=== PATIENT | female | born 1935 | race Caucasian/White ===

== ENCOUNTER 2018-02-03 18:15 | Emergency (ER) | payer MEDICARE, BC ==
[2018-02-03 18:23] VITALS: BP 154/57
--- NOTE | 2018-02-03 18:52 | EDM.PDOC ---
ED HPI GENERAL MEDICAL PROBLEM - General Chief Complaint: General Stated Complaint: BACK PAIN/constipation Time Seen by Provider: 02/03/18 18:30 Source of Information: Reports: Patient History Limitations: Reports: No Limitations - History of Present Illness INITIAL COMMENTS - FREE TEXT/NARRATIVE: patient is a 82-year-old who states that about a week ago she fell was seen by her private a practitioner x-rays obtainedno fractures was sent home on Ultram for pain control she now complains of 4 days of constipation and crampy lower abdominal pain Onset: Gradual Duration: Day(s):, Getting Worse Location: Reports: Abdomen Severity: Moderate Improves with: Reports: None Worsens with: Reports: Movement Context: Reports: Trauma (fall) Associated Symptoms: Reports: Nausea/Vomiting Bilateral Lower Back Pain Score (Numeric/FACES): 9 - Related Data Allergies Allergy/AdvReac Type Severity Reaction Status Date / Time atropine sulfate Allergy Cannot Verified 02/03/18 19:08 [From Lomotil] Remember diphenoxylate HCl Allergy Cannot Verified 02/03/18 19:08 [From Lomotil] Remember Sulfa (Sulfonamide Allergy Muscle Verified 02/03/18 19:08 Antibiotics) Aches, Muscle Stiffness Home Meds: Home Meds ALPRAZolam [Xanax] 1 mg PO TID 02/07/14 [History] DULoxetine [Cymbalta] 60 mg PO BEDTIME 02/07/14 [History] Levothyroxine 75 mcg PO QAM 02/07/14 [History] Lutein/Min/Vit C/Vit E Acetate [Ocuvite Lutein] 1 cap PO DAILY 02/07/14 [History ] Polyvinyl Alcohol/Povidone [Refresh] 1 drop EYEBOTH BID PRN 02/07/14 [History] Rosuvastatin [Crestor] 2.5 mg PO BEDTIME 02/07/14 [History] Sodium Chloride 1,000 mg PO QID 02/07/14 [History] Nitrofurantoin Monohyd/M-Cryst [Macrobid 100 mg Capsule] 100 mg PO BID #20 capsule 06/27/14 [Rx] Phenazopyridine [Pyridium] 200 mg PO TID #6 tab 06/27/14 [Rx] Social & Family History - Living Situation & Occupation Living situation: Reports: Occupation: Retired ED ROS GENERAL - Review of Systems Review Of Systems: See Below Constitutional: Reports: No Symptoms HEENT: Reports: No Symptoms Respiratory: Reports: No Symptoms Cardiovascular: Reports: No Symptoms Endocrine: Reports: No Symptoms GI/Abdominal: Reports: Abdominal Pain : Reports: No Symptoms Musculoskeletal: Reports: No Symptoms Skin: Reports: No Symptoms Neurological: Reports: No Symptoms Psychiatric: Reports: No Symptoms Hematologic/Lymphatic: Reports: No Symptoms ED EXAM, GENERAL - Physical Exam Exam: See Below Exam Limited By: No Limitations General Appearance: Alert, WD/WN, No Apparent Distress Ears: Normal External Exam, Normal Canal, Hearing Grossly Normal, Normal TMs Nose: Normal Inspection, Normal Mucosa, No Blood Throat/Mouth: Normal Inspection, Normal Lips, Normal Teeth, Normal Gums, Normal Oropharynx, Normal Voice, No Airway Compromise Head: Atraumatic, Normocephalic Neck: Normal Inspection, Supple, Non-Tender, Full Range of Motion Respiratory/Chest: No Respiratory Distress, Lungs Clear, Normal Breath Sounds, No Accessory Muscle Use, Chest Non-Tender Cardiovascular: Normal Peripheral Pulses, Regular Rate, Rhythm, No Edema, No Gallop, No JVD, No Murmur, No Rub GI/Abdominal: No Abnormal Bruit, No Mass, Pelvis Stable, Distended, Tender ( hypogastric area) (Female) Exam: Deferred Rectal (Female) Exam: Normal Rectal Tone, Other (no stool in vault) Back Exam: Normal Inspection, Full Range of Motion, NT Extremities: Normal Inspection, Normal Range of Motion, Non-Tender, Normal Capillary Refill, No Pedal Edema Neurological: Alert, Oriented, CN II-XII Intact, Normal Cognition, Normal Gait, Normal Reflexes, No Motor/Sensory Deficits Psychiatric: Normal Affect, Normal Mood Skin Exam: Warm, Dry, Intact, Normal Color, No Rash Lymphatic: No Adenopathy Course - Vital Signs Last Recorded V/S: Last Vital Signs Temp 98.7 F 02/03/18 18:16 Pulse 93 02/03/18 18:16 Resp 16 02/03/18 18:16 BP 154/57 H 02/03/18 18:16 Pulse Ox 93 L 02/03/18 18:16 - Orders/Labs/Meds Orders: Active Orders 24 hr Category Date Time Status Abdomen 1V Upright [CR] Stat Exams 02/03/18 18:28 Taken UA W/MICROSCOPIC [URIN] Stat Lab 02/03/18 18:39 Ordered Departure - Departure Time of Disposition: 20:18 Disposition: Home, Self-Care 01 Condition: Fair Clinical Impression: Ileus - Discharge Information Instructions: Ileus Referrals: Esther Urbano NP [Primary Care Provider] - Forms: ED Department Discharge Care Plan Goals: joshua has an ileus will send her home her constipation has improved she is to drink water or Gatorade stop the carbonated drinks and ambulateif things get worse patient is to become a return to the ER for evaluation treatment - My Orders Last 24 Hours: My Active Orders 02/03/18 18:28 Abdomen 1V Upright [CR] Stat 02/03/18 18:39 UA W/MICROSCOPIC [URIN] Stat - Assessment/Plan Last 24 Hours: My Active Orders 02/03/18 18:28 Abdomen 1V Upright [CR] Stat 02/03/18 18:39 UA W/MICROSCOPIC [URIN] Stat
== END 2018-02-03 20:43 | disposition home or self-care (01) ==
LOC: LL.ED 18:15
DX: K56.7 Ileus, unspecified (principal); Z88.8 Allergy status to other drugs, medicaments and biological substances; Z88.2 Allergy status to sulfonamides; Z79.899 Other long term (current) drug therapy
CPT/HCPCS: 74018; 81001; 99284

== ENCOUNTER 2018-02-08 10:59 | Inpatient (IN) | payer MEDICARE, BC ==
[2018-02-08] MEDS ORDERED: Lactated Ringers 1,000 ML IV SCH (11:30)
--- NOTE | 2018-02-08 13:33 | PCM.HP ---
H&P History of Present Illness - General Date of Service: 02/08/18 Admit Problem/Dx: Admission Diagnosis/Problem Admission Diagnosis/Problem Compression fracture Source of Information: Patient, EMS Notes Reviewed - History of Present Illness Initial Comments - Free Text/Narative: Patient presents to the clinic in distress due to pain, bent over complains of abd pain lower and low back pain. Patient complains of constipation. She fell recently in her bedroom landing on her buttock, had Xrays and MRI of L/S done which showed compression of L1. Patient has seen interventional radiology at [place] was told to call back on Sunday February 11, 2018 to see how her pain was doing. She was using tramadol at home but had stopped the medication due to constipation. She has received Toradol injections in the clinic with short term relief. last BM was this morning but loose. decreased appetite due to the pain. Patient rates pain 9/10 today. Onset of Symptoms: Reports: Sudden Duration of Symptoms: Reports: Constant Location: Reports: Abdomen, Back Quality: Reports: Sharp, Stabbing Improves with: Reports: Medication Worsens with: Reports: Cold Therapy Associated Symptoms: Reports: Weakness - Related Data Allergies/Adverse Reactions: Allergies Allergy/AdvReac Type Severity Reaction Status Date / Time atropine sulfate Allergy Cannot Verified 02/03/18 19:08 [From Lomotil] Remember diphenoxylate HCl Allergy Cannot Verified 02/03/18 19:08 [From Lomotil] Remember Sulfa (Sulfonamide Allergy Muscle Verified 02/03/18 19:08 Antibiotics) Aches, Muscle Stiffness Home Medications: Home Meds ALPRAZolam [Xanax] 1 mg PO TID@0800,1200,199902/07/14 [History] DULoxetine [Cymbalta] 60 mg PO BEDTIME 02/07/14 [History] Levothyroxine 75 mcg PO QAM 02/07/14 [History] Lutein/Min/Vit C/Vit E Acetate [Ocuvite Lutein] 1 cap PO Q12HR 02/07/14 [History ] Polyvinyl Alcohol/Povidone [Refresh] 1 drop EYEBOTH BID 02/07/14 [History] Rosuvastatin [Crestor] 2.5 mg PO BEDTIME 02/07/14 [History] Sodium Chloride 1,000 mg PO TID@0800,1200,199902/07/14 [History] Ascorbic Acid [Vitamin C] 250 mg PO MOWEFR@0800 02/03/18 [History] Cholecalciferol (Vitamin D3) [Vitamin D3] 1,000 units PO Q12HR 02/03/18 [History ] Metoprolol Tartrate 12.5 mg PO BID 02/03/18 [History] Multivitamin [Multivitamins] 1 each PO MOWETH@0800 02/03/18 [History] Pantoprazole Sodium [Protonix] 20 mg PO DAILY 02/03/18 [History] traMADol [Ultram] 50 mg PO Q4H PRN 02/04/18 [History] Acetaminophen [Tylenol Arthritis] 650 mg PO Q4H 02/08/18 [History] Calcium Carbonate/Vitamin D3 [Calcium 600 + Vit D Tablet] 1 tab PO MOWEFR@0800 02/08/18 [History] Docusate Sodium 200 mg PO DAILY 02/08/18 [History] Polyethylene Glycol 3350 [Miralax] 17 gm PO ASDIRECTED PRN 02/08/18 [History] Past Medical History Cardiovascular History: Reports: High Cholesterol, Hypertension Gastrointestinal History: Reports: GERD, Irritable Bowel Syndrome Musculoskeletal History: Reports: Osteoarthritis Neurological History: Reports: Headaches, Chronic, Migraines Endocrine/Metabolic History: Reports: Hypothyroidism (thyroid removed for cancer ) - Past Surgical History GI Surgical History: Reports: Cholecystectomy Endocrine Surgical History: Reports: Thyroidectomy Musculoskeletal Surgical History: Reports: Arthroscopic Knee Social & Family History - Tobacco Use Smoking Status *Q: Never Smoker - Caffeine Use Caffeine Use: Reports: None - Living Situation & Occupation Living situation: Reports: Occupation: Retired H&P Review of Systems - Review of Systems: Review Of Systems: See Below General: Reports: Weakness, Fatigue HEENT: Reports: No Symptoms Pulmonary: Reports: No Symptoms Cardiovascular: Reports: No Symptoms Gastrointestinal: Reports: Abdominal Pain, Constipation, Decreased Appetite Genitourinary: Reports: No Symptoms Musculoskeletal: Reports: Back Pain Skin: Reports: No Symptoms Psychiatric: Reports: Anxiety Neurological: Reports: No Symptoms Hematologic/Lymphatic: Reports: No Symptoms Immunologic: Reports: No Symptoms Exam - Exam Exam: See Below - Vital Signs Vital Signs: Last Vital Signs Temp 98.2 F 02/08/18 12:00 Pulse 90 02/08/18 12:00 Resp 16 02/08/18 12:00 BP 119/75 06/15/18 12:00 Pulse Ox 100 02/08/18 12:00 Weight: 139 lb 12.8 oz - Exam General: Alert, Oriented, Mild Distress HEENT: Conjunctiva Clear, EACs Clear, EOMI, Hearing Intact, Nares Patent, Normal Nasal Septum, Posterior Pharynx Clear, Pupils Equal, Pupils Reactive, TMs Clear (dry muscous membranes) Neck: Supple, Trachea Midline Lungs: Clear to Auscultation, Normal Respiratory Effort Cardiovascular: Regular Rate, Regular Rhythm, Normal S1, Normal S2 GI/Abdominal Exam: Normal Bowel Sounds, Soft, Non-Tender, No Organomegaly, No Distention, No Abnormal Bruit Back Exam: Normal Inspection, Full Range of Motion (tender over the upper lumbar spine) Extremities: Normal Inspection, Normal Range of Motion, Non-Tender, No Pedal Edema, Normal Capillary Refill Peripheral Pulses: 1+: Posterior Tibial (L), Posterior Tibial (R), Dorsalis Pedis (L), Dorsalis Pedis (R) Skin: Warm, Dry, Intact Neurological: Cranial Nerves Intact, Reflexes Equal Bilateral Neuro Extensive - Mental Status: Alert, Oriented x3, Normal Mood/Affect, Normal Cognition, Memory Intact Neuro Extensive - Motor, Sensory, Reflexes: CN II-XII Intact, Normal Gait, Normal Reflexes DTR: 1+: Patella (L), Patella (R), Achilles (L), Achilles (R) Psychiatric: Alert, Normal Affect, Normal Mood - Problem List (1) Compression fracture SNOMED Code(s): 675405319 ICD Code: [id number] - Status: Acute Current Visit: Yes (2) Dehydration SNOMED Code(s): 20486982 ICD Code: E86.0 - DEHYDRATION Status: Acute Current Visit: Yes (3) Constipation SNOMED Code(s): 79597821 ICD Code: K59.00 - CONSTIPATION, UNSPECIFIED Status: Acute Current Visit : Yes Qualifiers: Constipation type: unspecified constipation type Qualified Code(s): K59.00 - Constipation, unspecified (4) Anxiety SNOMED Code(s): 16394626 ICD Code: F41.9 - ANXIETY DISORDER, UNSPECIFIED Status: Acute Current Visit: Yes (5) Hypertension SNOMED Code(s): 63342437 ICD Code: I10 - ESSENTIAL (PRIMARY) HYPERTENSION Status: Acute Current Visit: Yes Qualifiers: Hypertension type: essential hypertension Qualified Code(s): I10 - Essential (primary) hypertension Problem List Initiated/Reviewed/Updated: Yes Orders Last 24hrs: Active Orders 24 hr Category Date Time Status Patient Status [ADT] Routine ADT 02/08/18 11:26 Active Intake and Output [RC] QSHIFT Care 02/08/18 11:28 Active May Shower [RC] ASDIRECTED Care 02/08/18 11:26 Active Oxygen Therapy [RC] PRN Care 02/08/18 11:26 Active Peripheral IV Care [RC] . DIRECTED Care 02/08/18 11:29 Active Up ad Eladia [RC] ASDIRECTED Care 02/08/18 11:26 Active VTE/DVT Education [RC] PER UNIT ROUTINE Care 02/08/18 11:26 Active Vital Signs [RC] Q4H Care 02/08/18 11:26 Active PT Evaluation and Treatment [CONS] Routine Cons 02/08/18 11:26 Active Regular Diet [DIET] Diet 02/08/18 Lunch Active Abdomen 2V AP Flat Upright [CR] Routine Exams 02/08/18 11:32 Taken CBC WITH AUTO DIFF [HEME] DAILY Lab 02/09/18 05:11 Ordered CBC WITH AUTO DIFF [HEME] DAILY Lab 02/10/18 05:11 Ordered CBC WITH AUTO DIFF [HEME] DAILY Lab 02/11/18 05:11 Ordered CBC WITH AUTO DIFF [HEME] DAILY Lab 02/12/18 05:11 Ordered COMPREHENSIVE METABOLIC PN,CMP [CHEM] DAILY Lab 02/09/18 05:11 Ordered COMPREHENSIVE METABOLIC PN,CMP [CHEM] DAILY Lab 02/10/18 05:11 Ordered COMPREHENSIVE METABOLIC PN,CMP [CHEM] DAILY Lab 02/11/18 05:11 Ordered COMPREHENSIVE METABOLIC PN,CMP [CHEM] DAILY Lab 02/12/18 05:11 Ordered CULTURE URINE [RM] Stat Lab 02/08/18 11:26 Ordered UA W/MICROSCOPIC [URIN] Routine Lab 02/08/18 11:26 Ordered Ketorolac [Toradol] Med 02/08/18 17:00 Active 30 mg IVPUSH Q6H Lactated Ringers [Ringers, Lactated] 1,000 ml Med 02/08/18 11:30 Active IV ASDIRECTED Sodium Chloride 0.9% [Saline Flush] Med 02/08/18 11:26 Active 10 ml FLUSH ASDIRECTED PRN Peripheral IV Insertion Adult [OM.PC] Routine Oth 02/08/18 11:26 Ordered Resuscitation Status Routine Resus Stat 02/08/18 11:26 Ordered Medication Orders Lactated Ringer's (Ringers, Lactated) 1,000 mls @ 50 mls/hr IV ASDIRECTED YAMILET Ketorolac Tromethamine (Toradol) 30 mg IVPUSH Q6H YAMILET Sodium Chloride (Saline Flush) 10 ml FLUSH ASDIRECTED PRN PRN Reason: Keep Vein Open Assessment/Plan Comment:: Patient admitted due to outpatient treatment of compression fracture. Discussed with Dr Garvin , will give scheduled IV toradol and break thru pain medication. Plan to continue with plan of care with Sree JONES on February 11, 2018. Give a dose of MOM for constipation as that has helped in the past. Patient wanting to be hospitalized in [place] for now. Recheck labs in the morning. Ordered PT for strengthening. patient and spouse verbalized understanding and agreed to plan of care. Esther Urbano,PATENT LITIGATION ASSOCIATE
[2018-02-08] MEDS ORDERED: Polyethylene Glycol 3350 Powder 17 GM Packet PO PRN (13:43)
[2018-02-08] MEDS ORDERED: Magnesium Hydroxide 400 MG/5 ML Susp 30 ML Cup PO ONE (13:44)
[2018-02-08] MEDS ORDERED: Acetaminophen 650 MG Tab.ER PO SCH (13:45)
[2018-02-08] MEDS: Ketorolac 30 MG/ML SDV IVPUSH SCH ×2 (16:23→23:18)
[2018-02-08] MEDS: Sodium Chloride 0.9% 10 ML Syringe FLUSH PRN (16:24)
[2018-02-08] MEDS: Acetaminophen 650 MG Tab.ER PO PRN (16:24)
[2018-02-08] MEDS ORDERED: ALPRAZolam 1 MG Tab ONE (17:25)
[2018-02-08] MEDS: Polyvinyl Alcohol 1.4% Ophth Soln 15 ML Bottle EYEBOTH SCH (17:27)
[2018-02-08] MEDS: Metoprolol Tartrate 25 MG Tab PO SCH (17:27)
[2018-02-08] MEDS: Lutein/Minerals/Vitamin C/Vitamin E Acetate Cap PO SCH (17:31)
[2018-02-08] MEDS: ALPRAZolam 1 MG Tab PO SCH ×2 (17:31→20:50)
[2018-02-08] MEDS: Famotidine 20 MG/2 ML SDV IVPUSH SCH (17:32)
[2018-02-08] MEDS ORDERED: Famotidine 20 MG/2 ML SDV IVPUSH SCH (18:00)
[2018-02-08] MEDS: DULoxetine 30 MG Cap PO SCH (20:49)
[2018-02-08] MEDS: Sodium Chloride 1 GM Tab PO SCH (20:50)
[2018-02-08] MEDS: Morphine 2 MG/ML Syringe IVPUSH PRN (20:50)
[2018-02-08] MEDS: Rosuvastatin 10 MG Tab PO SCH (20:50)
[2018-02-09] MEDS ORDERED: Temazepam 15 MG Cap PO PRN (00:56)
[2018-02-09] MEDS: Morphine 2 MG/ML Syringe IVPUSH PRN ×2 (01:21→07:52)
[2018-02-09] MEDS: Sodium Chloride 0.9% 10 ML Syringe FLUSH PRN ×5 (01:22→23:26)
[2018-02-09] MEDS: Ketorolac 30 MG/ML SDV IVPUSH SCH ×4 (05:52→23:25)
[2018-02-09 07:13] LABS: CHLORIDE,CL 96 mmol/L (98-107); SODIUM,NA 130 mmol/L (136-145)
[2018-02-09] MEDS: Lutein/Minerals/Vitamin C/Vitamin E Acetate Cap PO SCH ×2 (07:50→17:39)
[2018-02-09] MEDS: Metoprolol Tartrate 25 MG Tab PO SCH ×2 (07:50→17:39)
[2018-02-09] MEDS: ALPRAZolam 1 MG Tab PO SCH ×3 (07:50→20:48)
[2018-02-09] MEDS: Levothyroxine 75 MCG Tab PO SCH (07:52)
[2018-02-09] MEDS: Docusate Sodium 100 MG Cap PO SCH (07:52)
[2018-02-09] MEDS: Sodium Chloride 1 GM Tab PO SCH ×3 (07:52→20:48)
[2018-02-09] MEDS: Famotidine 20 MG/2 ML SDV IVPUSH SCH (07:54)
[2018-02-09] MEDS ORDERED: Non-Formulary Medication 1 Each (Pantoprazole Sodium [Protonix] 20 MG) PO SCH (08:00)
[2018-02-09] MEDS: Polyvinyl Alcohol 1.4% Ophth Soln 15 ML Bottle EYEBOTH SCH ×2 (08:01→17:39)
[2018-02-09] MEDS: Acetaminophen 650 MG Tab.ER PO PRN (11:44)
[2018-02-09] MEDS ORDERED: Magnesium Hydroxide 400 MG/5 ML Susp 30 ML Cup PO PRN (17:38)
[2018-02-09] MEDS: Rosuvastatin 10 MG Tab PO SCH (20:48)
[2018-02-09] MEDS: Polyethylene Glycol 3350 Powder 17 GM Packet PO SCH (20:48)
[2018-02-09] MEDS: DULoxetine 30 MG Cap PO SCH (20:48)
--- NOTE | 2018-02-09 20:55 | PCM.PN ---
- General Info Date of Service: 02/09/18 Admission Dx/Problem (Free Text): Admission Diagnosis/Problem Admission Diagnosis/Problem Compression fracture Functional Status: Reports: Pain Controlled, Ambulating - Review of Systems General: Reports: No Symptoms HEENT: Reports: No Symptoms Pulmonary: Reports: No Symptoms Cardiovascular: Reports: No Symptoms Gastrointestinal: Reports: Constipation Genitourinary: Reports: No Symptoms Musculoskeletal: Reports: Back Pain (markedly improved today) Skin: Reports: No Symptoms Neurological: Reports: No Symptoms Psychiatric: Reports: Anxiety - Patient Data Vitals - Most Recent: Last Vital Signs Temp 98.3 F 02/09/18 16:00 Pulse 60 02/09/18 17:39 Resp 16 02/09/18 16:00 BP 170/77 H 02/09/18 17:39 Pulse Ox 97 02/09/18 16:00 Weight - Most Recent: 139 lb 12.8 oz I&O - Last 24 Hours: Intake & Output 02/09/18 02/09/18 02/09/18 06:59 14:59 22:59 Intake Total 1540 1200 Balance 1540 1200 Lab Results Last 24 Hours: Laboratory Results - last 24 hr 02/09/18 02/09/18 Range/Units 06:43 06:43 WBC 6.3 (4.0-10.2) K/uL RBC 3.72 L (3.77-5.09) M/uL Hgb 11.3 L (11.7-15.5) g/dL Hct 32.3 L (34.0-46.0) % MCV 86.8 (84.0-98.0) fL MCH 30.4 (28.2-33.3) pg MCHC 35.0 (31.7-36.0) g/dL RDW 11.9 (11.2-14.1) % Plt Count 240 (150-350) K/uL Neut % (Auto) 54.8 (45.0-80.0) % Lymph % (Auto) 30.8 (10.0-50.0) % Parker % (Auto) 10.4 (2.0-14.0) % Eos % (Auto) 3.5 (0.0-5.0) % Baso % (Auto) 0.5 (0.0-2.0) % Neut # (Auto) 3.47 (1.40-7.00) K/uL Lymph # (Auto) 1.95 (0.50-3.50) K/uL Parker # (Auto) 0.66 (0.00-1.00) K/uL Eos # (Auto) 0.22 (0.00-0.50) K/uL Baso # (Auto) 0.03 (0.00-0.20) K/uL Sodium 130 L (136-145) mmol/L Potassium 3.5 (3.5-5.1) mmol/L Chloride 96 L (98-107) mmol/L Carbon Dioxide 26.0 (21.0-32.0) mmol/L BUN 10 (7-18) mg/dL Creatinine 0.68 (0.51-1.17) mg/dL Est Cr Clr Drug Dosing 58.38 mL/min Estimated GFR (MDRD) > 60 mL/min Glucose 94 (74-106) mg/dL Calcium 8.4 L (8.5-10.1) mg/dL Total Bilirubin 0.2 (0.2-1.0) mg/dL AST 23 (15-37) U/L ALT 20 (12-78) U/L Alkaline Phosphatase 83 (46-116) IU/L Total Protein 6.5 (6.4-8.2) g/dL Albumin 3.0 L (3.4-5.0) g/dL Med Orders - Current: Current Medications Acetaminophen (Tylenol Arthritis Pain) 650 mg PO Q4H PRN PRN Reason: Pain Last Admin: 02/09/18 11:44 Dose: 650 mg Alprazolam (Xanax) 1 mg PO TID@0800,1200,2000 [facility] Last Admin: 02/09/18 20:48 Dose: 1 mg Artificial Tears (Liquitears 1.4% Ophth Soln) 0 ml EYEBOTH BID [facility] Last Admin: 02/09/18 17:39 Dose: 1 drop Docusate Sodium (Colace) 200 mg PO DAILY [facility] Last Admin: 02/09/18 07:52 Dose: 200 mg Duloxetine HCl (Cymbalta) 60 mg PO BEDTIME [facility] Last Admin: 02/09/18 20:48 Dose: 60 mg Famotidine (Pepcid) 20 mg IVPUSH DAILY [facility] Last Admin: 02/09/18 07:54 Dose: 20 mg Ketorolac Tromethamine (Toradol) 15 mg IVPUSH Q6H [facility] Last Admin: 02/09/18 17:40 Dose: 15 mg Levothyroxine Sodium (Levothyroxine) 75 mcg PO ACBRK [facility] Last Admin: 02/09/18 07:52 Dose: 75 mcg Magnesium Hydroxide (Milk Of Magnesia) 30 ml PO DAILY PRN PRN Reason: Constipation Last Admin: 02/09/18 17:48 Dose: 30 ml Metoprolol Tartrate (Lopressor) 12.5 mg PO BID [facility] Last Admin: 02/09/18 17:39 Dose: 12.5 mg Morphine Sulfate (Morphine) 1 mg IVPUSH Q4H PRN PRN Reason: Breakthrough Pain Last Admin: 02/09/18 07:52 Dose: 1 mg Multivitamins/Minerals/Vitamin C (Tab-A-Lorena) 1 tab PO MoWeTh@0800 [facility] Polyethylene Glycol (Miralax) 17 gm PO BID [facility] Last Admin: 02/09/18 20:48 Dose: 17 gm Rosuvastatin Calcium (Crestor) 2.5 mg PO BEDTIME [facility] Last Admin: 02/09/18 20:48 Dose: 2.5 mg Sodium Chloride (Saline Flush) 10 ml FLUSH ASDIRECTED PRN PRN Reason: Keep Vein Open Last Admin: 02/09/18 17:42 Dose: 10 ml Sodium Chloride (Sodium Chloride) 1 gm PO TID@0800,1200,2000 [facility] Last Admin: 02/09/18 20:48 Dose: 1 gm Temazepam (Restoril) 15 mg PO BEDTIME PRN PRN Reason: Insomnia Last Admin: 02/09/18 01:17 Dose: 15 mg Tramadol HCl (Ultram) 50 mg PO Q4H PRN PRN Reason: Pain Vit C/Vit E/Zinc/Copper/Lutein (Ocuvite Lutein) 1 each PO BID [facility] Last Admin: 02/09/18 17:39 Dose: 1 each Discontinued Medications Acetaminophen (Tylenol Arthritis Pain) 650 mg PO Q4H [facility] Last Admin: 02/08/18 16:17 Dose: Not Given Alprazolam (Xanax) Confirm Administered Dose 1 mg .ROUTE .STK-MED ONE Stop: 02/08/18 17:26 Last Admin: 02/08/18 18:20 Dose: Not Given Famotidine (Pepcid) 20 mg IVPUSH BID [facility] Lactated Ringer's (Ringers, Lactated) 1,000 mls @ 50 mls/hr IV ASDIRECTED [facility] Ketorolac Tromethamine (Toradol) 30 mg IVPUSH Q6H [facility] Last Admin: 02/09/18 05:52 Dose: 30 mg Magnesium Hydroxide (Milk Of Magnesia) 30 ml PO ONETIME ONE Stop: 02/08/18 13:45 Last Admin: 02/08/18 14:14 Dose: Not Given Non-Formulary Medication (Pantoprazole Sodium [Protonix]) 20 mg PO DAILY [facility] Polyethylene Glycol (Miralax) 17 gm PO DAILY PRN PRN Reason: Constipation Last Admin: 02/09/18 07:53 Dose: 17 gm - Exam General: Alert, Cooperative, No Acute Distress HEENT: Mucous Membr. Moist/[place] Neck: Trachea Midline, No JVD Lungs: Clear to Auscultation, Normal Respiratory Effort Cardiovascular: Regular Rate, Regular Rhythm GI/Abdominal Exam: Soft, Non-Tender, No Distention (Female) Exam: Deferred Back Exam: Decreased Range of Motion, Vertebral Tenderness Extremities: Normal Inspection, Non-Tender, No Pedal Edema Skin: Warm, Dry, Intact Neurological: No New Focal Deficit Psy/Mental Status: Alert, Anxious - Problem List & Annotations (1) Anxiety SNOMED Code(s): 76635097 Code(s): F41.9 - ANXIETY DISORDER, UNSPECIFIED Status: Acute Current Visit: Yes (2) Compression fracture SNOMED Code(s): 025715783 Code(s): URC2577 - Status: Acute Current Visit: Yes (3) Constipation SNOMED Code(s): 46280262 Code(s): K59.00 - CONSTIPATION, UNSPECIFIED Status: Acute Current Visit: Yes Qualifiers: Constipation type: unspecified constipation type Qualified Code(s): K59.00 - Constipation, unspecified (4) Hypertension SNOMED Code(s): 43124058 Code(s): I10 - ESSENTIAL (PRIMARY) HYPERTENSION Status: Acute Current Visit: Yes Qualifiers: Hypertension type: essential hypertension Qualified Code(s): I10 - Essential (primary) hypertension (5) Ileus SNOMED Code(s): 011179702 Code(s): K56.7 - ILEUS, UNSPECIFIED Status: Acute Current Visit: No - Problem List Review Problem List Initiated/Reviewed/Updated: Yes - My Orders Last 24 Hours: My Active Orders 02/09/18 00:56 Temazepam [Restoril] 15 mg PO BEDTIME PRN 02/09/18 17:38 Magnesium Hydroxide [Milk of Magnesia] 30 ml PO DAILY PRN 02/09/18 20:00 Polyethylene Glycol 3350 [MiraLAX] 17 gm PO BID - Plan Plan:: Patient admitted due to outpatient treatment of compression fracture. Discussed with Dr Garvin , will give scheduled IV toradol and break thru pain medication. Plan to continue with plan of care with [facility] on February 11, 2018. Give a dose of MOM for constipation as that has helped in the past. Patient wanting to be hospitalized in [place] for now. Recheck labs in the morning. Ordered PT for strengthening. patient and spouse verbalized understanding and agreed to plan of care. Esther Urbano,[employer] REPAIRER 02/09/18 Virgie Sharp MD Pain is markedly improved today. Still with constipation. Anxious. Discussed plan of care with her.
[2018-02-10] MEDS: Ketorolac 30 MG/ML SDV IVPUSH SCH ×3 (06:09→17:07)
[2018-02-10] MEDS: Sodium Chloride 0.9% 10 ML Syringe FLUSH PRN ×3 (06:11→10:32)
[2018-02-10 07:19] LABS: CHLORIDE,CL 95 mmol/L (98-107); SODIUM,NA 129 mmol/L (136-145)
[2018-02-10] MEDS: Polyethylene Glycol 3350 Powder 17 GM Packet PO SCH ×2 (07:43→17:09)
[2018-02-10] MEDS: Levothyroxine 75 MCG Tab PO SCH (07:44)
[2018-02-10] MEDS: Polyvinyl Alcohol 1.4% Ophth Soln 15 ML Bottle EYEBOTH SCH ×2 (07:44→17:09)
[2018-02-10] MEDS: Lutein/Minerals/Vitamin C/Vitamin E Acetate Cap PO SCH ×2 (07:45→17:08)
[2018-02-10] MEDS: Docusate Sodium 100 MG Cap PO SCH (07:45)
[2018-02-10] MEDS: Metoprolol Tartrate 25 MG Tab PO SCH ×2 (07:45→17:08)
[2018-02-10] MEDS: Sodium Chloride 1 GM Tab PO SCH ×3 (07:45→20:34)
[2018-02-10] MEDS: Famotidine 20 MG/2 ML SDV IVPUSH SCH (07:46)
[2018-02-10] MEDS: ALPRAZolam 1 MG Tab PO SCH ×3 (07:46→20:34)
[2018-02-10] MEDS: traMADol 50 MG Tab PO PRN ×2 (10:31→14:51)
[2018-02-10] MEDS: ceFAZolin 1 GM Vial IVPUSH SCH ×2 (11:45→17:07)
[2018-02-10] MEDS: Acetaminophen 650 MG Tab.ER PO PRN (14:51)
--- NOTE | 2018-02-10 16:44 | PCM.PN ---
- General Info Date of Service: 02/10/18 Admission Dx/Problem (Free Text): Admission Diagnosis/Problem Admission Diagnosis/Problem Compression fracture Functional Status: Reports: Ambulating, Other (says pain is 10/10 but non- verbal scale she rates 6/10) - Review of Systems General: Reports: No Symptoms HEENT: Reports: No Symptoms Pulmonary: Reports: No Symptoms Cardiovascular: Reports: No Symptoms Gastrointestinal: Reports: Constipation (but had 3 bowel movements today) Genitourinary: Reports: No Symptoms Musculoskeletal: Reports: Back Pain Skin: Reports: No Symptoms Neurological: Reports: No Symptoms Psychiatric: Reports: Anxiety - Patient Data Vitals - Most Recent: Last Vital Signs Temp 96.5 F 02/10/18 16:00 Pulse 98 02/10/18 16:00 Resp 20 02/10/18 16:00 BP 170/74 H 02/10/18 16:00 Pulse Ox 98 02/10/18 16:00 Weight - Most Recent: 139 lb 12.8 oz I&O - Last 24 Hours: Intake & Output 02/10/18 02/10/18 02/10/18 06:59 14:59 22:59 Intake Total 240 2500 Balance 240 2500 Lab Results Last 24 Hours: Laboratory Results - last 24 hr 02/10/18 02/10/18 Range/Units 06:50 06:50 WBC 6.5 (4.0-10.2) K/uL RBC 3.94 (3.77-5.09) M/uL Hgb 12.1 (11.7-15.5) g/dL Hct 34.2 (34.0-46.0) % MCV 86.8 (84.0-98.0) fL MCH 30.7 (28.2-33.3) pg MCHC 35.4 (31.7-36.0) g/dL RDW 12.0 (11.2-14.1) % Plt Count 244 (150-350) K/uL Neut % (Auto) 54.1 (45.0-80.0) % Lymph % (Auto) 32.4 (10.0-50.0) % [place] % (Auto) 8.9 (2.0-14.0) % Eos % (Auto) 4.0 (0.0-5.0) % Baso % (Auto) 0.6 (0.0-2.0) % Neut # (Auto) 3.53 (1.40-7.00) K/uL Lymph # (Auto) 2.11 (0.50-3.50) K/uL [place] # (Auto) 0.58 (0.00-1.00) K/uL Eos # (Auto) 0.26 (0.00-0.50) K/uL Baso # (Auto) 0.04 (0.00-0.20) K/uL Sodium 129 L (136-145) mmol/L Potassium 4.0 (3.5-5.1) mmol/L Chloride 95 L (98-107) mmol/L Carbon Dioxide 25.6 (21.0-32.0) mmol/L BUN 12 (7-18) mg/dL Creatinine 0.66 (0.51-1.17) mg/dL Est Cr Clr Drug Dosing 60.15 mL/min Estimated GFR (MDRD) > 60 mL/min Glucose 101 (74-106) mg/dL Calcium 8.7 (8.5-10.1) mg/dL Total Bilirubin 0.4 (0.2-1.0) mg/dL AST 27 (15-37) U/L ALT 22 (12-78) U/L Alkaline Phosphatase 87 (46-116) IU/L Total Protein 7.0 (6.4-8.2) g/dL Albumin 3.3 L (3.4-5.0) g/dL Wilbert Results Last 24 Hours: Microbiology 02/08/18 11:26 Urine Culture - Final Urine, Bladder Escherichia Coli Med Orders - Current: Current Medications Acetaminophen (Tylenol Arthritis Pain) 650 mg PO Q4H PRN PRN Reason: Pain Last Admin: 02/10/18 14:51 Dose: 650 mg Alprazolam (Xanax) 1 mg PO TID@0800,1200,2000 [facility] Last Admin: 02/10/18 11:46 Dose: 1 mg Artificial Tears (Liquitears 1.4% Ophth Soln) 0 ml EYEBOTH BID [facility] Last Admin: 02/10/18 07:44 Dose: 1 drop Cefazolin Sodium (Ancef) 1 gm IVPUSH Q8HR [facility] Last Admin: 02/10/18 11:45 Dose: 1 gm Docusate Sodium (Colace) 200 mg PO DAILY [facility] Last Admin: 02/10/18 07:45 Dose: 200 mg Famotidine (Pepcid) 20 mg IVPUSH DAILY [facility] Last Admin: 02/10/18 07:46 Dose: 20 mg Ketorolac Tromethamine (Toradol) 15 mg IVPUSH Q6H [facility] Last Admin: 02/10/18 10:30 Dose: 15 mg Levothyroxine Sodium (Levothyroxine) 75 mcg PO ACBRK [facility] Last Admin: 02/10/18 07:44 Dose: 75 mcg Magnesium Hydroxide (Milk Of Magnesia) 30 ml PO DAILY PRN PRN Reason: Constipation Last Admin: 02/09/18 17:48 Dose: 30 ml Metoprolol Tartrate (Lopressor) 12.5 mg PO BID [facility] Last Admin: 02/10/18 07:45 Dose: 12.5 mg Mirtazapine (Remeron) 30 mg PO BEDTIME [facility] Morphine Sulfate (Morphine) 1 mg IVPUSH Q4H PRN PRN Reason: Breakthrough Pain Last Admin: 02/09/18 07:52 Dose: 1 mg Multivitamins/Minerals/Vitamin C (Tab-A-Lorena) 1 tab PO MoWeTh@0800 [facility] Polyethylene Glycol (Miralax) 17 gm PO BID [facility] Last Admin: 02/10/18 07:43 Dose: 17 gm Rosuvastatin Calcium (Crestor) 2.5 mg PO BEDTIME [facility] Last Admin: 02/09/18 20:48 Dose: 2.5 mg Sodium Chloride (Saline Flush) 10 ml FLUSH ASDIRECTED PRN PRN Reason: Keep Vein Open Last Admin: 02/10/18 10:32 Dose: 10 ml Sodium Chloride (Sodium Chloride) 1 gm PO TID@0800,1200,2000 [facility] Last Admin: 02/10/18 11:46 Dose: 1 gm Sodium Chloride (Saline Flush) 10 ml FLUSH Q12HR [facility] Temazepam (Restoril) 15 mg PO BEDTIME PRN PRN Reason: Insomnia Last Admin: 02/09/18 01:17 Dose: 15 mg Tramadol HCl (Ultram) 50 mg PO Q4H PRN PRN Reason: Pain Last Admin: 02/10/18 14:51 Dose: 50 mg Vit C/Vit E/Zinc/Copper/Lutein (Ocuvite Lutein) 1 each PO BID [facility] Last Admin: 02/10/18 07:45 Dose: 1 each Discontinued Medications Acetaminophen (Tylenol Arthritis Pain) 650 mg PO Q4H [facility] Last Admin: 02/08/18 16:17 Dose: Not Given Alprazolam (Xanax) Confirm Administered Dose 1 mg .ROUTE .STK-MED ONE Stop: 02/08/18 17:26 Last Admin: 02/08/18 18:20 Dose: Not Given Duloxetine HCl (Cymbalta) 60 mg PO BEDTIME [facility] Last Admin: 02/09/18 20:48 Dose: 60 mg Famotidine (Pepcid) 20 mg IVPUSH BID [facility] Lactated Ringer's (Ringers, Lactated) 1,000 mls @ 50 mls/hr IV ASDIRECTED [facility] Ketorolac Tromethamine (Toradol) 30 mg IVPUSH Q6H [facility] Last Admin: 02/09/18 05:52 Dose: 30 mg Magnesium Hydroxide (Milk Of Magnesia) 30 ml PO ONETIME ONE Stop: 02/08/18 13:45 Last Admin: 02/08/18 14:14 Dose: Not Given Non-Formulary Medication (Pantoprazole Sodium [Protonix]) 20 mg PO DAILY [facility] Polyethylene Glycol (Miralax) 17 gm PO DAILY PRN PRN Reason: Constipation Last Admin: 02/09/18 07:53 Dose: 17 gm - Exam General: Alert, Cooperative, No Acute Distress HEENT: Mucous Membr. Moist/[place] Neck: Trachea Midline, No JVD Lungs: Clear to Auscultation, Normal Respiratory Effort Cardiovascular: Regular Rate, Regular Rhythm GI/Abdominal Exam: Normal Bowel Sounds, Soft, Non-Tender, No Distention (Female) Exam: Deferred Back Exam: Paraspinal Tenderness, Other (tenderness is over left SI notch. No direct lumbar spine tenderness) Extremities: Normal Inspection, Non-Tender, No Pedal Edema Skin: Warm, Dry, Intact Neurological: No New Focal Deficit Psy/Mental Status: Alert, Anxious - Problem List & Annotations (1) Anxiety SNOMED Code(s): 75723407 Code(s): F41.9 - ANXIETY DISORDER, UNSPECIFIED Status: Acute Current Visit: Yes (2) Compression fracture SNOMED Code(s): 618982953 Code(s): XRN5676 - Status: Acute Current Visit: Yes (3) Constipation SNOMED Code(s): 38876215 Code(s): K59.00 - CONSTIPATION, UNSPECIFIED Status: Acute Current Visit: Yes Qualifiers: Constipation type: unspecified constipation type Qualified Code(s): K59.00 - Constipation, unspecified (4) Hypertension SNOMED Code(s): 54634060 Code(s): I10 - ESSENTIAL (PRIMARY) HYPERTENSION Status: Acute Current Visit: Yes Qualifiers: Hypertension type: essential hypertension Qualified Code(s): I10 - Essential (primary) hypertension (5) Ileus SNOMED Code(s): 522926540 Code(s): K56.7 - ILEUS, UNSPECIFIED Status: Acute Current Visit: No (6) Sacrocoxalgia of left side of sacrum SNOMED Code(s): 3175779 Code(s): M53.3 - SACROCOCCYGEAL DISORDERS, NOT ELSEWHERE CLASSIFIED Status : Acute Priority: High Current Visit: Yes - Problem List Review Problem List Initiated/Reviewed/Updated: Yes - My Orders Last 24 Hours: My Active Orders 02/09/18 17:38 Magnesium Hydroxide [Milk of Magnesia] 30 ml PO DAILY PRN 02/09/18 20:00 Polyethylene Glycol 3350 [MiraLAX] 17 gm PO BID 02/10/18 10:02 SODIUM, URINE RAND/24HR Routine 02/10/18 10:17 MISC TEST Routine 02/10/18 12:00 ceFAZolin [Ancef] 1 gm IVPUSH Q8HR 02/10/18 20:00 Mirtazapine [Remeron] 30 mg PO BEDTIME Sodium Chloride 0.9% [Saline Flush] 10 ml FLUSH Q12HR 02/11/18 05:11 LIPID PANEL [CHEM] Routine OSMOLALITY - SERUM [REF] Routine OSMOLALITY - URINE Routine - Plan Plan:: Patient admitted due to outpatient treatment of compression fracture. Discussed with Dr Garvin , will give scheduled IV toradol and break thru pain medication. Plan to continue with plan of care with Sree JONES on February 11, 2018. Give a dose of MOM for constipation as that has helped in the past. Patient wanting to be hospitalized in [place] for now. Recheck labs in the morning. Ordered PT for strengthening. patient and spouse verbalized understanding and agreed to plan of care. Esther Urbano,REHANA 02/09/18 Virgie Sharp MD Pain is markedly improved today. Still with constipation. Anxious. Discussed plan of care with her. 02/10/18 Virgie Sharp MD Now she rates pain 10/10 but non-verbal screen 6/10. With further discussion and exam the maximum pain is left SI notch. No direct L1 tenderness to palpation. Will continue IV toradol and PT.
[2018-02-10] MEDS: Rosuvastatin 10 MG Tab PO SCH (20:32)
[2018-02-10] MEDS: Mirtazapine 30 MG Tab PO SCH (20:34)
[2018-02-10] MEDS: Sodium Chloride 0.9% 10 ML Syringe FLUSH SCH (20:34)
[2018-02-11] MEDS: Sodium Chloride 0.9% 10 ML Syringe FLUSH PRN ×6 (00:24→23:43)
[2018-02-11] MEDS: Ketorolac 30 MG/ML SDV IVPUSH SCH ×5 (00:25→23:38)
[2018-02-11] MEDS: ceFAZolin 1 GM Vial IVPUSH SCH ×4 (00:25→23:38)
[2018-02-11] MEDS ORDERED: Multivitamin Tab PO SCH (08:00)
[2018-02-11 08:06] LABS: CHLORIDE,CL 99 mmol/L (98-107); SODIUM,NA 132 mmol/L (136-145)
[2018-02-11] MEDS: Polyethylene Glycol 3350 Powder 17 GM Packet PO SCH ×2 (08:23→18:18)
[2018-02-11] MEDS: Levothyroxine 75 MCG Tab PO SCH (08:30)
[2018-02-11] MEDS: Lutein/Minerals/Vitamin C/Vitamin E Acetate Cap PO SCH ×2 (08:30→18:17)
[2018-02-11] MEDS: Sodium Chloride 1 GM Tab PO SCH ×3 (08:31→19:43)
[2018-02-11] MEDS: Docusate Sodium 100 MG Cap PO SCH (08:31)
[2018-02-11] MEDS: ALPRAZolam 1 MG Tab PO SCH ×3 (08:32→19:46)
[2018-02-11] MEDS: Morphine 2 MG/ML Syringe IVPUSH PRN (08:32)
[2018-02-11] MEDS: Famotidine 20 MG/2 ML SDV IVPUSH SCH (08:32)
[2018-02-11] MEDS: Polyvinyl Alcohol 1.4% Ophth Soln 15 ML Bottle EYEBOTH SCH ×2 (08:33→18:31)
[2018-02-11] MEDS: Sodium Chloride 0.9% 10 ML Syringe FLUSH SCH ×2 (08:34→19:47)
[2018-02-11] MEDS: Metoprolol Tartrate 25 MG Tab PO SCH (08:35)
[2018-02-11] MEDS: Acetaminophen 650 MG Tab.ER PO PRN ×2 (10:31→16:01)
[2018-02-11] MEDS: traMADol 50 MG Tab PO PRN (10:33)
--- NOTE | 2018-02-11 14:48 | PCM.PN ---
- General Info Date of Service: 02/11/18 Admission Dx/Problem (Free Text): Admission Diagnosis/Problem Admission Diagnosis/Problem Compression fracture Functional Status: Reports: Pain Controlled (improving but still present) - Review of Systems General: Reports: No Symptoms HEENT: Reports: No Symptoms Pulmonary: Reports: No Symptoms Cardiovascular: Reports: No Symptoms Gastrointestinal: Reports: Constipation, Diarrhea Genitourinary: Reports: No Symptoms Musculoskeletal: Reports: Back Pain (moving around, not in same spot) Skin: Reports: No Symptoms Neurological: Reports: No Symptoms Psychiatric: Reports: Depression, Anxiety - Patient Data Vitals - Most Recent: Last Vital Signs Temp 98.1 F 02/11/18 08:00 Pulse 62 02/11/18 08:35 Resp 18 02/11/18 08:00 BP 192/64 H 02/11/18 08:35 Pulse Ox 96 02/11/18 08:00 Weight - Most Recent: 139 lb 12.792 oz I&O - Last 24 Hours: Intake & Output 02/10/18 02/11/18 02/11/18 22:59 06:59 14:59 Intake Total 300 250 Balance 300 250 Lab Results Last 24 Hours: Laboratory Results - last 24 hr 02/11/18 02/11/18 Range/Units 06:35 06:35 WBC 6.3 (4.0-10.2) K/uL RBC 3.57 L (3.77-5.09) M/uL Hgb 11.1 L (11.7-15.5) g/dL Hct 31.4 L (34.0-46.0) % MCV 88.0 (84.0-98.0) fL MCH 31.1 (28.2-33.3) pg MCHC 35.4 (31.7-36.0) g/dL RDW 12.1 (11.2-14.1) % Plt Count 234 (150-350) K/uL Neut % (Auto) 54.6 (45.0-80.0) % Lymph % (Auto) 29.9 (10.0-50.0) % [place] % (Auto) 10.4 (2.0-14.0) % Eos % (Auto) 4.6 (0.0-5.0) % Baso % (Auto) 0.5 (0.0-2.0) % Neut # (Auto) 3.43 (1.40-7.00) K/uL Lymph # (Auto) 1.88 (0.50-3.50) K/uL [place] # (Auto) 0.65 (0.00-1.00) K/uL Eos # (Auto) 0.29 (0.00-0.50) K/uL Baso # (Auto) 0.03 (0.00-0.20) K/uL Sodium 132 L (136-145) mmol/L Potassium 3.9 (3.5-5.1) mmol/L Chloride 99 (98-107) mmol/L Carbon Dioxide 25.3 (21.0-32.0) mmol/L BUN 11 (7-18) mg/dL Creatinine 0.61 (0.51-1.17) mg/dL Est Cr Clr Drug Dosing 64.98 mL/min Estimated GFR (MDRD) > 60 mL/min Glucose 96 (74-106) mg/dL Calcium 8.4 L (8.5-10.1) mg/dL Total Bilirubin 0.2 (0.2-1.0) mg/dL AST 23 (15-37) U/L ALT 21 (12-78) U/L Alkaline Phosphatase 80 (46-116) IU/L Total Protein 6.3 L (6.4-8.2) g/dL Albumin 2.9 L (3.4-5.0) g/dL Triglycerides 105 (30-150) mg/dL Cholesterol 114 (100-200) mg/dL LDL Cholesterol, Calc 46 (0-100) mg/dL HDL Cholesterol 47 (40-60) mg/dL Med Orders - Current: Current Medications Acetaminophen (Tylenol Arthritis Pain) 650 mg PO Q4H PRN PRN Reason: Pain Last Admin: 02/11/18 10:31 Dose: 650 mg Alprazolam (Xanax) 1 mg PO TID@0800,1200,2000 [facility] Last Admin: 02/11/18 11:27 Dose: 1 mg Amlodipine Besylate (Norvasc) 5 mg PO DAILY@1800 [facility] Artificial Tears (Liquitears 1.4% Ophth Soln) 0 ml EYEBOTH BID [facility] Last Admin: 02/11/18 08:33 Dose: 1 drop Cefazolin Sodium (Ancef) 1 gm IVPUSH Q8HR [facility] Last Admin: 02/11/18 08:32 Dose: 1 gm Docusate Sodium (Colace) 200 mg PO DAILY [facility] Last Admin: 02/11/18 08:31 Dose: 200 mg Famotidine (Pepcid) 20 mg IVPUSH DAILY [facility] Last Admin: 02/11/18 08:32 Dose: 20 mg Ketorolac Tromethamine (Toradol) 15 mg IVPUSH Q6H [facility] Last Admin: 02/11/18 11:27 Dose: 15 mg Labetalol HCl (Normodyne) 100 mg PO Q12HR [facility] Levothyroxine Sodium (Levothyroxine) 75 mcg PO ACBRK [facility] Last Admin: 02/11/18 08:30 Dose: 75 mcg Magnesium Hydroxide (Milk Of Magnesia) 30 ml PO DAILY PRN PRN Reason: Constipation Last Admin: 02/09/18 17:48 Dose: 30 ml Mirtazapine (Remeron) 30 mg PO BEDTIME [facility] Last Admin: 02/10/18 20:34 Dose: 30 mg Morphine Sulfate (Morphine) 1 mg IVPUSH Q4H PRN PRN Reason: Breakthrough Pain Last Admin: 02/11/18 08:32 Dose: 1 mg Multivitamins/Minerals/Vitamin C (Tab-A-Lorena) 1 tab PO MoWeTh@0800 [facility] Last Admin: 02/11/18 08:30 Dose: 1 tab Polyethylene Glycol (Miralax) 17 gm PO BID [facility] Last Admin: 02/11/18 08:23 Dose: 17 gm Rosuvastatin Calcium (Crestor) 2.5 mg PO BEDTIME [facility] Last Admin: 02/10/18 20:32 Dose: 2.5 mg Sodium Chloride (Saline Flush) 10 ml FLUSH ASDIRECTED PRN PRN Reason: Keep Vein Open Last Admin: 02/11/18 06:00 Dose: 10 ml Sodium Chloride (Sodium Chloride) 1 gm PO TID@0800,1200,2000 [facility] Last Admin: 02/11/18 11:27 Dose: 1 gm Sodium Chloride (Saline Flush) 10 ml FLUSH Q12HR [facility] Last Admin: 02/11/18 08:34 Dose: 10 ml Temazepam (Restoril) 15 mg PO BEDTIME PRN PRN Reason: Insomnia Last Admin: 02/09/18 01:17 Dose: 15 mg Tramadol HCl (Ultram) 50 mg PO Q4H PRN PRN Reason: Pain Last Admin: 02/11/18 10:33 Dose: 50 mg Vit C/Vit E/Zinc/Copper/Lutein (Ocuvite Lutein) 1 each PO BID [facility] Last Admin: 02/11/18 08:30 Dose: 1 each Discontinued Medications Acetaminophen (Tylenol Arthritis Pain) 650 mg PO Q4H [facility] Last Admin: 02/08/18 16:17 Dose: Not Given Alprazolam (Xanax) Confirm Administered Dose 1 mg .ROUTE .STK-MED ONE Stop: 02/08/18 17:26 Last Admin: 02/08/18 18:20 Dose: Not Given Duloxetine HCl (Cymbalta) 60 mg PO BEDTIME [facility] Last Admin: 02/09/18 20:48 Dose: 60 mg Famotidine (Pepcid) 20 mg IVPUSH BID [facility] Lactated Ringer's (Ringers, Lactated) 1,000 mls @ 50 mls/hr IV ASDIRECTED [facility] Ketorolac Tromethamine (Toradol) 30 mg IVPUSH Q6H [facility] Last Admin: 02/09/18 05:52 Dose: 30 mg Magnesium Hydroxide (Milk Of Magnesia) 30 ml PO ONETIME ONE Stop: 02/08/18 13:45 Last Admin: 02/08/18 14:14 Dose: Not Given Metoprolol Tartrate (Lopressor) 12.5 mg PO BID [facility] Last Admin: 02/11/18 08:35 Dose: 12.5 mg Non-Formulary Medication (Pantoprazole Sodium [Protonix]) 20 mg PO DAILY [facility] Polyethylene Glycol (Miralax) 17 gm PO DAILY PRN PRN Reason: Constipation Last Admin: 02/09/18 07:53 Dose: 17 gm - Exam General: Alert, Cooperative, No Acute Distress HEENT: Mucous Membr. Moist/[place] Neck: Trachea Midline, No JVD Lungs: Clear to Auscultation, Normal Respiratory Effort Cardiovascular: Regular Rate, Regular Rhythm GI/Abdominal Exam: Soft, Non-Tender, No Distention (Female) Exam: Deferred Back Exam: Paraspinal Tenderness ([place]), Vertebral Tenderness (mild over L1, and L5. tender over left SI notch), Other (kyphosis) Extremities: Normal Inspection, Non-Tender, No Pedal Edema Skin: Warm, Dry, Intact Neurological: No New Focal Deficit Psy/Mental Status: Alert, Anxious, Depressed - Problem List & Annotations (1) Anxiety SNOMED Code(s): 77960034 Code(s): F41.9 - ANXIETY DISORDER, UNSPECIFIED Status: Acute Current Visit: Yes (2) Compression fracture SNOMED Code(s): 943566834 Code(s): NIO4054 - Status: Acute Current Visit: Yes (3) Constipation SNOMED Code(s): 66857294 Code(s): K59.00 - CONSTIPATION, UNSPECIFIED Status: Acute Current Visit: Yes Qualifiers: Constipation type: unspecified constipation type Qualified Code(s): K59.00 - Constipation, unspecified (4) Hypertension SNOMED Code(s): 19390893 Code(s): I10 - ESSENTIAL (PRIMARY) HYPERTENSION Status: Acute Current Visit: Yes Qualifiers: Hypertension type: essential hypertension Qualified Code(s): I10 - Essential (primary) hypertension (5) Ileus SNOMED Code(s): 522248638 Code(s): K56.7 - ILEUS, UNSPECIFIED Status: Acute Current Visit: No (6) Sacrocoxalgia of left side of sacrum SNOMED Code(s): 2305206 Code(s): M53.3 - SACROCOCCYGEAL DISORDERS, NOT ELSEWHERE CLASSIFIED Status : Acute Priority: High Current Visit: Yes - Problem List Review Problem List Initiated/Reviewed/Updated: Yes - My Orders Last 24 Hours: My Active Orders 02/10/18 20:00 Mirtazapine [Remeron] 30 mg PO BEDTIME Sodium Chloride 0.9% [Saline Flush] 10 ml FLUSH Q12HR 02/11/18 05:11 OSMOLALITY - URINE Routine 02/11/18 06:35 ACTH, PLASMA [REF] Routine OSMOLALITY - SERUM [REF] Routine 02/11/18 18:00 amLODIPine [Norvasc] 5 mg PO DAILY@1800 02/11/18 20:00 Labetalol [Normodyne] 100 mg PO Q12HR - Plan Plan:: Patient admitted due to outpatient treatment of compression fracture. Discussed with Dr Garvin , will give scheduled IV toradol and break thru pain medication. Plan to continue with plan of care with Sree JONES on February 11, 2018. Give a dose of MOM for constipation as that has helped in the past. Patient wanting to be hospitalized in [place] for now. Recheck labs in the morning. Ordered PT for strengthening. patient and spouse verbalized understanding and agreed to plan of care. Esther Urbano,PROGRAM FACILITATOR 02/09/18 Virgie Sharp MD Pain is markedly improved today. Still with constipation. Anxious. Discussed plan of care with her. 02/10/18 Virgie Sharp MD Now she rates pain 10/10 but non-verbal screen 6/10. With further discussion and exam the maximum pain is left SI notch. No direct L1 tenderness to palpation. Will continue IV toradol and PT. 02/11/18 Virgie Sharp MD Pain in lower back decreases and then increases. Pain is moving around. Pain mild over L1 and over L5 and left SI notch and paralumber muscles. Blood pressure elevated. Adjust medication. Continue IV toradol and PT.
[2018-02-11] MEDS ORDERED: amLODIPine 5 MG Tab PO SCH (18:00)
[2018-02-11] MEDS: Rosuvastatin 10 MG Tab PO SCH (19:44)
[2018-02-11] MEDS: Mirtazapine 30 MG Tab PO SCH (19:46)
[2018-02-11] MEDS: Labetalol 100 MG Tab PO SCH (20:09)
[2018-02-12] MEDS: Ketorolac 30 MG/ML SDV IVPUSH SCH ×3 (05:55→16:33)
[2018-02-12] MEDS: Sodium Chloride 0.9% 10 ML Syringe FLUSH PRN ×3 (05:56→10:09)
[2018-02-12 07:48] LABS: CHLORIDE,CL 100 mmol/L (98-107); SODIUM,NA 135 mmol/L (136-145)
[2018-02-12] MEDS: Sodium Chloride 0.9% 10 ML Syringe FLUSH SCH (08:47)
[2018-02-12] MEDS: Sodium Chloride 1 GM Tab PO SCH ×2 (08:48→12:23)
[2018-02-12] MEDS: Docusate Sodium 100 MG Cap PO SCH (08:48)
[2018-02-12] MEDS: ALPRAZolam 1 MG Tab PO SCH ×2 (08:48→12:23)
[2018-02-12] MEDS: Polyethylene Glycol 3350 Powder 17 GM Packet PO SCH (08:48)
[2018-02-12] MEDS: Levothyroxine 75 MCG Tab PO SCH (08:48)
[2018-02-12] MEDS: Lutein/Minerals/Vitamin C/Vitamin E Acetate Cap PO SCH (08:48)
[2018-02-12] MEDS: ceFAZolin 1 GM Vial IVPUSH SCH ×2 (08:48→16:27)
[2018-02-12] MEDS: Labetalol 100 MG Tab PO SCH (08:48)
[2018-02-12] MEDS: Famotidine 20 MG/2 ML SDV IVPUSH SCH (08:49)
[2018-02-12] MEDS: Acetaminophen 650 MG Tab.ER PO PRN (08:55)
[2018-02-12] MEDS: Polyvinyl Alcohol 1.4% Ophth Soln 15 ML Bottle EYEBOTH SCH (08:56)
[2018-02-12] MEDS: traMADol 50 MG Tab PO PRN (10:08)
--- NOTE | 2018-02-12 16:39 | PCM.PN ---
- General Info Date of Service: 02/12/18 Admission Dx/Problem (Free Text): Admission Diagnosis/Problem Admission Diagnosis/Problem Compression fracture Functional Status: Reports: Pain Controlled - Review of Systems General: Reports: No Symptoms HEENT: Reports: No Symptoms Pulmonary: Reports: No Symptoms Cardiovascular: Reports: No Symptoms Gastrointestinal: Reports: No Symptoms Genitourinary: Reports: No Symptoms Musculoskeletal: Reports: No Symptoms Skin: Reports: No Symptoms Neurological: Reports: No Symptoms Psychiatric: Reports: Anxiety - Patient Data Vitals - Most Recent: Last Vital Signs Temp 98.2 F 02/11/18 20:00 Pulse 65 02/12/18 08:48 Resp 18 02/11/18 20:00 BP 168/76 H 02/12/18 08:48 Pulse Ox 97 02/11/18 20:00 Weight - Most Recent: 139 lb 12.792 oz I&O - Last 24 Hours: Intake & Output 02/12/18 02/12/18 02/12/18 06:59 14:59 22:59 Intake Total 150 390 Balance 150 390 Lab Results Last 24 Hours: Laboratory Results - last 24 hr 02/10/18 02/10/18 02/11/18 Range/Units 11:34 11:34 06:35 WBC (4.0-10.2) K/uL RBC (3.77-5.09) M/uL Hgb (11.7-15.5) g/dL Hct (34.0-46.0) % MCV (84.0-98.0) fL MCH (28.2-33.3) pg MCHC (31.7-36.0) g/dL RDW (11.2-14.1) % Plt Count (150-350) K/uL Neut % (Auto) (45.0-80.0) % Lymph % (Auto) (10.0-50.0) % [place] % (Auto) (2.0-14.0) % Eos % (Auto) (0.0-5.0) % Baso % (Auto) (0.0-2.0) % Neut # (Auto) (1.40-7.00) K/uL Lymph # (Auto) (0.50-3.50) K/uL [place] # (Auto) (0.00-1.00) K/uL Eos # (Auto) (0.00-0.50) K/uL Baso # (Auto) (0.00-0.20) K/uL Sodium (136-145) mmol/L Potassium (3.5-5.1) mmol/L Chloride (98-107) mmol/L Carbon Dioxide (21.0-32.0) mmol/L BUN (7-18) mg/dL Creatinine (0.51-1.17) mg/dL Est Cr Clr Drug Dosing mL/min Estimated GFR (MDRD) mL/min Glucose (74-106) mg/dL Serum Osmolality 274 L (275-295) mosm/kg Calcium (8.5-10.1) mg/dL Total Bilirubin (0.2-1.0) mg/dL AST (15-37) U/L ALT (12-78) U/L Alkaline Phosphatase (46-116) IU/L Total Protein (6.4-8.2) g/dL Albumin (3.4-5.0) g/dL Urine Osmolality 291 L (300-900) mosm/kg U Sodium Concentration 79 mEq/L 02/12/18 02/12/18 Range/Units 07:20 07:20 WBC 8.5 (4.0-10.2) K/uL RBC 4.10 (3.77-5.09) M/uL Hgb 12.5 (11.7-15.5) g/dL Hct 36.1 (34.0-46.0) % MCV 88.0 (84.0-98.0) fL MCH 30.5 (28.2-33.3) pg MCHC 34.6 (31.7-36.0) g/dL RDW 12.4 (11.2-14.1) % Plt Count 295 (150-350) K/uL Neut % (Auto) 58.7 (45.0-80.0) % Lymph % (Auto) 28.2 (10.0-50.0) % [place] % (Auto) 8.5 (2.0-14.0) % Eos % (Auto) 4.1 (0.0-5.0) % Baso % (Auto) 0.5 (0.0-2.0) % Neut # (Auto) 4.97 (1.40-7.00) K/uL Lymph # (Auto) 2.39 (0.50-3.50) K/uL [place] # (Auto) 0.72 (0.00-1.00) K/uL Eos # (Auto) 0.35 (0.00-0.50) K/uL Baso # (Auto) 0.04 (0.00-0.20) K/uL Sodium 135 L (136-145) mmol/L Potassium 4.2 (3.5-5.1) mmol/L Chloride 100 (98-107) mmol/L Carbon Dioxide 27.7 (21.0-32.0) mmol/L BUN 7 (7-18) mg/dL Creatinine 0.64 (0.51-1.17) mg/dL Est Cr Clr Drug Dosing 61.93 mL/min Estimated GFR (MDRD) > 60 mL/min Glucose 112 H (74-106) mg/dL Serum Osmolality (275-295) mosm/kg Calcium 8.9 (8.5-10.1) mg/dL Total Bilirubin 0.2 (0.2-1.0) mg/dL AST 26 (15-37) U/L ALT 19 (12-78) U/L Alkaline Phosphatase 98 (46-116) IU/L Total Protein 7.4 (6.4-8.2) g/dL Albumin 3.5 (3.4-5.0) g/dL Urine Osmolality (300-900) mosm/kg U Sodium Concentration mEq/L Med Orders - Current: Current Medications Acetaminophen (Tylenol Arthritis Pain) 650 mg PO Q4H PRN PRN Reason: Pain Last Admin: 02/12/18 08:55 Dose: 650 mg Alprazolam (Xanax) 1 mg PO TID@0800,1200,2000 [facility] Last Admin: 02/12/18 12:23 Dose: 1 mg Amlodipine Besylate (Norvasc) 5 mg PO DAILY@1800 [facility] Last Admin: 02/11/18 18:18 Dose: 5 mg Artificial Tears (Liquitears 1.4% Ophth Soln) 0 ml EYEBOTH BID [facility] Last Admin: 02/12/18 08:56 Dose: 1 drop Cefazolin Sodium (Ancef) 1 gm IVPUSH Q8HR [facility] Last Admin: 02/12/18 16:27 Dose: 1 gm Docusate Sodium (Colace) 200 mg PO DAILY [facility] Last Admin: 02/12/18 08:48 Dose: 200 mg Famotidine (Pepcid) 20 mg IVPUSH DAILY [facility] Last Admin: 02/12/18 08:49 Dose: 20 mg Ketorolac Tromethamine (Toradol) 15 mg IVPUSH Q6H [facility] Last Admin: 02/12/18 10:09 Dose: 15 mg Labetalol HCl (Normodyne) 100 mg PO Q12HR [facility] Last Admin: 02/12/18 08:48 Dose: 100 mg Levothyroxine Sodium (Levothyroxine) 75 mcg PO ACBRK [facility] Last Admin: 02/12/18 08:48 Dose: 75 mcg Magnesium Hydroxide (Milk Of Magnesia) 30 ml PO DAILY PRN PRN Reason: Constipation Last Admin: 02/09/18 17:48 Dose: 30 ml Mirtazapine (Remeron) 30 mg PO BEDTIME [facility] Last Admin: 02/11/18 19:46 Dose: 30 mg Morphine Sulfate (Morphine) 1 mg IVPUSH Q4H PRN PRN Reason: Breakthrough Pain Last Admin: 02/11/18 08:32 Dose: 1 mg Multivitamins/Minerals/Vitamin C (Tab-A-Lorena) 1 tab PO MoWeTh@0800 [facility] Last Admin: 02/11/18 08:30 Dose: 1 tab Polyethylene Glycol (Miralax) 17 gm PO BID [facility] Last Admin: 02/12/18 08:48 Dose: 17 gm Rosuvastatin Calcium (Crestor) 2.5 mg PO BEDTIME [facility] Last Admin: 02/11/18 19:44 Dose: 2.5 mg Sodium Chloride (Saline Flush) 10 ml FLUSH ASDIRECTED PRN PRN Reason: Keep Vein Open Last Admin: 02/12/18 10:09 Dose: 10 ml Sodium Chloride (Sodium Chloride) 1 gm PO TID@0800,1200,2000 [facility] Last Admin: 02/12/18 12:23 Dose: 1 gm Sodium Chloride (Saline Flush) 10 ml FLUSH Q12HR [facility] Last Admin: 02/12/18 08:47 Dose: 10 ml Temazepam (Restoril) 15 mg PO BEDTIME PRN PRN Reason: Insomnia Last Admin: 02/09/18 01:17 Dose: 15 mg Tramadol HCl (Ultram) 50 mg PO Q4H PRN PRN Reason: Pain Last Admin: 02/12/18 10:08 Dose: 50 mg Vit C/Vit E/Zinc/Copper/Lutein (Ocuvite Lutein) 1 each PO BID [facility] Last Admin: 02/12/18 08:48 Dose: 1 each Discontinued Medications Acetaminophen (Tylenol Arthritis Pain) 650 mg PO Q4H [facility] Last Admin: 02/08/18 16:17 Dose: Not Given Alprazolam (Xanax) Confirm Administered Dose 1 mg .ROUTE .STK-MED ONE Stop: 02/08/18 17:26 Last Admin: 02/08/18 18:20 Dose: Not Given Duloxetine HCl (Cymbalta) 60 mg PO BEDTIME [facility] Last Admin: 02/09/18 20:48 Dose: 60 mg Famotidine (Pepcid) 20 mg IVPUSH BID [facility] Lactated Ringer's (Ringers, Lactated) 1,000 mls @ 50 mls/hr IV ASDIRECTED [facility] Ketorolac Tromethamine (Toradol) 30 mg IVPUSH Q6H [facility] Last Admin: 02/09/18 05:52 Dose: 30 mg Magnesium Hydroxide (Milk Of Magnesia) 30 ml PO ONETIME ONE Stop: 02/08/18 13:45 Last Admin: 02/08/18 14:14 Dose: Not Given Metoprolol Tartrate (Lopressor) 12.5 mg PO BID [facility] Last Admin: 02/11/18 08:35 Dose: 12.5 mg Non-Formulary Medication (Pantoprazole Sodium [Protonix]) 20 mg PO DAILY [facility] Polyethylene Glycol (Miralax) 17 gm PO DAILY PRN PRN Reason: Constipation Last Admin: 02/09/18 07:53 Dose: 17 gm - Exam General: Alert, Cooperative, No Acute Distress HEENT: Pupils Equal, Mucous Membr. Moist/[place] Neck: Trachea Midline, No JVD Lungs: Clear to Auscultation, Normal Respiratory Effort Cardiovascular: Regular Rate, Regular Rhythm GI/Abdominal Exam: Soft, Non-Tender, No Distention (Female) Exam: Deferred Back Exam: Normal Inspection, Paraspinal Tenderness (lumber), Vertebral Tenderness (mild over L1 and L5) Extremities: Normal Inspection, Non-Tender, No Pedal Edema Skin: Warm, Dry, Intact Neurological: No New Focal Deficit Psy/Mental Status: Alert, Anxious - Problem List & Annotations (1) Anxiety SNOMED Code(s): 62406541 Code(s): F41.9 - ANXIETY DISORDER, UNSPECIFIED Status: Acute Current Visit: Yes (2) Compression fracture SNOMED Code(s): 508493910 Code(s): ZLS0833 - Status: Acute Current Visit: Yes (3) Constipation SNOMED Code(s): 84312425 Code(s): K59.00 - CONSTIPATION, UNSPECIFIED Status: Acute Current Visit: Yes Qualifiers: Constipation type: unspecified constipation type Qualified Code(s): K59.00 - Constipation, unspecified (4) Hypertension SNOMED Code(s): 75377469 Code(s): I10 - ESSENTIAL (PRIMARY) HYPERTENSION Status: Acute Current Visit: Yes Qualifiers: Hypertension type: essential hypertension Qualified Code(s): I10 - Essential (primary) hypertension (5) Ileus SNOMED Code(s): 519719136 Code(s): K56.7 - ILEUS, UNSPECIFIED Status: Acute Current Visit: No (6) Sacrocoxalgia of left side of sacrum SNOMED Code(s): 2363238 Code(s): M53.3 - SACROCOCCYGEAL DISORDERS, NOT ELSEWHERE CLASSIFIED Status : Acute Priority: High Current Visit: Yes (7) E. coli UTI (urinary tract infection) SNOMED Code(s): 679906290 Code(s): N39.0 - URINARY TRACT INFECTION, SITE NOT SPECIFIED; B96.20 - UNSP ESCHERICHIA COLI THE CAUSE OF DISEASES CLASSD [facility] Status: Acute Priority: Medium Current Visit: Yes (8) Spondylosis of lumbar spine SNOMED Code(s): 370447843 Code(s): M47.816 - SPONDYLOSIS W/O MYELOPATHY OR RADICULOPATHY, LUMBAR REGION Status: Acute Priority: High Current Visit: Yes (9) Left-sided low back pain with sciatica SNOMED Code(s): 712663860 Code(s): M54.42 - LUMBAGO WITH SCIATICA, LEFT SIDE Status: Acute Priority : High Current Visit: Yes Qualifiers: Chronicity: acute Sciatica laterality: sciatica of left side Qualified Code(s): M54.42 - Lumbago with sciatica, left side - Problem List Review Problem List Initiated/Reviewed/Updated: Yes - My Orders Last 24 Hours: My Active Orders 02/11/18 18:00 amLODIPine [Norvasc] 5 mg PO DAILY@1800 02/11/18 20:00 Labetalol [Normodyne] 100 mg PO Q12HR 02/12/18 16:34 Ready for Discharge [RC] PER UNIT ROUTINE - Plan Plan:: Patient admitted due to outpatient treatment of compression fracture. Discussed with Dr Garvin , will give scheduled IV toradol and break thru pain medication. Plan to continue with plan of care with [facility] on February 11, 2018. Give a dose of MOM for constipation as that has helped in the past. Patient wanting to be hospitalized in [place] for now. Recheck labs in the morning. Ordered PT for strengthening. patient and spouse verbalized understanding and agreed to plan of care. Esther Urbano,RENT AND MISCELLANEOUS REMITTANCE CLERK 02/09/18 Virgie Sharp MD Pain is markedly improved today. Still with constipation. Anxious. Discussed plan of care with her. 02/10/18 Virgie Sharp MD Now she rates pain 10/10 but non-verbal screen 6/10. With further discussion and exam the maximum pain is left SI notch. No direct L1 tenderness to palpation. Will continue IV toradol and PT. 02/11/18 Virgie Sharp MD Pain in lower back decreases and then increases. Pain is moving around. Pain mild over L1 and over L5 and left SI notch and paralumber muscles. Blood pressure elevated. Adjust medication. Continue IV toradol and PT. 02/12/18 Virgie Sharp MD Feeling better. Tramadol tylenol and toradol helping pain. PT helping pain. Ready for discharge and continue out-patient PT. Esther has talked to and updated IR department in [place].
[2018-02-12 16:40] VITALS: BP 177/83
--- NOTE | 2018-02-12 16:51 | PCM.DCSUM1 ---
Discharge Summary - Hospital Course Diagnosis: Stroke: No - Discharge Data Discharge Date: 02/12/18 Discharge Disposition: Home, Self-Care 01 Condition: Good - Discharge Diagnosis/Problem(s) (1) Anxiety SNOMED Code(s): 38837734 ICD Code: F41.9 - ANXIETY DISORDER, UNSPECIFIED Status: Acute Current Visit: Yes (2) Compression fracture SNOMED Code(s): 589781776 ICD Code: [id number] - Status: Acute Current Visit: Yes (3) Constipation SNOMED Code(s): 57772209 ICD Code: K59.00 - CONSTIPATION, UNSPECIFIED Status: Acute Current Visit : Yes Qualifiers: Constipation type: unspecified constipation type Qualified Code(s): K59.00 - Constipation, unspecified (4) Hypertension SNOMED Code(s): 82081740 ICD Code: I10 - ESSENTIAL (PRIMARY) HYPERTENSION Status: Acute Current Visit: Yes Qualifiers: Hypertension type: essential hypertension Qualified Code(s): I10 - Essential (primary) hypertension (5) Ileus SNOMED Code(s): 507287149 ICD Code: K56.7 - ILEUS, UNSPECIFIED Status: Acute Current Visit: No (6) Sacrocoxalgia of left side of sacrum SNOMED Code(s): 3442191 ICD Code: M53.3 - SACROCOCCYGEAL DISORDERS, NOT ELSEWHERE CLASSIFIED Status : Acute Priority: High Current Visit: Yes (7) E. coli UTI (urinary tract infection) SNOMED Code(s): 616806129 ICD Code: N39.0 - URINARY TRACT INFECTION, SITE NOT SPECIFIED; B96.20 - UNSP ESCHERICHIA COLI THE CAUSE OF DISEASES CLASSD [facility] Status: Acute Priority: Medium Current Visit: Yes (8) Spondylosis of lumbar spine SNOMED Code(s): 790150702 ICD Code: M47.816 - SPONDYLOSIS W/O MYELOPATHY OR RADICULOPATHY, LUMBAR REGION Status: Acute Priority: High Current Visit: Yes (9) Left-sided low back pain with sciatica SNOMED Code(s): 683690537 ICD Code: M54.42 - LUMBAGO WITH SCIATICA, LEFT SIDE Status: Acute Priority: High Current Visit: Yes Qualifiers: Chronicity: acute Sciatica laterality: sciatica of left side Qualified Code(s): M54.42 - Lumbago with sciatica, left side - Patient Summary/Data Consults: Consultations 02/08/18 11:26 PT Evaluation and Treatment [CONS] Routine - Patient Instructions Diet: Regular Diet as Tolerated Activity: As Tolerated, Rest and Relax Today Driving: Do Not Drive (today) Showering/Bathing: May Shower Other/Special Instructions: [facility] will call you to set up out-patient physical therapy. Call [facility] to schedule appointment for next week. Call sooner if you are not doing okay. - Discharge Plan Prescriptions/Med Rec: Mirtazapine [Remeron] 30 mg PO BEDTIME #90 tablet Naproxen 500 mg PO BID #30 tablet Sodium Chloride 1,000 mg MC BID #100 tablet.jolie traMADol [Ultram] 50 mg PO Q4H PRN #60 tablet PRN Reason: Pain Home Medications: Home Meds ALPRAZolam [Xanax] 1 mg PO TID@0800,1200,2000 02/07/14 [History] Levothyroxine 75 mcg PO QAM 02/07/14 [History] Lutein/Min/Vit C/Vit E Acetate [Ocuvite Lutein] 1 cap PO Q12HR 02/07/14 [History ] Polyvinyl Alcohol/Povidone [Refresh] 1 drop EYEBOTH BID 02/07/14 [History] Rosuvastatin [Crestor] 2.5 mg PO BEDTIME 02/07/14 [History] Ascorbic Acid [Vitamin C] 250 mg PO MOWEFR@0800 02/03/18 [History] Cholecalciferol (Vitamin D3) [Vitamin D3] 1,000 units PO Q12HR 02/03/18 [History ] Metoprolol Tartrate 12.5 mg PO BID 02/03/18 [History] Multivitamin [Multivitamins] 1 each PO MOWETH@0800 02/03/18 [History] Pantoprazole Sodium [Protonix] 20 mg PO DAILY 02/03/18 [History] Calcium Carbonate/Vitamin D3 [Calcium 600 + Vit D Tablet] 1 tab PO MOWEFR@0800 02/08/18 [History] Docusate Sodium 200 mg PO DAILY 02/08/18 [History] Polyethylene Glycol 3350 [Miralax] 17 gm PO ASDIRECTED PRN 02/08/18 [History] Acetaminophen [Tylenol Arthritis] 650 mg PO Q8H PRN #100 02/12/18 [Rx] Magnesium Hydroxide [Milk of Magnesia] 30 ml PO DAILY PRN cup 02/12/18 [Rx] Mirtazapine [Remeron] 30 mg PO BEDTIME #90 tablet 02/12/18 [Rx] Naproxen 500 mg PO BID #30 tablet 02/12/18 [Rx] Polyethylene Glycol 3350 [MiraLAX] 17 gm PO BID packet 02/12/18 [Rx] Sodium Chloride 1,000 mg MC BID #100 tablet.jolie 02/12/18 [Rx] traMADol [Ultram] 50 mg PO Q4H PRN #60 tablet 02/12/18 [Rx] Patient Handouts: Cefazolin injection, Vertebral Fracture, [id number], E. Coli Infection - Discharge Summary/Plan Comment DC Time >30 min.: No - Patient Data Vitals - Most Recent: Last Vital Signs Temp 98.2 F 02/12/18 16:00 Pulse 66 02/12/18 16:00 Resp 18 02/12/18 16:00 BP 177/83 H 02/12/18 16:00 Pulse Ox 97 02/12/18 16:00 Weight - Most Recent: 139 lb 12.792 oz I&O - Last 24 hours: Intake & Output 02/12/18 02/12/18 02/12/18 06:59 14:59 22:59 Intake Total 150 390 Balance 150 390 Lab Results - Last 24 hrs: Laboratory Results - last 24 hr 02/10/18 02/10/18 02/11/18 Range/Units 11:34 11:34 06:35 WBC (4.0-10.2) K/uL RBC (3.77-5.09) M/uL Hgb (11.7-15.5) g/dL Hct (34.0-46.0) % MCV (84.0-98.0) fL MCH (28.2-33.3) pg MCHC (31.7-36.0) g/dL RDW (11.2-14.1) % Plt Count (150-350) K/uL Neut % (Auto) (45.0-80.0) % Lymph % (Auto) (10.0-50.0) % [place] % (Auto) (2.0-14.0) % Eos % (Auto) (0.0-5.0) % Baso % (Auto) (0.0-2.0) % Neut # (Auto) (1.40-7.00) K/uL Lymph # (Auto) (0.50-3.50) K/uL [place] # (Auto) (0.00-1.00) K/uL Eos # (Auto) (0.00-0.50) K/uL Baso # (Auto) (0.00-0.20) K/uL Sodium (136-145) mmol/L Potassium (3.5-5.1) mmol/L Chloride (98-107) mmol/L Carbon Dioxide (21.0-32.0) mmol/L BUN (7-18) mg/dL Creatinine (0.51-1.17) mg/dL Est Cr Clr Drug Dosing mL/min Estimated GFR (MDRD) mL/min Glucose (74-106) mg/dL Serum Osmolality 274 L (275-295) mosm/kg Calcium (8.5-10.1) mg/dL Total Bilirubin (0.2-1.0) mg/dL AST (15-37) U/L ALT (12-78) U/L Alkaline Phosphatase (46-116) IU/L Total Protein (6.4-8.2) g/dL Albumin (3.4-5.0) g/dL Urine Osmolality 291 L (300-900) mosm/kg U Sodium Concentration 79 mEq/L 02/12/18 02/12/18 Range/Units 07:20 07:20 WBC 8.5 (4.0-10.2) K/uL RBC 4.10 (3.77-5.09) M/uL Hgb 12.5 (11.7-15.5) g/dL Hct 36.1 (34.0-46.0) % MCV 88.0 (84.0-98.0) fL MCH 30.5 (28.2-33.3) pg MCHC 34.6 (31.7-36.0) g/dL RDW 12.4 (11.2-14.1) % Plt Count 295 (150-350) K/uL Neut % (Auto) 58.7 (45.0-80.0) % Lymph % (Auto) 28.2 (10.0-50.0) % [place] % (Auto) 8.5 (2.0-14.0) % Eos % (Auto) 4.1 (0.0-5.0) % Baso % (Auto) 0.5 (0.0-2.0) % Neut # (Auto) 4.97 (1.40-7.00) K/uL Lymph # (Auto) 2.39 (0.50-3.50) K/uL [place] # (Auto) 0.72 (0.00-1.00) K/uL Eos # (Auto) 0.35 (0.00-0.50) K/uL Baso # (Auto) 0.04 (0.00-0.20) K/uL Sodium 135 L (136-145) mmol/L Potassium 4.2 (3.5-5.1) mmol/L Chloride 100 (98-107) mmol/L Carbon Dioxide 27.7 (21.0-32.0) mmol/L BUN 7 (7-18) mg/dL Creatinine 0.64 (0.51-1.17) mg/dL Est Cr Clr Drug Dosing 61.93 mL/min Estimated GFR (MDRD) > 60 mL/min Glucose 112 H (74-106) mg/dL Serum Osmolality (275-295) mosm/kg Calcium 8.9 (8.5-10.1) mg/dL Total Bilirubin 0.2 (0.2-1.0) mg/dL AST 26 (15-37) U/L ALT 19 (12-78) U/L Alkaline Phosphatase 98 (46-116) IU/L Total Protein 7.4 (6.4-8.2) g/dL Albumin 3.5 (3.4-5.0) g/dL Urine Osmolality (300-900) mosm/kg U Sodium Concentration mEq/L Med Orders - Current: Current Medications Acetaminophen (Tylenol Arthritis Pain) 650 mg PO Q4H PRN PRN Reason: Pain Last Admin: 02/12/18 08:55 Dose: 650 mg Alprazolam (Xanax) 1 mg PO TID@0800,1200,2000 [facility] Last Admin: 02/12/18 12:23 Dose: 1 mg Amlodipine Besylate (Norvasc) 5 mg PO DAILY@1800 [facility] Last Admin: 02/11/18 18:18 Dose: 5 mg Artificial Tears (Liquitears 1.4% Ophth Soln) 0 ml EYEBOTH BID [facility] Last Admin: 02/12/18 08:56 Dose: 1 drop Cefazolin Sodium (Ancef) 1 gm IVPUSH Q8HR [facility] Last Admin: 02/12/18 16:27 Dose: 1 gm Docusate Sodium (Colace) 200 mg PO DAILY [facility] Last Admin: 02/12/18 08:48 Dose: 200 mg Famotidine (Pepcid) 20 mg IVPUSH DAILY [facility] Last Admin: 02/12/18 08:49 Dose: 20 mg Ketorolac Tromethamine (Toradol) 15 mg IVPUSH Q6H [facility] Last Admin: 02/12/18 16:33 Dose: 15 mg Labetalol HCl (Normodyne) 100 mg PO Q12HR [facility] Last Admin: 02/12/18 08:48 Dose: 100 mg Levothyroxine Sodium (Levothyroxine) 75 mcg PO ACBRK [facility] Last Admin: 02/12/18 08:48 Dose: 75 mcg Magnesium Hydroxide (Milk Of Magnesia) 30 ml PO DAILY PRN PRN Reason: Constipation Last Admin: 02/09/18 17:48 Dose: 30 ml Mirtazapine (Remeron) 30 mg PO BEDTIME [facility] Last Admin: 02/11/18 19:46 Dose: 30 mg Morphine Sulfate (Morphine) 1 mg IVPUSH Q4H PRN PRN Reason: Breakthrough Pain Last Admin: 02/11/18 08:32 Dose: 1 mg Multivitamins/Minerals/Vitamin C (Tab-A-Lorena) 1 tab PO MoWeTh@0800 [facility] Last Admin: 02/11/18 08:30 Dose: 1 tab Polyethylene Glycol (Miralax) 17 gm PO BID [facility] Last Admin: 02/12/18 08:48 Dose: 17 gm Rosuvastatin Calcium (Crestor) 2.5 mg PO BEDTIME [facility] Last Admin: 02/11/18 19:44 Dose: 2.5 mg Sodium Chloride (Saline Flush) 10 ml FLUSH ASDIRECTED PRN PRN Reason: Keep Vein Open Last Admin: 02/12/18 10:09 Dose: 10 ml Sodium Chloride (Sodium Chloride) 1 gm PO TID@0800,1200,2000 [facility] Last Admin: 02/12/18 12:23 Dose: 1 gm Sodium Chloride (Saline Flush) 10 ml FLUSH Q12HR [facility] Last Admin: 02/12/18 08:47 Dose: 10 ml Temazepam (Restoril) 15 mg PO BEDTIME PRN PRN Reason: Insomnia Last Admin: 02/09/18 01:17 Dose: 15 mg Tramadol HCl (Ultram) 50 mg PO Q4H PRN PRN Reason: Pain Last Admin: 02/12/18 10:08 Dose: 50 mg Vit C/Vit E/Zinc/Copper/Lutein (Ocuvite Lutein) 1 each PO BID [facility] Last Admin: 02/12/18 08:48 Dose: 1 each Discontinued Medications Acetaminophen (Tylenol Arthritis Pain) 650 mg PO Q4H [facility] Last Admin: 02/08/18 16:17 Dose: Not Given Alprazolam (Xanax) Confirm Administered Dose 1 mg .ROUTE .STK-MED ONE Stop: 02/08/18 17:26 Last Admin: 02/08/18 18:20 Dose: Not Given Duloxetine HCl (Cymbalta) 60 mg PO BEDTIME [facility] Last Admin: 02/09/18 20:48 Dose: 60 mg Famotidine (Pepcid) 20 mg IVPUSH BID [facility] Lactated Ringer's (Ringers, Lactated) 1,000 mls @ 50 mls/hr IV ASDIRECTED [facility] Ketorolac Tromethamine (Toradol) 30 mg IVPUSH Q6H [facility] Last Admin: 02/09/18 05:52 Dose: 30 mg Magnesium Hydroxide (Milk Of Magnesia) 30 ml PO ONETIME ONE Stop: 02/08/18 13:45 Last Admin: 02/08/18 14:14 Dose: Not Given Metoprolol Tartrate (Lopressor) 12.5 mg PO BID [facility] Last Admin: 02/11/18 08:35 Dose: 12.5 mg Non-Formulary Medication (Pantoprazole Sodium [Protonix]) 20 mg PO DAILY [facility] Polyethylene Glycol (Miralax) 17 gm PO DAILY PRN PRN Reason: Constipation Last Admin: 02/09/18 07:53 Dose: 17 gm
== END 2018-02-12 18:45 | disposition home or self-care (01) | DRG 543 ==
LOC: LL.MS 10:59
PROVIDERS: ADMIT Family Medicine; ATTEND Family Medicine
DX: M48.56XA Collapsed vertebra, not elsewhere classified, lumbar region, initial encounter for fracture (principal); K56.7 Ileus, unspecified; N39.0 Urinary tract infection, site not specified; K59.00 Constipation, unspecified; E86.0 Dehydration; B96.20 Unspecified Escherichia coli [E. coli] as the cause of diseases classified elsewhere; F41.9 Anxiety disorder, unspecified; I10 Essential (primary) hypertension; E78.00 Pure hypercholesterolemia, unspecified; K21.9 Gastro-esophageal reflux disease without esophagitis; Z88.2 Allergy status to sulfonamides; M53.3 Sacrococcygeal disorders, not elsewhere classified; M47.816 Spondylosis without myelopathy or radiculopathy, lumbar region; M19.90 Unspecified osteoarthritis, unspecified site; M54.42 Lumbago with sciatica, left side; G43.909 Migraine, unspecified, not intractable, without status migrainosus; E89.0 Postprocedural hypothyroidism; K58.9 Irritable bowel syndrome, unspecified; Z88.8 Allergy status to other drugs, medicaments and biological substances; Z79.899 Other long term (current) drug therapy; Z85.850 Personal history of malignant neoplasm of thyroid; Z91.81 History of falling
CPT/HCPCS: 36415; 74019; 80053; 80061; 81001; 82024; 83930; 83935; 84300; 85025; 87086; 87088; 87186; 97110-GP; 97161-GP; 97530-GP; A9270-GY; J0690; J1885; J2270; J7050; S0028

== ENCOUNTER 2018-03-09 21:29 | Emergency (ER) | payer MEDICARE, BC ==
--- NOTE | 2018-03-09 21:35 | EDM.PDOC ---
ED HPI GENERAL MEDICAL PROBLEM - General Chief Complaint: General Stated Complaint: back pain Time Seen by Provider: 03/09/18 21:30 Source of Information: Reports: Patient History Limitations: Reports: No Limitations - History of Present Illness INITIAL COMMENTS - FREE TEXT/NARRATIVE: Patient is a 82-year-old who fell back in January 3 had a MRI which revealed a fracture in her lumbar spine Onset: Gradual Duration: Week(s):, Getting Worse (Patient ran out of pain medicines 2 days ago) Location: Reports: Back Severity: Moderate Improves with: Reports: Medication (Patient took Tylenol M naproxen with little relief) Worsens with: Reports: Rest Context: Reports: Trauma Associated Symptoms: Reports: No Other Symptoms 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, NSAIDS - Related Data Allergies Allergy/AdvReac Type Severity Reaction Status Date / Time atropine sulfate Allergy Cannot Verified 03/09/18 21:30 [From Lomotil] Remember diphenoxylate HCl Allergy Cannot Verified 03/09/18 21:30 [From Lomotil] Remember Sulfa (Sulfonamide Allergy Muscle Verified 03/09/18 21:30 Antibiotics) Aches, Muscle Stiffness Home Meds: Home Meds ALPRAZolam [Xanax] 1 mg PO TID@0800,1200,2000 02/07/14 [History] Levothyroxine 75 mcg PO QAM 02/07/14 [History] Lutein/Min/Vit C/Vit E Acetate [Ocuvite Lutein] 1 cap PO Q12HR 02/07/14 [History ] Polyvinyl Alcohol/Povidone [Refresh] 1 drop EYEBOTH BID 02/07/14 [History] Rosuvastatin [Crestor] 2.5 mg PO BEDTIME 02/07/14 [History] Ascorbic Acid [Vitamin C] 250 mg PO MOWEFR@0800 02/03/18 [History] Cholecalciferol (Vitamin D3) [Vitamin D3] 1,000 units PO Q12HR 02/03/18 [History ] Metoprolol Tartrate 12.5 mg PO BID 02/03/18 [History] Multivitamin [Multivitamins] 1 each PO MOWETH@0800 02/03/18 [History] Pantoprazole Sodium [Protonix] 20 mg PO DAILY 02/03/18 [History] Calcium Carbonate/Vitamin D3 [Calcium 600 + Vit D Tablet] 1 tab PO MOWEFR@0800 06/15/18 [History] Docusate Sodium 200 mg PO DAILY 02/08/18 [History] Polyethylene Glycol 3350 [Miralax] 17 gm PO ASDIRECTED PRN 02/08/18 [History] Acetaminophen [Tylenol Arthritis] 650 mg PO Q8H PRN #100 02/12/18 [Rx] Magnesium Hydroxide [Milk of Magnesia] 30 ml PO DAILY PRN cup 02/12/18 [Rx] Mirtazapine [Remeron] 30 mg PO BEDTIME #90 tablet 02/12/18 [Rx] Naproxen 500 mg PO BID #30 tablet 02/12/18 [Rx] Polyethylene Glycol 3350 [MiraLAX] 17 gm PO BID packet 02/12/18 [Rx] Sodium Chloride 1,000 mg MC BID #100 tablet.jolie 02/12/18 [Rx] traMADol [Ultram] 50 mg PO Q4H PRN #60 tablet 02/12/18 [Rx] Social & Family History - Caffeine Use Caffeine Use: Reports: None - Living Situation & Occupation Living situation: Reports: Occupation: Retired ED ROS GENERAL - Review of Systems Review Of Systems: See Below Constitutional: Reports: Chills, Weakness HEENT: Reports: No Symptoms Respiratory: Reports: No Symptoms Cardiovascular: Reports: No Symptoms Endocrine: Reports: No Symptoms GI/Abdominal: Reports: No Symptoms : Reports: No Symptoms Musculoskeletal: Reports: Back Pain Skin: Reports: No Symptoms Neurological: Reports: No Symptoms Psychiatric: Reports: No Symptoms ED EXAM, GENERAL - Physical Exam Exam: See Below Exam Limited By: No Limitations General Appearance: Alert, WD/WN, No Apparent Distress Ears: Normal External Exam, Normal Canal, Hearing Grossly Normal, Normal TMs Ear Exam: Bilateral Ear: Auricle Normal, Canal Normal, TM normal Nose: Normal Inspection, Normal Mucosa, No Blood Throat/Mouth: Normal Inspection, Normal Lips, Normal Teeth, Normal Gums, Normal Oropharynx, Normal Voice, No Airway Compromise Head: Atraumatic, Normocephalic Neck: Normal Inspection, Supple, Non-Tender, Full Range of Motion Respiratory/Chest: No Respiratory Distress, Lungs Clear, Normal Breath Sounds, No Accessory Muscle Use, Chest Non-Tender Cardiovascular: Normal Peripheral Pulses, Regular Rate, Rhythm, No Edema, No Gallop, No JVD, No Murmur, No Rub GI/Abdominal: Normal Bowel Sounds, Soft, No Organomegaly, No Distention, Tender (Female) Exam: Deferred Rectal (Female) Exam: Deferred Back Exam: Vertebral Tenderness Extremities: Limited Range of Motion Neurological: Alert, Oriented, CN II-XII Intact, Normal Cognition, Normal Gait, Normal Reflexes, No Motor/Sensory Deficits Course - Orders/Labs/Meds Meds: Medications Discontinued Medications Generic Name Dose Route Start Last Admin Trade Name Freq PRN Reason Stop Dose Admin Hydromorphone HCl 1 mg 03/09/18 21:55 Dilaudid IM 03/09/18 21:56 ONETIME ONE Departure - Departure Time of Disposition: 21:54 Disposition: Home, Self-Care 01 Condition: Fair Clinical Impression: Compression fracture of L1 lumbar vertebra Low back pain Qualifiers: Chronicity: acute Back pain laterality: midline Sciatica presence: without sciatica Qualified Code(s): M54.5 - Low back pain - Discharge Information Referrals: Esther Urbano NP [Primary Care Provider] - Forms: ED Department Discharge Care Plan Goals: Patient will be given Dilaudid 1 mg IM plus Ultram 50 mg by mouth every 6 hours for pain she is to follow with primary to be referred to interventional radiology for kyphoplasty
[2018-03-09] MEDS ORDERED: HYDROmorphone 1 MG/ML Syringe IM ONE (21:55)
[2018-03-10 00:11] VITALS: BP 140/114
== END 2018-03-09 22:50 | disposition home or self-care (01) ==
LOC: LL.ED 21:29
DX: S32.019D Unspecified fracture of first lumbar vertebra, subsequent encounter for fracture with routine healing (principal); Z88.8 Allergy status to other drugs, medicaments and biological substances; Z88.2 Allergy status to sulfonamides; Z79.899 Other long term (current) drug therapy; W19.XXXD Unspecified fall, subsequent encounter
CPT/HCPCS: 96372; 99283; J1170

== ENCOUNTER 2018-10-20 19:11 | Emergency (ER) | payer MEDICARE, BC ==
[2018-10-20 19:20] VITALS: BP 186/64
[2018-10-20] MEDS ORDERED: Sodium Chloride 0.9% 10 ML Syringe FLUSH PRN (19:25)
[2018-10-20] MEDS ORDERED: Ondansetron 4 MG/2 ML SDV IVPUSH ONE (19:30)
[2018-10-20] MEDS: Sodium Chloride 0.9% 1,000 ML IV SCH (19:52)
[2018-10-20] MEDS: Prochlorperazine 10 MG/2 ML SDV IVPUSH ONE (19:57)
[2018-10-20 20:03] LABS: CHLORIDE,CL 95 mmol/L (98-107); SODIUM,NA 129 mmol/L (136-145)
--- NOTE | 2018-10-20 20:12 | EDM.PDOC ---
ED HPI GENERAL MEDICAL PROBLEM - General Chief Complaint: Abdominal Pain Stated Complaint: Abdominal Pain, Diarrhea Time Seen by Provider: 10/20/18 19:15 Source of Information: Reports: Patient History Limitations: Reports: No Limitations - History of Present Illness INITIAL COMMENTS - FREE TEXT/NARRATIVE: Patient is a 83-year-old female well known to myself seen today with recurring nausea this has been ongoing since the fall of 2017 but today this was associated with increased nausea with diarrhea and abdominal pain patient was scheduled for a colonoscopy on as part of her workup. Onset: Today Duration: Hour(s):, Getting Worse Location: Reports: Abdomen Quality: Reports: Ache Severity: Moderate Improves with: Reports: Other Worsens with: Reports: Medication (MiraLAX) Associated Symptoms: Reports: Nausea/Vomiting - Related Data Allergies Allergy/AdvReac Type Severity Reaction Status Date / Time atropine sulfate Allergy Cannot Verified 10/20/18 19:51 [From Lomotil] Remember diphenoxylate HCl Allergy Cannot Verified 10/20/18 19:51 [From Lomotil] Remember nitrofurantoin Allergy Stomach Verified 10/20/18 19:51 [From Macrobid] Upset ondansetron [From Zofran] Allergy Stomach Verified 10/20/18 19:51 Upset/Headache Sulfa (Sulfonamide Allergy Muscle Verified 10/20/18 19:51 Antibiotics) Aches, Muscle Stiffness Home Meds: Home Meds ALPRAZolam [Xanax] 1 mg PO TID@0800,1200,2000 02/07/14 [History] Lutein/Min/Vit C/Vit E Acetate [Ocuvite Lutein] 1 cap PO Q12HR 02/07/14 [History ] Polyvinyl Alcohol/Povidone [Refresh] 1 drop EYEBOTH BID 02/07/14 [History] Rosuvastatin [Crestor] 2.5 mg PO BEDTIME 02/07/14 [History] Cholecalciferol (Vitamin D3) [Vitamin D3] 1,000 units PO Q12HR 02/03/18 [History ] Metoprolol Tartrate 12.5 mg PO BID 02/03/18 [History] Multivitamin [Multivitamins] 1 each PO DAILY 02/03/18 [History] Pantoprazole Sodium [Protonix] 20 mg PO DAILY 02/03/18 [History] Calcium Carbonate/Vitamin D3 [Calcium 600 + Vit D Tablet] 1 tab PO MOWEFR@0800 02/08/18 [History] Polyethylene Glycol 3350 [Miralax] 17 gm PO ASDIRECTED PRN 02/08/18 [History] Mirtazapine [Remeron] 30 mg PO BEDTIME #90 tablet 02/12/18 [Rx] Sodium Chloride 1,000 mg MC BID #100 tablet.jolie 02/12/18 [Rx] traMADol [Ultram] 50 mg PO Q4H PRN #60 tablet 02/12/18 [Rx] Acetaminophen [Tylenol Extra Strength] 1,000 mg PO Q8H PRN 06/25/18 [History] Levothyroxine 75 mcg PO DAILY 10/20/18 [History] Past Medical History HEENT History: Reports: Impaired Vision Cardiovascular History: Reports: Hypertension 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: Musculoskeletal History: Reports: Back Pain, Chronic, Other (See Below) Other Musculoskeletal History: lumbar fracture from a fall in january 27 Psychiatric History: Reports: Anxiety, Depression - Past Surgical History Musculoskeletal Surgical History: Reports: Other (See Below) Other Musculoskeletal Surgeries/Procedures:: vetebroplast February 2018 Social & Family History - Tobacco Use Smoking Status *Q: Never Smoker Second Hand Smoke Exposure: No - Caffeine Use Caffeine Use: Reports: None - Living Situation & Occupation Living situation: Reports: Occupation: Retired ED ROS GENERAL - Review of Systems Review Of Systems: See Below Constitutional: Reports: Weakness HEENT: Reports: No Symptoms Respiratory: Reports: No Symptoms Cardiovascular: Reports: No Symptoms Endocrine: Reports: No Symptoms GI/Abdominal: Reports: Abdominal Pain, Diarrhea, Nausea. Denies: Vomiting : Reports: No Symptoms Musculoskeletal: Reports: No Symptoms Skin: Reports: No Symptoms Neurological: Reports: No Symptoms Psychiatric: Reports: No Symptoms ED EXAM, GI/ABD - Physical Exam Exam: See Below Exam Limited By: No Limitations General Appearance: Alert, WD/WN, Moderate Distress Eyes: Bilateral: Normal Appearance, EOMI Ears: Normal External Exam, Normal Canal, Hearing Grossly Normal, Normal TMs Nose: Normal Inspection, Normal Mucosa, No Blood Throat/Mouth: Normal Inspection, Normal Lips, Normal Teeth, Normal Gums, Normal Oropharynx, Normal Voice, No Airway Compromise Head: Atraumatic, Normocephalic Neck: Normal Inspection, Supple, Non-Tender, Full Range of Motion Respiratory/Chest: No Respiratory Distress, Lungs Clear, Normal Breath Sounds, No Accessory Muscle Use, Chest Non-Tender Cardiovascular: Normal Peripheral Pulses, Regular Rate, Rhythm, No Edema, No Gallop, No JVD, No Murmur, No Rub GI/Abdominal Exam: Distended, Tender, Abnormal Bowel Sounds (Female) Exam: Deferred Rectal (Female) Exam: Deferred Back Exam: Decreased Range of Motion Extremities: Normal Inspection, Normal Range of Motion, Non-Tender, Normal Capillary Refill, No Pedal Edema Neurological: Alert, Oriented, CN II-XII Intact, Normal Cognition, Normal Gait, Normal Reflexes, No Motor/Sensory Deficits Psychiatric: Normal Affect, Normal Mood Skin Exam: Warm, Dry, Intact, Normal Color, No Rash Course - Vital Signs Last Recorded V/S: Last Vital Signs Temp 97.6 F 10/20/18 19:15 Pulse 59 L 10/20/18 19:15 Resp 16 10/20/18 19:15 BP 186/64 H 10/20/18 19:15 Pulse Ox 100 10/20/18 19:15 - Orders/Labs/Meds Orders: Active Orders 24 hr Category Date Time Status Flat/upright [Abdomen 3V Comp Upright Decub] [CR] Stat Exams 10/20/18 19:27 Ordered Sodium Chloride 0.9% @ 150 MLS/HR (1000ml) Med 10/20/18 19:30 Ordered Sodium Chloride 0.9% [Normal Saline] 1,000 ml IV ASDIRECTED Sodium Chloride 0.9% [Saline Flush] Med 10/20/18 19:25 Ordered 10 ml FLUSH ASDIRECTED PRN Saline Lock Insert [OM.PC] Stat Oth 10/20/18 19:26 Ordered Medication Orders Sodium Chloride (Normal Saline) 1,000 mls @ 150 mls/hr IV ASDIRECTED YAMILET Last Admin: 10/20/18 19:52 Dose: 150 mls/hr Sodium Chloride (Saline Flush) 10 ml FLUSH ASDIRECTED PRN PRN Reason: Keep Vein Open Labs: Laboratory Tests 10/20/18 10/20/18 Range/Units 19:40 19:40 WBC 5.3 (4.0-10.2) K/uL RBC 3.82 (3.77-5.09) M/uL Hgb 11.7 (11.7-15.5) g/dL Hct 32.3 L (34.0-46.0) % MCV 84.6 (84.0-98.0) fL MCH 30.6 (28.2-33.3) pg MCHC 36.2 H (31.7-36.0) g/dL RDW 11.9 (11.2-14.1) % Plt Count 244 (150-350) K/uL Neut % (Auto) 46.7 (45.0-80.0) % Lymph % (Auto) 41.0 (10.0-50.0) % [place] % (Auto) 11.0 (2.0-14.0) % Eos % (Auto) 0.9 (0.0-5.0) % Baso % (Auto) 0.4 (0.0-2.0) % Neut # (Auto) 2.46 (1.40-7.00) K/uL Lymph # (Auto) 2.16 (0.50-3.50) K/uL [place] # (Auto) 0.58 (0.00-1.00) K/uL Eos # (Auto) 0.05 (0.00-0.50) K/uL Baso # (Auto) 0.02 (0.00-0.20) K/uL Sodium 129 L (136-145) mmol/L Potassium 3.4 L (3.5-5.1) mmol/L Chloride 95 L (98-107) mmol/L Carbon Dioxide 25.9 (21.0-32.0) mmol/L BUN 4 L (7-18) mg/dL Creatinine 0.59 (0.51-1.17) mg/dL Est Cr Clr Drug Dosing 66.15 mL/min Estimated GFR (MDRD) > 60 mL/min Glucose 91 (74-106) mg/dL Calcium 8.8 (8.5-10.1) mg/dL Total Bilirubin 0.3 (0.2-1.0) mg/dL AST 18 (15-37) U/L ALT 22 (12-78) U/L Alkaline Phosphatase 74 (46-116) IU/L Total Protein 6.7 (6.4-8.2) g/dL Albumin 3.6 (3.4-5.0) g/dL Meds: Medications Generic Name Dose Route Start Last Admin Trade Name Freq PRN Reason Stop Dose Admin Sodium Chloride 1,000 mls @ 150 mls/hr 10/20/18 19:30 10/20/18 19:52 Normal Saline IV 150 mls/hr ASDIRECTED YAMILET Administration Sodium Chloride 10 ml 10/20/18 19:25 Saline Flush FLUSH ASDIRECTED PRN Keep Vein Open Discontinued Medications Generic Name Dose Route Start Last Admin Trade Name Freq PRN Reason Stop Dose Admin Ondansetron HCl 4 mg 10/20/18 19:30 Zofran IVPUSH 10/20/18 19:31 ONETIME ONE Prochlorperazine Edisylate 10 mg 10/20/18 19:53 10/20/18 19:57 Compazine IVPUSH 10/20/18 19:54 10 mg ONETIME ONE Administration Departure - Departure Time of Disposition: 21:01 Disposition: Home, Self-Care 01 Condition: Fair Clinical Impression: Gastroenteritis - Discharge Information *PRESCRIPTION DRUG MONITORING PROGRAM REVIEWED*: No *COPY OF PRESCRIPTION DRUG MONITORING REPORT IN PATIENT KWAN: No Instructions: Diarrhea, Adult, Hyponatremia, Prochlorperazine injection, Abdominal Pain, Adult, [id number] Referrals: Esther Urbano NP [Primary Care Provider] - Forms: ED Department Discharge Care Plan Goals: Patient will be sent home she should proceed with colonoscopy on as ordered - My Orders Last 24 Hours: My Active Orders 10/20/18 19:25 Sodium Chloride 0.9% [Saline Flush] 10 ml FLUSH ASDIRECTED PRN 10/20/18 19:26 Saline Lock Insert [OM.PC] Stat 10/20/18 19:27 Flat/upright [Abdomen 3V Comp Upright Decub] [CR] Stat 10/20/18 19:30 Sodium Chloride 0.9% @ 150 MLS/HR (1000ml) Sodium Chloride 0.9% [Normal Saline] 1,000 ml IV ASDIRECTED - Assessment/Plan Last 24 Hours: My Active Orders 10/20/18 19:25 Sodium Chloride 0.9% [Saline Flush] 10 ml FLUSH ASDIRECTED PRN 10/20/18 19:26 Saline Lock Insert [OM.PC] Stat 10/20/18 19:27 Flat/upright [Abdomen 3V Comp Upright Decub] [CR] Stat 10/20/18 19:30 Sodium Chloride 0.9% @ 150 MLS/HR (1000ml) Sodium Chloride 0.9% [Normal Saline] 1,000 ml IV ASDIRECTED
== END 2018-10-20 21:20 | disposition home or self-care (01) ==
LOC: LL.ED 19:11
DX: K52.9 Noninfective gastroenteritis and colitis, unspecified (principal); I10 Essential (primary) hypertension; Z88.8 Allergy status to other drugs, medicaments and biological substances; Z79.899 Other long term (current) drug therapy
CPT/HCPCS: 36415; 74021; 80053; 85025; 96360; 99283; 99284; J0780; J7030

== ENCOUNTER 2018-12-25 10:01 | Observation (INO) | payer MEDICARE, BC ==
[2018-12-25] MEDS ORDERED: Promethazine 25 MG/ML SDV IM PRN (10:30)
[2018-12-25] MEDS ORDERED: traMADol 50 MG Tab PO PRN (11:11)
[2018-12-25] MEDS: Pantoprazole 40 MG Vial IV SCH (11:15)
[2018-12-25] MEDS: Sodium Chloride 0.9% 1,000 ML IV SCH ×2 (11:17→19:27)
--- NOTE | 2018-12-25 12:13 | PCM.HP ---
H&P History of Present Illness - General Date of Service: 12/25/18 Admit Problem/Dx: Admission Diagnosis/Problem Admission Diagnosis/Problem Hyponatremia Source of Information: Patient, EMS, EMS Notes Reviewed History Limitations: Reports: No Limitations - History of Present Illness Initial Comments - Free Text/Narative: Patient presented to the clinic for a recheck on her nausea and weakness. Patient has chronic hyponatremia but recently had labs done at [facility] which revealed a sodium of 136, sodium from December 23 was 124. Patient received IV fluids and phenergan with improvement of symptoms. However yesterday and today, patient has been nauseated, weak, and mentions about worrying about grandson who is currently doctoring. Patient has a history of hyponatremia for years, and appears to have symptoms of nausea when her levels drop below 125 with review of her chart. Complains of dull headaches and some lower pelvic pain. Onset of Symptoms: Reports: Gradual Duration of Symptoms: Reports: Getting Worse Location: Reports: Abdomen Quality: Reports: Ache Improves with: Reports: Medication, Rest Worsens with: Reports: Movement Associated Symptoms: Reports: Headaches, Loss of Appetite, Nausea/Vomiting, Weakness - Related Data Allergies/Adverse Reactions: Allergies Allergy/AdvReac Type Severity Reaction Status Date / Time atropine sulfate Allergy Cannot Verified 12/25/18 10:39 [From Lomotil] Remember diphenoxylate HCl Allergy Cannot Verified 12/25/18 10:39 [From Lomotil] Remember nitrofurantoin Allergy Stomach Verified 12/25/18 10:39 [From Macrobid] Upset ondansetron [From Zofran] Allergy Stomach Verified 12/25/18 10:39 Upset/Headache Sulfa (Sulfonamide Allergy Muscle Verified 12/25/18 10:39 Antibiotics) Aches, Muscle Stiffness Home Medications: Home Meds RX: ALPRAZolam [Xanax] 1 mg PO TID@0800,1200,2000 02/07/14 [History] RX: Lutein/Min/Vit C/Vit E Acetate [Ocuvite Lutein] 1 cap PO Q12HR 02/07/14 [ History] RX: Polyvinyl Alcohol/Povidone [Refresh] 1 drop EYEBOTH BEDTIME 02/07/14 [ History] RX: Rosuvastatin [Crestor] 2.5 mg PO BEDTIME 02/07/14 [History] RX: Cholecalciferol (Vitamin D3) [Vitamin D3] 1,000 units PO Q2D 02/03/18 [ History] RX: Metoprolol Tartrate 12.5 mg PO BID 02/03/18 [History] RX: Multivitamin [Multivitamins] 1 each PO DAILY 02/03/18 [History] RX: Pantoprazole Sodium [Protonix] 20 mg PO DAILY 02/03/18 [History] RX: Calcium Carbonate/Vitamin D3 [Calcium 600 + Vit D Tablet] 1 tab PO MOWEFR@ 0800 02/08/18 [History] RX: Polyethylene Glycol 3350 [Miralax] 17 gm PO ASDIRECTED PRN 02/08/18 [History ] RX: Acetaminophen [Tylenol Extra Strength] 1,000 mg PO Q6HR PRN 06/25/18 [ History] RX: Levothyroxine 75 mcg PO DAILY 10/20/18 [History] Cranberry Fruit Concentrate [Cranberry] 450 mg PO DAILY 12/25/18 [History] L.acidoph,Paracasei, B.lactis [Probiotic] 1 each PO DAILY 12/25/18 [History] Mirtazapine [Remeron] 7.5 mg PO BEDTIME 12/25/18 [History] RX: Fish Oil/Flushing-3 Fatty Acids [Fish Oil 1,000 MG] 1 cap PO DAILY 12/25/18 [ History] RX: Sodium Chloride 1,000 mg PO TID 12/25/18 [History] RX: traMADol [Ultram] 50 mg PO DAILY PRN 12/25/18 [History] Past Medical History HEENT History: Reports: Impaired Vision Cardiovascular History: Reports: Hypertension Gastrointestinal History: Reports: None Other Gastrointestinal History: 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: Musculoskeletal History: Reports: Back Pain, Chronic, Other (See Below) Other Musculoskeletal History: lumbar fracture from a fall in january 28 Psychiatric History: Reports: Anxiety, Depression Other Oncologic History: history of thyroid cancer - Past Surgical History Musculoskeletal Surgical History: Reports: Other (See Below) Other Musculoskeletal Surgeries/Procedures:: vetebroplast February 2018 Social & Family History - Tobacco Use Smoking Status *Q: Never Smoker Second Hand Smoke Exposure: No - Caffeine Use Caffeine Use: Reports: Coffee, Soda, Tea - Recreational Drug Use Recreational Drug Use: No - Living Situation & Occupation Living situation: Reports: Occupation: Retired H&P Review of Systems - Review of Systems: Review Of Systems: See Below General: Reports: Weakness, Decreased Appetite HEENT: Reports: Headaches Pulmonary: Reports: No Symptoms Cardiovascular: Reports: No Symptoms Gastrointestinal: Reports: Abdominal Pain, Decreased Appetite, Nausea Genitourinary: Reports: No Symptoms Musculoskeletal: Reports: Back Pain Skin: Reports: No Symptoms Psychiatric: Reports: Anxiety Neurological: Reports: No Symptoms Hematologic/Lymphatic: Reports: No Symptoms Immunologic: Reports: No Symptoms Exam - Exam Exam: See Below - Vital Signs Weight: 136 lb - Exam Quality Assessment: DVT Prophylaxis General: Alert, Oriented, Cooperative HEENT: Conjunctiva Clear, EACs Clear, EOMI, Hearing Intact, Nares Patent, Normal Nasal Septum, Pupils Equal, Pupils Reactive (dry mucous membranes) Neck: Supple, Trachea Midline Lungs: Clear to Auscultation, Normal Respiratory Effort Cardiovascular: Regular Rate, Regular Rhythm, Normal S1, Normal S2 GI/Abdominal Exam: Normal Bowel Sounds, Soft, No Abnormal Bruit, Tender (tender to lower abdominal pain) Extremities: Normal Inspection, Normal Range of Motion, Non-Tender, No Pedal Edema, Normal Capillary Refill Peripheral Pulses: 1+: Dorsalis Pedis (L), Dorsalis Pedis (R) Skin: Warm, Dry, Intact Neurological: Cranial Nerves Intact, Reflexes Equal Bilateral, Strength Equal Bilateral Neuro Extensive - Mental Status: Alert, Oriented x3, Normal Mood/Affect, Normal Cognition, Memory Intact Neuro Extensive - Motor, Sensory, Reflexes: CN II-XII Intact, Normal Gait, Normal Reflexes DTR: 1+: Achilles (L), Achilles (R) Psychiatric: Alert, Normal Affect, Normal Mood - Patient Data Lab Results Last 24 hrs: Laboratory Results - last 24 hr 12/25/18 12/25/18 Range/Units 10:00 11:15 Magnesium 1.8 (1.8-2.4) mg/dL Specimen Type Urinblad Urine Color Yellow Urine Appearance Clear Urine pH 6.0 (5.0-9.0) Ur Specific [place] <= 1.005 (1.005-1.030) Urine Protein Negative (NEGATIVE) mg/dL Urine Glucose (UA) Negative (NEGATIVE) mg/dL Urine Ketones Negative (NEGATIVE) mg/dL Urine Occult Blood Negative (NEGATIVE) Urine Nitrite Negative (NEGATIVE) Urine Bilirubin Negative (NEGATIVE) Urine Urobilinogen 0.2 (0.2-1.0) E.U./dL Ur Leukocyte Esterase Negative (NEGATIVE) Urine RBC Not seen /HPF Urine WBC 0-5 /HPF Ur Epithelial Cells Few /LPF Urine Bacteria Rare (NONE TO FEW) /HPF - Problem List (1) Hyponatremia SNOMED Code(s): 47562998 ICD Code: E87.1 - HYPO-OSMOLALITY AND HYPONATREMIA Status: Acute Current Visit: Yes Problem Details: patient's symptoms start when the patient's sodium levels drop below 125. patient failed outpatient treatment and symptoms getting worse (2) Nausea SNOMED Code(s): 538763243 ICD Code: R11.0 - NAUSEA Status: Acute Current Visit: Yes Problem Details: will start phenergan IM as needed (3) Anxiety SNOMED Code(s): 69110017 ICD Code: F41.9 - ANXIETY DISORDER, UNSPECIFIED Status: Acute Current Visit: No Problem Details: continue on remeron, patient was previously on SSRI however due to hyponatremia the medication was stoppped (4) Dehydration SNOMED Code(s): 06627775 ICD Code: E86.0 - DEHYDRATION Status: Acute Current Visit: No Problem Details: started on IV fluids Problem List Initiated/Reviewed/Updated: Yes Orders Last 24hrs: Active Orders 24 hr Category Date Time Status Patient Status [ADT] Routine ADT 12/25/18 10:18 Active Antiembolic Devices [RC] , Care 12/25/18 10:22 Active Intake and Output [RC] QSHIFT Care 12/25/18 10:20 Active Oxygen Therapy [RC] PRN Care 12/25/18 10:18 Active Peripheral IV Care [RC] ,20 Care 12/25/18 10:22 Active Up ad Eladia [RC] ASDIRECTED Care 12/25/18 10:18 Active VTE/DVT Education [RC] PER UNIT ROUTINE Care 12/25/18 10:18 Active Vital Signs [RC] Q4HR Care 12/25/18 10:18 Active Full Liquid Diet [DIET] Diet 12/25/18 Lunch Active Head wo Cont [CT] Routine Exams 12/25/18 10:36 Ordered CBC WITH AUTO DIFF [HEME] DAILY Lab 12/26/18 05:11 Ordered CBC WITH AUTO DIFF [HEME] DAILY Lab 12/27/18 05:11 Ordered COMPREHENSIVE METABOLIC PN,CMP [CHEM] DAILY Lab 12/26/18 05:11 Ordered COMPREHENSIVE METABOLIC PN,CMP [CHEM] DAILY Lab 12/27/18 05:11 Ordered OSMOLALITY - SERUM [REF] Routine Lab 12/25/18 10:55 Received OSMOLALITY - URINE Routine Lab 12/25/18 10:36 Ordered ALPRAZolam [Xanax] Med 12/25/18 12:00 Ordered 1 mg PO TID@0800,1200,2000 Enoxaparin [Lovenox] Med 12/26/18 08:00 Active 30 mg SUBCUT DAILY Levothyroxine Med 12/26/18 08:00 Ordered 75 mcg PO DAILY Metoprolol Tartrate [Lopressor] Med 12/25/18 18:00 Ordered 12.5 mg PO BID Mirtazapine [Remeron] Med 12/25/18 20:00 Ordered 15 mg PO BEDTIME Pantoprazole [ProTONIX IV] Med 12/25/18 12:00 Active 40 mg IV DAILY Promethazine [Phenergan] Med 12/25/18 10:30 Active 12.5 mg IM Q6H PRN Sodium Chloride 0.9% [Normal Saline] 1,000 ml Med 12/25/18 10:30 Active IV ASDIRECTED Sodium Chloride 0.9% [Saline Flush] Med 12/25/18 10:18 Active 10 ml FLUSH ASDIRECTED PRN Sodium Chloride [Sodium Chloride] Med 12/25/18 12:00 Ordered 1,000 mg MC TID traMADol [Ultram] Med 12/25/18 11:11 Ordered 50 mg PO DAILY PRN Antiembolic Hose [OM.PC] Per Unit Routine Oth 12/25/18 10:20 Ordered Peripheral IV Insertion Adult [OM.PC] Routine Oth 12/25/18 10:18 Ordered Saline Lock Insert [OM.PC] Routine Oth 12/25/18 10:18 Ordered Resuscitation Status Routine Resus Stat 12/25/18 10:18 Ordered Medication Orders Alprazolam (Xanax) 1 mg PO TID@0800,1200,2000 [facility] Enoxaparin Sodium (Lovenox) 30 mg SUBCUT DAILY [facility] Sodium Chloride (Normal Saline) 1,000 mls @ 125 mls/hr IV ASDIRECTED [facility] Last Admin: 12/25/18 11:17 Dose: 125 mls/hr Levothyroxine Sodium (Levothyroxine) 75 mcg PO DAILY [facility] Metoprolol Tartrate (Lopressor) 12.5 mg PO BID [facility] Mirtazapine (Remeron) 15 mg PO BEDTIME [facility] Non-Formulary Medication (Sodium Chloride [Sodium Chloride]) 1,000 mg MC TID [facility] Pantoprazole Sodium (Protonix Iv) 40 mg IV DAILY [facility] Last Admin: 12/25/18 11:15 Dose: 40 mg Promethazine HCl (Phenergan) 12.5 mg IM Q6H PRN PRN Reason: Nausea/Vomiting Last Admin: 12/25/18 11:15 Dose: 12.5 mg Sodium Chloride (Saline Flush) 10 ml FLUSH ASDIRECTED PRN PRN Reason: Keep Vein Open Tramadol HCl (Ultram) 50 mg PO DAILY PRN PRN Reason: Pain Assessment/Plan Comment:: Patient requires observation for failed outpatient treatment. Will continue to work up hyponatremia, patient may need referral to endocrinology for further work-up with a cortisol challenge test. Discussed with Dr Garvin. Ordered follow up labs for the morning. Patient is full code status and agreed to the plan of care. Esther Urbano, [employer]ER
[2018-12-25] MEDS: ALPRAZolam 1 MG Tab PO SCH ×2 (12:51→20:20)
[2018-12-25] MEDS: Sodium Chloride 1 GM Tab PO SCH ×2 (12:51→17:42)
[2018-12-25] MEDS: Metoprolol Tartrate 25 MG Tab PO SCH (17:42)
[2018-12-25] MEDS: Mirtazapine 15 MG Tab PO SCH (20:21)
[2018-12-26] MEDS: Sodium Chloride 0.9% 1,000 ML IV SCH ×2 (03:32→11:57)
[2018-12-26 07:31] LABS: CHLORIDE,CL 103 mmol/L (98-107); SODIUM,NA 136 mmol/L (136-145)
[2018-12-26] MEDS: Enoxaparin 30 MG/0.3 ML Syringe SUBCUT SCH (08:55)
[2018-12-26] MEDS: Metoprolol Tartrate 25 MG Tab PO SCH ×2 (09:00→17:07)
[2018-12-26] MEDS: Sodium Chloride 1 GM Tab PO SCH ×3 (09:01→17:08)
[2018-12-26] MEDS: ALPRAZolam 1 MG Tab PO SCH ×3 (09:01→22:48)
[2018-12-26] MEDS: Levothyroxine 75 MCG Tab PO SCH (09:02)
[2018-12-26] MEDS: Pantoprazole 40 MG Vial IV SCH (09:03)
--- NOTE | 2018-12-26 17:30 | PCM.PN ---
- General Info Date of Service: 12/26/18 Admission Dx/Problem (Free Text): Admission Diagnosis/Problem Admission Diagnosis/Problem Hyponatremia Functional Status: Reports: Pain Controlled, Tolerating Diet, Ambulating - Review of Systems General: Reports: No Symptoms HEENT: Reports: No Symptoms Pulmonary: Reports: No Symptoms Cardiovascular: Reports: No Symptoms Gastrointestinal: Reports: No Symptoms Genitourinary: Reports: No Symptoms Musculoskeletal: Reports: No Symptoms Skin: Reports: No Symptoms Neurological: Reports: No Symptoms Psychiatric: Reports: No Symptoms - Patient Data Vitals - Most Recent: Last Vital Signs Temp 98.5 F 12/26/18 16:00 Pulse 59 L 12/26/18 17:07 Resp 16 12/26/18 16:00 BP 155/59 H 12/26/18 17:07 Pulse Ox 99 12/26/18 16:00 Weight - Most Recent: 136 lb 0.015 oz I&O - Last 24 Hours: Intake & Output 12/26/18 12/26/18 12/26/18 06:59 14:59 22:59 Intake Total 2390 Balance 2390 Lab Results Last 24 Hours: Laboratory Results - last 24 hr 12/25/18 12/25/18 12/26/18 Range/Units 10:55 11:15 06:50 WBC 3.7 L (4.0-10.2) K/uL RBC 3.59 L (3.77-5.09) M/uL Hgb 11.0 L (11.7-15.5) g/dL Hct 30.6 L (34.0-46.0) % MCV 85.2 (84.0-98.0) fL MCH 30.6 (28.2-33.3) pg MCHC 35.9 (31.7-36.0) g/dL RDW 11.9 (11.2-14.1) % Plt Count 210 (150-350) K/uL Neut % (Auto) 55.1 (45.0-80.0) % Lymph % (Auto) 31.1 (10.0-50.0) % [place] % (Auto) 11.6 (2.0-14.0) % Eos % (Auto) 1.9 (0.0-5.0) % Baso % (Auto) 0.3 (0.0-2.0) % Neut # (Auto) 2.04 (1.40-7.00) K/uL Lymph # (Auto) 1.15 (0.50-3.50) K/uL [place] # (Auto) 0.43 (0.00-1.00) K/uL Eos # (Auto) 0.07 (0.00-0.50) K/uL Baso # (Auto) 0.01 (0.00-0.20) K/uL Sodium (136-145) mmol/L Potassium (3.5-5.1) mmol/L Chloride (98-107) mmol/L Carbon Dioxide (21.0-32.0) mmol/L BUN (7-18) mg/dL Creatinine (0.51-1.17) mg/dL Est Cr Clr Drug Dosing mL/min Estimated GFR (MDRD) mL/min Glucose (74-106) mg/dL Serum Osmolality 251 L (275-295) mosm/kg Calcium (8.5-10.1) mg/dL Total Bilirubin (0.2-1.0) mg/dL AST (15-37) U/L ALT (12-78) U/L Alkaline Phosphatase (46-116) IU/L Total Protein (6.4-8.2) g/dL Albumin (3.4-5.0) g/dL TSH, Ultra Sensitive (0.358-3.740) mIU/mL Urine Osmolality 147 L (300-900) mosm/kg 12/26/18 Range/Units 06:50 WBC (4.0-10.2) K/uL RBC (3.77-5.09) M/uL Hgb (11.7-15.5) g/dL Hct (34.0-46.0) % MCV (84.0-98.0) fL MCH (28.2-33.3) pg MCHC (31.7-36.0) g/dL RDW (11.2-14.1) % Plt Count (150-350) K/uL Neut % (Auto) (45.0-80.0) % Lymph % (Auto) (10.0-50.0) % [place] % (Auto) (2.0-14.0) % Eos % (Auto) (0.0-5.0) % Baso % (Auto) (0.0-2.0) % Neut # (Auto) (1.40-7.00) K/uL Lymph # (Auto) (0.50-3.50) K/uL [place] # (Auto) (0.00-1.00) K/uL Eos # (Auto) (0.00-0.50) K/uL Baso # (Auto) (0.00-0.20) K/uL Sodium 136 D (136-145) mmol/L Potassium 3.5 (3.5-5.1) mmol/L Chloride 103 D (98-107) mmol/L Carbon Dioxide 21.8 (21.0-32.0) mmol/L BUN 3 L (7-18) mg/dL Creatinine 0.57 (0.51-1.17) mg/dL Est Cr Clr Drug Dosing 68.36 mL/min Estimated GFR (MDRD) > 60 mL/min Glucose 85 (74-106) mg/dL Serum Osmolality (275-295) mosm/kg Calcium 8.1 L (8.5-10.1) mg/dL Total Bilirubin 0.3 (0.2-1.0) mg/dL AST 27 (15-37) U/L ALT 23 (12-78) U/L Alkaline Phosphatase 69 (46-116) IU/L Total Protein 5.9 L (6.4-8.2) g/dL Albumin 3.2 L (3.4-5.0) g/dL TSH, Ultra Sensitive 4.541 H (0.358-3.740) mIU/mL Urine Osmolality (300-900) mosm/kg Med Orders - Current: Current Medications Alprazolam (Xanax) 1 mg PO TID@0800,1200,2000 ON LICENSE OF [facility] Last Admin: 12/26/18 11:58 Dose: 1 mg Enoxaparin Sodium (Lovenox) 30 mg SUBCUT DAILY ON LICENSE OF [facility] Last Admin: 12/26/18 08:55 Dose: 30 mg Levothyroxine Sodium (Levothyroxine) 75 mcg PO DAILY ON LICENSE OF [facility] Last Admin: 12/26/18 09:02 Dose: 75 mcg Metoprolol Tartrate (Lopressor) 12.5 mg PO BID ON LICENSE OF [facility] Last Admin: 12/26/18 17:07 Dose: 12.5 mg Mirtazapine (Remeron) 7.5 mg PO BEDTIME ON LICENSE OF [facility] Last Admin: 12/25/18 20:21 Dose: 7.5 mg Pantoprazole Sodium (Protonix Iv) 40 mg IV DAILY ON LICENSE OF [facility] Last Admin: 12/26/18 09:03 Dose: 40 mg Promethazine HCl (Phenergan) 12.5 mg IM Q6H PRN PRN Reason: Nausea/Vomiting Last Admin: 12/25/18 11:15 Dose: 12.5 mg Sodium Chloride (Saline Flush) 10 ml FLUSH ASDIRECTED PRN PRN Reason: Keep Vein Open Sodium Chloride (Sodium Chloride) 1 gm PO TID ON LICENSE OF [facility] Last Admin: 12/26/18 17:08 Dose: 1 gm Tramadol HCl (Ultram) 50 mg PO DAILY PRN PRN Reason: Pain Discontinued Medications Sodium Chloride (Normal Saline) 1,000 mls @ 125 mls/hr IV ASDIRECTED ON LICENSE OF [facility] Last Admin: 12/26/18 11:57 Dose: 125 mls/hr - Exam Quality Assessment: DVT Prophylaxis General: Alert, Oriented, Cooperative, No Acute Distress HEENT: Pupils Equal, Pupils Reactive Neck: Supple, Trachea Midline, No JVD Lungs: Clear to Auscultation, Normal Respiratory Effort Cardiovascular: Regular Rate, Regular Rhythm GI/Abdominal Exam: Normal Bowel Sounds, Soft, Non-Tender, No Organomegaly, No Distention Extremities: Normal Inspection, Normal Range of Motion, Normal Capillary Refill Peripheral Pulses: 1+: Dorsalis Pedis (L), Dorsalis Pedis (R) Skin: Warm, Dry, Intact Neurological: No New Focal Deficit Psy/Mental Status: Alert, Normal Affect, Normal Mood - Problem List & Annotations (1) Hyponatremia SNOMED Code(s): 36356492 Code(s): E87.1 - HYPO-OSMOLALITY AND HYPONATREMIA Status: Acute Current Visit: Yes Annotation/Comment:: patient's symptoms start when the patient's sodium levels drop below 125. patient failed outpatient treatment and symptoms getting worse (2) Nausea SNOMED Code(s): 245395471 Code(s): R11.0 - NAUSEA Status: Acute Current Visit: Yes Annotation/ Comment:: will start phenergan IM as needed (3) Anxiety SNOMED Code(s): 99986075 Code(s): F41.9 - ANXIETY DISORDER, UNSPECIFIED Status: Acute Current Visit: No Annotation/Comment:: continue on remeron, patient was previously on SSRI however due to hyponatremia the medication was stoppped (4) Dehydration SNOMED Code(s): 68436844 Code(s): E86.0 - DEHYDRATION Status: Acute Current Visit: No Annotation /Comment:: IV fluids stopped, Na 136 - Problem List Review Problem List Initiated/Reviewed/Updated: Yes - My Orders Last 24 Hours: My Active Orders 12/25/18 18:00 Metoprolol Tartrate [Lopressor] 12.5 mg PO BID 12/25/18 20:00 Mirtazapine [Remeron] 7.5 mg PO BEDTIME 12/26/18 06:50 CORTISOL [REF] Routine 12/26/18 08:00 Enoxaparin [Lovenox] 30 mg SUBCUT DAILY Levothyroxine 75 mcg PO DAILY 12/26/18 Dinner Regular Diet [DIET] 12/27/18 05:11 CBC WITH AUTO DIFF [HEME] DAILY COMPREHENSIVE METABOLIC PN,CMP [CHEM] DAILY - Plan Plan:: Patient requires observation for failed outpatient treatment. Will continue to work up hyponatremia, patient may need referral to endocrinology for further work-up with a cortisol challenge test. Discussed with Dr Garvin. Ordered follow up labs for the morning. Patient is full code status and agreed to the plan of care. Esther Urbano CNP 12/26/2018 Patient feeling much better, denies nausea, appetite some better but not good, and denies abdominal pain. Will discontinue IV fluids and see how sodium ranges in the morning. patient continues to need work-up for hyponatremia. May need referral to imaging clerk for cortisol challenge test. Reviewed tests and labs with the patient. Plan for discharge in the am if sodium remains within normal limits. Esther Urbano CNP
[2018-12-26] MEDS: Sodium Chloride 0.9% 10 ML Syringe FLUSH PRN (17:42)
[2018-12-26] MEDS ORDERED: NIFEdipine 10 MG Cap PO ONE (21:00)
[2018-12-26] MEDS: Mirtazapine 15 MG Tab PO SCH (22:48)
[2018-12-27] MEDS ORDERED: Acetaminophen 325 MG Tab PO PRN (06:11)
[2018-12-27 07:39] LABS: CHLORIDE,CL 102 mmol/L (98-107); SODIUM,NA 137 mmol/L (136-145)
[2018-12-27] MEDS: Pantoprazole 40 MG Vial IV SCH (08:19)
[2018-12-27] MEDS: ALPRAZolam 1 MG Tab PO SCH ×2 (08:19→11:15)
[2018-12-27] MEDS: Enoxaparin 30 MG/0.3 ML Syringe SUBCUT SCH (08:19)
[2018-12-27] MEDS: Sodium Chloride 1 GM Tab PO SCH ×2 (08:19→11:15)
[2018-12-27] MEDS: Levothyroxine 75 MCG Tab PO SCH (08:19)
[2018-12-27] MEDS: Metoprolol Tartrate 25 MG Tab PO SCH (08:20)
[2018-12-27] MEDS: Sodium Chloride 0.9% 10 ML Syringe FLUSH PRN (08:20)
[2018-12-27 11:12] VITALS: BP 137/70
--- NOTE | 2018-12-27 15:18 | PCM.PN ---
- General Info Date of Service: 12/27/18 Admission Dx/Problem (Free Text): Admission Diagnosis/Problem Admission Diagnosis/Problem Hyponatremia Functional Status: Reports: Pain Controlled - Review of Systems General: Reports: No Symptoms HEENT: Reports: No Symptoms Pulmonary: Reports: No Symptoms Cardiovascular: Reports: No Symptoms Gastrointestinal: Reports: No Symptoms Genitourinary: Reports: No Symptoms Musculoskeletal: Reports: No Symptoms Skin: Reports: No Symptoms Neurological: Reports: No Symptoms Psychiatric: Reports: Depression (cries easily), Anxiety - Patient Data Vitals - Most Recent: Last Vital Signs Temp 98.1 F 12/27/18 11:11 Pulse 53 L 12/27/18 11:11 Resp 16 12/27/18 11:11 BP 137/70 12/27/18 11:11 Pulse Ox 97 12/27/18 11:11 Weight - Most Recent: 136 lb 0.015 oz I&O - Last 24 Hours: Intake & Output 12/27/18 12/27/18 12/27/18 06:59 14:59 22:59 Intake Total 720 Output Total 1000 Balance -1000 720 Lab Results Last 24 Hours: Laboratory Results - last 24 hr 12/27/18 12/27/18 Range/Units 06:58 06:58 WBC 5.0 (4.0-10.2) K/uL RBC 3.85 (3.77-5.09) M/uL Hgb 11.7 (11.7-15.5) g/dL Hct 32.9 L (34.0-46.0) % MCV 85.5 (84.0-98.0) fL MCH 30.4 (28.2-33.3) pg MCHC 35.6 (31.7-36.0) g/dL RDW 12.3 (11.2-14.1) % Plt Count 239 (150-350) K/uL Neut % (Auto) 44.6 L (45.0-80.0) % Lymph % (Auto) 42.0 (10.0-50.0) % [place] % (Auto) 11.0 (2.0-14.0) % Eos % (Auto) 2.0 (0.0-5.0) % Baso % (Auto) 0.4 (0.0-2.0) % Neut # (Auto) 2.24 (1.40-7.00) K/uL Lymph # (Auto) 2.11 (0.50-3.50) K/uL [place] # (Auto) 0.55 (0.00-1.00) K/uL Eos # (Auto) 0.10 (0.00-0.50) K/uL Baso # (Auto) 0.02 (0.00-0.20) K/uL Sodium 137 (136-145) mmol/L Potassium 3.2 L (3.5-5.1) mmol/L Chloride 102 (98-107) mmol/L Carbon Dioxide 23.3 (21.0-32.0) mmol/L BUN 2 L (7-18) mg/dL Creatinine 0.59 (0.51-1.17) mg/dL Est Cr Clr Drug Dosing 66.04 mL/min Estimated GFR (MDRD) > 60 mL/min Glucose 134 H (74-106) mg/dL Calcium 8.6 (8.5-10.1) mg/dL Total Bilirubin 0.3 (0.2-1.0) mg/dL AST 30 (15-37) U/L ALT 26 (12-78) U/L Alkaline Phosphatase 76 (46-116) IU/L Total Protein 6.5 (6.4-8.2) g/dL Albumin 3.5 (3.4-5.0) g/dL Med Orders - Current: Current Medications Discontinued Medications Acetaminophen (Tylenol) 650 mg PO Q4H PRN PRN Reason: pain, temp Last Admin: 12/27/18 06:16 Dose: 650 mg Alprazolam (Xanax) 1 mg PO TID@0800,1200,2000 [facility] Last Admin: 12/27/18 11:15 Dose: 1 mg Enoxaparin Sodium (Lovenox) 30 mg SUBCUT DAILY [facility] Last Admin: 12/27/18 08:19 Dose: 30 mg Sodium Chloride (Normal Saline) 1,000 mls @ 125 mls/hr IV ASDIRECTED [facility] Last Admin: 12/26/18 11:57 Dose: 125 mls/hr Levothyroxine Sodium (Levothyroxine) 75 mcg PO DAILY [facility] Last Admin: 12/27/18 08:19 Dose: 75 mcg Metoprolol Tartrate (Lopressor) 12.5 mg PO BID [facility] Last Admin: 12/27/18 08:20 Dose: 12.5 mg Mirtazapine (Remeron) 7.5 mg PO BEDTIME [facility] Last Admin: 12/26/18 22:48 Dose: Not Given Mirtazapine (Remeron) 7.5 mg PO BEDTIME [facility] Nifedipine (Procardia) 10 mg PO ONETIME ONE Stop: 12/26/18 21:01 Last Admin: 12/27/18 00:11 Dose: Not Given Pantoprazole Sodium (Protonix Iv) 40 mg IV DAILY [facility] Last Admin: 12/27/18 08:19 Dose: 40 mg Promethazine HCl (Phenergan) 12.5 mg IM Q6H PRN PRN Reason: Nausea/Vomiting Last Admin: 12/25/18 11:15 Dose: 12.5 mg Sodium Chloride (Saline Flush) 10 ml FLUSH ASDIRECTED PRN PRN Reason: Keep Vein Open Last Admin: 12/27/18 08:20 Dose: 10 ml Sodium Chloride (Sodium Chloride) 1 gm PO TID [facility] Last Admin: 12/27/18 11:15 Dose: 1 gm Tramadol HCl (Ultram) 50 mg PO DAILY PRN PRN Reason: Pain - Exam Quality Assessment: DVT Prophylaxis General: Alert, Cooperative, No Acute Distress HEENT: Mucous Membr. Moist/[place] Neck: Trachea Midline, No JVD Lungs: Clear to Auscultation, Normal Respiratory Effort Cardiovascular: Regular Rate, Regular Rhythm GI/Abdominal Exam: Normal Bowel Sounds, Soft, No Distention (Female) Exam: Deferred Back Exam: Normal Inspection Extremities: Normal Inspection, Non-Tender, No Pedal Edema Skin: Warm, Dry, Intact Neurological: No New Focal Deficit Psy/Mental Status: Alert, Anxious, Depressed - Problem List & Annotations (1) Vomiting SNOMED Code(s): 195756145 Code(s): R11.10 - VOMITING, UNSPECIFIED Status: Acute Qualifiers: Vomiting type: psychogenic vomiting Nausea presence: with nausea Qualified Code(s): F50.89 - Other specified eating disorder (2) Abdominal pain SNOMED Code(s): 46990261 Code(s): R10.9 - UNSPECIFIED ABDOMINAL PAIN Status: Acute Qualifiers: Abdominal location: lower abdomen, unspecified Qualified Code(s): R10.30 - Lower abdominal pain, unspecified (3) Anxiety SNOMED Code(s): 30060566 Code(s): F41.9 - ANXIETY DISORDER, UNSPECIFIED Status: Acute Annotation/ Comment:: continue on remeron, patient was previously on SSRI however due to hyponatremia the medication was stoppped (4) Compression fracture of L1 lumbar vertebra SNOMED Code(s): 939657582 Code(s): S32.010A - WEDGE COMPRESSION FRACTURE OF FIRST LUMBAR VERTEBRA, INIT Status: Acute (5) Dehydration SNOMED Code(s): 75503287 Code(s): E86.0 - DEHYDRATION Status: Acute Annotation/Comment:: IV fluids stopped, Na 136 (6) Hypertension SNOMED Code(s): 95612891 Code(s): I10 - ESSENTIAL (PRIMARY) HYPERTENSION Status: Acute Qualifiers: Hypertension type: essential hypertension Qualified Code(s): I10 - Essential (primary) hypertension (7) Hyponatremia SNOMED Code(s): 22788489 Code(s): E87.1 - HYPO-OSMOLALITY AND HYPONATREMIA Status: Acute Annotation/Comment:: patient's symptoms start when the patient's sodium levels drop below 125. patient failed outpatient treatment and symptoms getting worse (8) Nausea SNOMED Code(s): 910835836 Code(s): R11.0 - NAUSEA Status: Acute Annotation/Comment:: will start phenergan IM as needed (9) Obstipation SNOMED Code(s): 496441754 Code(s): K59.00 - CONSTIPATION, UNSPECIFIED Status: Acute - Problem List Review Problem List Initiated/Reviewed/Updated: Yes - My Orders Last 24 Hours: My Active Orders 12/27/18 13:56 Ready for Discharge [RC] PER UNIT ROUTINE Discontinue Saline Lock [Peripheral IV Discontinue] [OM.PC] Routine - Plan Plan:: Patient requires observation for failed outpatient treatment. Will continue to work up hyponatremia, patient may need referral to endocrinology for further work-up with a cortisol challenge test. Discussed with Dr Garvin. Ordered follow up labs for the morning. Patient is full code status and agreed to the plan of care. Esther Urbano CNP 12/26/2018 Patient feeling much better, denies nausea, appetite some better but not good, and denies abdominal pain. Will discontinue IV fluids and see how sodium ranges in the morning. patient continues to need work-up for hyponatremia. May need referral to digital asset specialist for cortisol challenge test. Reviewed tests and labs with the patient. Plan for discharge in the am if sodium remains within normal limits. Esther Urbano,REHANA 12/27/18 Virgie Sharp MD feels better. Sodium stable. Stable for discharge.
--- NOTE | 2018-12-27 15:19 | PCM.DCSUM1 ---
Discharge Summary - Hospital Course Diagnosis: Stroke: No - Discharge Data Discharge Date: 12/27/18 Discharge Disposition: Home, Self-Care 01 Condition: Good - Discharge Diagnosis/Problem(s) (1) Vomiting SNOMED Code(s): 465272399 ICD Code: R11.10 - VOMITING, UNSPECIFIED Status: Acute Qualifiers: Vomiting type: psychogenic vomiting Nausea presence: with nausea Qualified Code(s): F50.89 - Other specified eating disorder (2) Abdominal pain SNOMED Code(s): 08257537 ICD Code: R10.9 - UNSPECIFIED ABDOMINAL PAIN Status: Acute Qualifiers: Abdominal location: lower abdomen, unspecified Qualified Code(s): R10.30 - Lower abdominal pain, unspecified (3) Anxiety SNOMED Code(s): 20721717 ICD Code: F41.9 - ANXIETY DISORDER, UNSPECIFIED Status: Acute Problem Details: continue on remeron, patient was previously on SSRI however due to hyponatremia the medication was stoppped (4) Compression fracture of L1 lumbar vertebra SNOMED Code(s): 595369936 ICD Code: S32.010A - WEDGE COMPRESSION FRACTURE OF FIRST LUMBAR VERTEBRA, INIT Status: Acute (5) Dehydration SNOMED Code(s): 19439435 ICD Code: E86.0 - DEHYDRATION Status: Acute Problem Details: IV fluids stopped, Na 136 (6) Hypertension SNOMED Code(s): 43137400 ICD Code: I10 - ESSENTIAL (PRIMARY) HYPERTENSION Status: Acute Qualifiers: Hypertension type: essential hypertension Qualified Code(s): I10 - Essential (primary) hypertension (7) Hyponatremia SNOMED Code(s): 89596326 ICD Code: E87.1 - HYPO-OSMOLALITY AND HYPONATREMIA Status: Acute Problem Details: patient's symptoms start when the patient's sodium levels drop below 125. patient failed outpatient treatment and symptoms getting worse (8) Nausea SNOMED Code(s): 688374480 ICD Code: R11.0 - NAUSEA Status: Acute Problem Details: will start phenergan IM as needed (9) Obstipation SNOMED Code(s): 559508371 ICD Code: K59.00 - CONSTIPATION, UNSPECIFIED Status: Acute - Patient Instructions Diet: Regular Diet as Tolerated Activity: As Tolerated Driving: May Drive Today Showering/Bathing: May Shower Other/Special Instructions: [facility] at 2:00PM. - Discharge Plan *PRESCRIPTION DRUG MONITORING PROGRAM REVIEWED*: Not Applicable *COPY OF PRESCRIPTION DRUG MONITORING REPORT IN PATIENT KWAN: Not Applicable Prescriptions/Med Rec: Promethazine [Phenergan] 12.5 mg PO Q4H PRN #30 tab PRN Reason: Nausea/Vomiting Home Medications: Home Meds ALPRAZolam [Xanax] 1 mg PO TID@0800,1200,2000 02/07/14 [History] Lutein/Min/Vit C/Vit E Acetate [Ocuvite Lutein] 1 cap PO Q12HR 02/07/14 [History ] Polyvinyl Alcohol/Povidone [Refresh] 1 drop EYEBOTH BEDTIME 02/07/14 [History] Rosuvastatin [Crestor] 2.5 mg PO BEDTIME 02/07/14 [History] Cholecalciferol (Vitamin D3) [Vitamin D3] 1,000 units PO Q2D 02/03/18 [History] Metoprolol Tartrate 12.5 mg PO BID 02/03/18 [History] Multivitamin [Multivitamins] 1 each PO DAILY 02/03/18 [History] Pantoprazole Sodium [Protonix] 20 mg PO DAILY 02/03/18 [History] Calcium Carbonate/Vitamin D3 [Calcium 600 + Vit D Tablet] 1 tab PO MOWEFR@0800 02/08/18 [History] Polyethylene Glycol 3350 [Miralax] 17 gm PO ASDIRECTED PRN 02/08/18 [History] Acetaminophen [Tylenol Extra Strength] 1,000 mg PO Q6HR PRN 06/25/18 [History] Levothyroxine 75 mcg PO DAILY 10/20/18 [History] Cranberry Fruit Concentrate [Cranberry] 450 mg PO DAILY 12/25/18 [History] Fish Oil/[place]-3 Fatty Acids [Fish Oil 1,000 MG] 1 cap PO DAILY 12/25/18 [ History] L.acidoph,Paracasei, B.lactis [Probiotic] 1 each PO DAILY 12/25/18 [History] Mirtazapine [Remeron] 7.5 mg PO BEDTIME 12/25/18 [History] Sodium Chloride 1,000 mg PO TID 12/25/18 [History] traMADol [Ultram] 50 mg PO DAILY PRN 12/25/18 [History] Promethazine [Phenergan] 12.5 mg PO Q4H PRN #30 tab 12/27/18 [Rx] Oxygen Therapy Mode: Room Air Patient Handouts: Promethazine injection, Hyponatremia - Discharge Summary/Plan Comment DC Time >30 min.: No - Patient Data Vitals - Most Recent: Last Vital Signs Temp 98.1 F 12/27/18 11:11 Pulse 53 L 12/27/18 11:11 Resp 16 12/27/18 11:11 BP 137/70 12/27/18 11:11 Pulse Ox 97 12/27/18 11:11 Weight - Most Recent: 136 lb 0.015 oz I&O - Last 24 hours: Intake & Output 12/27/18 12/27/18 12/27/18 06:59 14:59 22:59 Intake Total 720 Output Total 1000 Balance -1000 720 Lab Results - Last 24 hrs: Laboratory Results - last 24 hr 12/27/18 12/27/18 Range/Units 06:58 06:58 WBC 5.0 (4.0-10.2) K/uL RBC 3.85 (3.77-5.09) M/uL Hgb 11.7 (11.7-15.5) g/dL Hct 32.9 L (34.0-46.0) % MCV 85.5 (84.0-98.0) fL MCH 30.4 (28.2-33.3) pg MCHC 35.6 (31.7-36.0) g/dL RDW 12.3 (11.2-14.1) % Plt Count 239 (150-350) K/uL Neut % (Auto) 44.6 L (45.0-80.0) % Lymph % (Auto) 42.0 (10.0-50.0) % [place] % (Auto) 11.0 (2.0-14.0) % Eos % (Auto) 2.0 (0.0-5.0) % Baso % (Auto) 0.4 (0.0-2.0) % Neut # (Auto) 2.24 (1.40-7.00) K/uL Lymph # (Auto) 2.11 (0.50-3.50) K/uL [place] # (Auto) 0.55 (0.00-1.00) K/uL Eos # (Auto) 0.10 (0.00-0.50) K/uL Baso # (Auto) 0.02 (0.00-0.20) K/uL Sodium 137 (136-145) mmol/L Potassium 3.2 L (3.5-5.1) mmol/L Chloride 102 (98-107) mmol/L Carbon Dioxide 23.3 (21.0-32.0) mmol/L BUN 2 L (7-18) mg/dL Creatinine 0.59 (0.51-1.17) mg/dL Est Cr Clr Drug Dosing 66.04 mL/min Estimated GFR (MDRD) > 60 mL/min Glucose 134 H (74-106) mg/dL Calcium 8.6 (8.5-10.1) mg/dL Total Bilirubin 0.3 (0.2-1.0) mg/dL AST 30 (15-37) U/L ALT 26 (12-78) U/L Alkaline Phosphatase 76 (46-116) IU/L Total Protein 6.5 (6.4-8.2) g/dL Albumin 3.5 (3.4-5.0) g/dL Med Orders - Current: Current Medications Discontinued Medications Acetaminophen (Tylenol) 650 mg PO Q4H PRN PRN Reason: pain, temp Last Admin: 12/27/18 06:16 Dose: 650 mg Alprazolam (Xanax) 1 mg PO TID@0800,1200,2000 [facility] Last Admin: 12/27/18 11:15 Dose: 1 mg Enoxaparin Sodium (Lovenox) 30 mg SUBCUT DAILY [facility] Last Admin: 12/27/18 08:19 Dose: 30 mg Sodium Chloride (Normal Saline) 1,000 mls @ 125 mls/hr IV ASDIRECTED [facility] Last Admin: 12/26/18 11:57 Dose: 125 mls/hr Levothyroxine Sodium (Levothyroxine) 75 mcg PO DAILY [facility] Last Admin: 12/27/18 08:19 Dose: 75 mcg Metoprolol Tartrate (Lopressor) 12.5 mg PO BID [facility] Last Admin: 12/27/18 08:20 Dose: 12.5 mg Mirtazapine (Remeron) 7.5 mg PO BEDTIME [facility] Last Admin: 12/26/18 22:48 Dose: Not Given Mirtazapine (Remeron) 7.5 mg PO BEDTIME [facility] Nifedipine (Procardia) 10 mg PO ONETIME ONE Stop: 12/26/18 21:01 Last Admin: 12/27/18 00:11 Dose: Not Given Pantoprazole Sodium (Protonix Iv) 40 mg IV DAILY [facility] Last Admin: 12/27/18 08:19 Dose: 40 mg Promethazine HCl (Phenergan) 12.5 mg IM Q6H PRN PRN Reason: Nausea/Vomiting Last Admin: 12/25/18 11:15 Dose: 12.5 mg Sodium Chloride (Saline Flush) 10 ml FLUSH ASDIRECTED PRN PRN Reason: Keep Vein Open Last Admin: 12/27/18 08:20 Dose: 10 ml Sodium Chloride (Sodium Chloride) 1 gm PO TID [facility] Last Admin: 12/27/18 11:15 Dose: 1 gm Tramadol HCl (Ultram) 50 mg PO DAILY PRN PRN Reason: Pain
[2018-12-27] MEDS ORDERED: Mirtazapine 15 MG Tab PO SCH (20:00)
== END 2018-12-27 14:30 | disposition home or self-care (01) ==
LOC: LL.MS 10:01
PROVIDERS: ADMIT Nurse Practitioner Family; ATTEND Family Medicine
DX: E87.1 Hypo-osmolality and hyponatremia (principal); E86.0 Dehydration; F41.9 Anxiety disorder, unspecified; I10 Essential (primary) hypertension; S32.010A Wedge compression fracture of first lumbar vertebra, initial encounter for closed fracture; Z79.891 Long term (current) use of opiate analgesic; Z79.899 Other long term (current) drug therapy; Z77.090 Contact with and (suspected) exposure to asbestos; Z88.1 Allergy status to other antibiotic agents; Z88.2 Allergy status to sulfonamides; Z91.09 Other allergy status, other than to drugs and biological substances
CPT/HCPCS: 36415; 70450; 74019; 80053; 81001; 82533; 83735; 83930; 83935; 84300; 84443; 85025; 96361; 96372; 96374; 96376; A9270-GY; C9113; G0378; G0379; J1650; J2550; J7030

== ENCOUNTER 2019-01-22 03:25 | Emergency (ER) | payer MEDICARE, BC ==
--- NOTE | 2019-01-22 12:33 | ER ---
HISTORY OF PRESENT ILLNESS: The patient was brought to the emergency room via private automobile by her for evaluation of 9/10 urinary burning and frequency with no gross hematuria, colic, etc. Note the patient does have a history of recurrent UTI's with breakthrough infections despite daily cranberry pill use. She has not taken any medications for her symptoms to this point. The patient does state that her chronic nausea is stable with current infection with no other abdominal pain, emesis, diarrhea, melanonic stools, gross hematochezia, etc. She denies any chest pain, or other anginal-type symptoms. No recent history of fever, cough, wheezing, etc. PREVIOUS MEDICAL HISTORY: CURRENT MEDICATIONS: Patient is uncertain about her current medical therapy; however, medications as follows: Lopressor 1/2 pill b.i.d., alprazolam 1 tablet t.i.d., Crestor 1/2 tablet at bedtime, sodium chloride one tab t.i.d. unknown dose antacid pill, antinausea pill, antidepressant, levothyroxine, and Remeron all doses unknown. Tramadol 50 mg one tab daily with cranberry one tab daily. ALLERGIES: Sulfa-stiff legs. Lomotil unknown reaction. Macrobid unknown reaction. CHRONIC ILLNESSES: The patient does have a known history of chronic nausea of unknown etiology as above. Chronic hyponatremia, hypertension, hyperlipidemia, GERD, anxiety depression disorder, osteoarthritis, history of colonic polyps, chronic constipation. She does wear glasses. Also history of migraine headaches. Osteoarthritis. Diverticulosis. Esophagitis by distant EGD as below. Chronic Ultram/narcotic use. Note lumbar fracture in January 2018 with distant left wrist fracture. Additional history of hypothyroidism secondary to thyroid cancer and thyroidectomy as below. No apparent radiation or chemotherapy thereafter. SURGERIES: EGD and colonoscopy on 07/17/2013. Bilateral hemiarthroplasties of the knees, thyroidectomy secondary to thyroid cancer in 1979. FAMILY HISTORY: Mother with hypertension, maternal aunt with coronary artery disease. SOCIAL HISTORY: Patient is . No apparent previous tobacco use. REVIEW OF SYSTEMS: As per history of present illness as above otherwise noncontributory. LABORATORIES: UA shows a large amounts of wbc's with negative nitrites, however, greater than 300 protein, and large amounts of blood. Greater than 100 rbc's per high-power field with also greater than 100 wbc's per high power field. Many bacteria were present. Culture and sensitivity set up with this specimen. PHYSICAL EXAMINATION: VITAL SINGS: Blood pressure 152/72, pulse 66, respiratory rate 18, temperature 97.8 degrees, O2 sat 100% on room air at rest. HEENT: Normal with exception of patient wearing glasses. No nystagmus or vertigo NECK: No jugular distention, hepatojugular reflux, thyromegaly, or lymphadenopathy. LUNGS: Clear to auscultation all lobes. HEART: Regular rate and rhythm without rubs, murmurs or S3. ABDOMEN: Soft, normal bowel sounds. No palpation pain, rebound, masses, bruits or HSM. No CVA tenderness EXTREMITIES: Moderate osteoarthritic changes including left wrist deformity secondary to previous fracture. No pedal edema. Negative Homans sign. NEUROLOGIC: No gross deficits including no clinical orthostasis, etc. , BREAST AND RECTAL EXAMS: Not performed. PSYCHIATRIC: Adequate eye contact with no significant anxiety or depression. ASSESSMENT: 1. UTI with history of recurrent UTIs. 2. Hypertension. 3. Osteoarthritis. 4. GERD. 5. Anxiety depression disorder. 6. Hyperlipidemia. 7. Chronic hyponatremia. PLAN: 1. The patient will be discharged to home with her . 500 mg of Cipro and 200 mg Pyridium were given in the emergency room. 2. Cipro 500 mg po b.i.d. x10 with no refills. Pyridium 200 mg p.o. t.i.d. p.r.n. #6 with no refills. Patient already has a followup appointment scheduled with her regular provider, SABA Ryan at [facility] [place], later today. She should also follow up with her regular provider in 10 to 14 days for re-evaluation and recommended repeat UA with culture and sensitivity. Urine specimen was set up for culture and sensitivity as above with changes in antibiotic therapy depending on these results. Otherwise, patient should encourage oral fluids, including cranberry juice, etc., as before. Extensive precautions given to the patient and her prior to discharge with both parties being in agreement with treatment plan. NOTE: [employer] WAS DOWN KARI Beck MD /[id number] MTDCecilia
== END 2019-01-22 04:15 | disposition home or self-care (01) ==
LOC: LL.ED 03:25
DX: N39.0 Urinary tract infection, site not specified (principal); I10 Essential (primary) hypertension; M19.90 Unspecified osteoarthritis, unspecified site; K21.9 Gastro-esophageal reflux disease without esophagitis; F41.8 Other specified anxiety disorders; E78.5 Hyperlipidemia, unspecified; E87.1 Hypo-osmolality and hyponatremia; Z88.2 Allergy status to sulfonamides; Z88.1 Allergy status to other antibiotic agents
CPT/HCPCS: 81001; 87086; 87088; 87186; 99283

== ENCOUNTER 2019-02-20 06:38 | Emergency (ER) | payer MEDICARE, BC ==
[2019-02-20 06:47] VITALS: BP 135/54
--- NOTE | 2019-02-20 07:46 | EDM.PDOC ---
ED HPI GENERAL MEDICAL PROBLEM - General Chief Complaint: Gastrointestinal Problem Stated Complaint: Nausea Time Seen by Provider: 02/20/19 07:20 Source of Information: Reports: Patient, Significant Other History Limitations: Reports: No Limitations - History of Present Illness INITIAL COMMENTS - FREE TEXT/NARRATIVE: Patient comes to ER complaining of nausea/lower abdominal discomfort that has been long standing. State it started last year after she injured a vertebra around T12/L1. She has had numerous workups/scans for this, and had been seen by gastroenterology. Nothing has been found to be the cause specifically, and nothing really helps the nausea. She has tried several nausea medications. Has been a bit worse the past three weeks. Seen at clinic for it. Presents to ER this morning wondering if there is anything else that can be done, or to be referred to [facility]. Pain is in lower abdomen, is always present. Waxes and wanes, burning at times. No fevers. No weight changes recently. Was on antibiotics for UTI three weeks ago. No vomiting. Patient describes sensation as nausea, and not so much as pain. - Related Data Allergies Allergy/AdvReac Type Severity Reaction Status Date / Time atropine sulfate Allergy Cannot Verified 02/20/19 06:39 [From Lomotil] Remember diphenoxylate HCl Allergy Cannot Verified 02/20/19 06:39 [From Lomotil] Remember lactose Allergy Other Verified 02/20/19 06:39 nitrofurantoin Allergy Stomach Verified 02/20/19 06:39 [From Macrobid] Upset ondansetron [From Zofran] Allergy Stomach Verified 02/20/19 06:39 Upset/Headache Sulfa (Sulfonamide Allergy Muscle Verified 02/20/19 06:39 Antibiotics) Aches, Muscle Stiffness Home Meds: Home Meds ALPRAZolam [Xanax] 1 mg PO TID@0800,1200,2000 02/07/14 [History] Lutein/Min/Vit C/Vit E Acetate [Ocuvite Lutein] 1 cap PO Q12HR 02/07/14 [History ] Polyvinyl Alcohol/Povidone [Refresh] 1 drop EYEBOTH BEDTIME 02/07/14 [History] Rosuvastatin [Crestor] 2.5 mg PO BEDTIME 02/07/14 [History] Cholecalciferol (Vitamin D3) [Vitamin D3] 1,000 units PO Q2D 02/03/18 [History] Metoprolol Tartrate 12.5 mg PO BID 02/03/18 [History] Multivitamin [Multivitamins] 1 each PO DAILY 02/03/18 [History] Pantoprazole Sodium [Protonix] 20 mg PO DAILY 02/03/18 [History] Calcium Carbonate/Vitamin D3 [Calcium 600 + Vit D Tablet] 1 tab PO MOWEFR@0800 02/08/18 [History] Polyethylene Glycol 3350 [Miralax] 17 gm PO ASDIRECTED PRN 02/08/18 [History] Acetaminophen [Tylenol Extra Strength] 1,000 mg PO Q6HR PRN 06/25/18 [History] Levothyroxine 75 mcg PO DAILY 10/20/18 [History] Cranberry Fruit Concentrate [Cranberry] 450 mg PO DAILY 12/25/18 [History] Fish Oil/[place]-3 Fatty Acids [Fish Oil 1,000 MG] 1 cap PO DAILY 12/25/18 [ History] L.acidoph,Paracasei, B.lactis [Probiotic] 1 each PO DAILY 12/25/18 [History] Mirtazapine [Remeron] 7.5 mg PO BEDTIME 12/25/18 [History] Sodium Chloride 1,000 mg PO TID 12/25/18 [History] traMADol [Ultram] 50 mg PO DAILY PRN 12/25/18 [History] hydrOXYzine HCl [hydrOXYzine] 25 mg PO TID 02/20/19 [History] Past Medical History HEENT History: Reports: Cataract, Impaired Vision Cardiovascular History: Reports: High Cholesterol, Hypertension Gastrointestinal History: Reports: Other (See Below) Other Gastrointestinal History: Chronic nausea Genitourinary History: Reports: UTI, Recurrent 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: Musculoskeletal History: Reports: Back Pain, Chronic, Other (See Below) Other Musculoskeletal History: lumbar fracture from a fall in january 28 Psychiatric History: Reports: Anxiety, Depression Endocrine/Metabolic History: Reports: Other (See Below) - Past Surgical History HEENT Surgical History: Reports: Cataract Surgery GI Surgical History: Reports: Cholecystectomy Endocrine Surgical History: Reports: Thyroidectomy Musculoskeletal Surgical History: Reports: Other (See Below) Other Musculoskeletal Surgeries/Procedures:: vetebroplast February 2018 Social & Family History - Tobacco Use Smoking Status *Q: Never Smoker - Caffeine Use Caffeine Use: Reports: None - Recreational Drug Use Recreational Drug Use: No - Living Situation & Occupation Living situation: Reports: Occupation: Retired ED ROS GENERAL - Review of Systems Review Of Systems: See Below Constitutional: Reports: Decreased Appetite. Denies: Fever, Chills, Weakness, Night Sweats, Diaphoresis, Weight Gain HEENT: Reports: No Symptoms (no acute changes), Glasses Respiratory: Reports: No Symptoms Cardiovascular: Reports: No Symptoms GI/Abdominal: Reports: Abdominal Pain, Constipation (t), Diarrhea, Nausea. Denies: Black Stool, Bloody Stool, Difficulty Swallowing, Hematemesis, Hematochezia, Melena, Mucous in Stool, Stool Incontinence, Vomiting : Reports: No Symptoms Musculoskeletal: Reports: No Symptoms (no acute changes from baseline) Skin: Reports: No Symptoms Neurological: Reports: No Symptoms Psychiatric: Reports: No Symptoms Hematologic/Lymphatic: Reports: No Symptoms ED EXAM, GI/ABD - Physical Exam Exam: See Below Exam Limited By: No Limitations General Appearance: Alert, WD/WN, No Apparent Distress Eyes: Bilateral: EOMI Nose: No: Nasal Deformity, Nasal Swelling, Nasal Drainage Throat/Mouth: Normal Lips, Normal Voice, No Airway Compromise Course - Vital Signs Last Recorded V/S: Last Vital Signs Temp 36.9 C 02/20/19 06:46 Pulse 66 02/20/19 06:46 Resp 17 02/20/19 06:46 BP 135/54 L 02/20/19 06:46 Pulse Ox 97 02/20/19 06:46 - Orders/Labs/Meds Orders: Active Orders 24 hr Category Date Time Status Abdomen Pelvis w Cont [CT] Stat Exams 02/20/19 08:01 Ordered UA W/MICROSCOPIC [URIN] Stat Lab 02/20/19 06:58 Ordered Labs: Laboratory Tests 02/20/19 02/20/19 Range/Units 07:08 07:08 WBC 5.8 (4.0-10.2) K/uL RBC 3.81 (3.77-5.09) M/uL Hgb 11.9 (11.7-15.5) g/dL Hct 33.7 L (34.0-46.0) % MCV 88.5 D (84.0-98.0) fL MCH 31.2 (28.2-33.3) pg MCHC 35.3 (31.7-36.0) g/dL RDW 12.4 (11.2-14.1) % Plt Count 192 (150-350) K/uL Neut % (Auto) 71.3 (45.0-80.0) % Lymph % (Auto) 17.8 (10.0-50.0) % [place] % (Auto) 8.8 (2.0-14.0) % Eos % (Auto) 1.6 (0.0-5.0) % Baso % (Auto) 0.5 (0.0-2.0) % Neut # (Auto) 4.14 (1.40-7.00) K/uL Lymph # (Auto) 1.03 (0.50-3.50) K/uL [place] # (Auto) 0.51 (0.00-1.00) K/uL Eos # (Auto) 0.09 (0.00-0.50) K/uL Baso # (Auto) 0.03 (0.00-0.20) K/uL Sodium 138 (136-145) mmol/L Potassium 3.9 (3.5-5.1) mmol/L Chloride 103 (98-107) mmol/L Carbon Dioxide 22.2 (21.0-32.0) mmol/L BUN 8 (7-18) mg/dL Creatinine 0.69 (0.51-1.17) mg/dL Est Cr Clr Drug Dosing 56.56 mL/min Estimated GFR (MDRD) > 60 mL/min Glucose 100 (74-106) mg/dL Calcium 8.7 (8.5-10.1) mg/dL Total Bilirubin 0.3 (0.2-1.0) mg/dL AST 22 (15-37) U/L ALT 22 (12-78) U/L Alkaline Phosphatase 65 (46-116) IU/L Total Protein 6.9 (6.4-8.2) g/dL Albumin 3.7 (3.4-5.0) g/dL - Re-Assessments/Exams Free Text/Narrative Re-Assessment/Exam: 02/20/19 07:53 Baseline CBC/Chem/UA ordered. Review of chart shows that patient had recent abdominal film last month. Some mild air/fluid levels noted. Had CT of abdomen last June. Presenting complaint has been a chronic issue since last fall and she has had a rather extensive workup already performed. We discussed having an updated abdominal CT today to make certain that nothing has changed in the interim and patient agreeable. If this is negative, it was suggested to her to try an elimination diet to see if she could find and identify foods that might be aggravating her pain complaint and she was agreeable with trying this approach. will be taking over patient's care at [address] results. Departure - Departure Time of Disposition: 08:03 Disposition: Still A Patient 30 Condition: Good Clinical Impression: Chronic nausea - Discharge Information Referrals: Esther Urbano NP [Primary Care Provider] - Forms: ED Department Discharge - My Orders Last 24 Hours: My Active Orders 02/20/19 06:58 UA W/MICROSCOPIC [URIN] Stat 02/20/19 08:01 Abdomen Pelvis w Cont [CT] Stat - Assessment/Plan Last 24 Hours: My Active Orders 02/20/19 06:58 UA W/MICROSCOPIC [URIN] Stat 02/20/19 08:01 Abdomen Pelvis w Cont [CT] Stat
[2019-02-20 07:49] LABS: CHLORIDE,CL 103 mmol/L (98-107); SODIUM,NA 138 mmol/L (136-145)
[2019-02-20] MEDS ORDERED: Sodium Chloride 0.9% 10 ML Syringe FLUSH PRN (08:06)
[2019-02-20] MEDS ORDERED: Sodium Chloride 0.9% 250 ML IV ONE (08:07)
[2019-02-20] MEDS ORDERED: Iopamidol 612 MG/ML 100 ML Bottle IVPUSH ONE (09:30)
[2019-02-20] MEDS ORDERED: traMADol 50 MG Tab PO ONE (10:14)
--- NOTE | 2019-02-20 11:37 | EDM.PDOC ---
ED HPI GENERAL MEDICAL PROBLEM - General Chief Complaint: Gastrointestinal Problem Stated Complaint: Nausea Time Seen by Provider: 02/20/19 07:20 Source of Information: Reports: Patient, Family (), Old Records ([facility] chart/EMR with only limited review of these records secondary to patient takeover. EMR from [facility] in [place] also reviewed, however she is not present in these medical records.), Other (Verbal consultation at time of takeover with Dr. Marinelli) History Limitations: Reports: No Limitations - History of Present Illness INITIAL COMMENTS - FREE TEXT/NARRATIVE: Patient comes to ER complaining of nausea/lower abdominal discomfort that has been long standing. State it started last year after she injured a vertebra around T12/L1. She has had numerous workups/scans for this, and had been seen by gastroenterology. Nothing has been found to be the cause specifically, and nothing really helps the nausea. She has tried several nausea medications. Has been a bit worse the past three weeks. Seen at clinic for it. Presents to ER this morning wondering if there is anything else that can be done, or to be referred to [facility]. Pain is in lower abdomen, is always present. Waxes and wanes, burning at times. No fevers. No weight changes recently. Was on antibiotics for UTI three weeks ago. No vomiting. Patient describes sensation as nausea, and not so much as pain. ER note from Dr. Marinelli reviewed with no change of history of this time. - Related Data Allergies Allergy/AdvReac Type Severity Reaction Status Date / Time atropine sulfate Allergy Cannot Verified 02/20/19 06:39 [From Lomotil] Remember diphenoxylate HCl Allergy Cannot Verified 02/20/19 06:39 [From Lomotil] Remember lactose Allergy Other Verified 02/20/19 06:39 nitrofurantoin Allergy Stomach Verified 02/20/19 06:39 [From Macrobid] Upset ondansetron [From Zofran] Allergy Stomach Verified 02/20/19 06:39 Upset/Headache Sulfa (Sulfonamide Allergy Muscle Verified 02/20/19 06:39 Antibiotics) Aches, Muscle Stiffness Home Meds: Home Meds ALPRAZolam [Xanax] 1 mg PO TID@0800,1200,2000 02/07/14 [History] Lutein/Min/Vit C/Vit E Acetate [Ocuvite Lutein] 1 cap PO Q12HR 02/07/14 [History ] Polyvinyl Alcohol/Povidone [Refresh] 1 drop EYEBOTH BEDTIME 02/07/14 [History] Rosuvastatin [Crestor] 2.5 mg PO BEDTIME 02/07/14 [History] Cholecalciferol (Vitamin D3) [Vitamin D3] 1,000 units PO Q2D 02/03/18 [History] Metoprolol Tartrate 12.5 mg PO BID 02/03/18 [History] Multivitamin [Multivitamins] 1 each PO DAILY 02/03/18 [History] Pantoprazole Sodium [Protonix] 20 mg PO DAILY 02/03/18 [History] Calcium Carbonate/Vitamin D3 [Calcium 600 + Vit D Tablet] 1 tab PO MOWEFR@0800 02/08/18 [History] Polyethylene Glycol 3350 [Miralax] 17 gm PO ASDIRECTED PRN 02/08/18 [History] Acetaminophen [Tylenol Extra Strength] 1,000 mg PO Q6HR PRN 06/25/18 [History] Levothyroxine 75 mcg PO DAILY 10/20/18 [History] Cranberry Fruit Concentrate [Cranberry] 450 mg PO DAILY 12/25/18 [History] Fish Oil/Langley-3 Fatty Acids [Fish Oil 1,000 MG] 1 cap PO DAILY 12/25/18 [ History] L.acidoph,Paracasei, B.lactis [Probiotic] 1 each PO DAILY 12/25/18 [History] Mirtazapine [Remeron] 7.5 mg PO BEDTIME 12/25/18 [History] Sodium Chloride 1,000 mg PO TID 12/25/18 [History] traMADol [Ultram] 50 mg PO DAILY PRN 12/25/18 [History] hydrOXYzine HCl [hydrOXYzine] 25 mg PO TID 02/20/19 [History] Past Medical History HEENT History: Reports: Cataract, Hard of Hearing, Impaired Vision, Other (See Below) Other HEENT History: Mild bilateral presbycusis. Patient does wear glasses. Cardiovascular History: Reports: Heart Murmur, High Cholesterol, Hypertension, Other (See Below) Other Cardiovascular History: Pericardial effusion. 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 Endocrine/Metabolic History: Reports: Hypothyroidism, Other (See Below) Other Endocrine/Metabolic History: Hyponatremia. - Past Surgical History HEENT Surgical History: Reports: Cataract Surgery GI Surgical History: Reports: Cholecystectomy Endocrine Surgical History: Reports: Thyroidectomy Musculoskeletal Surgical History: Reports: Other (See Below) Other Musculoskeletal Surgeries/Procedures:: vetebroplast February 2018 Social & Family History - Tobacco Use Smoking Status *Q: Never Smoker - Caffeine Use Caffeine Use: Reports: None - Recreational Drug Use Recreational Drug Use: No - Living Situation & Occupation Living situation: Reports: Occupation: Retired ED ROS GENERAL - Review of Systems Review Of Systems: ROS reveals no pertinent complaints other than HPI. ED EXAM, GI/ABD - Physical Exam Exam: See Below General Appearance: Alert, WD/WN, No Apparent Distress, Anxious (Mild) Ears: Hearing Loss, Other (Mild bilateral presbycusis) Throat/Mouth: No: Other Head: Atraumatic, Normocephalic. No: Facial Tenderness Neck: Normal Inspection, Supple, Non-Tender, Full Range of Motion, Carotid Bruit (Mild bilateral carotid bruits). No: Lymphadenopathy (L), Lymphadenopathy (R), Thyromegaly Respiratory/Chest: No Respiratory Distress, Lungs Clear, Normal Breath Sounds, No Accessory Muscle Use, Chest Non-Tender. No: Retractions Cardiovascular: Normal Peripheral Pulses, Regular Rate, Rhythm, No Edema, No Gallop, No JVD, No Murmur, No Rub. No: Gallop/S3, Gallop/S4, Friction Rub GI/Abdominal Exam: Normal Bowel Sounds, No Organomegaly, No Distention, No Abnormal Bruit, No Mass, Pelvis Stable, Tender (Mild right upper quadrant palpation pain). No: Guarding, Rigid, Rebound (Female) Exam: Deferred Rectal (Female) Exam: Deferred Back Exam: Normal Inspection, Full Range of Motion. No: CVA Tenderness (L), CVA Tenderness (R), Muscle Spasm Extremities: No Pedal Edema, Normal Capillary Refill, Arm Pain (Improved right antecubital and distal humeral swelling and tenderness secondary to IV contrast infiltration). No: Asia's Sign, Increased Warmth Neurological: Alert, Oriented, CN II-XII Intact, Normal Cognition, Normal Gait, No Motor/Sensory Deficits Psychiatric: Anxious (Mild), Depressed Mood (Borderline) Skin Exam: Warm, Dry, Intact, Normal Color, No Rash, Other (IV infiltration as above). No: Diaphoretic, Wound/Incision Lymphatic: No Adenopathy Course - Vital Signs Last Recorded V/S: Last Vital Signs Temp 36.9 C 02/20/19 06:46 Pulse 66 02/20/19 06:46 Resp 17 02/20/19 06:46 BP 135/54 L 02/20/19 06:46 Pulse Ox 97 02/20/19 06:46 Vital Signs - 24 hr 02/20/19 06:46 Temperature [ 36.9 C Temporal] Pulse, 66 Peripheral [ Pulse Oximetry] Respiratory 17 Rate Blood Pressure 135/54 L [Right Upper Arm] O2 Sat by Pulse 97 Oximetry - Orders/Labs/Meds Orders: Active Orders 24 hr Category Date Time Status Abdomen Pelvis w Cont [CT] Stat Exams 02/20/19 08:01 Taken CULTURE URINE [RM] Routine Lab 02/20/19 08:00 Received Sodium Chloride 0.9% [Saline Flush] Med 02/20/19 08:06 Active 10 ml FLUSH ASDIRECTED PRN Saline Lock Insert [OM.PC] Routine Oth 02/20/19 08:06 Ordered Medication Orders Sodium Chloride (Saline Flush) 10 ml FLUSH ASDIRECTED PRN PRN Reason: Keep Vein Open Last Admin: 02/20/19 08:29 Dose: 10 ml Labs: Laboratory Tests 02/20/19 02/20/19 02/20/19 Range/Units 07:08 07:08 07:08 WBC 5.8 (4.0-10.2) K/uL RBC 3.81 (3.77-5.09) M/uL Hgb 11.9 (11.7-15.5) g/dL Hct 33.7 L (34.0-46.0) % MCV 88.5 D (84.0-98.0) fL MCH 31.2 (28.2-33.3) pg MCHC 35.3 (31.7-36.0) g/dL RDW 12.4 (11.2-14.1) % Plt Count 192 (150-350) K/uL Neut % (Auto) 71.3 (45.0-80.0) % Lymph % (Auto) 17.8 (10.0-50.0) % Antelope % (Auto) 8.8 (2.0-14.0) % Eos % (Auto) 1.6 (0.0-5.0) % Baso % (Auto) 0.5 (0.0-2.0) % Neut # (Auto) 4.14 (1.40-7.00) K/uL Lymph # (Auto) 1.03 (0.50-3.50) K/uL Antelope # (Auto) 0.51 (0.00-1.00) K/uL Eos # (Auto) 0.09 (0.00-0.50) K/uL Baso # (Auto) 0.03 (0.00-0.20) K/uL Sodium 138 (136-145) mmol/L Potassium 3.9 (3.5-5.1) mmol/L Chloride 103 (98-107) mmol/L Carbon Dioxide 22.2 (21.0-32.0) mmol/L BUN 8 (7-18) mg/dL Creatinine 0.69 (0.51-1.17) mg/dL Est Cr Clr Drug Dosing 56.56 mL/min Estimated GFR (MDRD) > 60 mL/min Glucose 100 (74-106) mg/dL Calcium 8.7 (8.5-10.1) mg/dL Magnesium 2.1 (1.8-2.4) mg/dL Total Bilirubin 0.3 (0.2-1.0) mg/dL AST 22 (15-37) U/L ALT 22 (12-78) U/L Alkaline Phosphatase 65 (46-116) IU/L Total Protein 6.9 (6.4-8.2) g/dL Albumin 3.7 (3.4-5.0) g/dL Amylase (25-115) U/L Lipase (73-393) U/L Specimen Type Urine Color Urine Appearance Urine pH (5.0-9.0) Ur Specific [place] (1.005-1.030) Urine Protein (NEGATIVE) mg/dL Urine Glucose (UA) (NEGATIVE) mg/dL Urine Ketones (NEGATIVE) mg/dL Urine Occult Blood (NEGATIVE) Urine Nitrite (NEGATIVE) Urine Bilirubin (NEGATIVE) Urine Urobilinogen (0.2-1.0) E.U./dL Ur Leukocyte Esterase (NEGATIVE) Urine RBC /HPF Urine WBC /HPF Ur Epithelial Cells /LPF Urine Bacteria (NONE TO FEW) /HPF 02/20/19 02/20/19 02/20/19 Range/Units 07:08 07:08 08:00 WBC (4.0-10.2) K/uL RBC (3.77-5.09) M/uL Hgb (11.7-15.5) g/dL Hct (34.0-46.0) % MCV (84.0-98.0) fL MCH (28.2-33.3) pg MCHC (31.7-36.0) g/dL RDW (11.2-14.1) % Plt Count (150-350) K/uL Neut % (Auto) (45.0-80.0) % Lymph % (Auto) (10.0-50.0) % Antelope % (Auto) (2.0-14.0) % Eos % (Auto) (0.0-5.0) % Baso % (Auto) (0.0-2.0) % Neut # (Auto) (1.40-7.00) K/uL Lymph # (Auto) (0.50-3.50) K/uL Antelope # (Auto) (0.00-1.00) K/uL Eos # (Auto) (0.00-0.50) K/uL Baso # (Auto) (0.00-0.20) K/uL Sodium (136-145) mmol/L Potassium (3.5-5.1) mmol/L Chloride (98-107) mmol/L Carbon Dioxide (21.0-32.0) mmol/L BUN (7-18) mg/dL Creatinine (0.51-1.17) mg/dL Est Cr Clr Drug Dosing mL/min Estimated GFR (MDRD) mL/min Glucose (74-106) mg/dL Calcium (8.5-10.1) mg/dL Magnesium (1.8-2.4) mg/dL Total Bilirubin (0.2-1.0) mg/dL AST (15-37) U/L ALT (12-78) U/L Alkaline Phosphatase (46-116) IU/L Total Protein (6.4-8.2) g/dL Albumin (3.4-5.0) g/dL Amylase 53 (25-115) U/L Lipase 162 (73-393) U/L Specimen Type Urinvoid Urine Color Yellow Urine Appearance Clear Urine pH 7.0 (5.0-9.0) Ur Specific [place] 1.010 (1.005-1.030) Urine Protein Negative (NEGATIVE) mg/dL Urine Glucose (UA) Negative (NEGATIVE) mg/dL Urine Ketones Trace H (NEGATIVE) mg/dL Urine Occult Blood Negative (NEGATIVE) Urine Nitrite Negative (NEGATIVE) Urine Bilirubin Negative (NEGATIVE) Urine Urobilinogen 0.2 (0.2-1.0) E.U./dL Ur Leukocyte Esterase Negative (NEGATIVE) Urine RBC Not seen /HPF Urine WBC Not seen /HPF Ur Epithelial Cells Occasional /LPF Urine Bacteria Occasional (NONE TO FEW) /HPF Urine specimen set up for culture and sensitivity. Meds: Medications Generic Name Dose Route Start Last Admin Trade Name Freq PRN Reason Stop Dose Admin Sodium Chloride 10 ml 02/20/19 08:06 02/20/19 08:29 Saline Flush FLUSH 10 ml ASDIRECTED PRN Administration Keep Vein Open Discontinued Medications Generic Name Dose Route Start Last Admin Trade Name Freq PRN Reason Stop Dose Admin Sodium Chloride 250 mls @ 125 mls/hr 02/20/19 08:07 02/20/19 08:28 Normal Saline IV 02/20/19 10:06 125 mls/hr ONETIME ONE Administration Iopamidol 100 ml 02/20/19 09:30 Isovue-300 (61%) IVPUSH 02/20/19 09:31 ONETIME ONE Tramadol HCl 50 mg 02/20/19 10:14 02/20/19 10:21 Ultram PO 02/20/19 10:15 50 mg ONETIME ONE Administration - Radiology Interpretation Free Text/Narrative:: Telephone consultation at 11:20 hours with the radiology department at [facility]. Preliminary verbal report of CT scan of the abdomen and pelvis with oral contrast. Note IV ordered however IV infiltration as above. Somewhat progressive incidental pericardial effusion of unknown etiology with additional incidental renal cysts noted. Status post cholecystectomy was confirmed by CT scan. Otherwise no gross abnormalities.. CT Results Date: 02/20/19 CT Results Time: 11:20 Departure - Departure Time of Disposition: 12:05 Disposition: Home, Self-Care 01 Condition: Good Clinical Impression: Chronic nausea, Mixed anxiety depressive disorder, Pericardial effusion, Renal cyst, Hypothyroidism (acquired), Hyponatremia Abdominal pain Qualifiers: Abdominal location: lower abdomen, unspecified Qualified Code(s): R10.30 - Lower abdominal pain, unspecified Osteoarthritis Qualifiers: Osteoarthritis location: multiple joints Osteoarthritis type: primary Qualified Code(s): M15.0 - Primary generalized (osteo)arthritis Hypertension Qualifiers: Hypertension type: essential hypertension Qualified Code(s): I10 - Essential ( primary) hypertension Hyperlipidemia Qualifiers: Hyperlipidemia type: unspecified Qualified Code(s): E78.5 - Hyperlipidemia, unspecified - Discharge Information *PRESCRIPTION DRUG MONITORING PROGRAM REVIEWED*: Not Applicable *COPY OF PRESCRIPTION DRUG MONITORING REPORT IN PATIENT KWAN: Not Applicable Instructions: Heart-Healthy Eating Plan, [id number], Pericardial Effusion, Abdominal Pain, Adult, [id number] Referrals: Esther Urbano NP [Primary Care Provider] - Forms: ED Department Discharge Additional Instructions: 1. Follow up with your regular provider in 10-14 days as needed, if symptoms persist. Bring these discharge instructions with you to that visit.. 2. Discuss possibility of scheduling an echocardiogram with your regular provider at that time secondary to incidental finding of a mildly progressive pericardial effusion by today's CT scan. 3. Glades diet including encouragement of oral fluids such as sports drinks, etc. for 24-48 hours as directed. Advance to heart healthy, elimination diet regular diet as tolerated thereafter as discussed with both medical providers today. 4. Immediately after this visit verify that your cellular telephone's voicemail has been activated and is empty. Also verify that your home telephone 's answering machine is operating properly and has space to receive messages. Note that it is sometimes necessary for us to be able to contact you at a later date to discuss your medical care. 5. Please remember that we are ALWAYS here for you and want to answer any questions you may have. Feel free to call the hospital any time and we call you back TINY. - Problem List & Annotations (1) Abdominal pain SNOMED Code(s): 63185965 Code(s): R10.9 - UNSPECIFIED ABDOMINAL PAIN Status: Acute Priority: High Current Visit: Yes Annotation/Comment:: Long history of nonspecific abdominal pain and chronic nausea, emesis, etc. with apparent recent negative workup. Review of [facility] EMR both from [place] and [place] do not indicate exact surgical procedures or surgical notes from the evaluations on 10/16/18 and 11/26/18 could not be found today. Patient is already on Protonix, which may need to be increased. Dr. Marinelli did provide the patient with an elimination diet earlier this morning. Close follow-up by regular provider as per discharge instructions with further GI workup, etc. depending on her clinical course. Note infiltration of IV contrast in her right arm as above. Instructions given concerning alternating ice packs and heat packs, which were started in the emergency room. Pain significantly improved with Ultram, which was given per the patient's request. Despite chronic history of nausea patient states that the Ultram actually makes her nausea better?. Further medication adjustments by her regular provider depending on her clinical course. Qualifiers: Abdominal location: lower abdomen, unspecified Qualified Code(s): R10.30 - Lower abdominal pain, unspecified (2) Pericardial effusion SNOMED Code(s): 534386085 Code(s): I31.3 - PERICARDIAL EFFUSION (NONINFLAMMATORY) Status: Chronic Priority: Medium Current Visit: Yes Annotation/Comment:: Mild progression of pericardial effusion of unknown etiology based on CT scan results today. No chest pain or anginal type symptoms. Echocardiogram and/or further cardiac workup should be considered by her regular provider as per discharge instructions, etc. and as per clinical course. (3) Chronic nausea SNOMED Code(s): 263659887, 938598380 Code(s): R11.0 - NAUSEA Status: Chronic Priority: Medium Current Visit : Yes Annotation/Comment:: As above. Currently under medical therapy. (4) Hyperlipidemia SNOMED Code(s): 34509416 Code(s): E78.5 - HYPERLIPIDEMIA, UNSPECIFIED Status: Chronic Priority: Medium Current Visit: Yes Annotation/Comment:: Currently under medical therapy, however the patient has not been following a heart healthy diet to this point. Dietary information provided at discharge. Qualifiers: Hyperlipidemia type: unspecified Qualified Code(s): E78.5 - Hyperlipidemia , unspecified (5) Hypertension SNOMED Code(s): 05116281 Code(s): I10 - ESSENTIAL (PRIMARY) HYPERTENSION Status: Chronic Priority : Medium Current Visit: Yes Annotation/Comment:: Good control in the emergency room. Continue to observe closely by her regular provider. Qualifiers: Hypertension type: essential hypertension Qualified Code(s): I10 - Essential (primary) hypertension (6) Hypothyroidism (acquired) SNOMED Code(s): 943667306 Code(s): E03.9 - HYPOTHYROIDISM, UNSPECIFIED Status: Chronic Priority: Medium Current Visit: Yes Annotation/Comment:: Currently under medical therapy. (7) Mixed anxiety depressive disorder SNOMED Code(s): 060987127 Code(s): F41.8 - OTHER SPECIFIED ANXIETY DISORDERS Status: Chronic Priority: Medium Current Visit: Yes Annotation/Comment:: Moderate control based on today's exam. Currently under therapy with consideration of additional Celexa therapy by her medical providers depending on her clinical course. Note chronic Ultram therapy as above. (8) Osteoarthritis SNOMED Code(s): 654573611 Code(s): M19.90 - UNSPECIFIED OSTEOARTHRITIS, UNSPECIFIED SITE Status: Chronic Priority: Medium Current Visit: Yes Annotation/Comment:: Stable by history Qualifiers: Osteoarthritis location: multiple joints Osteoarthritis type: primary Qualified Code(s): M15.0 - Primary generalized (osteo)arthritis (9) Renal cyst SNOMED Code(s): 886206325 Code(s): N28.1 - CYST OF KIDNEY, ACQUIRED Status: Chronic Priority: Medium Current Visit: Yes Annotation/Comment:: Incidental finding. Observe for now. (10) Hyponatremia SNOMED Code(s): 45931091 Code(s): E87.1 - HYPO-OSMOLALITY AND HYPONATREMIA Status: Chronic Current Visit: Yes Annotation/Comment:: Sodium normal today. - Problem List Review Problem List Initiated/Reviewed/Updated: Yes - My Orders Last 24 Hours: My Active Orders 02/20/19 08:00 CULTURE URINE [RM] Routine - Assessment/Plan Last 24 Hours: My Active Orders 02/20/19 08:00 CULTURE URINE [RM] Routine Assessment:: As above Plan: As above. Extensive precautions were given to the patient and her , who are in agreement with the treatment plan. See Patient Instructions for further treatment and plan.
== END 2019-02-20 12:05 | disposition home or self-care (01) ==
LOC: LL.ED 06:38
DX: E87.1 Hypo-osmolality and hyponatremia (principal); I31.3 Pericardial effusion (noninflammatory); N28.1 Cyst of kidney, acquired; E03.9 Hypothyroidism, unspecified; M15.0 Primary generalized (osteo)arthritis; I10 Essential (primary) hypertension; E78.5 Hyperlipidemia, unspecified; F41.8 Other specified anxiety disorders; Z79.899 Other long term (current) drug therapy; Z88.2 Allergy status to sulfonamides; Z91.011 Allergy to milk products; Z88.8 Allergy status to other drugs, medicaments and biological substances
CPT/HCPCS: 36415; 74177; 80053; 81001; 82150; 83690; 83735; 85025; 87086; 96360; 99284-25; A9270-GY; J7050

== ENCOUNTER 2019-02-25 20:39 | Inpatient (IN) | payer MEDICARE, BC ==
--- NOTE | 2019-02-25 20:56 | EDM.PDOC ---
ED HPI GENERAL MEDICAL PROBLEM - General Chief Complaint: Gastrointestinal Problem Stated Complaint: abd burning nausea Time Seen by Provider: 02/25/19 20:55 Source of Information: Reports: Family (, daughter), Old Records ([facility] chart/EMR), Other ([place] EMR) History Limitations: Reports: No Limitations - History of Present Illness INITIAL COMMENTS - FREE TEXT/NARRATIVE: Patient was brought to the emergency room via private automobile by her for evaluation of progressive suprapubic 7/10 abdominal pain and burning associated with nausea with symptoms starting at about 17:00 hours this afternoon. Patient did take one Ultram at 19:30 hours and an additional Vistaril at the same time with no improvement of her symptoms. Patient does have a long history of chronic nonspecific abdominal pain, anorexia and daily nausea with current daily Ultram use. Patient did take total of 3 Ultram tablets today, however usually only uses this on a daily basis by her history. The patient was apparently seen by her regular provider yesterday for back pain when she tried to stop her Ultram with IM Toradol and possibly IM Phenergan given at that time. She has had an unintentional 13 pound weight loss during the last month by her history. The patient did have a normal bowel movement yesterday morning with history of chronic constipation. No recent history of heartburn, emesis, diarrhea, melena, gross hematochezia, or any food intolerance , including fatty foods, etc.. She denies any gross hematuria, colic, or other UTI symptoms. The patient denies any chest pain/pressure, heart flutter, dizziness, orthostasis, orthopnea, diaphoresis, paresthesias, recent decreased exercise tolerance, or any other anginal-type symptoms. The patient also denies any recent fever, cough, wheezing, dyspnea, etc. with no recent use of antipyretic medications. No history of recent headaches, visual changes, diplopia, change in mental status, or other change in neurological status. Onset: Today, Gradual Onset Date: 02/25/19 Onset Time: 17:00 Duration: Constant, Getting Worse Location: Reports: Abdomen. Denies: Head, Face, Neck, Chest, Back, Upper Extremity, Left, Upper Extremity, Right, Lower Extremity, Left, Lower Extremity , Right, Radiates to Quality: Reports: Burning, Same as Previous Episode Severity: Moderate Improves with: Reports: None Worsens with: Reports: None Context: Reports: Other (As above). Denies: Sick Contact, Trauma Associated Symptoms: Reports: Loss of Appetite. 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: Spinal Immobilization (As above) Bilateral Lower Abdominal Pain Score (Numeric/FACES): 7 - Related Data Allergies Allergy/AdvReac Type Severity Reaction Status Date / Time atropine sulfate Allergy Cannot Verified 02/25/19 20:40 [From Lomotil] Remember diphenoxylate HCl Allergy Cannot Verified 02/25/19 20:40 [From Lomotil] Remember furosemide [From Lasix] Allergy Nausea Verified 02/25/19 21:52 lactose Allergy Other Verified 02/25/19 20:40 nitrofurantoin Allergy Stomach Verified 02/25/19 20:40 [From Macrobid] Upset ondansetron [From Zofran] Allergy Stomach Verified 02/25/19 20:40 Upset/Headache Sulfa (Sulfonamide Allergy Muscle Verified 02/25/19 20:40 Antibiotics) Aches, Muscle Stiffness Home Meds: Home Meds ALPRAZolam [Xanax] 1 mg PO TID@0800,1200,2000 02/07/14 [History] Lutein/Min/Vit C/Vit E Acetate [Ocuvite Lutein] 1 cap PO Q12HR 02/07/14 [History ] Polyvinyl Alcohol/Povidone [Refresh] 1 drop EYEBOTH BEDTIME 02/07/14 [History] Rosuvastatin [Crestor] 2.5 mg PO BEDTIME 02/07/14 [History] Cholecalciferol (Vitamin D3) [Vitamin D3] 1,000 units PO Q2D 02/03/18 [History] Metoprolol Tartrate 12.5 mg PO BID 02/03/18 [History] Multivitamin [Multivitamins] 1 each PO DAILY 02/03/18 [History] Pantoprazole Sodium [Protonix] 20 mg PO DAILY 02/03/18 [History] Calcium Carbonate/Vitamin D3 [Calcium 600 + Vit D Tablet] 1 tab PO MOWEFR@0800 02/08/18 [History] Polyethylene Glycol 3350 [Miralax] 17 gm PO ASDIRECTED PRN 02/08/18 [History] Acetaminophen [Tylenol Extra Strength] 1,000 mg PO Q6HR PRN 06/25/18 [History] Levothyroxine 75 mcg PO DAILY 10/20/18 [History] Cranberry Fruit Concentrate [Cranberry] 450 mg PO DAILY 12/25/18 [History] Fish Oil/[place]-3 Fatty Acids [Fish Oil 1,000 MG] 1 cap PO DAILY 12/25/18 [ History] L.acidoph,Paracasei, B.lactis [Probiotic] 1 each PO DAILY 12/25/18 [History] Mirtazapine [Remeron] 7.5 mg PO BEDTIME 12/25/18 [History] Sodium Chloride 1,000 mg PO TID 12/25/18 [History] traMADol [Ultram] 50 mg PO DAILY PRN 12/25/18 [History] hydrOXYzine HCl [hydrOXYzine] 25 mg PO TID 02/20/19 [History] Past Medical History HEENT History: Reports: Cataract, Hard of Hearing, Impaired Vision, Macular Degeneration, Other (See Below). Denies: Allergic Rhinitis, Glaucoma, Otitis Media, Retinal Detachment Other HEENT History: Mild bilateral presbycusis with no current therapy. Patient does wear glasses. Cardiovascular History: Reports: Cardiomyopathy, Heart Murmur, High Cholesterol , Hypertension, Other (See Below). Denies: Afib, Aneurysm, Arrhythmia, Blood Clots/VTE/DVT, CAD, Heart Failure, DC, PVD, Syncope Other Cardiovascular History: Pericardial effusionnonsymptomatic. Mild diffuse valvular disease by echocardiogram as below with grade 1 diastolic dysfunction and history of intermittent cardiac murmurs. Respiratory History: Reports: Intubation, Previous, Other (See Below). Denies: Asthma, Bronchitis, Recurrent, COPD, Intubation, Difficult, PE, Pneumonia, Recurrent, Pneumothorax, Sleep Apnea, TB Other Respiratory History: Bilateral benign pulmonary nodules including left lower lobe and right middle lobe stable by CT scans as below. Gastrointestinal History: Reports: Bowel Obstruction, Chronic Constipation, Colon Polyp, Diverticulosis, GERD, Other (See Below). Denies: Celiac Disease, Cholelithiasis, Chronic Diarrhea, Fecal Incontinence, Gastritis, GI Bleed, Hepatitis, Hiatal Hernia, Inflammatory Bowel Disease, Irritable Bowel Syndrome, Jaundice, Pancreatitis, PUD Other Gastrointestinal History: Chronic specific abdominal pain and nausea. Benign hepatic cysts and pancreatic cyst by MRI and CT scan. Chronic constipation with history of borderline ileus. Dysfunctional gallbladder requiring cholecystectomy as below. Esophagitis by EGD as below. Genitourinary History: Reports: UTI, Recurrent, Other (See Below). Denies: Acute Renal Failure, Chronic Renal Insuffiency, Renal Calculus, Retention, Urinary, STD, Urinary Incontinence Other Genitourinary History: Left-sided benign renal cysts. SHIPFITTER HELPER History: Reports: . Denies: Dysfunctional Uterine Bleeding, Endometriosis, Fibroids, Spontaneous : 4 Para: 4 LMP (Approximate): Other (See Below) Other SHIPFITTER HELPER History: Menopause at about age 46. Full term without complications during pregnancies or deliveries. Musculoskeletal History: Reports: Arthritis, Back Pain, Chronic, Fracture, Neck Pain, Chronic, Osteoarthritis, Osteoporosis, Other (See Below). Denies: Amputation, Gout, RA, SLE Other Musculoskeletal History: L1 vertebral body compression fracture on 01/27/18 with vertebroplasty as below. Left wrist fracture in 1982. Mild kyphosis. Neurological History: Reports: CVA, Headaches, Chronic, Migraines, Other (See Below). Denies: Cerebral Aneurysms, Concussion, Head Trauma, MS, Neuropathy, Peripheral, Parkinson's, Seizure, TIA, Vertigo Other Neuro History: Incidental possible distant nonsymptomatic left-sided anterior lacunar infarct by CT scan and MRI of the head. Mild cerebromicrovascular disease. Psychiatric History: Reports: Addiction, Anxiety, Depression, Other (See Below) . Denies: Abuse, Victim of, ADD, ADHD, Alzheimers Disease, Dementia, Psych Hospitalization(s), PTSD, Suicide Attempt, Suicidal Ideation Other Psychiatric History: Chronic Ultram use. Endocrine/Metabolic History: Reports: Hypothyroidism, Osteopenia, Osteoporosis, Other (See Below). Denies: Diabetes, Gestational, Diabetes, Type I, Diabetes, Type II, Diabetes Mellitus, Type 3c, IDDM, Obesity/BMI 30+ Other Endocrine/Metabolic History: Postsurgical hypothyroidism after thyroidectomy for thyroid cancer in the . Hyponatremia. Hematologic History: Reports: None. Denies: Anemia, Blood Transfusion(s), Iron Deficiency Immunologic History: Reports: None. Denies: AIDS, HIV, SLE Oncologic (Cancer) History: Reports: Squamous Cell Carcinoma, Thyroid, Other ( See Below). 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 Thyroid cancer acquiring thyroidectomy in 1979 with no radiation or chemotherapy required. Dermatologic History: Reports: None. Denies: Eczema, Psoriasis - Infectious Disease History Infectious Disease History: Denies: C-Difficile, Chicken Pox (Uncertain), Measles, Meningitis, Mononucleosis, MRSA, Mumps, Pertussis (Whooping Cough), Rheumatic Fever, Rubella, Scarlet Fever, Shingles, TB, VRE - Past Surgical History Head Surgeries/Procedures: Reports: None HEENT Surgical History: Reports: Cataract Surgery, Oral Surgery, Other (See Below). Denies: Adenoidectomy, Eye Surgery, Laser Surgery, LASIK, Myringotomy w Tube(s), Naso-Sinus Surgery, Tonsillectomy Other HEENT Surgeries/Procedures: Ajo teeth extraction 4 at about age 20. Bilateral cataract surgery in about 2015. Cardiovascular Surgical History: Reports: None. Denies: Varicose Respiratory Surgical History: Reports: None. Denies: Thoracentesis GI Surgical History: Reports: Cholecystectomy, Colonoscopy, EGD, Polypectomy, Other (See Below). Denies: Hernia, Abdominal, Hernia, Inguinal, Hernia Repair/ Other Other GI Surgeries/Procedures: EGD and colonoscopy on 07/17/13. Previous colonoscopy on 09/27/06 possible colonic polyps at that time. Female Surgical History: Denies: D&C, Hysterectomy, Oophorectomy, Salpingo- Oophorectomy, Tubal Ligation Endocrine Surgical History: Reports: Thyroid Biopsy, Thyroidectomy, Other (See Below) Other Endocrine Surgeries/Procedures: Thyroidectomy in 1979 secondary to thyroid cancer as above. Neurological Surgical History: Reports: Vertebroplasty, Other (See Below). Denies: C-Spine, Discectomy, Intracranial, Laminectomy, Lumbar Spine, Sacral Spine, Spinal Fusion Other Neurological Surgeries/Procedures: L1 vertebroplasty on 03/18/18. Musculoskeletal Surgical History: Reports: Arthroscopic Knee, Joint Replacement , Other (See Below). Denies: Carpal Tunnel, Ganglion Cyst, ORIF, Shoulder Surgery Other Musculoskeletal Surgeries/Procedures:: Possible previous knee arthroscopic evaluations, however patient uncertain. Bilateral hemiarthroplasties of the knees in the . Oncologic Surgical History: Reports: None Dermatological Surgical History: Reports: Other (See Below) Other Dermatological Surgeries/Procedures: Excision of squamous cell carcinoma from the right facial region as above. - Past Imaging History Past Imaging History: Reports: Cardiac Echo (11/09/15 with ejection fraction of 6065 percent and findings as above.), CAT Scan (CT scan of the head on 12/25/18, 03/08/18, 03/09/17, and 04/19/15. CT of the abdomen and pelvis on 02/20/19, 07/23/18 , and 12/08/16. CT of the chest with IV contrast on 01/10/19. CT of the head and maxillofacial region 02/27/17. CT of the sinuses on 04/19/15.), HIDA Scan ( Positive hydroscan on 01/18/17 with ejection fraction of only 19%.), MRA (As below), MRI (MRI of the lumbar spine on 06/10/18, 02/04/18, and 01/27/18. MRI of the abdomen and pelvis with and without contrast on 09/30/18 and 12/18/16. MRI and MRA of the brain on 07/17/16.), Stress Testing (Negative Cardiolite stress test on 10/24/12), Ultrasound (Renal ultrasound on 05/31/14. Abdominal ultrasound on 08/12.), Upper GI X-Ray/Series (Negative upper GI on 02/01/17.) Social & Family History - Family History HEENT: Reports: Macular Degeneration, Other (See Below). Denies: Glaucoma, Retinal Detachment Other HEENT Family History: Mother and maternal aunts 2 with macular degeneration. Cardiac: Reports: CAD, Hypertension, DC, Other (See Below). Denies: Afib, Aneurysm, Arrhythmia, Blood Clots/VTE/DVT, Heart Failure, Heart Murmur, High Cholesterol, PVD/COD, Syncope Other Cardiac Family History: Hypertension in mother, brother, and daughter. Maternal aunt with coronary artery disease. Maternal uncle with fatal DC in his 70s. Respiratory: Reports: None. Denies: Asthma, COPD, PE, Pneumothorax, Sleep Apnea GI: Reports: Colon Polyps, Other (See Below). Denies: Celiac Disease, Cholelithiasis, GERD, GI bleed, Hepatitis, Inflammatory Bowel Disease, Irritable Bowel Syndrome, Jaundice, Pancreatitis, PUD Other GI Family History: Brother with colon cancer as below. : Reports: Dialysis, Renal Disease/Insufficiency, Other (See Below). Denies: Renal Calculus, UTI, Recurrent Other Family History: Mother required dialysis with fatal renal insufficiency at age 85. OBGYN: Reports: None. Denies: Endometriosis, Recurrent Spontaneous Musculoskeletal: Reports: Arthritis, Osteoarthritis, Other (See Below). Denies : Gout, RA, SLE Other Musculoskeletal Family History: Father with osteoarthritis. Neurological: Reports: Migraines, Other (See Below). Denies: Alzheimers Disease , Cerebral Aneurysms, CVA, Dementia, MS, Parkinson's, Seizure, TIA Other Neurological Family History: Son and daughter with migraine headaches. Psychiatric: Reports: None. Denies: Abuse, Victim of, ADD, ADHD, Anxiety, Depression, Psych Hospitalization(s), PTSD, Suicide Attempt Endocrine/Metabolic: Reports: None. Denies: Diabetes, Gestational, Diabetes, Type I, Diabetes, type II, Diabetes Mellitus, Type 3c, Hypothyroidism, IDDM Hematologic: Reports: None. Denies: Anemia, SLE Immunologic: Reports: None. Denies: AIDS, HIV, SLE Dermatologic: Reports: None. Denies: Eczema, Psoriasis Oncologic: Reports: Colon, Skin, Other (See Below). Denies: Breast, Cervix, Hodgkin's Lymphoma, Leukemia, Non-Hodgkin's Lymphoma, Ovarian, Thyroid, Uterine Other Oncologic Family History: Daughter with recurrent basal cell carcinoma. Brother with history of colon cancer requiring hemicolectomy at age 90. - Tobacco Use Smoking Status *Q: Never Smoker Tobacco Use Within Last Twelve Months: No Used Tobacco, but Quit: No Smoking Cessation Information Provided To Patient: No Second Hand Smoke Exposure: No Second Hand Smoke Education Provided: No - Caffeine Use Caffeine Use: Reports: Coffee (One cup per day), Tea (One cup per day.). Denies : Energy Drinks, Soda - Alcohol Use Alcohol Use History: No Days Per Week of Alcohol Use: 0 Number of Drinks Per Day: 0 Number of Drinks Per Day Comment: No previous DWIs, problems with alcohol abuse , etc. Total Drinks Per Week: 0 Alcohol Use in Last Twelve Months: No - Recreational Drug Use Recreational Drug Use: No Drug Use in Last 12 Months: No Recreational Drug Type: Denies: Amphetamines (Speed), Heroin, Inhalants (Glues, Solvents, Aerosols), LSD (Acid), Marijuana/Hashish, Methamphetamine, Morphine, Oxycodone - Living Situation & Occupation Living situation: Reports: (1954, 4 children) Occupation: Retired (Retired at age 66. [place] multiple previous jobs.) ED ROS GENERAL - Review of Systems Review Of Systems: ROS reveals no pertinent complaints other than HPI. ED EXAM, GI/ABD - Physical Exam Exam: See Below Exam Limited By: No Limitations General Appearance: Alert, WD/WN, No Apparent Distress, Anxious (Mild) Eyes: Bilateral: Normal Appearance (No nystagmus. Patient wearing glasses), EOMI Ears: Normal External Exam, Normal Canal, Normal TMs, Hearing Loss (Mild bilateral presbycusis) Nose: Normal Inspection, Normal Mucosa, No Blood Throat/Mouth: Normal Inspection, Normal Lips, Normal Teeth, Normal Gums, Normal Oropharynx, Normal Voice, No Airway Compromise, Other (Benign torus palatinus). No: Dysphagia, Perioral Cyanosis Head: Atraumatic, Normocephalic. No: Facial Swelling, Facial Tenderness, Sinus Tenderness Neck: Supple, Non-Tender, Full Range of Motion, Carotid Bruit (Mild bilateral carotid bruits). No: Lymphadenopathy (L), Lymphadenopathy (R), Thyromegaly Respiratory/Chest: No Respiratory Distress, Lungs Clear, Normal Breath Sounds, No Accessory Muscle Use, Chest Non-Tender. No: Pleural Rub, Retractions Cardiovascular: Normal Peripheral Pulses, Regular Rate, Rhythm, No Edema, No Gallop, No JVD, No Murmur, No Rub. No: Gallop/S3, Gallop/S4, Friction Rub GI/Abdominal Exam: Soft, No Organomegaly, No Distention, No Abnormal Bruit, No Mass, Pelvis Stable, Tender (Minimal nonspecific tenderness/palpation pain in the suprapubic region), Abnormal Bowel Sounds (Mild diffuse increased bowel sounds however not high-pitched in nature). No: Guarding, Rigid, Rebound (Female) Exam: Deferred Rectal (Female) Exam: Normal Exam, Normal Rectal Tone, Heme - Stool. No: Black Stool, Bloody Stool, Fecal Impaction, Mass, Tenderness (No Kye space tenderness) Back Exam: Full Range of Motion, Other (Mild kyphosis). No: CVA Tenderness (L) , CVA Tenderness (R), Muscle Spasm, Paraspinal Tenderness, Vertebral Tenderness Extremities: Normal Inspection, Normal Range of Motion, Non-Tender, No Pedal Edema, Normal Capillary Refill. No: Asia's Sign Neurological: Alert, Oriented, CN II-XII Intact, Normal Cognition, Normal Gait, Normal Reflexes (Negative Babinski's), No Motor/Sensory Deficits Psychiatric: Anxious (Mild). No: Depressed Mood Skin Exam: Warm, Dry, Intact, Normal Color, No Rash. No: Diaphoretic, Ecchymosis, Petechiae, Wound/Incision Course - Vital Signs Last Recorded V/S: Last Vital Signs Temp 36.6 C 02/25/19 20:40 Pulse 52 L 02/25/19 22:12 Resp 18 02/25/19 22:12 BP 170/72 H 02/25/19 22:12 Pulse Ox 97 02/25/19 22:12 Vital Signs - 24 hr 02/25/19 02/25/19 02/25/19 20:40 21:42 21:57 Temperature [ 36.6 C Temporal] Pulse, 59 L 55 L 53 L Peripheral [ Right Pulse Oximetry] Respiratory 19 18 18 Rate Blood Pressure 192/71 H 170/118 H 172/60 H [Left Upper Arm ] O2 Sat by Pulse 94 L 94 L 96 Oximetry 02/25/19 22:12 Temperature [ Temporal] Pulse, 52 L Peripheral [ Right Pulse Oximetry] Respiratory 18 Rate Blood Pressure 170/72 H [Left Upper Arm ] O2 Sat by Pulse 97 Oximetry - Orders/Labs/Meds Orders: Active Orders 24 hr Category Date Time Status Peripheral IV Care [RC] . DIRECTED Care 02/25/19 20:57 Active Nothing Per Oral Diet [DIET] Diet 02/25/19 Breakfast Active Abdomen Series w Chest 1V [CR] Stat Exams 02/25/19 20:57 Taken CULTURE URINE [RM] Stat Lab 02/25/19 20:48 Received Sodium Chloride 0.9% [Saline Flush] Med 02/25/19 20:57 Active 10 ml FLUSH ASDIRECTED PRN Sodium Chloride 3% 500 ml Med 02/25/19 22:00 Ordered IV ASDIRECTED Obtain Past Medical Record [OM.PC] Urgent Oth 02/25/19 20:57 Active Peripheral IV Insertion Adult [OM.PC] Stat Ot 02/25/19 20:57 Ordered Resuscitation Status Stat Resus Stat 02/25/19 20:57 Ordered Medication Orders Sodium Chloride (Sodium Chloride 3%) 500 mls @ 80 mls/hr IV ASDIRECTED YAMILET Last Admin: 02/25/19 22:08 Dose: 80 mls/hr Sodium Chloride (Saline Flush) 10 ml FLUSH ASDIRECTED PRN PRN Reason: Keep Vein Open Labs: Laboratory Tests 02/25/19 02/25/19 02/25/19 Range/Units 20:48 21:05 21:05 WBC 5.3 (4.0-10.2) K/uL RBC 3.79 (3.77-5.09) M/uL Hgb 11.7 (11.7-15.5) g/dL Hct 32.0 L (34.0-46.0) % MCV 84.4 D (84.0-98.0) fL MCH 30.9 (28.2-33.3) pg MCHC 36.6 H (31.7-36.0) g/dL RDW 11.9 (11.2-14.1) % Plt Count 197 (150-350) K/uL Neut % (Auto) 57.9 (45.0-80.0) % Lymph % (Auto) 29.5 (10.0-50.0) % Hale % (Auto) 11.2 (2.0-14.0) % Eos % (Auto) 1.0 (0.0-5.0) % Baso % (Auto) 0.4 (0.0-2.0) % Neut # (Auto) 3.04 (1.40-7.00) K/uL Lymph # (Auto) 1.55 (0.50-3.50) K/uL Hale # (Auto) 0.59 (0.00-1.00) K/uL Eos # (Auto) 0.05 (0.00-0.50) K/uL Baso # (Auto) 0.02 (0.00-0.20) K/uL PT (9.5-12.0) SEC INR APTT (21.0-31.3) SEC Sodium (136-145) mmol/L Potassium (3.5-5.1) mmol/L Chloride (98-107) mmol/L Carbon Dioxide (21.0-32.0) mmol/L BUN (7-18) mg/dL Creatinine (0.51-1.17) mg/dL Est Cr Clr Drug Dosing Estimated GFR (MDRD) mL/min Glucose (74-106) mg/dL Lactic Acid (0.4-2.0) mmol/L Uric Acid (2.6-7.2) mg/dL Calcium (8.5-10.1) mg/dL Magnesium (1.8-2.4) mg/dL Total Bilirubin (0.2-1.0) mg/dL AST (15-37) U/L ALT (12-78) U/L Alkaline Phosphatase (46-116) IU/L Total Protein (6.4-8.2) g/dL Albumin (3.4-5.0) g/dL Amylase 48 (25-115) U/L Lipase (73-393) U/L Specimen Type Urinvoid Urine Color Yellow Urine Appearance Clear Urine pH 6.5 (5.0-9.0) Ur Specific [place] 1.015 (1.005-1.030) Urine Protein Negative (NEGATIVE) mg/dL Urine Glucose (UA) Negative (NEGATIVE) mg/dL Urine Ketones 15 H (NEGATIVE) mg/dL Urine Occult Blood Negative (NEGATIVE) Urine Nitrite Negative (NEGATIVE) Urine Bilirubin Negative (NEGATIVE) Urine Urobilinogen 0.2 (0.2-1.0) E.U./dL Ur Leukocyte Esterase Trace H (NEGATIVE) Urine RBC 0-5 /HPF Urine WBC 0-5 /HPF Ur Epithelial Cells Few /LPF Urine Bacteria Rare (NONE TO FEW) /HPF Urine Mucus Few H (NEGATIVE) /LPF 02/25/19 02/25/19 02/25/19 Range/Units 21:05 21:05 21:05 WBC (4.0-10.2) K/uL RBC (3.77-5.09) M/uL Hgb (11.7-15.5) g/dL Hct (34.0-46.0) % MCV (84.0-98.0) fL MCH (28.2-33.3) pg MCHC (31.7-36.0) g/dL RDW (11.2-14.1) % Plt Count (150-350) K/uL Neut % (Auto) (45.0-80.0) % Lymph % (Auto) (10.0-50.0) % Hale % (Auto) (2.0-14.0) % Eos % (Auto) (0.0-5.0) % Baso % (Auto) (0.0-2.0) % Neut # (Auto) (1.40-7.00) K/uL Lymph # (Auto) (0.50-3.50) K/uL Hale # (Auto) (0.00-1.00) K/uL Eos # (Auto) (0.00-0.50) K/uL Baso # (Auto) (0.00-0.20) K/uL PT 11.6 (9.5-12.0) SEC INR 1.1 APTT 30.1 (21.0-31.3) SEC Sodium 124 L* D (136-145) mmol/L Potassium 3.1 L (3.5-5.1) mmol/L Chloride 90 L D (98-107) mmol/L Carbon Dioxide 22.0 (21.0-32.0) mmol/L BUN 6 L (7-18) mg/dL Creatinine 0.60 (0.51-1.17) mg/dL Est Cr Clr Drug Dosing TNP Estimated GFR (MDRD) > 60 mL/min Glucose 115 H (74-106) mg/dL Lactic Acid 0.8 (0.4-2.0) mmol/L Uric Acid 1.5 L (2.6-7.2) mg/dL Calcium 8.5 (8.5-10.1) mg/dL Magnesium 1.5 L (1.8-2.4) mg/dL Total Bilirubin 0.5 (0.2-1.0) mg/dL AST 25 (15-37) U/L ALT 22 (12-78) U/L Alkaline Phosphatase 67 (46-116) IU/L Total Protein 6.9 (6.4-8.2) g/dL Albumin 3.8 (3.4-5.0) g/dL Amylase (25-115) U/L Lipase 133 (73-393) U/L Specimen Type Urine Color Urine Appearance Urine pH (5.0-9.0) Ur Specific [place] (1.005-1.030) Urine Protein (NEGATIVE) mg/dL Urine Glucose (UA) (NEGATIVE) mg/dL Urine Ketones (NEGATIVE) mg/dL Urine Occult Blood (NEGATIVE) Urine Nitrite (NEGATIVE) Urine Bilirubin (NEGATIVE) Urine Urobilinogen (0.2-1.0) E.U./dL Ur Leukocyte Esterase (NEGATIVE) Urine RBC /HPF Urine WBC /HPF Ur Epithelial Cells /LPF Urine Bacteria (NONE TO FEW) /HPF Urine Mucus (NEGATIVE) /LPF Microbiology 02/25/19 21:20 Stool Occult Blood (GAVI) - Final Stool / Feces NEGATIVE OCCULT BLOOD REFERENCE RANGE: NEGATIVE Urine specimen set up for culture and sensitivity Meds: Medications Generic Name Dose Route Start Last Admin Trade Name Freq PRN Reason Stop Dose Admin Sodium Chloride 500 mls @ 80 mls/hr 02/25/19 22:00 02/25/19 22:08 Sodium Chloride 3% IV 80 mls/hr ASDIRECTED YAMILET Administration Sodium Chloride 10 ml 02/25/19 20:57 Saline Flush FLUSH ASDIRECTED PRN Keep Vein Open Discontinued Medications Generic Name Dose Route Start Last Admin Trade Name Freq PRN Reason Stop Dose Admin Famotidine 40 mg 02/25/19 20:57 02/25/19 21:10 Pepcid IVPUSH 02/25/19 20:58 40 mg ONETIME ONE Administration Ondansetron HCl 4 mg 02/25/19 20:57 02/25/19 21:10 Zofran IVPUSH 02/25/19 20:58 4 mg ONETIME ONE Administration Pantoprazole Sodium 40 mg 02/25/19 20:57 02/25/19 21:10 Protonix Iv IVPUSH 02/25/19 20:58 40 mg ONETIME ONE Administration - Radiology Interpretation Free Text/Narrative:: Acute abdominal x-ray shows evidence of possible pulmonary obstructive disease with no pulmonary infiltrates, CHF, pneumothorax, etc. Mild diffuse stool with moderate nonspecific bowel gaseous pattern without free air, fluid levels, ileus , instruction, etc. Osteoarthritic changes noted, including bilateral coxarthrosis and previous L1 vertebroplasty. Note surgical clips in right upper quadrant consistent with cholecystectomy. Departure - Departure Time of Disposition: 22:45 Disposition: Admitted As Inpatient 67 Condition: Fair Clinical Impression: Abdominal pain, Hypothyroidism (acquired), Mixed anxiety depressive disorder, Osteoarthritis, Hypertension, Hyponatremia, Hyperlipidemia, Hypomagnesemia, Hypokalemia - Discharge Information *PRESCRIPTION DRUG MONITORING PROGRAM REVIEWED*: Not Applicable *COPY OF PRESCRIPTION DRUG MONITORING REPORT IN PATIENT KWAN: Not Applicable - Problem List & Annotations (1) Abdominal pain SNOMED Code(s): 92443571 Code(s): R10.9 - UNSPECIFIED ABDOMINAL PAIN Status: Acute Priority: High Current Visit: No Annotation/Comment:: Long history of nonspecific abdominal pain and chronic nausea, emesis, etc. with negative workup to this point including celiac screening, etc. by family's history. Review of [facility] EMR both from [place] and [place] do not indicate exact surgical procedures or surgical notes from the evaluations on 10/16/18 and 11/26/18 could not be found. Patient is already on Protonix with high-dose IV Pepcid and IV Protonix given in the emergency room. Consider short-term Reglan therapy. She has been noncompliant with her elimination diet, which was advised by Dr. Marinelli during recent emergency room evaluation. Note anorexia. Stool cultures to be obtained. Note recent GI consultations with Ultram to be discontinued for the time being. Qualifiers: Abdominal location: lower abdomen, unspecified Qualified Code(s): R10.30 - Lower abdominal pain, unspecified (2) Hyponatremia SNOMED Code(s): 19304952 Code(s): E87.1 - HYPO-OSMOLALITY AND HYPONATREMIA Status: Acute Priority : High Current Visit: Yes Annotation/Comment:: Significant hyponatremia today with 3% sodium chloride infusion initiated in the emergency room. Patient denies noncompliance with her high-dose sodium chloride tablets at home. Patient has had a recent negative CT of the chest with IV contrast on 01/10/19 with etiology of chronic hyponatremia unknown at this time. BNP, etc. to be collected in the a.m., although no chest pain or anginal complaints. Further workup depending on her clinical course. (3) Hypomagnesemia SNOMED Code(s): 001556226 Code(s): E83.42 - HYPOMAGNESEMIA Status: Acute Priority: Medium Current Visit: Yes Onset Date: 02/25/19 Annotation/Comment:: IV magnesium sulfate on admission with initiation of magnesium oxide therapy. (4) Hyperlipidemia SNOMED Code(s): 19485861 Code(s): E78.5 - HYPERLIPIDEMIA, UNSPECIFIED Status: Chronic Priority: Medium Current Visit: Yes Annotation/Comment:: Currently under medical therapy Qualifiers: Hyperlipidemia type: unspecified Qualified Code(s): E78.5 - Hyperlipidemia , unspecified (5) Hypertension SNOMED Code(s): 88708445 Code(s): I10 - ESSENTIAL (PRIMARY) HYPERTENSION Status: Chronic Priority : Medium Current Visit: Yes Annotation/Comment:: Blood pressure somewhat elevated in the emergency room. Continue to observe closely during this hospitalization with further medication adjustments depending on her clinical course. Observe for now. Note anxiety component. Qualifiers: Hypertension type: essential hypertension Qualified Code(s): I10 - Essential (primary) hypertension (6) Hypothyroidism (acquired) SNOMED Code(s): 270825366 Code(s): E03.9 - HYPOTHYROIDISM, UNSPECIFIED Status: Chronic Priority: Medium Current Visit: Yes Annotation/Comment:: Currently under medical therapy. TSH with free T3, and free T4 in the a.m. Note history of thyroidectomy in 1979 secondary to thyroid cancer. (7) Mixed anxiety depressive disorder SNOMED Code(s): 418720864 Code(s): F41.8 - OTHER SPECIFIED ANXIETY DISORDERS Status: Chronic Priority: Medium Current Visit: Yes Annotation/Comment:: Moderate control based on today's exam by current medical therapy. Note recent tragic murder of her granddaughter, however no suicidal ideation, etc. at this time per history from her . Add additional Prozac therapy in the a.m. (8) Osteoarthritis SNOMED Code(s): 479106815 Code(s): M19.90 - UNSPECIFIED OSTEOARTHRITIS, UNSPECIFIED SITE Status: Chronic Priority: Medium Current Visit: Yes Annotation/Comment:: Stable by history Qualifiers: Osteoarthritis location: multiple joints Osteoarthritis type: primary Qualified Code(s): M15.0 - Primary generalized (osteo)arthritis (9) Hypokalemia SNOMED Code(s): 09832052 Code(s): E87.6 - HYPOKALEMIA Status: Acute Priority: Medium Current Visit: Yes Onset Date: 02/25/19 Annotation/Comment:: Initiate lactated Ringer's after completion of the above sodium chloride solution with repeat blood work in the a.m. - Problem List Review Problem List Initiated/Reviewed/Updated: Yes - My Orders Last 24 Hours: My Active Orders 02/25/19 20:48 CULTURE URINE [RM] Stat 02/25/19 20:57 Peripheral IV Care [RC] . DIRECTED Abdomen Series w Chest 1V [CR] Stat Sodium Chloride 0.9% [Saline Flush] 10 ml FLUSH ASDIRECTED PRN Obtain Past Medical Record [OM.PC] Urgent Peripheral IV Insertion Adult [OM.PC] Stat Resuscitation Status Stat 02/25/19 22:00 Sodium Chloride 3% 500 ml IV ASDIRECTED 02/25/19 Breakfast Nothing Per Oral Diet [DIET] - Assessment/Plan Admission H&P: Please use this note as an admission H&P Last 24 Hours: My Active Orders 02/25/19 20:48 CULTURE URINE [RM] Stat 02/25/19 20:57 Peripheral IV Care [RC] . DIRECTED Abdomen Series w Chest 1V [CR] Stat Sodium Chloride 0.9% [Saline Flush] 10 ml FLUSH ASDIRECTED PRN Obtain Past Medical Record [OM.PC] Urgent Peripheral IV Insertion Adult [OM.PC] Stat Resuscitation Status Stat 02/25/19 22:00 Sodium Chloride 3% 500 ml IV ASDIRECTED 02/25/19 Breakfast Nothing Per Oral Diet [DIET] Assessment:: As above Plan: As above. Extensive precautions were given to the patient and her and daughter, who are in agreement with the treatment plan. The patient will require about 3-4 days of inpatient/acute care secondary to multiple health problems as above.
[2019-02-25] MEDS ORDERED: Famotidine 20 MG/2 ML SDV IVPUSH ONE (20:57)
[2019-02-25] MEDS ORDERED: Pantoprazole 40 MG Vial IVPUSH ONE (20:57)
[2019-02-25] MEDS ORDERED: Ondansetron 4 MG/2 ML SDV IVPUSH ONE (20:57)
[2019-02-25 21:32] LABS: CHLORIDE,CL 90 mmol/L (98-107)
[2019-02-25 21:39] LABS: SODIUM,NA 124 mmol/L (136-145)
[2019-02-25] MEDS ORDERED: Sodium Chloride 3% 500 ML IV SCH (22:00)
[2019-02-25] MEDS ORDERED: Polyethylene Glycol 3350 Powder 17 GM Packet PO PRN (23:16)
[2019-02-25] MEDS ORDERED: Ondansetron 4 MG/2 ML SDV IVPUSH PRN (23:17)
[2019-02-25] MEDS ORDERED: Acetaminophen 325 MG Tab PO PRN (23:17)
[2019-02-25] MEDS ORDERED: Lactated Ringers 1,000 ML IV SCH (23:30)
[2019-02-26] MEDS: Mirtazapine 15 MG Tab PO SCH ×2 (00:10→20:19)
[2019-02-26] MEDS: Metoclopramide 10 MG/2 ML SDV IVPUSH SCH ×3 (00:11→18:27)
[2019-02-26] MEDS ORDERED: Polyethylene Glycol 3350 Powder 17 GM Packet PO PRN (00:35)
[2019-02-26] MEDS ORDERED: Levothyroxine 75 MCG Tab PO SCH (07:30)
[2019-02-26] MEDS: Cranberry 500 MG Cap PO SCH (07:42)
[2019-02-26] MEDS: Lactobacillus Rhamnosus GG (Probiotic) Cap PO SCH (07:43)
[2019-02-26] MEDS: Lutein/Minerals/Vitamin C/Vitamin E Acetate Cap PO SCH ×2 (07:43→20:17)
[2019-02-26] MEDS: Metoprolol Tartrate 25 MG Tab PO SCH ×2 (07:43→18:17)
[2019-02-26] MEDS: FLUoxetine 20 MG Cap PO SCH (07:43)
[2019-02-26] MEDS: Sodium Chloride 1 GM Tab PO SCH ×3 (07:43→18:16)
[2019-02-26] MEDS: Sodium Chloride 0.9% 10 ML Syringe FLUSH SCH ×2 (07:44→20:20)
[2019-02-26] MEDS: ALPRAZolam 1 MG Tab PO SCH ×3 (07:44→20:18)
[2019-02-26] MEDS ORDERED: Magnesium Oxide 400 MG Tab PO SCH (08:00)
[2019-02-26] MEDS ORDERED: Calcium Carbonate/Vitamin D3 1500 MG-400 Units Tab PO SCH (08:00)
[2019-02-26] MEDS ORDERED: Non-Formulary Medication 1 Each (Pantoprazole Sodium [Protonix] 20 MG) PO SCH (08:00)
[2019-02-26 08:08] LABS: CHLORIDE,CL 104 mmol/L (98-107); SODIUM,NA 139 mmol/L (136-145)
--- NOTE | 2019-02-26 09:15 | PCM.PN ---
- General Info Date of Service: 02/26/19 Admission Dx/Problem (Free Text): 1. Abdominal pain 2. Hyponatremia 3. Hypertension 4. Hypomagnesemia Functional Status: Reports: Pain Controlled, Tolerating Diet, Ambulating, Urinating. Denies: New Symptoms, Incentive Spirometry Pain Score: 2 - Review of Systems General: Reports: Appetite (Improving slowly). Denies: Fever, Weakness, Fatigue , Malaise, Chills, Night Sweats HEENT: Reports: Glasses. Denies: Dysphasia, Ear Pain, Eye Pain, Headaches, Post Nasal Drip, Sinus Congestion, Sore Throat, Rhinitis, Visual Changes Pulmonary: Reports: No Symptoms. Denies: Shortness of Breath, Pleuritic Chest Pain, Cough, Sputum, Hemoptysis, Wheezing Cardiovascular: Reports: No Symptoms. Denies: Chest Pain, Palpitations, Dyspnea on Exertion, Orthopnea, Edema, Lightheadedness Gastrointestinal: Reports: Abdominal Pain (Improved nonspecific suprapubic burning), Constipation, Decreased Appetite (As above). Denies: Diarrhea, Difficulty Swallowing, Flatus, Hematochezia, Melena, Nausea, Vomiting Genitourinary: Reports: No Symptoms. Denies: Dysuria, Frequency, Burning, Pain , Urgency, Incontinence, Hematuria, Retention, Flank Pain Musculoskeletal: Reports: No Symptoms. Denies: Neck Pain, Shoulder Pain, Arm Pain, Back Pain, Leg Pain Skin: Reports: No Symptoms. Denies: Diaphoresis Neurological: Reports: No Symptoms. Denies: Confusion, Dizziness, Headache, Numbness, Paresthesia, Tingling, Tremors, Weakness Psychiatric: Reports: No Symptoms. Denies: Confusion, Depression, Anxiety, Agitation, Hallucinations - Patient Data Vitals - Most Recent: Last Vital Signs Temp 36.6 C 02/26/19 07:51 Pulse 56 L 02/26/19 07:51 Resp 17 02/26/19 07:51 BP 156/64 H 02/26/19 07:51 Pulse Ox 96 02/26/19 07:51 Vital Signs - 24 hr 02/25/19 02/25/19 02/25/19 20:40 21:42 21:57 Temperature [ 36.6 C Temporal] Pulse, Peripheral Pulse, 59 L 55 L 53 L Peripheral [ Right Pulse Oximetry] Respiratory 19 18 18 Rate Blood Pressure Blood Pressure 192/71 H 170/118 H 172/60 H [Left Upper Arm ] O2 Sat by Pulse 94 L 94 L 96 Oximetry 02/25/19 02/25/19 02/26/19 22:12 22:45 02:41 Temperature [ 36.6 C 36.2 C Temporal] Pulse, Peripheral Pulse, 52 L 51 L 47 L Peripheral [ Right Pulse Oximetry] Respiratory 18 18 14 Rate Blood Pressure Blood Pressure 170/72 H 185/67 H 161/64 H [Left Upper Arm ] O2 Sat by Pulse 97 97 96 Oximetry 02/26/19 02/26/19 07:43 07:51 Temperature [ 36.6 C Temporal] Pulse, 56 L Peripheral Pulse, 56 L Peripheral [ Right Pulse Oximetry] Respiratory 17 Rate Blood Pressure 156/64 H Blood Pressure 156/64 H [Left Upper Arm ] O2 Sat by Pulse 96 Oximetry Weight - Most Recent: 57.107 kg I&O - Last 24 Hours: Intake & Output 02/25/19 02/26/19 02/26/19 22:59 06:59 14:59 Intake Total 50 549 120 Output Total 2150 Balance 50 -1601 120 Imaging Impressions - Last 24 Hours: None Lab Results Last 24 Hours: Laboratory Results - last 24 hr 02/25/19 02/25/19 02/25/19 Range/Units 20:48 21:05 21:05 WBC 5.3 (4.0-10.2) K/uL RBC 3.79 (3.77-5.09) M/uL Hgb 11.7 (11.7-15.5) g/dL Hct 32.0 L (34.0-46.0) % MCV 84.4 D (84.0-98.0) fL MCH 30.9 (28.2-33.3) pg MCHC 36.6 H (31.7-36.0) g/dL RDW 11.9 (11.2-14.1) % Plt Count 197 (150-350) K/uL Neut % (Auto) 57.9 (45.0-80.0) % Lymph % (Auto) 29.5 (10.0-50.0) % [place]erry % (Auto) 11.2 (2.0-14.0) % Eos % (Auto) 1.0 (0.0-5.0) % Baso % (Auto) 0.4 (0.0-2.0) % Neut # (Auto) 3.04 (1.40-7.00) K/uL Lymph # (Auto) 1.55 (0.50-3.50) K/uL [place] # (Auto) 0.59 (0.00-1.00) K/uL Eos # (Auto) 0.05 (0.00-0.50) K/uL Baso # (Auto) 0.02 (0.00-0.20) K/uL PT (9.5-12.0) SEC INR APTT (21.0-31.3) SEC Sodium (136-145) mmol/L Potassium (3.5-5.1) mmol/L Chloride (98-107) mmol/L Carbon Dioxide (21.0-32.0) mmol/L BUN (7-18) mg/dL Creatinine (0.51-1.17) mg/dL Est Cr Clr Drug Dosing Estimated GFR (MDRD) mL/min Glucose (74-106) mg/dL Lactic Acid (0.4-2.0) mmol/L Uric Acid (2.6-7.2) mg/dL Calcium (8.5-10.1) mg/dL Magnesium (1.8-2.4) mg/dL Total Bilirubin (0.2-1.0) mg/dL AST (15-37) U/L ALT (12-78) U/L Alkaline Phosphatase (46-116) IU/L Total Protein (6.4-8.2) g/dL Albumin (3.4-5.0) g/dL Amylase 48 (25-115) U/L Lipase (73-393) U/L Free T4 (0.76-1.46) ng/dL TSH, Ultra Sensitive (0.358-3.740) mIU/mL Specimen Type Urinvoid Urine Color Yellow Urine Appearance Clear Urine pH 6.5 (5.0-9.0) Ur Specific [place] 1.015 (1.005-1.030) Urine Protein Negative (NEGATIVE) mg/dL Urine Glucose (UA) Negative (NEGATIVE) mg/dL Urine Ketones 15 H (NEGATIVE) mg/dL Urine Occult Blood Negative (NEGATIVE) Urine Nitrite Negative (NEGATIVE) Urine Bilirubin Negative (NEGATIVE) Urine Urobilinogen 0.2 (0.2-1.0) E.U./dL Ur Leukocyte Esterase Trace H (NEGATIVE) Urine RBC 0-5 /HPF Urine WBC 0-5 /HPF Ur Epithelial Cells Few /LPF Urine Bacteria Rare (NONE TO FEW) /HPF Urine Mucus Few H (NEGATIVE) /LPF 02/25/19 02/25/19 02/25/19 Range/Units 21:05 21:05 21:05 WBC (4.0-10.2) K/uL RBC (3.77-5.09) M/uL Hgb (11.7-15.5) g/dL Hct (34.0-46.0) % MCV (84.0-98.0) fL MCH (28.2-33.3) pg MCHC (31.7-36.0) g/dL RDW (11.2-14.1) % Plt Count (150-350) K/uL Neut % (Auto) (45.0-80.0) % Lymph % (Auto) (10.0-50.0) % Ferry % (Auto) (2.0-14.0) % Eos % (Auto) (0.0-5.0) % Baso % (Auto) (0.0-2.0) % Neut # (Auto) (1.40-7.00) K/uL Lymph # (Auto) (0.50-3.50) K/uL [place] # (Auto) (0.00-1.00) K/uL Eos # (Auto) (0.00-0.50) K/uL Baso # (Auto) (0.00-0.20) K/uL PT 11.6 (9.5-12.0) SEC INR 1.1 APTT 30.1 (21.0-31.3) SEC Sodium 124 L* D (136-145) mmol/L Potassium 3.1 L (3.5-5.1) mmol/L Chloride 90 L D (98-107) mmol/L Carbon Dioxide 22.0 (21.0-32.0) mmol/L BUN 6 L (7-18) mg/dL Creatinine 0.60 (0.51-1.17) mg/dL Est Cr Clr Drug Dosing TNP Estimated GFR (MDRD) > 60 mL/min Glucose 115 H (74-106) mg/dL Lactic Acid 0.8 (0.4-2.0) mmol/L Uric Acid 1.5 L (2.6-7.2) mg/dL Calcium 8.5 (8.5-10.1) mg/dL Magnesium 1.5 L (1.8-2.4) mg/dL Total Bilirubin 0.5 (0.2-1.0) mg/dL AST 25 (15-37) U/L ALT 22 (12-78) U/L Alkaline Phosphatase 67 (46-116) IU/L Total Protein 6.9 (6.4-8.2) g/dL Albumin 3.8 (3.4-5.0) g/dL Amylase (25-115) U/L Lipase 133 (73-393) U/L Free T4 (0.76-1.46) ng/dL TSH, Ultra Sensitive (0.358-3.740) mIU/mL Specimen Type Urine Color Urine Appearance Urine pH (5.0-9.0) Ur Specific [place] (1.005-1.030) Urine Protein (NEGATIVE) mg/dL Urine Glucose (UA) (NEGATIVE) mg/dL Urine Ketones (NEGATIVE) mg/dL Urine Occult Blood (NEGATIVE) Urine Nitrite (NEGATIVE) Urine Bilirubin (NEGATIVE) Urine Urobilinogen (0.2-1.0) E.U./dL Ur Leukocyte Esterase (NEGATIVE) Urine RBC /HPF Urine WBC /HPF Ur Epithelial Cells /LPF Urine Bacteria (NONE TO FEW) /HPF Urine Mucus (NEGATIVE) /LPF 02/26/19 02/26/19 Range/Units 07:30 07:30 WBC 8.0 (4.0-10.2) K/uL RBC 4.23 (3.77-5.09) M/uL Hgb 13.2 D (11.7-15.5) g/dL Hct 36.3 (34.0-46.0) % MCV 85.8 (84.0-98.0) fL MCH 31.2 (28.2-33.3) pg MCHC 36.4 H (31.7-36.0) g/dL RDW 12.1 (11.2-14.1) % Plt Count 269 (150-350) K/uL Neut % (Auto) 45.0 (45.0-80.0) % Lymph % (Auto) 43.8 (10.0-50.0) % [place] % (Auto) 9.5 (2.0-14.0) % Eos % (Auto) 1.5 (0.0-5.0) % Baso % (Auto) 0.2 (0.0-2.0) % Neut # (Auto) 3.61 (1.40-7.00) K/uL Lymph # (Auto) 3.52 H (0.50-3.50) K/uL [place] # (Auto) 0.76 (0.00-1.00) K/uL Eos # (Auto) 0.12 (0.00-0.50) K/uL Baso # (Auto) 0.02 (0.00-0.20) K/uL PT (9.5-12.0) SEC INR APTT (21.0-31.3) SEC Sodium 139 D (136-145) mmol/L Potassium 3.2 L (3.5-5.1) mmol/L Chloride 104 D (98-107) mmol/L Carbon Dioxide 22.9 (21.0-32.0) mmol/L BUN 4 L (7-18) mg/dL Creatinine 0.60 (0.51-1.17) mg/dL Est Cr Clr Drug Dosing 65.05 Estimated GFR (MDRD) > 60 mL/min Glucose 108 H (74-106) mg/dL Lactic Acid (0.4-2.0) mmol/L Uric Acid (2.6-7.2) mg/dL Calcium 8.5 (8.5-10.1) mg/dL Magnesium 2.3 (1.8-2.4) mg/dL Total Bilirubin 0.3 (0.2-1.0) mg/dL AST 23 (15-37) U/L ALT 22 (12-78) U/L Alkaline Phosphatase 73 (46-116) IU/L Total Protein 7.3 (6.4-8.2) g/dL Albumin 4.0 (3.4-5.0) g/dL Amylase (25-115) U/L Lipase (73-393) U/L Free T4 1.29 (0.76-1.46) ng/dL TSH, Ultra Sensitive 15.155 H (0.358-3.740) mIU/mL Specimen Type Urine Color Urine Appearance Urine pH (5.0-9.0) Ur Specific [place] (1.005-1.030) Urine Protein (NEGATIVE) mg/dL Urine Glucose (UA) (NEGATIVE) mg/dL Urine Ketones (NEGATIVE) mg/dL Urine Occult Blood (NEGATIVE) Urine Nitrite (NEGATIVE) Urine Bilirubin (NEGATIVE) Urine Urobilinogen (0.2-1.0) E.U./dL Ur Leukocyte Esterase (NEGATIVE) Urine RBC /HPF Urine WBC /HPF Ur Epithelial Cells /LPF Urine Bacteria (NONE TO FEW) /HPF Urine Mucus (NEGATIVE) /LPF Free T3 still pending Wilbert Results Last 24 Hours: Microbiology 02/25/19 21:20 Stool Occult Blood (WILBERT) - Final Stool / Feces NEGATIVE OCCULT BLOOD REFERENCE RANGE: NEGATIVE Urine culture and sensitivity still pending Med Orders - Current: Current Medications Acetaminophen (Tylenol) 650 mg PO Q4H PRN PRN Reason: Pain Acetaminophen (Tylenol) 650 mg PO TID COUNT INCLUDES THE [facility] Alprazolam (Xanax) 1 mg PO TID@0800,1200,2000 COUNT INCLUDES THE [facility] Last Admin: 02/26/19 07:44 Dose: 1 mg Artificial Tears (Liquitears 1.4% Ophth Soln) 0 ml EYEBOTH BEDTIME COUNT INCLUDES THE [facility] Calcium Carbonate (Caltrate 600+D 1500 Mg-400 Units) 1 tab PO MOWEFR@0800 COUNT INCLUDES THE [facility] Last Admin: 02/26/19 07:44 Dose: 1 tab Cranberry (Cranberry) 500 mg PO DAILY COUNT INCLUDES THE [facility] Last Admin: 02/26/19 07:42 Dose: 500 mg Fluoxetine HCl (Prozac) 20 mg PO DAILY COUNT INCLUDES THE [facility] Last Admin: 02/26/19 07:43 Dose: 20 mg Lactobacillus Rhamnosus (Culturelle) 1 cap PO DAILY COUNT INCLUDES THE [facility] Last Admin: 02/26/19 07:43 Dose: 1 cap Levothyroxine Sodium (Levothyroxine) 75 mcg PO ACBREAKFAST COUNT INCLUDES THE [facility] Last Admin: 02/26/19 07:43 Dose: 75 mcg Magnesium Oxide (Magnesium Oxide) 400 mg PO BID COUNT INCLUDES THE [facility] Last Admin: 02/26/19 07:43 Dose: 400 mg Metoclopramide HCl (Reglan) 10 mg IVPUSH BID COUNT INCLUDES THE [facility] Last Admin: 02/26/19 07:44 Dose: 10 mg Metoprolol Tartrate (Lopressor) 12.5 mg PO BID COUNT INCLUDES THE [facility] Last Admin: 02/26/19 07:43 Dose: 12.5 mg Mirtazapine (Remeron) 7.5 mg PO BEDTIME COUNT INCLUDES THE [facility] Last Admin: 02/26/19 00:10 Dose: Not Given Non-Formulary Medication (Pantoprazole Sodium [Protonix]) 20 mg PO DAILY COUNT INCLUDES THE [facility] Ondansetron HCl (Zofran) 4 mg IVPUSH Q6H PRN PRN Reason: Nausea/Vomiting Polyethylene Glycol (Miralax) 17 gm PO DAILY PRN PRN Reason: Constipation Potassium Chloride (Klor-Con M20) 20 meq PO TID COUNT INCLUDES THE [facility] Rosuvastatin Calcium (Crestor) 2.5 mg PO BEDTIME COUNT INCLUDES THE [facility] Sodium Chloride (Saline Flush) 10 ml FLUSH ASDIRECTED PRN PRN Reason: Keep Vein Open Sodium Chloride (Sodium Chloride) 1 gm PO TID COUNT INCLUDES THE [facility] Last Admin: 02/26/19 07:43 Dose: 1 gm Sodium Chloride (Saline Flush) 10 ml FLUSH Q12HR COUNT INCLUDES THE [facility] Last Admin: 02/26/19 07:44 Dose: 10 ml Vit C/Vit E/Zinc/Copper/Lutein (Ocuvite Lutein) 1 each PO Q12HR COUNT INCLUDES THE [facility] Last Admin: 02/26/19 07:43 Dose: 1 each Discontinued Medications Famotidine (Pepcid) 40 mg IVPUSH ONETIME ONE Stop: 02/25/19 20:58 Last Admin: 02/25/19 21:10 Dose: 40 mg Sodium Chloride (Sodium Chloride 3%) 500 mls @ 80 mls/hr IV ASDIRECTED COUNT INCLUDES THE [facility] Stop: 02/26/19 04:00 Last Admin: 02/25/19 22:08 Dose: 80 mls/hr Lactated Ringer's (Ringers, Lactated) 1,000 mls @ 80 mls/hr IV ASDIRECTED COUNT INCLUDES THE [facility] Last Admin: 02/26/19 07:46 Dose: 80 mls/hr Magnesium Sulfate/Dextrose (Magnesium Sulfate In D5w 100 Premix) 100 mls @ 100 mls/hr IV Q1H COUNT INCLUDES THE [facility] Stop: 02/26/19 01:29 Last Admin: 02/26/19 01:34 Dose: 100 mls/hr Ondansetron HCl (Zofran) 4 mg IVPUSH ONETIME ONE Stop: 02/25/19 20:58 Last Admin: 02/25/19 21:10 Dose: 4 mg Pantoprazole Sodium (Protonix Iv) 40 mg IVPUSH ONETIME ONE Stop: 02/25/19 20:58 Last Admin: 02/25/19 21:10 Dose: 40 mg Polyethylene Glycol (Miralax) 17 gm PO ASDIRECTED PRN PRN Reason: Constipation - Exam Quality Assessment: DVT Prophylaxis. No: Supplemental Oxygen, Central Line/PICC , Urine Catheter, Skin Breakdown General: Alert, Oriented, Cooperative, No Acute Distress HEENT: Pupils Equal, Pupils Reactive, EOMI, Mucous Membr. Moist/[place], Other ( Patient wearing glasses). No: Scleral Icterus Neck: Supple, Trachea Midline, No JVD, No Thyromegaly, Carotid Bruit (Mild bilateral carotid bruits). No: Lymphadenopathy Lungs: Clear to Auscultation, Normal Respiratory Effort. No: Rub Cardiovascular: No Murmurs, Bradycardia (Occasional borderline. Regular rhythm) . No: Murmurs, Gallops, Rubs GI/Abdominal Exam: Normal Bowel Sounds, Soft, No Organomegaly, No Distention, No Abnormal Bruit, No Mass, Tender (Unspecific mild suprapubic palpation pain ) . No: Guarding (Female) Exam: Deferred Back Exam: Full Range of Motion, Other (Mild kyphosis). No: CVA Tenderness (L) , CVA Tenderness (R), Muscle Spasm, Paraspinal Tenderness, Vertebral Tenderness Extremities: Normal Inspection, Normal Range of Motion, Non-Tender, No Pedal Edema, Normal Capillary Refill. No: Asia's Sign Peripheral Pulses: 2+: Radial (L), Radial (R), Dorsalis Pedis (L), Dorsalis Pedis (R) Skin: Warm, Dry, Intact. No: Ecchymosis Neurological: No New Focal Deficit, Other (Negative Babinski's) Psy/Mental Status: Alert, Anxious (Mild). No: Depressed, Agitated, Suicidal Ideation, Hallucinations, Withdrawal Symptoms - Problem List & Annotations (1) Abdominal pain SNOMED Code(s): 20235580 Code(s): R10.9 - UNSPECIFIED ABDOMINAL PAIN Status: Acute Priority: High Current Visit: Yes Qualifiers: Abdominal location: lower abdomen, unspecified Qualified Code(s): R10.30 - Lower abdominal pain, unspecified Annotation/Comment:: Abdominal pain much improved this morning with correction of hyponatremia with no nausea at this time. No confusion or neurological deficits from hypertonic saline IV infusion yesterday evening with normal sodium level at this time. Abdominal symptoms may be related to her chronic hyponatremia, etc. with workup to begin today as below. Long history of nonspecific abdominal pain and chronic nausea, emesis, etc. with negative workup to this point including celiac screening, etc. by family's history. Review of [facility] EMR both from [place] and [place] do not indicate exact surgical procedures. Surgical notes from the evaluations on 10/16/18 and 11/26/18 could not be found with patient and her family apparently reluctant to repeating an EGD and colonoscopy at this time.. Patient is already on Protonix, which will be continued during this hospitalization for now. Note high-dose IV Pepcid and IV Protonix given in the emergency room. Initiated short-term Reglan therapy, which will likely be discontinued at discharge. She has been noncompliant with her elimination diet, which was advised by Dr. Marinelli during recent emergency room evaluation. Note anorexia, which could also explain her hyponatremia. Stool cultures to be obtained per her 's request. Note recent GI consultations as above. Ultram to be discontinued for the time being. (2) Hyponatremia SNOMED Code(s): 06786947 Code(s): E87.1 - HYPO-OSMOLALITY AND HYPONATREMIA Status: Acute Priority : High Current Visit: Yes Annotation/Comment:: Sodium level normal on 02/26. Initiate extensive workup for chronic hyponatremia with possibility of SIADH, adrenal gland insufficiency, etc. Aldosterone level drawn today with ACTH stimulation test to be conducted during this hospitalization. Secondary to workup of her current significant hyponatremia, chronic abdominal pain, nausea, hypertension, etc. multiple medication adjustments are required during this hospitalization thereby making the patient a candidate for inpatient/acute care. Significant hyponatremia on admission with 3% sodium chloride infusion initiated in the emergency room. Patient denies noncompliance with her high- dose sodium chloride tablets at home, which may need to be discontinued at discharge depending on her workup as above. Patient has had a recent negative CT of the chest with IV contrast on 01/10/19 with etiology of chronic hyponatremia unknown at this time, however may need to consider neoplastic etiology. Note recent unintentional weight loss during the last month as per emergency room note with additional current anorexia. BNP collected this morning , although no chest pain or anginal complaints. Further workup depending on her clinical course. (3) Hypomagnesemia SNOMED Code(s): 248794241 Code(s): E83.42 - HYPOMAGNESEMIA Status: Acute Priority: Medium Current Visit: Yes Onset Date: 02/25/19 Annotation/Comment:: IV magnesium sulfate on admission with initiation of oral magnesium oxide therapy with repeat magnesium level on 02/27. (4) Hyperlipidemia SNOMED Code(s): 73508241 Code(s): E78.5 - HYPERLIPIDEMIA, UNSPECIFIED Status: Chronic Priority: Medium Current Visit: Yes Qualifiers: Hyperlipidemia type: unspecified Qualified Code(s): E78.5 - Hyperlipidemia , unspecified Annotation/Comment:: Currently under medical therapy, although patient has been noncompliant with her diet. Note recent anorexia, however. (5) Hypertension SNOMED Code(s): 93065450 Code(s): I10 - ESSENTIAL (PRIMARY) HYPERTENSION Status: Chronic Priority : Medium Current Visit: Yes Qualifiers: Hypertension type: essential hypertension Qualified Code(s): I10 - Essential (primary) hypertension Annotation/Comment:: Blood pressures are still somewhat elevated. Continue to observe closely during this hospitalization with further medication adjustments depending on her clinical course. Observe for now. Note mild nonsymptomatic bradycardia. Note anxiety component. (6) Hypothyroidism (acquired) SNOMED Code(s): 231363241 Code(s): E03.9 - HYPOTHYROIDISM, UNSPECIFIED Status: Chronic Priority: Medium Current Visit: Yes Annotation/Comment:: TSH significantly elevated with normal free T4 and pending free T3. Her Synthroid will be increased to 0.150 mg daily starting this morning. TSH with free T3, and free T4 should be repeated in 4 weeks. Note history of thyroidectomy in 1979 secondary to thyroid cancer. (7) Mixed anxiety depressive disorder SNOMED Code(s): 301002409 Code(s): F41.8 - OTHER SPECIFIED ANXIETY DISORDERS Status: Chronic Priority: Medium Current Visit: Yes Annotation/Comment:: Moderate control based on today's exam by current medical therapy. Note recent tragic murder of her granddaughter, however no suicidal ideation, etc. at this time per history from her . Added additional Prozac therapy on 02/26 with caution secondary to possibility of SIADH. (8) Osteoarthritis SNOMED Code(s): 943774750 Code(s): M19.90 - UNSPECIFIED OSTEOARTHRITIS, UNSPECIFIED SITE Status: Chronic Priority: Medium Current Visit: Yes Qualifiers: Osteoarthritis location: multiple joints Osteoarthritis type: primary Qualified Code(s): M15.0 - Primary generalized (osteo)arthritis Annotation/Comment:: Previously under moderate control despite daily Ultram use , which will be discontinued at this time secondary to her abdominal complaints , dependency issues, etc.. Initiate regularly dosed Tylenol regimen. NSAIDs may need to be initiated with caution secondary to her possible SIADH (9) Hypokalemia SNOMED Code(s): 32066553 Code(s): E87.6 - HYPOKALEMIA Status: Acute Priority: Medium Current Visit: Yes Onset Date: 02/25/19 Annotation/Comment:: Initiated lactated Ringer's after completion of the above hypertonic sodium chloride infusion with this discontinued in the a.m. of 02/26 secondary to suspicions of possible SIADH. Initiated fluid restricted, heart healthy, diverticulosis diet on 02/26. Also initiated oral potassium chloride supplementation with repeat blood work in the a.m. - Problem List Review Problem List Initiated/Reviewed/Updated: Yes - My Orders Last 24 Hours: My Active Orders 02/25/19 20:48 CULTURE URINE [RM] Stat 02/25/19 20:57 Abdomen Series w Chest 1V [CR] Stat Sodium Chloride 0.9% [Saline Flush] 10 ml FLUSH ASDIRECTED PRN Peripheral IV Insertion Adult [OM.PC] Stat Resuscitation Status Stat 02/25/19 23:16 Mirtazapine [Remeron] 7.5 mg PO BEDTIME 02/25/19 23:17 Communication Order [RC] Q4HR Communication Order [RC] ROUTINE Height and Weight [RC] DAILY Intake and Output Strict [RC] ASDIRECTED Oxygen Therapy [RC] PRN Pulse Oximetry [RC] ASDIRECTED Up With Assistance [RC] ASDIRECTED OCCULT BLOOD DIAGNOSTIC [OP] Routine Acetaminophen [Tylenol] 650 mg PO Q4H PRN Ondansetron [Zofran] 4 mg IVPUSH Q6H PRN GM Immunization Reflex [OM.PC] Click To Edit 02/25/19 23:21 STOOL CULTURE/SHIGA TOXIN [MREF] Routine 02/25/19 23:22 SODIUM, URINE RAND/24HR Routine 02/25/19 23:23 Communication Order [RC] ROUTINE 02/25/19 23:30 Metoclopramide [Reglan] 10 mg IVPUSH BID 02/26/19 00:35 Polyethylene Glycol 3350 [MiraLAX] 17 gm PO DAILY PRN 02/26/19 05:11 PRO B-TYPE NATRIUR PEPT,BNPPRO [CHEM] Routine 02/26/19 07:30 ALDOSTERONE [REF] Routine FREE T3 [REF] Routine Levothyroxine 75 mcg PO ACBREAKFAST 02/26/19 08:00 ALPRAZolam [Xanax] 1 mg PO TID@0800,1200,2000 Calcium Carbonate/Vitamin D3 [Caltrate 600+D 1500 MG-400 Units] 1 tab PO MOWEFR@0800 Cranberry 500 mg PO DAILY FLUoxetine [PROzac] 20 mg PO DAILY Lactobacillus Rhamnosus GG [Culturelle] 1 cap PO DAILY Lutein/Min/Vit C/Vit E Acetate [Ocuvite Lutein] 1 each PO Q12HR Magnesium Oxide 400 mg PO BID Metoprolol Tartrate [Lopressor] 12.5 mg PO BID Pantoprazole Sodium [Protonix] 20 mg PO DAILY Sodium Chloride 1 gm PO TID Sodium Chloride 0.9% [Saline Flush] 10 ml FLUSH Q12HR 02/26/19 08:51 Potassium Chloride [Klor-Con M20] 20 meq PO TID 02/26/19 08:52 Vital Signs [RC] Q6HR 02/26/19 09:14 Acetaminophen [Tylenol] 650 mg PO TID 02/26/19 20:00 Polyvinyl Alcohol [LiquiTears 1.4% Ophth Soln] 0 ml EYEBOTH BEDTIME Rosuvastatin [Crestor] 2.5 mg PO BEDTIME 02/26/19 Breakfast Fluid Restriction [DIET] 02/27/19 05:11 BASIC METABOLIC PANEL,BMP [CHEM] Routine CBC WITH AUTO DIFF [HEME] Routine MAGNESIUM [CHEM] Routine URIC ACID [CHEM] Routine 02/28/19 05:11 ACTH STIMULATION [REF] Routine - Assessment Assessment:: As above - Plan Plan:: As above. Extensive precautions were given to the patient, who is in agreement with the treatment plan. The patient will require an additional about 2-3 days of inpatient/acute care secondary to multiple health problems as above.
[2019-02-26] MEDS ORDERED: Levothyroxine 75 MCG Tab PO ONE (09:21)
[2019-02-26] MEDS: Sodium Chloride 0.9% 10 ML Syringe FLUSH PRN ×2 (10:15→18:27)
[2019-02-26] MEDS: Polyethylene Glycol 3350 Powder 17 GM Packet PO SCH (10:16)
[2019-02-26] MEDS: Potassium Chloride 20 MEQ Tab.ER PO SCH ×3 (10:19→18:16)
[2019-02-26] MEDS: Acetaminophen 325 MG Tab PO SCH ×3 (10:19→18:25)
[2019-02-26] MEDS ORDERED: Rosuvastatin 10 MG Tab PO SCH (20:00)
[2019-02-26] MEDS: Polyvinyl Alcohol 1.4% Ophth Soln 15 ML Bottle EYEBOTH SCH (20:16)
[2019-02-26] MEDS: Calcium Carbonate 750 MG Tab.Chew PO SCH (20:18)
[2019-02-26] MEDS: Magnesium Oxide 400 MG Tab PO SCH (20:20)
[2019-02-27 07:41] LABS: CHLORIDE,CL 103 mmol/L (98-107); SODIUM,NA 138 mmol/L (136-145)
[2019-02-27] MEDS: Cranberry 500 MG Cap PO SCH (08:26)
[2019-02-27] MEDS: Lactobacillus Rhamnosus GG (Probiotic) Cap PO SCH (08:26)
[2019-02-27] MEDS: FLUoxetine 20 MG Cap PO SCH (08:26)
[2019-02-27] MEDS: Lutein/Minerals/Vitamin C/Vitamin E Acetate Cap PO SCH ×2 (08:26→19:53)
[2019-02-27] MEDS: Potassium Chloride 20 MEQ Tab.ER PO SCH ×3 (08:27→17:26)
[2019-02-27] MEDS: Acetaminophen 325 MG Tab PO SCH ×3 (08:27→17:26)
[2019-02-27] MEDS: Sodium Chloride 1 GM Tab PO SCH ×3 (08:28→17:27)
[2019-02-27] MEDS: Levothyroxine 150 MCG Tab PO SCH (08:28)
[2019-02-27] MEDS: Metoprolol Tartrate 25 MG Tab PO SCH ×2 (08:28→17:28)
[2019-02-27] MEDS: Metoclopramide 10 MG/2 ML SDV IVPUSH SCH ×2 (08:29→17:33)
[2019-02-27] MEDS: Pantoprazole 40 MG Tab.CR PO SCH (08:29)
[2019-02-27] MEDS: ALPRAZolam 1 MG Tab PO SCH ×3 (08:29→19:54)
[2019-02-27] MEDS: Sodium Chloride 0.9% 10 ML Syringe FLUSH SCH ×2 (08:30→19:54)
[2019-02-27] MEDS: Polyethylene Glycol 3350 Powder 17 GM Packet PO SCH ×2 (08:31→10:02)
--- NOTE | 2019-02-27 09:51 | PCM.PN ---
- General Info Date of Service: 02/27/19 Admission Dx/Problem (Free Text): 1. Abdominal pain 2. Hyponatremia 3. Hypertension 4. Hypomagnesemia Functional Status: Reports: Pain Controlled, Tolerating Diet, Ambulating, Urinating, New Symptoms (Mild nausea this morning although improved after eating breakfast). Denies: Incentive Spirometry Pain Score: 0 - Review of Systems General: Reports: Weakness (Stable chronic), Appetite (Improving slowly). Denies: Fever, Malaise, Chills, Night Sweats HEENT: Reports: Glasses. Denies: Ear Pain, Eye Pain, Headaches, Post Nasal Drip , Sinus Congestion, Sore Throat, Rhinitis, Visual Changes Pulmonary: Reports: No Symptoms. Denies: Shortness of Breath, Pleuritic Chest Pain, Cough, Sputum, Hemoptysis, Wheezing Cardiovascular: Reports: No Symptoms. Denies: Chest Pain, Palpitations, Dyspnea on Exertion, Orthopnea, PND, Edema, Lightheadedness Gastrointestinal: Reports: Decreased Appetite (Improving slowly as above), Nausea. Denies: Abdominal Pain, Constipation, Diarrhea (Mild loose stool this morning secondary to MiraLAX), Difficulty Swallowing, Flatus, Hematochezia, Melena, Vomiting Genitourinary: Reports: No Symptoms. Denies: Dysuria, Frequency, Burning, Pain , Incontinence, Hematuria, Retention, Flank Pain Musculoskeletal: Reports: No Symptoms. Denies: Neck Pain, Shoulder Pain, Arm Pain, Back Pain, Leg Pain Skin: Reports: No Symptoms. Denies: Diaphoresis, Bruising Neurological: Reports: Weakness (Stable chronic). Denies: Confusion, Dizziness , Headache, Numbness, Paresthesia, Syncope, Tingling Psychiatric: Reports: Depression, Anxiety. Denies: Confusion, Agitation, Cravings, Hallucinations - Patient Data Vitals - Most Recent: Last Vital Signs Temp 36.3 C 02/27/19 08:00 Pulse 67 02/27/19 08:28 Resp 18 02/27/19 08:00 BP 184/76 H 02/27/19 08:28 Pulse Ox 97 02/27/19 08:00 Vital Signs - 24 hr 02/26/19 02/26/19 02/26/19 11:52 18:00 18:17 Temperature [ 36.6 C 36.9 C Temporal] Pulse, 67 Peripheral Pulse, 70 68 Peripheral [ Right Pulse Oximetry] Respiratory 16 16 Rate Blood Pressure 138/60 Blood Pressure 150/69 H 138/60 [Left Upper Arm ] O2 Sat by Pulse 99 98 Oximetry 02/26/19 02/27/19 02/27/19 23:41 03:29 08:00 Temperature [ 36.1 C 36.7 C 36.3 C Temporal] Pulse, Peripheral Pulse, 60 82 67 Peripheral [ Right Pulse Oximetry] Respiratory 18 16 18 Rate Blood Pressure Blood Pressure 152/69 H 173/94 H 184/76 H [Left Upper Arm ] O2 Sat by Pulse 97 98 97 Oximetry 02/27/19 08:28 Temperature [ Temporal] Pulse, 67 Peripheral Pulse, Peripheral [ Right Pulse Oximetry] Respiratory Rate Blood Pressure 184/76 H Blood Pressure [Left Upper Arm ] O2 Sat by Pulse Oximetry Weight - Most Recent: 57.198 kg I&O - Last 24 Hours: Intake & Output 02/26/19 02/27/19 02/27/19 22:59 06:59 14:59 Intake Total 180 220 Output Total 500 950 Balance -320 -950 220 Imaging Impressions - Last 24 Hours: None Lab Results Last 24 Hours: Laboratory Results - last 24 hr 02/27/19 02/27/19 Range/Units 06:48 06:48 WBC 6.3 (4.0-10.2) K/uL RBC 3.92 (3.77-5.09) M/uL Hgb 12.2 (11.7-15.5) g/dL Hct 34.3 (34.0-46.0) % MCV 87.5 (84.0-98.0) fL MCH 31.1 (28.2-33.3) pg MCHC 35.6 (31.7-36.0) g/dL RDW 12.4 (11.2-14.1) % Plt Count 226 (150-350) K/uL Neut % (Auto) 53.6 (45.0-80.0) % Lymph % (Auto) 35.3 (10.0-50.0) % [place] % (Auto) 8.9 (2.0-14.0) % Eos % (Auto) 1.6 (0.0-5.0) % Baso % (Auto) 0.6 (0.0-2.0) % Neut # (Auto) 3.39 (1.40-7.00) K/uL Lymph # (Auto) 2.23 (0.50-3.50) K/uL [place] # (Auto) 0.56 (0.00-1.00) K/uL Eos # (Auto) 0.10 (0.00-0.50) K/uL Baso # (Auto) 0.04 (0.00-0.20) K/uL Sodium 138 (136-145) mmol/L Potassium 3.9 (3.5-5.1) mmol/L Chloride 103 (98-107) mmol/L Carbon Dioxide 23.5 (21.0-32.0) mmol/L BUN 4 L (7-18) mg/dL Creatinine 0.67 (0.51-1.17) mg/dL Est Cr Clr Drug Dosing 58.16 mL/min Estimated GFR (MDRD) > 60 mL/min Glucose 99 (74-106) mg/dL Uric Acid 1.4 L (2.6-7.2) mg/dL Calcium 8.7 (8.5-10.1) mg/dL Magnesium 2.1 (1.8-2.4) mg/dL Wilbert Results Last 24 Hours: Microbiology 02/25/19 20:48 Urine Culture - Final Urine, Clean Catch MIXED YAMINI SUGGESTIVE OF CONTAMINATION. 02/26/19 12:15 Stool Occult Blood (WILBERT) - Final Stool / Feces NEGATIVE OCCULT BLOOD REFERENCE RANGE: NEGATIVE Med Orders - Current: Current Medications Acetaminophen (Tylenol) 650 mg PO Q4H PRN PRN Reason: Pain Acetaminophen (Tylenol) 650 mg PO TID [facility] [place] Last Admin: 02/27/19 08:27 Dose: 650 mg Alprazolam (Xanax) 1 mg PO TID@0800,1200,2000 [facility] [place] Last Admin: 02/27/19 08:29 Dose: 1 mg Artificial Tears (Liquitears 1.4% Ophth Soln) 0 ml EYEBOTH BEDTIME [facility] [place] Last Admin: 02/26/19 20:16 Dose: 1 drop Calcium Carbonate/Glycine (Tums Extra Strength) 1,500 mg PO BEDTIME [facility] [place] Last Admin: 02/26/19 20:18 Dose: 1,500 mg Cosyntropin (Cortrosyn) 0.25 mg IM ONETIME ONE Stop: 02/28/19 08:01 Cranberry (Cranberry) 500 mg PO DAILY [facility] [place] Last Admin: 02/27/19 08:26 Dose: 500 mg Fluoxetine HCl (Prozac) 20 mg PO DAILY [facility] [place] Last Admin: 02/27/19 08:26 Dose: 20 mg Lactobacillus Rhamnosus (Culturelle) 1 cap PO DAILY [facility] [place] Last Admin: 02/27/19 08:26 Dose: 1 cap Levothyroxine Sodium (Levothyroxine) 150 mcg PO ACBREAKFAST [facility] [place] Last Admin: 02/27/19 08:28 Dose: 150 mcg Magnesium Oxide (Magnesium Oxide) 400 mg PO BEDTIME [facility] [place] Last Admin: 02/26/19 20:20 Dose: 400 mg Metoclopramide HCl (Reglan) 10 mg IVPUSH BID [facility] [place] Last Admin: 02/27/19 08:29 Dose: 10 mg Metoprolol Tartrate (Lopressor) 12.5 mg PO BID [facility] [place] Last Admin: 02/27/19 08:28 Dose: 12.5 mg Mirtazapine (Remeron) 7.5 mg PO BEDTIME [facility] [place] Last Admin: 02/26/19 20:19 Dose: 7.5 mg Ondansetron HCl (Zofran) 4 mg IVPUSH Q6H PRN PRN Reason: Nausea/Vomiting Pantoprazole Sodium (Protonix) 40 mg PO DAILY [facility] [place] Last Admin: 02/27/19 08:29 Dose: 40 mg Polyethylene Glycol (Miralax) 17 gm PO Q2D@0800 [facility] [place] Potassium Chloride (Klor-Con M20) 20 meq PO TID [facility] [place] Last Admin: 02/27/19 08:27 Dose: 20 meq Sodium Chloride (Saline Flush) 10 ml FLUSH ASDIRECTED PRN PRN Reason: Keep Vein Open Last Admin: 02/26/19 18:27 Dose: 10 ml Sodium Chloride (Sodium Chloride) 1 gm PO TID [facility] [place] Last Admin: 02/27/19 08:28 Dose: 1 gm Sodium Chloride (Saline Flush) 10 ml FLUSH Q12HR [facility] [place] Last Admin: 02/27/19 08:30 Dose: 10 ml Vit C/Vit E/Zinc/Copper/Lutein (Ocuvite Lutein) 1 each PO Q12HR [facility] [place] Last Admin: 02/27/19 08:26 Dose: 1 each Discontinued Medications Calcium Carbonate (Caltrate 600+D 1500 Mg-400 Units) 1 tab PO MOWEFR@0800 [facility] [place] Last Admin: 02/26/19 07:44 Dose: 1 tab Famotidine (Pepcid) 40 mg IVPUSH ONETIME ONE Stop: 02/25/19 20:58 Last Admin: 02/25/19 21:10 Dose: 40 mg Sodium Chloride (Sodium Chloride 3%) 500 mls @ 80 mls/hr IV ASDIRECTED [facility] [place] Stop: 02/26/19 04:00 Last Admin: 02/25/19 22:08 Dose: 80 mls/hr Lactated Ringer's (Ringers, Lactated) 1,000 mls @ 80 mls/hr IV ASDIRECTED [facility] [place] Last Admin: 02/26/19 07:46 Dose: 80 mls/hr Magnesium Sulfate/Dextrose (Magnesium Sulfate In D5w 100 Premix) 100 mls @ 100 mls/hr IV Q1H [facility] [place] Stop: 02/26/19 01:29 Last Admin: 02/26/19 01:34 Dose: 100 mls/hr Levothyroxine Sodium (Levothyroxine) 75 mcg PO ACBREAKFAST [facility] [place] Last Admin: 02/26/19 07:43 Dose: 75 mcg Levothyroxine Sodium (Levothyroxine) 75 mcg PO ONETIME ONE Stop: 02/26/19 09:22 Last Admin: 02/26/19 10:20 Dose: 75 mcg Magnesium Oxide (Magnesium Oxide) 400 mg PO BID [facility] [place] Last Admin: 02/26/19 07:43 Dose: 400 mg Non-Formulary Medication (Pantoprazole Sodium [Protonix]) 20 mg PO DAILY [facility] [place] Last Admin: 02/26/19 13:31 Dose: Not Given Ondansetron HCl (Zofran) 4 mg IVPUSH ONETIME ONE Stop: 02/25/19 20:58 Last Admin: 02/25/19 21:10 Dose: 4 mg Pantoprazole Sodium (Protonix Iv) 40 mg IVPUSH ONETIME ONE Stop: 02/25/19 20:58 Last Admin: 02/25/19 21:10 Dose: 40 mg Polyethylene Glycol (Miralax) 17 gm PO ASDIRECTED PRN PRN Reason: Constipation Polyethylene Glycol (Miralax) 17 gm PO DAILY PRN PRN Reason: Constipation Polyethylene Glycol (Miralax) 17 gm PO DAILY [facility] [place] Last Admin: 02/27/19 08:31 Dose: Not Given Rosuvastatin Calcium (Crestor) 2.5 mg PO BEDTIME YAMILET - Exam Quality Assessment: DVT Prophylaxis. No: Supplemental Oxygen, Central Line/PICC , Urine Catheter, Restraints General: Alert, Oriented, Cooperative, No Acute Distress HEENT: Pupils Equal, Pupils Reactive, EOMI, Mucous Membr. Moist/[place] Neck: Supple, Trachea Midline, No JVD, No Thyromegaly, Carotid Bruit (Mild bilateral carotid bruits). No: Lymphadenopathy, Thyromegaly Lungs: Clear to Auscultation, Normal Respiratory Effort. No: Rub Cardiovascular: Regular Rate, Regular Rhythm. No: Murmurs, Gallops, Rubs GI/Abdominal Exam: Normal Bowel Sounds, Soft, Non-Tender, No Organomegaly, No Distention, No Abnormal Bruit, No Mass, Pelvis Stable. No: Guarding (Female) Exam: Deferred Back Exam: Full Range of Motion, Other (Mild kyphosis). No: CVA Tenderness (L) , CVA Tenderness (R), Muscle Spasm Extremities: Normal Inspection, Normal Range of Motion, Non-Tender, No Pedal Edema, Normal Capillary Refill. No: Asia's Sign Peripheral Pulses: 2+: Radial (L), Radial (R), Dorsalis Pedis (L), Dorsalis Pedis (R) Skin: Warm, Dry, Intact Neurological: No New Focal Deficit Psy/Mental Status: Alert, Anxious (Moderate), Depressed (Moderate adequate eye contact). No: Agitated, Hallucinations, Withdrawal Symptoms - Problem List & Annotations (1) Abdominal pain SNOMED Code(s): 60233025 Code(s): R10.9 - UNSPECIFIED ABDOMINAL PAIN Status: Acute Priority: High Current Visit: Yes Qualifiers: Abdominal location: lower abdomen, unspecified Qualified Code(s): R10.30 - Lower abdominal pain, unspecified Annotation/Comment:: No abdominal pain this morning with some nausea prior to eating breakfast the however no emesis and significantly improved symptoms after eating her breakfast. Prior to this patient's symptoms have significantly improved since admission and with correction of hyponatremia. No confusion or neurological deficits from previous hypertonic saline IV infusion on admission with continued normal sodium level at this time. Abdominal symptoms may be related to her chronic hyponatremia, etc. with extensive workup during this hospitalization as below. Long history of nonspecific abdominal pain and chronic nausea, emesis, etc. with negative workup to this point including celiac screening, etc. by family's history. Review of [facility] EMR both from [place] and [place] do not indicate exact surgical procedures. Surgical notes from the evaluations on 10/16/18 and 11/26/18 could not be found with patient and her family apparently reluctant to repeating an EGD and colonoscopy at this time. Patient is already on Protonix, which will be continued during this hospitalization for now. Note high-dose IV Pepcid and IV Protonix given in the emergency room. Initiated short-term Reglan therapy, which will likely be discontinued at discharge. She has been noncompliant with her elimination diet, which was advised by Dr. Marinelli during recent emergency room evaluation. Note anorexia, which could also explain her hyponatremia. Stool cultures to be obtained per her 's request. Note recent GI consultations as above. Ultram has been discontinued during this hospitalization with improved nausea and no significant return of her arthritic pain, etc. with scheduled Tylenol regimen. (2) Hyponatremia SNOMED Code(s): 16452887 Code(s): E87.1 - HYPO-OSMOLALITY AND HYPONATREMIA Status: Acute Priority : High Current Visit: Yes Annotation/Comment:: Sodium level continues to be normal and was normalized on 02/26 after IV hypertonic sodium chloride administration. Initiated extensive workup for chronic hyponatremia with possibility of SIADH, adrenal gland insufficiency, etc. Aldosterone level drawn on 02/26 with results pending. Secondary to workup of her current significant hyponatremia, chronic abdominal pain, nausea, hypertension, etc. multiple medication adjustments are required during this hospitalization thereby making the patient a candidate for inpatient/acute care. Significant hyponatremia on admission with 3% sodium chloride infusion initiated in the emergency room. Patient denies noncompliance with her high-dose sodium chloride tablets at home , which may need to be discontinued at discharge depending on her workup as above. Patient has had a recent negative CT of the chest with IV contrast on with etiology of chronic hyponatremia unknown at this time, however may need to consider neoplastic etiology. She has had an unintentional weight loss during the last month as per emergency room note, however possible anxiety component. 24 hour urine has been collected for sodium. BNP was elevated after IV fluids on admission, however no clinical evidence of significant CHF. Continue fluid restricted, etc. diet. No chest pain or anginal complaints. Further workup depending on her clinical course. (3) Hypomagnesemia SNOMED Code(s): 962842659 Code(s): E83.42 - HYPOMAGNESEMIA Status: Acute Priority: Medium Current Visit: Yes Onset Date: 02/25/19 Annotation/Comment:: IV magnesium sulfate on admission with initiation of oral magnesium oxide therapy with repeat magnesium level on 02/27 normal. (4) Hyperlipidemia SNOMED Code(s): 56167055 Code(s): E78.5 - HYPERLIPIDEMIA, UNSPECIFIED Status: Chronic Priority: Medium Current Visit: Yes Qualifiers: Hyperlipidemia type: unspecified Qualified Code(s): E78.5 - Hyperlipidemia , unspecified Annotation/Comment:: Currently under medical therapy, although patient has been noncompliant with her diet. Note recent anorexia, however. (5) Hypertension SNOMED Code(s): 58519569 Code(s): I10 - ESSENTIAL (PRIMARY) HYPERTENSION Status: Chronic Priority : Medium Current Visit: Yes Qualifiers: Hypertension type: essential hypertension Qualified Code(s): I10 - Essential (primary) hypertension Annotation/Comment:: Blood pressures are still somewhat elevated. Continue to observe closely during this hospitalization with further medication adjustments depending on her clinical course. Observe for now. Note mild occasional nonsymptomatic bradycardia. Note anxiety component. (6) Hypothyroidism (acquired) SNOMED Code(s): 459282273 Code(s): E03.9 - HYPOTHYROIDISM, UNSPECIFIED Status: Chronic Priority: Medium Current Visit: Yes Annotation/Comment:: TSH significantly elevated with normal free T4 and pending free T3. Her Synthroid will be increased to 0.150 mg daily starting on 02/26. TSH with free T3, and free T4 should be repeated in 4 weeks. Note history of thyroidectomy in 1979 secondary to thyroid cancer. (7) Mixed anxiety depressive disorder SNOMED Code(s): 086119890 Code(s): F41.8 - OTHER SPECIFIED ANXIETY DISORDERS Status: Chronic Priority: Medium Current Visit: Yes Annotation/Comment:: Moderate control although improved during this hospitalization with initiation of Prozac and increase of her Remeron. Note recent tragic murder of her granddaughter, however no suicidal ideation, etc. at this time per history from her and the patient. Initiated Prozac on 02/26 with caution secondary to possibility of SIADH. (8) Osteoarthritis SNOMED Code(s): 753731419 Code(s): M19.90 - UNSPECIFIED OSTEOARTHRITIS, UNSPECIFIED SITE Status: Chronic Priority: Medium Current Visit: Yes Qualifiers: Osteoarthritis location: multiple joints Osteoarthritis type: primary Qualified Code(s): M15.0 - Primary generalized (osteo)arthritis Annotation/Comment:: As above with no current Ultram required. Previously under moderate control despite daily Ultram use, which was discontinued upon admission secondary to her abdominal complaints, dependency issues, etc.. Initiated regularly dosed Tylenol regimen on admission, which was very effective. Additional NSAIDs should be initiated with caution secondary to her possible SIADH (9) Hypokalemia SNOMED Code(s): 09662054 Code(s): E87.6 - HYPOKALEMIA Status: Acute Priority: Medium Current Visit: Yes Onset Date: 02/25/19 Annotation/Comment:: Initiated lactated Ringer's after completion of the above hypertonic sodium chloride infusion with this discontinued in the a.m. of 02/26 secondary to suspicions of possible SIADH. Initiated fluid restricted, heart healthy, diverticulosis diet on 02/26. Also initiated oral potassium chloride supplementation on 02/26 with continued close follow-up by her regular providers. - Problem List Review Problem List Initiated/Reviewed/Updated: Yes - My Orders Last 24 Hours: My Active Orders 02/26/19 08:51 Potassium Chloride [Klor-Con M20] 20 meq PO TID 02/26/19 08:52 Vital Signs [RC] Q6HR 02/26/19 09:14 Acetaminophen [Tylenol] 650 mg PO TID 02/26/19 12:15 STOOL CULTURE/SHIGA TOXIN [MREF] Routine 02/26/19 20:00 Calcium Carbonate [Tums Extra Strength] 1,500 mg PO BEDTIME Magnesium Oxide 400 mg PO BEDTIME Polyvinyl Alcohol [LiquiTears 1.4% Ophth Soln] 0 ml EYEBOTH BEDTIME 02/27/19 07:30 Levothyroxine 150 mcg PO ACBREAKFAST 02/27/19 08:00 Pantoprazole [ProTONIX] 40 mg PO DAILY Polyethylene Glycol 3350 [MiraLAX] 17 gm PO Q2D@0800 02/27/19 09:43 Communication Order [RC] ROUTINE 02/28/19 05:11 ACTH STIMULATION [REF] Routine 02/28/19 08:00 Cosyntropin [Cortrosyn] 0.25 mg IM ONETIME ONE - Assessment Assessment:: As above - Plan Plan:: As above. Extensive precautions were given to the patient, who is in agreement with the treatment plan. The patient will require an additional about 1-2 days of inpatient/acute care secondary to multiple health problems as above.
[2019-02-27] MEDS: Calcium Carbonate 750 MG Tab.Chew PO SCH (19:53)
[2019-02-27] MEDS: Polyvinyl Alcohol 1.4% Ophth Soln 15 ML Bottle EYEBOTH SCH (19:54)
[2019-02-27] MEDS: Mirtazapine 15 MG Tab PO SCH (19:54)
[2019-02-27] MEDS: Magnesium Oxide 400 MG Tab PO SCH (19:54)
[2019-02-28] MEDS: Levothyroxine 150 MCG Tab PO SCH (07:37)
[2019-02-28] MEDS: ALPRAZolam 1 MG Tab PO SCH ×3 (07:37→19:17)
[2019-02-28] MEDS ORDERED: Cosyntropin 0.25 MG Vial IM ONE (08:00)
[2019-02-28 08:07] LABS: CHLORIDE,CL 100 mmol/L (98-107); SODIUM,NA 135 mmol/L (136-145)
[2019-02-28] MEDS: Acetaminophen 325 MG Tab PO SCH ×3 (09:04→17:46)
[2019-02-28] MEDS: Sodium Chloride 1 GM Tab PO SCH ×3 (09:05→17:46)
[2019-02-28] MEDS: Cranberry 500 MG Cap PO SCH (09:05)
[2019-02-28] MEDS: Potassium Chloride 20 MEQ Tab.ER PO SCH ×3 (09:05→17:47)
[2019-02-28] MEDS: FLUoxetine 20 MG Cap PO SCH (09:06)
[2019-02-28] MEDS: Pantoprazole 40 MG Tab.CR PO SCH (09:06)
[2019-02-28] MEDS: Lactobacillus Rhamnosus GG (Probiotic) Cap PO SCH (09:06)
[2019-02-28] MEDS: Lutein/Minerals/Vitamin C/Vitamin E Acetate Cap PO SCH ×2 (09:06→19:17)
[2019-02-28] MEDS: Metoclopramide 10 MG/2 ML SDV IVPUSH SCH ×2 (09:07→17:45)
[2019-02-28] MEDS: Sodium Chloride 0.9% 10 ML Syringe FLUSH SCH ×2 (09:07→19:17)
[2019-02-28] MEDS: Metoprolol Tartrate 25 MG Tab PO SCH ×2 (09:08→17:48)
[2019-02-28] MEDS: Sodium Chloride 0.9% 10 ML Syringe FLUSH PRN ×2 (11:03→17:45)
--- NOTE | 2019-02-28 11:19 | PCM.PN ---
- General Info Date of Service: 02/28/19 Admission Dx/Problem (Free Text): 1. Abdominal pain 2. Hyponatremia 3. Hypertension 4. Hypomagnesemia Functional Status: Reports: Pain Controlled, Tolerating Diet (Improved however patient still only eating about one quarter of her meals with no nausea or abdominal pain this morning), Ambulating, Urinating. Denies: New Symptoms, Incentive Spirometry Pain Score: 0 - Review of Systems General: Reports: No Symptoms, Appetite (As above). Denies: Fever, Weakness, Fatigue, Malaise, Chills, Night Sweats HEENT: Reports: Glasses. Denies: Dysphasia, Eye Pain, Headaches, Post Nasal Drip, Sinus Congestion, Sore Throat, Rhinitis, Visual Changes Pulmonary: Reports: No Symptoms. Denies: Shortness of Breath, Pleuritic Chest Pain, Cough, Sputum, Hemoptysis, Wheezing Cardiovascular: Reports: No Symptoms. Denies: Chest Pain, Palpitations, Dyspnea on Exertion, Orthopnea, PND, Edema, Lightheadedness Gastrointestinal: Reports: No Symptoms. Denies: Abdominal Pain, Constipation, Decreased Appetite, Diarrhea, Difficulty Swallowing, Flatus, Hematochezia, Melena, Nausea, Vomiting Genitourinary: Reports: No Symptoms. Denies: Dysuria, Frequency, Burning, Pain , Urgency, Hematuria, Retention, Flank Pain Musculoskeletal: Reports: No Symptoms. Denies: Neck Pain, Shoulder Pain, Arm Pain, Back Pain, Leg Pain Skin: Reports: No Symptoms. Denies: Diaphoresis Neurological: Reports: No Symptoms. Denies: Confusion, Dizziness, Paresthesia, Tingling, Weakness Psychiatric: Reports: Depression, Anxiety. Denies: Confusion, Agitation, Cravings, Hallucinations - Patient Data Vitals - Most Recent: Last Vital Signs Temp 36.6 C 02/28/19 04:34 Pulse 91 02/28/19 09:08 Resp 16 02/28/19 04:34 BP 152/89 H 02/28/19 09:08 Pulse Ox 95 02/28/19 04:34 Vital Signs - 24 hr 02/27/19 02/27/19 02/27/19 11:24 17:28 17:35 Temperature [ 36.4 C 36.5 C Temporal] Pulse, 71 Peripheral Pulse, 62 71 Peripheral [ Right Pulse Oximetry] Respiratory 17 16 Rate Blood Pressure 152/73 H Blood Pressure 157/70 H 152/71 H [Left Upper Arm ] O2 Sat by Pulse 97 97 Oximetry 02/28/19 02/28/19 02/28/19 00:00 04:34 09:08 Temperature [ 36.1 C 36.6 C Temporal] Pulse, 91 Peripheral Pulse, 67 91 Peripheral [ Right Pulse Oximetry] Respiratory 16 16 Rate Blood Pressure 152/89 H Blood Pressure 148/90 H 152/89 H [Left Upper Arm ] O2 Sat by Pulse 96 95 Oximetry Weight - Most Recent: 56.699 kg I&O - Last 24 Hours: Intake & Output 02/27/19 02/28/19 02/28/19 22:59 06:59 14:59 Intake Total 400 50 120 Output Total 300 1100 Balance 100 -1050 120 Imaging Impressions - Last 24 Hours: None Lab Results Last 24 Hours: Laboratory Results - last 24 hr 02/28/19 02/28/19 Range/Units 06:50 06:50 WBC 8.8 (4.0-10.2) K/uL RBC 4.22 (3.77-5.09) M/uL Hgb 13.1 (11.7-15.5) g/dL Hct 36.9 (34.0-46.0) % MCV 87.4 (84.0-98.0) fL MCH 31.0 (28.2-33.3) pg MCHC 35.5 (31.7-36.0) g/dL RDW 12.9 (11.2-14.1) % Plt Count 288 (150-350) K/uL Neut % (Auto) 42.4 L (45.0-80.0) % Lymph % (Auto) 46.9 (10.0-50.0) % Leon % (Auto) 8.6 (2.0-14.0) % Eos % (Auto) 1.6 (0.0-5.0) % Baso % (Auto) 0.5 (0.0-2.0) % Neut # (Auto) 3.75 (1.40-7.00) K/uL Lymph # (Auto) 4.15 H (0.50-3.50) K/uL Leon # (Auto) 0.76 (0.00-1.00) K/uL Eos # (Auto) 0.14 (0.00-0.50) K/uL Baso # (Auto) 0.04 (0.00-0.20) K/uL Sodium 135 L (136-145) mmol/L Potassium 4.2 (3.5-5.1) mmol/L Chloride 100 (98-107) mmol/L Carbon Dioxide 23.5 (21.0-32.0) mmol/L BUN 5 L (7-18) mg/dL Creatinine 0.63 (0.51-1.17) mg/dL Est Cr Clr Drug Dosing 61.62 mL/min Estimated GFR (MDRD) > 60 mL/min Glucose 105 (74-106) mg/dL Calcium 9.2 (8.5-10.1) mg/dL Creatine Kinase 70 (26-308) U/L Creatine Kinase Index 1.6 (0.0-2.5) % CK-MB (CK-2) 1.10 (0.00-3.60) ng/mL Troponin I 0.003 (0.000-0.056) ng/mL NT-Pro-B Natriuret Pep 320 H (0-125) pg/mL Wilbert Results Last 24 Hours: Microbiology 02/25/19 20:48 Urine Culture - Final Urine, Clean Catch MIXED YAMINI SUGGESTIVE OF CONTAMINATION. Med Orders - Current: Current Medications Acetaminophen (Tylenol) 650 mg PO Q4H PRN PRN Reason: Pain Acetaminophen (Tylenol) 650 mg PO TID [facility] Last Admin: 02/28/19 09:04 Dose: 650 mg Alprazolam (Xanax) 1 mg PO TID@0800,1200,2000 [facility] Last Admin: 02/28/19 07:37 Dose: 1 mg Artificial Tears (Liquitears 1.4% Ophth Soln) 0 ml EYEBOTH BEDTIME [facility] Last Admin: 02/27/19 19:54 Dose: 1 drop Calcium Carbonate/Glycine (Tums Extra Strength) 1,500 mg PO BEDTIME [facility] Last Admin: 02/27/19 19:53 Dose: 1,500 mg Cranberry (Cranberry) 500 mg PO DAILY [facility] Last Admin: 02/28/19 09:05 Dose: 500 mg Fluoxetine HCl (Prozac) 20 mg PO DAILY [facility] Last Admin: 02/28/19 09:06 Dose: 20 mg Lactobacillus Rhamnosus (Culturelle) 1 cap PO DAILY [facility] Last Admin: 02/28/19 09:06 Dose: 1 cap Levothyroxine Sodium (Levothyroxine) 150 mcg PO ACBREAKFAST [facility] Last Admin: 02/28/19 07:37 Dose: 150 mcg Magnesium Oxide (Magnesium Oxide) 400 mg PO BEDTIME [facility] Last Admin: 02/27/19 19:54 Dose: 400 mg Metoclopramide HCl (Reglan) 10 mg IVPUSH BID [facility] Last Admin: 02/28/19 09:07 Dose: 10 mg Metoprolol Tartrate (Lopressor) 12.5 mg PO BID [facility] Last Admin: 02/28/19 09:08 Dose: 12.5 mg Mirtazapine (Remeron) 15 mg PO BEDTIME [facility] Last Admin: 02/27/19 19:54 Dose: 15 mg Ondansetron HCl (Zofran) 4 mg IVPUSH Q6H PRN PRN Reason: Nausea/Vomiting Last Admin: 02/28/19 11:03 Dose: 4 mg Pantoprazole Sodium (Protonix) 40 mg PO DAILY [facility] Last Admin: 02/28/19 09:06 Dose: 40 mg Polyethylene Glycol (Miralax) 17 gm PO Q2D@0800 [facility] Last Admin: 02/27/19 10:02 Dose: Not Given Potassium Chloride (Klor-Con M20) 20 meq PO TID [facility] Last Admin: 02/28/19 09:05 Dose: 20 meq Sodium Chloride (Saline Flush) 10 ml FLUSH ASDIRECTED PRN PRN Reason: Keep Vein Open Last Admin: 02/28/19 11:03 Dose: 10 ml Sodium Chloride (Sodium Chloride) 1 gm PO TID [facility] Last Admin: 02/28/19 09:05 Dose: 1 gm Sodium Chloride (Saline Flush) 10 ml FLUSH Q12HR [facility] Last Admin: 02/28/19 09:07 Dose: 10 ml Vit C/Vit E/Zinc/Copper/Lutein (Ocuvite Lutein) 1 each PO Q12HR [facility] Last Admin: 02/28/19 09:06 Dose: 1 each Discontinued Medications Calcium Carbonate (Caltrate 600+D 1500 Mg-400 Units) 1 tab PO MOWEFR@0800 [facility] Last Admin: 02/26/19 07:44 Dose: 1 tab Cosyntropin (Cortrosyn) 0.25 mg IM ONETIME ONE Stop: 02/28/19 08:01 Last Admin: 02/28/19 09:02 Dose: 0.25 mg Famotidine (Pepcid) 40 mg IVPUSH ONETIME ONE Stop: 02/25/19 20:58 Last Admin: 02/25/19 21:10 Dose: 40 mg Sodium Chloride (Sodium Chloride 3%) 500 mls @ 80 mls/hr IV ASDIRECTED [facility] Stop: 02/26/19 04:00 Last Admin: 02/25/19 22:08 Dose: 80 mls/hr Lactated Ringer's (Ringers, Lactated) 1,000 mls @ 80 mls/hr IV ASDIRECTED [facility] Last Admin: 02/26/19 07:46 Dose: 80 mls/hr Magnesium Sulfate/Dextrose (Magnesium Sulfate In D5w 100 Premix) 100 mls @ 100 mls/hr IV Q1H [facility] Stop: 02/26/19 01:29 Last Admin: 02/26/19 01:34 Dose: 100 mls/hr Levothyroxine Sodium (Levothyroxine) 75 mcg PO ACBREAKFAST [facility] Last Admin: 02/26/19 07:43 Dose: 75 mcg Levothyroxine Sodium (Levothyroxine) 75 mcg PO ONETIME ONE Stop: 02/26/19 09:22 Last Admin: 02/26/19 10:20 Dose: 75 mcg Magnesium Oxide (Magnesium Oxide) 400 mg PO BID [facility] Last Admin: 02/26/19 07:43 Dose: 400 mg Mirtazapine (Remeron) 7.5 mg PO BEDTIME [facility] Last Admin: 02/26/19 20:19 Dose: 7.5 mg Non-Formulary Medication (Pantoprazole Sodium [Protonix]) 20 mg PO DAILY [facility] Last Admin: 02/26/19 13:31 Dose: Not Given Ondansetron HCl (Zofran) 4 mg IVPUSH ONETIME ONE Stop: 02/25/19 20:58 Last Admin: 02/25/19 21:10 Dose: 4 mg Pantoprazole Sodium (Protonix Iv) 40 mg IVPUSH ONETIME ONE Stop: 02/25/19 20:58 Last Admin: 02/25/19 21:10 Dose: 40 mg Polyethylene Glycol (Miralax) 17 gm PO ASDIRECTED PRN PRN Reason: Constipation Polyethylene Glycol (Miralax) 17 gm PO DAILY PRN PRN Reason: Constipation Polyethylene Glycol (Miralax) 17 gm PO DAILY [facility] Last Admin: 02/27/19 08:31 Dose: Not Given Rosuvastatin Calcium (Crestor) 2.5 mg PO BEDTIME Y[facility]ILET - Exam Quality Assessment: DVT Prophylaxis. No: Supplemental Oxygen, Central Line/PICC , Urine Catheter, Restraints General: Alert, Oriented, Cooperative, No Acute Distress HEENT: Pupils Equal, Pupils Reactive, EOMI, Mucous Membr. Moist/[place], Other ( Patient is wearing glasses) Neck: Supple, Trachea Midline, No JVD, No Thyromegaly, Carotid Bruit (Mild bilateral carotid bruits). No: Lymphadenopathy Lungs: Clear to Auscultation, Normal Respiratory Effort. No: Rub Cardiovascular: Regular Rate, Regular Rhythm, No Murmurs. No: Gallops, Rubs GI/Abdominal Exam: Normal Bowel Sounds, Soft, Non-Tender, No Organomegaly, No Distention, No Abnormal Bruit, No Mass. No: Guarding (Female) Exam: Deferred Back Exam: Full Range of Motion, Other (Mild kyphosis). No: CVA Tenderness (L) , CVA Tenderness (R), Muscle Spasm, Paraspinal Tenderness, Vertebral Tenderness Extremities: Normal Inspection, Normal Range of Motion, Non-Tender, No Pedal Edema, Normal Capillary Refill. No: Asia's Sign Peripheral Pulses: 2+: Radial (L), Radial (R), Dorsalis Pedis (L), Dorsalis Pedis (R) Skin: Warm, Dry, Intact Neurological: No New Focal Deficit Psy/Mental Status: Labile Mood, Anxious (Moderate), Depressed (Mild to moderate) . No: Agitated, Hallucinations, Withdrawal Symptoms - Problem List & Annotations (1) Abdominal pain SNOMED Code(s): 61148478 Code(s): R10.9 - UNSPECIFIED ABDOMINAL PAIN Status: Acute Priority: High Current Visit: Yes Qualifiers: Abdominal location: lower abdomen, unspecified Qualified Code(s): R10.30 - Lower abdominal pain, unspecified Annotation/Comment:: No abdominal pain once again this morning with no nausea today with breakfast, although she did have some nausea prior to eating breakfast yesterday. No emesis and significantly improved symptoms after eating her breakfast yesterday. Prior to this patient's symptoms have significantly improved since admission and with correction of her hyponatremia. Patient was extensively counseled today concerning an accurate food diary, including symptoms, exact food, etc. with each meal, with the nurse to help her today set up this log. This food diary should be brought to every doctor's appointment in the future. Patient does not feel that she can tolerate the previously recommended elimination diet. She also does not feel ready to go home today. Strong anxiety component with today's symptoms, including this morning. Note no confusion or neurological deficits from previous hypertonic saline IV infusion on admission with continued normal sodium level at this time. Abdominal symptoms may be related to her chronic hyponatremia, etc. with extensive workup during this hospitalization as below. Long history of nonspecific abdominal pain and chronic nausea, emesis, etc. with negative workup to this point including celiac screening, etc. by family's history. Review of [facility] EMR both from [place] and [place] do not indicate exact surgical procedures. Surgical notes from the evaluations on 10/16/18 and 11/26/18 could not be found with patient and her family apparently reluctant to repeating an EGD and colonoscopy at this time. Patient is already on Protonix, which will be continued during this hospitalization for now. Note high-dose IV Pepcid and IV Protonix given in the emergency room. Initiated short-term Reglan therapy, which will likely be discontinued at discharge. She has been noncompliant with her elimination diet, which was advised by Dr. Marinelli during recent emergency room evaluation. Note anorexia, which could also explain her hyponatremia. The patient was once again strongly encouraged to eat her entire meals. Stool cultures to be obtained per her 's request. Note recent GI consultations as above. Ultram has been discontinued during this hospitalization with improved nausea and no significant return of her arthritic pain, etc. with scheduled Tylenol regimen. She was strongly advised never to restart this Ultram or any other narcotic therapy in the future (2) Hyponatremia SNOMED Code(s): 95375101 Code(s): E87.1 - HYPO-OSMOLALITY AND HYPONATREMIA Status: Acute Priority : High Current Visit: Yes Annotation/Comment:: Sodium level mildly decreased at 135 today although previously normal and was normalized on 02/26 after IV hypertonic sodium chloride administration. Initiated extensive workup for chronic hyponatremia with possibility of SIADH, adrenal gland insufficiency , etc. Aldosterone level drawn on 02/26 with results pending. Secondary to workup of her current significant hyponatremia, chronic abdominal pain, nausea, hypertension, etc. multiple medication adjustments are required during this hospitalization thereby making the patient a candidate for inpatient/acute care. Significant hyponatremia on admission with 3% sodium chloride infusion initiated in the emergency room. Patient denies noncompliance with her high- dose sodium chloride tablets at home, which was also continued during this hospitalization. Patient has had a recent negative CT of the chest with IV contrast on 01/10/19 with etiology of chronic hyponatremia unknown at this time, however may need to consider neoplastic etiology. She has had an unintentional weight loss during the last month as per emergency room note, however possible anxiety component. 24 hour urine has been collected for sodium. BNP was elevated after IV fluids on admission, however no clinical evidence of significant CHF. Continue fluid restricted, etc. diet. No chest pain or anginal complaints. Further workup depending on her clinical course. Note that ACTH stimulation test was conducted this morning with results pending. Initiate low dose of Bumex with caution with patient having a nonspecific intolerance to Lasix in the past? Note mild persistent BNP elevation, although improved from admission. (3) Hypomagnesemia SNOMED Code(s): 167931870 Code(s): E83.42 - HYPOMAGNESEMIA Status: Acute Priority: Medium Current Visit: Yes Onset Date: 02/25/19 Annotation/Comment:: IV magnesium sulfate on admission with initiation of oral magnesium oxide therapy with repeat magnesium level on 02/27 normal. (4) Hyperlipidemia SNOMED Code(s): 48568713 Code(s): E78.5 - HYPERLIPIDEMIA, UNSPECIFIED Status: Chronic Priority: Medium Current Visit: Yes Qualifiers: Hyperlipidemia type: unspecified Qualified Code(s): E78.5 - Hyperlipidemia , unspecified Annotation/Comment:: Currently under medical therapy, although patient has been noncompliant with her diet. Note recent anorexia, however. (5) Hypertension SNOMED Code(s): 34713087 Code(s): I10 - ESSENTIAL (PRIMARY) HYPERTENSION Status: Chronic Priority : Medium Current Visit: Yes Qualifiers: Hypertension type: essential hypertension Qualified Code(s): I10 - Essential (primary) hypertension Annotation/Comment:: Blood pressures are still somewhat elevated. Continue to observe closely during this hospitalization with further medication adjustments depending on her clinical course. Observe for now. Note mild occasional nonsymptomatic bradycardia. Note anxiety component. (6) Hypothyroidism (acquired) SNOMED Code(s): 578579241 Code(s): E03.9 - HYPOTHYROIDISM, UNSPECIFIED Status: Chronic Priority: Medium Current Visit: Yes Annotation/Comment:: TSH significantly elevated with normal free T4 and pending free T3. Her Synthroid will be increased to 0.150 mg daily starting on 02/26. TSH with free T3, and free T4 should be repeated in 4 weeks. Note history of thyroidectomy in 1979 secondary to thyroid cancer. (7) Mixed anxiety depressive disorder SNOMED Code(s): 699969935 Code(s): F41.8 - OTHER SPECIFIED ANXIETY DISORDERS Status: Chronic Priority: Medium Current Visit: Yes Annotation/Comment:: Moderate control although improved during this hospitalization with initiation of Prozac and increase of her Remeron. Note recent tragic murder of her granddaughter, however no suicidal ideation, etc. at this time per history from her and the patient. Initiated Prozac on 02/26 with caution secondary to possibility of SIADH. Emotional support was provided throughout this hospitalization. (8) Osteoarthritis SNOMED Code(s): 475814989 Code(s): M19.90 - UNSPECIFIED OSTEOARTHRITIS, UNSPECIFIED SITE Status: Chronic Priority: Medium Current Visit: Yes Qualifiers: Osteoarthritis location: multiple joints Osteoarthritis type: primary Qualified Code(s): M15.0 - Primary generalized (osteo)arthritis Annotation/Comment:: As above with no current Ultram required. Previously under moderate control despite daily Ultram use, which was discontinued upon admission secondary to her abdominal complaints, dependency issues, etc.. Initiated regularly dosed Tylenol regimen on admission, which was very effective. Additional NSAIDs should be initiated with caution secondary to her possible SIADH (9) Hypokalemia SNOMED Code(s): 27434105 Code(s): E87.6 - HYPOKALEMIA Status: Acute Priority: Medium Current Visit: Yes Onset Date: 02/25/19 Annotation/Comment:: Initiated lactated Ringer's after completion of the above hypertonic sodium chloride infusion with this discontinued in the a.m. of 02/26 secondary to suspicions of possible SIADH. Initiated fluid restricted, heart healthy, diverticulosis diet on 02/26. Also initiated oral potassium chloride supplementation on 02/26 with continued close follow-up by her regular providers. - Problem List Review Problem List Initiated/Reviewed/Updated: Yes - My Orders Last 24 Hours: My Active Orders 02/27/19 20:00 Mirtazapine [Remeron] 15 mg PO BEDTIME 02/28/19 06:50 ACTH STIMULATION [REF] Routine - Assessment Assessment:: As above - Plan Plan:: As above. Extensive precautions were given to the patient, who is in agreement with the treatment plan. The patient will likely be discharged to home tomorrow. Estefanía reich physician assumes care later this a.m.
[2019-02-28] MEDS: Bumetanide 1 MG Tab PO SCH (12:17)
--- NOTE | 2019-02-28 14:20 | PCM.DCSUM1 ---
Discharge Summary - Hospital Course Brief History: Patient admitted for treatment of after ER evaluation for complaint of nausea and abdominal pain. Noted to be hyponatremic and also with low magnesium and potassium. Diagnosis: Stroke: No - Discharge Data Discharge Date: 03/01/19 Discharge Disposition: Home, Self-Care 01 Condition: Good - Discharge Diagnosis/Problem(s) (1) Abdominal pain SNOMED Code(s): 01091763 ICD Code: R10.9 - UNSPECIFIED ABDOMINAL PAIN Status: Chronic Priority: High Current Visit: Yes Problem Details: No abdominal pain or nausea at this time. Patient's symptoms have significantly improved since admission. Patient was extensively counseled concerning an accurate food diary, including symptoms, exact food, etc. with each meal, with the nurse to help her set up this log. This food diary should be brought to every doctor's appointment in the future. Patient does not feel that she can tolerate the previously recommended elimination diet. Strong anxiety component symptoms. Note no confusion or neurological deficits with hyponatremia. Abdominal symptoms have unknown cause. may be related to her chronic hyponatremia, or medications, etc. with extensive workup during this hospitalization as below. Long history of nonspecific abdominal pain and chronic nausea, emesis, etc. with negative workup to this point including celiac screening, etc. by family's history. Review of [facility] EMR both from [place] and [place] do not indicate exact surgical procedures. Surgical notes from the evaluations on 10/16/18 and 11/26/18 could not be found with patient and her family apparently reluctant to repeating an EGD and colonoscopy at this time. Patient is already on Protonix. Note high-dose IV Pepcid and IV Protonix given in the emergency room. Initiated short-term Reglan therapy, discontinued at discharge. She has been noncompliant with her elimination diet, which was advised by Dr. Marinelli during recent emergency room evaluation. Note anorexia, which could also explain her hyponatremia. The patient was once again strongly encouraged to eat her entire meals. Stool cultures to be obtained per her 's request. Note recent GI consultations as above. Ultram has been discontinued during this hospitalization with improved nausea and no significant return of her arthritic pain, etc. with scheduled Tylenol regimen. She was strongly advised never to restart this Ultram or any other narcotic therapy in the future. Will also have the patient discontinue her statin for the month of February as statins have been linked to nonspecific abdominal cramping/symptoms in some patients. Qualifiers: Abdominal location: lower abdomen, unspecified Qualified Code(s): R10.30 - Lower abdominal pain, unspecified (2) Hyponatremia SNOMED Code(s): 52221070 ICD Code: E87.1 - HYPO-OSMOLALITY AND HYPONATREMIA Status: Chronic Priority: High Current Visit: Yes Problem Details: History of hyponatremia. Initiated extensive workup for chronic hyponatremia with possibility of SIADH, adrenal gland insufficiency, etc. Aldosterone level drawn on 02/26 with results pending. Patient denies noncompliance with her high-dose sodium chloride tablets at home, which was also continued during this hospitalization. Patient has had a recent negative CT of the chest with IV contrast on 01/10/19 with etiology of chronic hyponatremia unknown at this time, however may need to consider neoplastic etiology. She has had an unintentional weight loss during the last month as per emergency room note, however possible anxiety component. 24 hour urine sodium normal. ACTH stimulation test was conducted with results showing normal levels. Initiate low dose of Bumex with caution with patient having a nonspecific intolerance to Lasix in the past. (3) Hyperlipidemia SNOMED Code(s): 25475110 ICD Code: E78.5 - HYPERLIPIDEMIA, UNSPECIFIED Status: Chronic Priority: Medium Current Visit: Yes Problem Details: Currently under medical therapy, although patient has been noncompliant with her diet. Note recent anorexia, however. Qualifiers: Hyperlipidemia type: unspecified Qualified Code(s): E78.5 - Hyperlipidemia , unspecified (4) Hypertension SNOMED Code(s): 72326973 ICD Code: I10 - ESSENTIAL (PRIMARY) HYPERTENSION Status: Chronic Priority : Medium Current Visit: Yes Problem Details: Blood pressures are still somewhat elevated. Stable overall Qualifiers: Hypertension type: essential hypertension Qualified Code(s): I10 - Essential (primary) hypertension (5) Hypothyroidism (acquired) SNOMED Code(s): 165989071 ICD Code: E03.9 - HYPOTHYROIDISM, UNSPECIFIED Status: Chronic Priority: Medium Current Visit: Yes Problem Details: TSH significantly elevated with normal free T4 and low free T3. Her Synthroid will be increased to 0.150 mg daily starting on 02/26. TSH with free T3, and free T4 should be repeated in 4 weeks. Note history of thyroidectomy in 1979 secondary to thyroid cancer. (6) Mixed anxiety depressive disorder SNOMED Code(s): 338952383 ICD Code: F41.8 - OTHER SPECIFIED ANXIETY DISORDERS Status: Chronic Priority: Medium Current Visit: Yes Problem Details: Moderate control although improved during this hospitalization with initiation of Prozac and increase of her Remeron. Note recent tragic murder of her granddaughter, however no suicidal ideation, etc. at this time per history from her and the patient. Initiated Prozac on 02/26 with caution secondary to possibility of SIADH. Emotional support was provided throughout this hospitalization. (7) Osteoarthritis SNOMED Code(s): 745275184 ICD Code: M19.90 - UNSPECIFIED OSTEOARTHRITIS, UNSPECIFIED SITE Status: Chronic Priority: Medium Current Visit: Yes Problem Details: As above with no current Ultram required. Previously under moderate control despite daily Ultram use, which was discontinued upon admission secondary to her abdominal complaints, dependency issues, etc.. Initiated regularly dosed Tylenol regimen on admission, which was very effective. Additional NSAIDs should be initiated with caution secondary to her possible SIADH Qualifiers: Osteoarthritis location: multiple joints Osteoarthritis type: primary Qualified Code(s): M15.0 - Primary generalized (osteo)arthritis (8) Hypokalemia SNOMED Code(s): 12418234 ICD Code: E87.6 - HYPOKALEMIA Status: Acute Priority: Medium Current Visit: Yes Onset Date: 02/25/19 Problem Details: Initiated lactated Ringer' s after completion of the above hypertonic sodium chloride infusion with this discontinued in the a.m. of 02/26 secondary to suspicions of possible SIADH. Initiated fluid restricted, heart healthy, diverticulosis diet on 02/26. Also initiated oral potassium chloride supplementation on 02/26 with continued close follow-up by her regular providers. (9) Hypomagnesemia SNOMED Code(s): 162292522 ICD Code: E83.42 - HYPOMAGNESEMIA Status: Acute Priority: Medium Current Visit: Yes Onset Date: 02/25/19 Problem Details: IV magnesium sulfate on admission with initiation of oral magnesium oxide therapy with repeat magnesium level on 02/27 normal. - Patient Summary/Data Hospital Course: As above. Patient overall is feeling better. Improved potassium, sodium, and magnesium levels. She feels well enough to be discharged home and will be following up closely with her primary provider next week. - Patient Instructions Diet, Other: diverticulosis diet, food diary. Fluid Restriction: 1500 mL Activity: As Tolerated Showering/Bathing: May Shower Notify Provider of: Fever, Increased Pain Other/Special Instructions: Follow up with your primary provider at [facility] [place] next week. Get referral to see Endocrine. Dietary changes as discussed highly encouraged, including elimination diet. - Discharge Plan *PRESCRIPTION DRUG MONITORING PROGRAM REVIEWED*: Not Applicable *COPY OF PRESCRIPTION DRUG MONITORING REPORT IN PATIENT KWAN: Not Applicable Prescriptions/Med Rec: Bumetanide [Bumex] 1 mg PO DAILY #14 tab FLUoxetine [PROzac] 20 mg PO BEDTIME #14 cap Levothyroxine 150 mcg PO ACBREAKFAST #14 tab Metoclopramide [Reglan] 10 mg PO BID #25 tab Mirtazapine [Remeron] 15 mg PO BEDTIME #14 tab Ondansetron [Zofran ODT] 4 mg PO Q6H PRN #30 tab.dis PRN Reason: Nausea Pantoprazole Sodium 40 mg PO DAILY #14 tablet.dr Potassium Chloride 20 meq PO TID #42 tablet.er Home Medications: Home Meds ALPRAZolam [Xanax] 1 mg PO TID@0800,1200,2000 02/07/14 [History] Lutein/Min/Vit C/Vit E Acetate [Ocuvite Lutein] 1 cap PO Q12HR 02/07/14 [History ] Polyvinyl Alcohol/Povidone [Refresh] 1 drop EYEBOTH BEDTIME 02/07/14 [History] Cholecalciferol (Vitamin D3) [Vitamin D3] 1,000 units PO Q2D 02/03/18 [History] Metoprolol Tartrate 12.5 mg PO BID 02/03/18 [History] Multivitamin [Multivitamins] 1 each PO DAILY 02/03/18 [History] Polyethylene Glycol 3350 [Miralax] 17 gm PO DAILY PRN 02/08/18 [History] Cranberry Fruit Concentrate [Cranberry] 450 mg PO DAILY 12/25/18 [History] Fish Oil/[place]-3 Fatty Acids [Fish Oil 1,000 MG] 1 cap PO DAILY 12/25/18 [ History] L.acidoph,Paracasei, B.lactis [Probiotic] 1 each PO DAILY 12/25/18 [History] Sodium Chloride 1,000 mg PO TID 12/25/18 [History] Acetaminophen [Tylenol] 650 mg PO Q4H PRN tablet 02/28/19 [Rx] Acetaminophen [Tylenol] 650 mg PO TID tablet 02/28/19 [Rx] Bumetanide [Bumex] 1 mg PO DAILY #14 tab 02/28/19 [Rx] Calcium Carbonate [Tums Extra Strength] 1,500 mg PO BEDTIME tab.chew 02/28/19 [ Rx] FLUoxetine [PROzac] 20 mg PO BEDTIME #14 cap 02/28/19 [Rx] Levothyroxine 150 mcg PO ACBREAKFAST #14 tab 02/28/19 [Rx] Magnesium Oxide 400 mg PO BEDTIME tablet 02/28/19 [Rx] Metoclopramide [Reglan] 10 mg PO BID #25 tab 02/28/19 [Rx] Mirtazapine [Remeron] 15 mg PO BEDTIME #14 tab 02/28/19 [Rx] Ondansetron [Zofran ODT] 4 mg PO Q6H PRN #30 tab.dis 02/28/19 [Rx] Pantoprazole Sodium 40 mg PO DAILY #14 tablet.dr 02/28/19 [Rx] Potassium Chloride 20 meq PO TID #42 tablet.er 02/28/19 [Rx] Patient Handouts: Hyponatremia, [id number], Abdominal Pain, Adult, Easy-to- Read Forms: ED Department Discharge Referrals: Sheets-Vanessa Sharp MD [Primary Care Provider] - - Discharge Summary/Plan Comment DC Time >30 min.: No - General Info Date of Service: 03/01/19 Admission Dx/Problem (Free Text: 1. Abdominal pain 2. Hyponatremia 3. Hypertension 4. Hypomagnesemia Functional Status: Reports: Pain Controlled, Tolerating Diet, Ambulating, Urinating. Denies: New Symptoms - Review of Systems General: Reports: No Symptoms HEENT: Denies: Headaches, Visual Changes Pulmonary: Denies: Shortness of Breath, Pleuritic Chest Pain, Cough, Sputum, Hemoptysis, Wheezing Cardiovascular: Denies: Chest Pain, Palpitations, Dyspnea on Exertion, Edema, Lightheadedness Gastrointestinal: Denies: Abdominal Pain, Diarrhea, Difficulty Swallowing, Nausea, Vomiting Genitourinary: Reports: No Symptoms Musculoskeletal: Reports: Other (no acute changes from baseline) Skin: Reports: No Symptoms Neurological: Reports: No Symptoms Psychiatric: Reports: No Symptoms - Patient Data Vitals - Most Recent: Last Vital Signs Temp 36.7 C 02/28/19 12:00 Pulse 72 02/28/19 12:00 Resp 16 02/28/19 12:00 BP 153/66 H 02/28/19 12:00 Pulse Ox 98 02/28/19 12:00 Weight - Most Recent: 56.699 kg I&O - Last 24 hours: Intake & Output 02/27/19 02/28/19 02/28/19 22:59 06:59 14:59 Intake Total 400 50 520 Output Total 300 1100 Balance 100 -1050 520 Lab Results - Last 24 hrs: Laboratory Results - last 24 hr 02/28/19 02/28/19 Range/Units 06:50 06:50 WBC 8.8 (4.0-10.2) K/uL RBC 4.22 (3.77-5.09) M/uL Hgb 13.1 (11.7-15.5) g/dL Hct 36.9 (34.0-46.0) % MCV 87.4 (84.0-98.0) fL MCH 31.0 (28.2-33.3) pg MCHC 35.5 (31.7-36.0) g/dL RDW 12.9 (11.2-14.1) % Plt Count 288 (150-350) K/uL Neut % (Auto) 42.4 L (45.0-80.0) % Lymph % (Auto) 46.9 (10.0-50.0) % [place] % (Auto) 8.6 (2.0-14.0) % Eos % (Auto) 1.6 (0.0-5.0) % Baso % (Auto) 0.5 (0.0-2.0) % Neut # (Auto) 3.75 (1.40-7.00) K/uL Lymph # (Auto) 4.15 H (0.50-3.50) K/uL [place] # (Auto) 0.76 (0.00-1.00) K/uL Eos # (Auto) 0.14 (0.00-0.50) K/uL Baso # (Auto) 0.04 (0.00-0.20) K/uL Sodium 135 L (136-145) mmol/L Potassium 4.2 (3.5-5.1) mmol/L Chloride 100 (98-107) mmol/L Carbon Dioxide 23.5 (21.0-32.0) mmol/L BUN 5 L (7-18) mg/dL Creatinine 0.63 (0.51-1.17) mg/dL Est Cr Clr Drug Dosing 61.62 mL/min Estimated GFR (MDRD) > 60 mL/min Glucose 105 (74-106) mg/dL Calcium 9.2 (8.5-10.1) mg/dL Creatine Kinase 70 (26-308) U/L Creatine Kinase Index 1.6 (0.0-2.5) % CK-MB (CK-2) 1.10 (0.00-3.60) ng/mL Troponin I 0.003 (0.000-0.056) ng/mL NT-Pro-B Natriuret Pep 320 H (0-125) pg/mL Med Orders - Current: Current Medications Acetaminophen (Tylenol) 650 mg PO Q4H PRN PRN Reason: Pain Acetaminophen (Tylenol) 650 mg PO TID [facility] Last Admin: 02/28/19 12:14 Dose: 650 mg Alprazolam (Xanax) 1 mg PO TID@0800,1200,2000 [facility] Last Admin: 02/28/19 12:16 Dose: 1 mg Artificial Tears (Liquitears 1.4% Ophth Soln) 0 ml EYEBOTH BEDTIME [facility] Last Admin: 02/27/19 19:54 Dose: 1 drop Bumetanide (Bumex) 1 mg PO DAILY [facility] Last Admin: 02/28/19 12:17 Dose: 1 mg Calcium Carbonate/Glycine (Tums Extra Strength) 1,500 mg PO BEDTIME [facility] Last Admin: 02/27/19 19:53 Dose: 1,500 mg Cranberry (Cranberry) 500 mg PO DAILY [facility] Last Admin: 02/28/19 09:05 Dose: 500 mg Fluoxetine HCl (Prozac) 20 mg PO DAILY [facility] Last Admin: 02/28/19 09:06 Dose: 20 mg Lactobacillus Rhamnosus (Culturelle) 1 cap PO DAILY [facility] Last Admin: 02/28/19 09:06 Dose: 1 cap Levothyroxine Sodium (Levothyroxine) 150 mcg PO ACBREAKFAST [facility] Last Admin: 02/28/19 07:37 Dose: 150 mcg Magnesium Oxide (Magnesium Oxide) 400 mg PO BEDTIME [facility] Last Admin: 02/27/19 19:54 Dose: 400 mg Metoclopramide HCl (Reglan) 10 mg IVPUSH BID [facility] Last Admin: 02/28/19 09:07 Dose: 10 mg Metoprolol Tartrate (Lopressor) 12.5 mg PO BID [facility] Last Admin: 02/28/19 09:08 Dose: 12.5 mg Mirtazapine (Remeron) 15 mg PO BEDTIME [facility] Last Admin: 02/27/19 19:54 Dose: 15 mg Ondansetron HCl (Zofran) 4 mg IVPUSH Q6H PRN PRN Reason: Nausea/Vomiting Last Admin: 02/28/19 11:03 Dose: 4 mg Pantoprazole Sodium (Protonix) 40 mg PO DAILY [facility] Last Admin: 02/28/19 09:06 Dose: 40 mg Polyethylene Glycol (Miralax) 17 gm PO Q2D@0800 [facility] Last Admin: 02/27/19 10:02 Dose: Not Given Potassium Chloride (Klor-Con M20) 20 meq PO TID [facility] Last Admin: 02/28/19 12:16 Dose: 20 meq Sodium Chloride (Saline Flush) 10 ml FLUSH ASDIRECTED PRN PRN Reason: Keep Vein Open Last Admin: 02/28/19 11:03 Dose: 10 ml Sodium Chloride (Sodium Chloride) 1 gm PO TID [facility] Last Admin: 02/28/19 12:16 Dose: 1 gm Sodium Chloride (Saline Flush) 10 ml FLUSH Q12HR [facility] Last Admin: 02/28/19 09:07 Dose: 10 ml Vit C/Vit E/Zinc/Copper/Lutein (Ocuvite Lutein) 1 each PO Q12HR [facility] Last Admin: 02/28/19 09:06 Dose: 1 each Discontinued Medications Calcium Carbonate (Caltrate 600+D 1500 Mg-400 Units) 1 tab PO MOWEFR@0800 [facility] Last Admin: 02/26/19 07:44 Dose: 1 tab Cosyntropin (Cortrosyn) 0.25 mg IM ONETIME ONE Stop: 02/28/19 08:01 Last Admin: 02/28/19 09:02 Dose: 0.25 mg Famotidine (Pepcid) 40 mg IVPUSH ONETIME ONE Stop: 02/25/19 20:58 Last Admin: 02/25/19 21:10 Dose: 40 mg Sodium Chloride (Sodium Chloride 3%) 500 mls @ 80 mls/hr IV ASDIRECTED [facility] Stop: 02/26/19 04:00 Last Admin: 02/25/19 22:08 Dose: 80 mls/hr Lactated Ringer's (Ringers, Lactated) 1,000 mls @ 80 mls/hr IV ASDIRECTED [facility] Last Admin: 02/26/19 07:46 Dose: 80 mls/hr Magnesium Sulfate/Dextrose (Magnesium Sulfate In D5w 100 Premix) 100 mls @ 100 mls/hr IV Q1H [facility] Stop: 02/26/19 01:29 Last Admin: 02/26/19 01:34 Dose: 100 mls/hr Levothyroxine Sodium (Levothyroxine) 75 mcg PO ACBREAKFAST [facility] Last Admin: 02/26/19 07:43 Dose: 75 mcg Levothyroxine Sodium (Levothyroxine) 75 mcg PO ONETIME ONE Stop: 02/26/19 09:22 Last Admin: 02/26/19 10:20 Dose: 75 mcg Magnesium Oxide (Magnesium Oxide) 400 mg PO BID [facility] Last Admin: 02/26/19 07:43 Dose: 400 mg Mirtazapine (Remeron) 7.5 mg PO BEDTIME [facility] Last Admin: 02/26/19 20:19 Dose: 7.5 mg Non-Formulary Medication (Pantoprazole Sodium [Protonix]) 20 mg PO DAILY [facility] Last Admin: 02/26/19 13:31 Dose: Not Given Ondansetron HCl (Zofran) 4 mg IVPUSH ONETIME ONE Stop: 02/25/19 20:58 Last Admin: 02/25/19 21:10 Dose: 4 mg Pantoprazole Sodium (Protonix Iv) 40 mg IVPUSH ONETIME ONE Stop: 02/25/19 20:58 Last Admin: 02/25/19 21:10 Dose: 40 mg Polyethylene Glycol (Miralax) 17 gm PO ASDIRECTED PRN PRN Reason: Constipation Polyethylene Glycol (Miralax) 17 gm PO DAILY PRN PRN Reason: Constipation Polyethylene Glycol (Miralax) 17 gm PO DAILY [facility] Last Admin: 02/27/19 08:31 Dose: Not Given Rosuvastatin Calcium (Crestor) 2.5 mg PO BEDTIME [facility] - Exam General: Reports: Alert, Oriented, Cooperative, No Acute Distress HEENT: Reports: EOMI, Mucous Membr. Moist/[place] Neck: Reports: Supple Lungs: Reports: Normal Respiratory Effort Cardiovascular: Reports: Regular Rate, Regular Rhythm GI/Abdominal Exam: Soft, Non-Tender, No Distention (Female) Exam: Deferred Rectal (Female) Exam: Deferred Back Exam: Denies: Muscle Spasm Extremities: Non-Tender, Normal Capillary Refill Skin: Reports: Warm, Dry Neurological: Reports: No New Focal Deficit Psy/Mental Status: Reports: Alert, Normal Affect, Normal Mood
[2019-02-28] MEDS: Mirtazapine 15 MG Tab PO SCH (19:17)
[2019-02-28] MEDS: Polyvinyl Alcohol 1.4% Ophth Soln 15 ML Bottle EYEBOTH SCH (19:17)
[2019-02-28] MEDS: Calcium Carbonate 750 MG Tab.Chew PO SCH (19:17)
[2019-02-28] MEDS: Magnesium Oxide 400 MG Tab PO SCH (19:17)
[2019-03-01] MEDS: Sodium Chloride 0.9% 10 ML Syringe FLUSH SCH (07:37)
[2019-03-01] MEDS: Metoclopramide 10 MG/2 ML SDV IVPUSH SCH (07:37)
[2019-03-01] MEDS: Potassium Chloride 20 MEQ Tab.ER PO SCH ×2 (07:37→11:59)
[2019-03-01] MEDS: Cranberry 500 MG Cap PO SCH (07:38)
[2019-03-01] MEDS: Bumetanide 1 MG Tab PO SCH (07:39)
[2019-03-01] MEDS: Lutein/Minerals/Vitamin C/Vitamin E Acetate Cap PO SCH (07:39)
[2019-03-01] MEDS: Sodium Chloride 1 GM Tab PO SCH ×2 (07:39→12:00)
[2019-03-01] MEDS: FLUoxetine 20 MG Cap PO SCH (07:39)
[2019-03-01] MEDS: Acetaminophen 325 MG Tab PO SCH ×2 (07:40→11:59)
[2019-03-01] MEDS: Levothyroxine 150 MCG Tab PO SCH (07:41)
[2019-03-01] MEDS: Lactobacillus Rhamnosus GG (Probiotic) Cap PO SCH (07:41)
[2019-03-01] MEDS: ALPRAZolam 1 MG Tab PO SCH ×2 (07:42→12:00)
[2019-03-01] MEDS: Metoprolol Tartrate 25 MG Tab PO SCH (07:42)
[2019-03-01 07:43] VITALS: BP 126/74; PULSE 82
[2019-03-01] MEDS: Polyethylene Glycol 3350 Powder 17 GM Packet PO SCH (07:43)
[2019-03-01] MEDS: Pantoprazole 40 MG Tab.CR PO SCH (07:43)
[2019-03-01 08:00] LABS: CHLORIDE,CL 97 mmol/L (98-107); SODIUM,NA 132 mmol/L (136-145)
== END 2019-03-01 13:48 | disposition home or self-care (01) | DRG 641 ==
LOC: LL.ED 20:39 → LL.MS 22:30 → UNDOADMIN 22:30 → LL.MS 23:11 → UNDODISIN 03-01 13:48
PROVIDERS: ADMIT Family Medicine; ATTEND Family Medicine
DX: R10.9 Unspecified abdominal pain (principal); E87.1 Hypo-osmolality and hyponatremia; E03.9 Hypothyroidism, unspecified; F41.8 Other specified anxiety disorders; M19.90 Unspecified osteoarthritis, unspecified site; I10 Essential (primary) hypertension; E78.5 Hyperlipidemia, unspecified; E83.42 Hypomagnesemia; K59.09 Other constipation; E78.00 Pure hypercholesterolemia, unspecified; E87.6 Hypokalemia; Z88.2 Allergy status to sulfonamides; M54.9 Dorsalgia, unspecified; M54.2 Cervicalgia; M81.0 Age-related osteoporosis without current pathological fracture; F41.9 Anxiety disorder, unspecified; F32.9 Major depressive disorder, single episode, unspecified; E11.9 Type 2 diabetes mellitus without complications; Z98.49 Cataract extraction status, unspecified eye; Z90.49 Acquired absence of other specified parts of digestive tract; Z88.8 Allergy status to other drugs, medicaments and biological substances; Z91.011 Allergy to milk products; Z79.890 Hormone replacement therapy; Z79.899 Other long term (current) drug therapy; H54.7 Unspecified visual loss; H91.90 Unspecified hearing loss, unspecified ear; H35.30 Unspecified macular degeneration; I42.9 Cardiomyopathy, unspecified; R91.8 Other nonspecific abnormal finding of lung field; K59.00 Constipation, unspecified; K21.9 Gastro-esophageal reflux disease without esophagitis; G89.29 Other chronic pain; M54.5 Low back pain
CPT/HCPCS: 36415; 74022; 80053; 81001; 82150; 82272; 83605; 83690; 83735; 84300; 84550; 85025; 85610; 85730; 87086; 96374; 96375; 99285; C9113; J2405; J3490; J7040; 80048; 80400; 82088; 82533; 82550; 82553; 83880; 84439; 84443; 84481; 84484; 87045; 87046; 87899; A9270-GY; J0834; J2765; J3475; J7120

== ENCOUNTER 2019-05-16 10:25 | Emergency (ER) | payer MEDICARE, BC ==
[2019-05-16 11:03] VITALS: PULSE 67
[2019-05-16 11:06] LABS: CHLORIDE,CL 103 mmol/L (98-107); SODIUM,NA 141 mmol/L (136-145)
--- NOTE | 2019-05-16 11:40 | EDM.PDOC ---
ED HPI GENERAL MEDICAL PROBLEM - General Chief Complaint: General Stated Complaint: Nausea,weakness, abd pain Time Seen by Provider: 05/16/19 11:06 Source of Information: Reports: Patient History Limitations: Reports: No Limitations - History of Present Illness INITIAL COMMENTS - FREE TEXT/NARRATIVE: Patient comes to ER with continued problems with chronic nausea, abdominal pain , and weakness. This is not a new problem. She has had ongoing issues with this since last year. Has been seen for same complaint multiple times in the ER , clinic, and Gastroenterology([place]). Most recently has been evaluated by Nephrology who recommended patient be referred to Endocrinology due to episodes of hyponatremia/electrolyte imbalance. Has undergone multiple xray studies/CT scans/colonoscopy. No specific cause of abdominal pain has been identified. Symptoms worsened dramatically after patient's granddaughter was murdered this past spring. Was recommended to go to counseling by primary provider for this but patient refused to return to the counselor because counselor was "too Confucianism". Provider reports that patient has confided to her that there has been a string of episodes of trauma that go back to patient's childhood and provider feels that patient has experienced a large amount of anxiety her entire life. It is felt that there is a large component of anxiety contributing to patient's pain/ nausea complaints. Patient was recommended to avoid processed food and go on elimination diet to see if that improved symptoms. She admits to never trying this. Had a package of Ramen Noodles this morning for breakfast. No new complaints. Denies fevers/chills. No acute diarrhea/constipation. No acute HEENT/Resp/CV//Neuro changes. She feels that the intensity of the pain worsened recently. Patient did not take her Zofran today for PRN use for nausea. Said "it usually doesn't help". She reports that other nausea meds usually do not help either She specifically requests that we send her to [place] to be evaluated. She wants to have a test performed that [place] [facility] can perform that was recommended by her primary provider Esther at [facility] [place]. Patient is upset that Endocrinology initially refused to see her and felt that Nephrology should evaluate the patient. Nephrology was able to see her this past week and said that patient really should have been seeing Endocrine. Patient is upset that she is having problems seeing Endocrine. Lower Abdomen Pain Score (Numeric/FACES): 5 - Related Data Allergies Allergy/AdvReac Type Severity Reaction Status Date / Time atropine sulfate Allergy Cannot Verified 05/16/19 10:30 [From Lomotil] Remember diphenoxylate HCl Allergy Cannot Verified 05/16/19 10:30 [From Lomotil] Remember furosemide [From Lasix] Allergy Nausea Verified 05/16/19 10:30 lactose Allergy Other Verified 05/16/19 10:30 nitrofurantoin Allergy Stomach Verified 05/16/19 10:30 [From Macrobid] Upset Sulfa (Sulfonamide Allergy Muscle Verified 05/16/19 10:30 Antibiotics) Aches, Muscle Stiffness Home Meds: Home Meds ALPRAZolam [Xanax] 1 mg PO TID@0800,1200,2000 02/07/14 [History] Lutein/Min/Vit C/Vit E Acetate [Ocuvite Lutein] 1 cap PO Q12HR 02/07/14 [History ] Polyvinyl Alcohol/Povidone [Refresh] 1 drop EYEBOTH BEDTIME 02/07/14 [History] Cholecalciferol (Vitamin D3) [Vitamin D3] 1,000 units PO Q2D 02/03/18 [History] Metoprolol Tartrate 12.5 mg PO BID 02/03/18 [History] Multivitamin [Multivitamins] 1 each PO DAILY 02/03/18 [History] Polyethylene Glycol 3350 [Miralax] 17 gm PO DAILY PRN 02/08/18 [History] Cranberry Fruit Concentrate [Cranberry] 450 mg PO DAILY 12/25/18 [History] Fish Oil/[place]-3 Fatty Acids [Fish Oil 1,000 MG] 1 cap PO DAILY 12/25/18 [ History] L.acidoph,Paracasei, B.lactis [Probiotic] 1 each PO DAILY 12/25/18 [History] Sodium Chloride 1,000 mg PO TID 12/25/18 [History] Acetaminophen [Tylenol] 650 mg PO Q4H PRN tablet 02/28/19 [Rx] Acetaminophen [Tylenol] 650 mg PO TID tablet 02/28/19 [Rx] Calcium Carbonate [Tums Extra Strength] 1,500 mg PO BEDTIME tab.chew 02/28/19 [ Rx] FLUoxetine [PROzac] 20 mg PO BEDTIME #14 cap 02/28/19 [Rx] Magnesium Oxide 400 mg PO BEDTIME tablet 02/28/19 [Rx] Metoclopramide [Reglan] 10 mg PO BID #25 tab 02/28/19 [Rx] Mirtazapine [Remeron] 15 mg PO BEDTIME #14 tab 02/28/19 [Rx] Ondansetron [Zofran ODT] 4 mg PO Q6H PRN #30 tab.dis 02/28/19 [Rx] Pantoprazole Sodium 40 mg PO DAILY #14 tablet.dr 02/28/19 [Rx] Potassium Chloride 20 meq PO TID #42 tablet.er 02/28/19 [Rx] Bumetanide [Bumex] 1 mg PO BID@08,20 05/16/19 [History] Levothyroxine 130 mcg PO ACBREAKFAST 05/16/19 [History] Past Medical History HEENT History: Reports: Cataract, Hard of Hearing, Impaired Vision, Macular Degeneration, Other (See Below) Other HEENT History: Mild bilateral presbycusis with no current therapy. Patient does wear glasses. Cardiovascular History: Reports: Cardiomyopathy, Heart Murmur, High Cholesterol , Hypertension, Other (See Below) Other Cardiovascular History: Pericardial effusionnonsymptomatic. Mild diffuse valvular disease by echocardiogram as below with grade 1 diastolic dysfunction and history of intermittent cardiac murmurs. Respiratory History: Reports: Intubation, Previous, Other (See Below) Other Respiratory History: Bilateral benign pulmonary nodules including left lower lobe and right middle lobe stable by CT scans as below. Gastrointestinal History: Reports: Bowel Obstruction, Chronic Constipation, Colon Polyp, Diverticulosis, GERD, Other (See Below) Other Gastrointestinal History: Chronic specific abdominal pain and nausea. Benign hepatic cysts and pancreatic cyst by MRI and CT scan. Chronic constipation with history of borderline ileus. Dysfunctional gallbladder requiring cholecystectomy as below. Esophagitis by EGD as below. Genitourinary History: Reports: UTI, Recurrent, Other (See Below) Other Genitourinary History: Left-sided benign renal cysts. AREA DIRECTOR History: Reports: Other AREA DIRECTOR History: Menopause at about age 46. Full term without complications during pregnancies or deliveries. Musculoskeletal History: Reports: Arthritis, Back Pain, Chronic, Fracture, Neck Pain, Chronic, Osteoarthritis, Osteoporosis, Other (See Below) Other Musculoskeletal History: L1 vertebral body compression fracture on 01/27/18 with vertebroplasty as below. Left wrist fracture in 1982. Mild kyphosis. Neurological History: Reports: CVA, Headaches, Chronic, Migraines, Other (See Below) Other Neuro History: Incidental possible distant nonsymptomatic left-sided anterior lacunar infarct by CT scan and MRI of the head. Mild cerebromicrovascular disease. Psychiatric History: Reports: Addiction, Anxiety, Depression, Other (See Below) Other Psychiatric History: Chronic Ultram use. Endocrine/Metabolic History: Reports: Hypothyroidism, Osteopenia, Osteoporosis, Other (See Below) Other Endocrine/Metabolic History: Postsurgical hypothyroidism after thyroidectomy for thyroid cancer in the . Hyponatremia. Hematologic History: Reports: None Immunologic History: Reports: None Oncologic (Cancer) History: Reports: Squamous Cell Carcinoma, Thyroid, Other ( See Below) Other Oncologic History: Excision of squamous cell carcinoma from the right cheek in about 2015. Thyroid cancer acquiring thyroidectomy in 1979 with no radiation or chemotherapy required. Dermatologic History: Reports: None - Past Surgical History Head Surgeries/Procedures: Reports: None HEENT Surgical History: Reports: Cataract Surgery, Oral Surgery, Other (See Below) Other HEENT Surgeries/Procedures: [place] teeth extraction 4 at about age 20. Bilateral cataract surgery in about 2015. Cardiovascular Surgical History: Reports: None Respiratory Surgical History: Reports: None GI Surgical History: Reports: Cholecystectomy, Colonoscopy, EGD, Polypectomy, Other (See Below) Other GI Surgeries/Procedures: EGD and colonoscopy on 07/17/13. Previous colonoscopy on 09/27/06 possible colonic polyps at that time. Endocrine Surgical History: Reports: Thyroid Biopsy, Thyroidectomy, Other (See Below) Other Endocrine Surgeries/Procedures: Thyroidectomy in 1979 secondary to thyroid cancer as above. Neurological Surgical History: Reports: Vertebroplasty, Other (See Below) Other Neurological Surgeries/Procedures: L1 vertebroplasty on 03/18/18. Musculoskeletal Surgical History: Reports: Arthroscopic Knee, Joint Replacement , Other (See Below) Other Musculoskeletal Surgeries/Procedures:: Possible previous knee arthroscopic evaluations, however patient uncertain. Bilateral hemiarthroplasties of the knees in the 1999s. Oncologic Surgical History: Reports: None Dermatological Surgical History: Reports: Other (See Below) - Past Imaging History Past Imaging History: Reports: Cardiac Echo (11/09/15 with ejection fraction of 6065 percent and findings as above.), CAT Scan (CT scan of the head on 12/25/18, 03/08/18, 03/09/17, and 04/19/15. CT of the abdomen and pelvis on 02/20/19, 07/23/18 , and 12/08/16. CT of the chest with IV contrast on 01/10/19. CT of the head and maxillofacial region 02/27/17. CT of the sinuses on 04/19/15.), HIDA Scan ( Positive hydroscan on 01/18/17 with ejection fraction of only 19%.), MRA (As below), MRI (MRI of the lumbar spine on 06/10/18, 02/04/18, and 01/27/18. MRI of the abdomen and pelvis with and without contrast on 09/30/18 and 12/18/16. MRI and MRA of the brain on 07/17/16.), Stress Testing (Negative Cardiolite stress test on 10/24/12), Ultrasound (Renal ultrasound on 05/31/14. Abdominal ultrasound on 08/12.), Upper GI X-Ray/Series (Negative upper GI on 02/01/17.) Social & Family History - Family History HEENT: Reports: Macular Degeneration, Other (See Below) Other HEENT Family History: Mother and maternal aunts 2 with macular degeneration. Cardiac: Reports: CAD, Hypertension, PR, Other (See Below) Other Cardiac Family History: Hypertension in mother, brother, and daughter. Maternal aunt with coronary artery disease. Maternal uncle with fatal PR in his 70s. Respiratory: Reports: None GI: Reports: Colon Polyps, Other (See Below) Other GI Family History: Brother with colon cancer as below. : Reports: Dialysis, Renal Disease/Insufficiency, Other (See Below) Other Family History: Mother required dialysis with fatal renal insufficiency at age 85. OBGYN: Reports: None Musculoskeletal: Reports: Arthritis, Osteoarthritis, Other (See Below) Other Musculoskeletal Family History: Father with osteoarthritis. Neurological: Reports: Migraines, Other (See Below) Other Neurological Family History: Son and daughter with migraine headaches. Psychiatric: Reports: None Endocrine/Metabolic: Reports: None Hematologic: Reports: None Immunologic: Reports: None Dermatologic: Reports: None Oncologic: Reports: Colon, Skin, Other (See Below) Other Oncologic Family History: Daughter with recurrent basal cell carcinoma. Brother with history of colon cancer requiring hemicolectomy at age 90. - Tobacco Use Smoking Status *Q: Never Smoker - Caffeine Use Caffeine Use: Reports: Coffee - Recreational Drug Use Recreational Drug Use: No - Living Situation & Occupation Living situation: Reports: (1954, 4 children) Occupation: Retired (Retired at age 66. [place] multiple previous jobs.) ED ROS GENERAL - Review of Systems Review Of Systems: See Below Constitutional: Reports: Fatigue (chronic), Other (Patient says that she does not eat much/this is not new). Denies: Fever, Chills, Night Sweats, Diaphoresis , Weight Loss, Weight Gain HEENT: Denies: Rhinitis, Sinus Problem, Vertigo, Vision Change Respiratory: Reports: No Symptoms. Denies: Cough Cardiovascular: Reports: No Symptoms. Denies: Chest Pain, Dyspnea on Exertion, Edema, Palpitations Endocrine: Denies: Polydypsia GI/Abdominal: Reports: Abdominal Pain, Nausea. Denies: Black Stool, Bloody Stool, Constipation, Diarrhea, Difficulty Swallowing, Distension, Vomiting ED EXAM, GENERAL - Physical Exam Exam: See Below Exam Limited By: No Limitations General Appearance: Alert, WD/WN, No Apparent Distress, Anxious Eye Exam: Bilateral Eye: EOMI, PERRL Nose: No: Nasal Deformity, Nasal Swelling, Nasal Drainage Throat/Mouth: Normal Lips, Normal Voice, No Airway Compromise Head: Atraumatic, Normocephalic Neck: Supple, Non-Tender Respiratory/Chest: No Respiratory Distress, Lungs Clear, Normal Breath Sounds, No Accessory Muscle Use, Chest Non-Tender Cardiovascular: Regular Rate, Rhythm, No Edema, No Murmur GI/Abdominal: Normal Bowel Sounds, Soft, No Distention, Tender (mild nonfocal discomfort). No: Guarding, Rigid, Rebound (Female) Exam: Deferred Rectal (Female) Exam: Deferred Back Exam: No: CVA Tenderness (L), CVA Tenderness (R), Muscle Spasm, Paraspinal Tenderness, Vertebral Tenderness Extremities: Normal Range of Motion, Non-Tender, Normal Capillary Refill Neurological: Alert, Oriented Psychiatric: Anxious Skin Exam: Warm, Dry, Intact, Normal Color Course - Vital Signs Last Recorded V/S: Last Vital Signs Temp 36.3 C 05/16/19 10:25 Pulse 67 05/16/19 10:25 Resp 20 05/16/19 11:43 BP 159/90 H 05/16/19 11:43 Pulse Ox 100 05/16/19 11:43 - Orders/Labs/Meds Labs: Laboratory Tests 05/16/19 05/16/19 05/16/19 Range/Units 10:40 10:45 10:45 WBC 5.0 (4.0-10.2) K/uL RBC 3.90 (3.77-5.09) M/uL Hgb 11.7 (11.7-15.5) g/dL Hct 34.2 (34.0-46.0) % MCV 87.7 (84.0-98.0) fL MCH 30.0 (28.2-33.3) pg MCHC 34.2 (31.7-36.0) g/dL RDW 12.2 (11.2-14.1) % Plt Count 222 (150-350) K/uL Neut % (Auto) 63.5 (45.0-80.0) % Lymph % (Auto) 24.2 (10.0-50.0) % [place] % (Auto) 11.5 (2.0-14.0) % Eos % (Auto) 0.4 (0.0-5.0) % Baso % (Auto) 0.4 (0.0-2.0) % Neut # (Auto) 3.14 (1.40-7.00) K/uL Lymph # (Auto) 1.20 (0.50-3.50) K/uL [place] # (Auto) 0.57 (0.00-1.00) K/uL Eos # (Auto) 0.02 (0.00-0.50) K/uL Baso # (Auto) 0.02 (0.00-0.20) K/uL Sodium 141 (136-145) mmol/L Potassium 3.8 (3.5-5.1) mmol/L Chloride 103 (98-107) mmol/L Carbon Dioxide 24.9 (21.0-32.0) mmol/L BUN 10 (7-18) mg/dL Creatinine 0.77 (0.51-1.17) mg/dL Est Cr Clr Drug Dosing 50.42 mL/min Estimated GFR (MDRD) > 60 mL/min Glucose 101 (74-106) mg/dL Calcium 9.2 (8.5-10.1) mg/dL Total Bilirubin 0.4 (0.2-1.0) mg/dL AST 17 (15-37) U/L ALT 17 (12-78) U/L Alkaline Phosphatase 63 (46-116) IU/L Total Protein 7.2 (6.4-8.2) g/dL Albumin 3.7 (3.4-5.0) g/dL Specimen Type Urinvoid Urine Color Yellow Urine Appearance Clear Urine pH 6.5 (5.0-9.0) Ur Specific [place] 1.010 (1.005-1.030) Urine Protein Negative (NEGATIVE) mg/dL Urine Glucose (UA) Negative (NEGATIVE) mg/dL Urine Ketones Negative (NEGATIVE) mg/dL Urine Occult Blood Negative (NEGATIVE) Urine Nitrite Negative (NEGATIVE) Urine Bilirubin Negative (NEGATIVE) Urine Urobilinogen 0.2 (0.2-1.0) E.U./dL Ur Leukocyte Esterase Negative (NEGATIVE) Urine RBC 0-5 /HPF Urine WBC 0-5 /HPF Ur Epithelial Cells Few /LPF Urine Bacteria Rare (NONE TO FEW) /HPF Meds: Medications Discontinued Medications Generic Name Dose Route Start Last Admin Trade Name Freq PRN Reason Stop Dose Admin Promethazine HCl 25 mg 05/16/19 11:48 05/16/19 12:04 Phenergan PO 05/16/19 11:49 25 mg ONETIME ONE Administration - Re-Assessments/Exams Free Text/Narrative Re-Assessment/Exam: CBC/Chem/UA requested. Unremarkable. No focal findings on physical exam. Patient did not show signs of physical discomfort with abdominal palpation. Given the chronicity of the problem (1.5 years) and no overall change reported, and extensive previous workup, no new CT scan/imaging studies requested today. Patient appeared to have presented to the ER in the hopes that we would send her on to [place] where she could obtain the desired test that she was recommended to receive from Endocrinology. We reviewed with patient previous recommendations for counseling and elimination diets that she refused to do to see if they would have impact on her symptoms. Patient had various excuses as to why she did not do them. Admits that her symptoms improved a bit when placed on Xanax. Given single Phenergan. Reported feeling better almost immediately and wondered if she could get Phenergan prescribed instead of Zofran. Staff recalls that patient used to say that Phenergan did not help and that was why she was switched to Zofran. Discussed patient with Esther at [facility] [place] who notes that patient usually will feel much better after small interventions such as a pill for nausea or small IV bolus, and suspects that placebo/psychological component is strongly present. Patient continued to want to go to [place]. She was told that the only option was to send her to their ER to be evaluated as she did not meet criteria for admission to hospital floor. Call placed to [place] ER and was agreeable with seeing patient and evaluating her. Patient's son then arrived and after speaking with the patient felt that it was unnecessary to take his mother to [place]. He wondered if we could admit her to the floor. Given the chronic nature of the complaint, extensive workup, unremarkable exam, and normal labs, they were told that she did not meet criteria for admission under Medicare. He was made aware that a self-pay bed could be arranged, however she would not be able to have insurance cover the cost. Ultimately patient (who reported feeling better at this time) and son were agreeable with a plan to have the patient follow up this afternoon at the clinic for further planning. An appointment was arranged for 2:30pm. Again, no focal cause has been identified for the chronic GI complaints despite extensive testing performed over the last year. Counseling and elimination diet was again strongly recommended to the patient to see if any additional improvement of symptoms could be obtained. Suspect that abdominal symptoms have multiple contributors, including food intolerances and psychological, however cannot rule out other possible causes at this time. Departure - Departure Time of Disposition: 11:39 Disposition: Home, Self-Care 01 Condition: Good Clinical Impression: Chronic nausea, Chronic abdominal pain, Anxiety - Discharge Information *PRESCRIPTION DRUG MONITORING PROGRAM REVIEWED*: Not Applicable *COPY OF PRESCRIPTION DRUG MONITORING REPORT IN PATIENT KWAN: Not Applicable Referrals: Esther Urbano NP [Primary Care Provider] - Forms: ED Department Discharge Additional Instructions: Follow up today at [facility] [place] 2:30 for recheck and further planning. Again, recommend elimination diet as was outlined last January. No processed food, no wheat/grains/dairy/flour for 4 weeks. See if things improve. Other foods can cause problems too but these are the most common culprits. Also highly recommend you try to get improvement in chronic stress levels and consider seeing a counselor. Being sick gets you stressed and being stressed gets you sick.
[2019-05-16 11:44] VITALS: BP 159/90
[2019-05-16] MEDS: Promethazine 25 MG Tab PO ONE (12:04)
== END 2019-05-16 12:30 | disposition home or self-care (01) ==
LOC: LL.ED 10:25
DX: F41.9 Anxiety disorder, unspecified (principal); R10.9 Unspecified abdominal pain; G89.29 Other chronic pain; I10 Essential (primary) hypertension; E78.00 Pure hypercholesterolemia, unspecified; K21.9 Gastro-esophageal reflux disease without esophagitis; F32.9 Major depressive disorder, single episode, unspecified; E03.9 Hypothyroidism, unspecified; Z85.850 Personal history of malignant neoplasm of thyroid; Z86.73 Personal history of transient ischemic attack (TIA), and cerebral infarction without residual deficits; Z88.8 Allergy status to other drugs, medicaments and biological substances; Z91.011 Allergy to milk products; Z88.2 Allergy status to sulfonamides; Z79.899 Other long term (current) drug therapy
CPT/HCPCS: 36415; 80053; 81001; 85025; 99284; A9270-GY

== ENCOUNTER 2019-07-04 10:33 | Emergency (ER) | payer MEDICARE, BC ==
[2019-07-04] MEDS ORDERED: Sodium Chloride 0.9% 10 ML Syringe FLUSH PRN (11:18)
--- NOTE | 2019-07-04 11:58 | PCM.SN ---
- Free Text/Narrative Note: Patient presented to the ER for a "pain shot". Also wondered if she could "get off some of her meds". Tried to be seen in clinic but did not want to wait for the appointment time. Told nurse she had pain shot yesterday too (at clinic). Has been seen here multiple times for continued problems with nausea/emesis/abdominal pain. Extensive workups/imaging studies performed, including specialty visits. No specific causes identified however it is thought that stress/anxiety/ psychologic component contributing to pain complaint. She was upset to find out that I was the provider today as "she has not been able to find out what is wrong with me in the past". She elected to leave and go to the clinic to be seen for her shot when she received a call notifying her that an earlier appointment was now available. Patient left ER before being evaluated by myself.
== END 2019-07-04 10:50 | disposition left against medical advice (07) ==
LOC: LL.ED 10:33
DX: Z53.21 Procedure and treatment not carried out due to patient leaving prior to being seen by health care provider (principal)

== ENCOUNTER 2019-09-25 11:54 | Emergency (ER) | payer MEDICARE, BC ==
--- NOTE | 2019-09-25 11:58 | EDM.PDOC ---
ED HPI GENERAL MEDICAL PROBLEM - General Chief Complaint: Upper Extremity Injury/Pain Stated Complaint: fall, left wrist injury Time Seen by Provider: 09/25/19 11:54 Source of Information: Reports: Patient, Family (), Old Records ([facility] chart/EMR) History Limitations: Reports: No Limitations - History of Present Illness INITIAL COMMENTS - FREE TEXT/NARRATIVE: The patient was brought to the emergency room via private automobile by her for evaluation of 06/05 left wrist pain after she fell in her garden on cement while gardening at about 11:15 a.m. She did also hit her head with a small abrasion noted, however no history of loss of consciousness, change in mental status, paresthesias, neurological deficits, visual changes, neck/back pain, or other complaints or injuries. She has had a previous left wrist fracture as below with no previous surgery required and no medications taken to this point for today's injuries. The patient denies any chest pain/pressure, heart flutter, dizziness, orthostasis, orthopnea, diaphoresis, paresthesias, recent decreased exercise tolerance, or any other anginal-type symptoms. No recent history of abdominal pain, heartburn, nausea, diarrhea, melena, gross hematochezia, or any food intolerance, including fatty foods, etc.. The patient also denies any recent fever, cough, wheezing, dyspnea, etc.. Patient is right- handed. Onset: Today, Sudden Onset Date: 09/25/19 Onset Time: 11:15 Duration: Constant Location: Reports: Face (Abrasion), Upper Extremity, Left. Denies: Head, Neck, Chest, Abdomen, Back, Pelvis, Upper Extremity, Right, Lower Extremity, Left, Lower Extremity, Right, Radiates to Quality: Reports: Same as Previous Episode, Sharp, Throbbing Severity: Severe Improves with: Reports: None Worsens with: Reports: Movement Context: Reports: Trauma (As above) Associated Symptoms: Denies: Confusion, Chest Pain, Cough, Diaphoresis, Fever/ Chills, Headaches, Loss of Appetite, Malaise, Nausea/Vomiting, Seizure, Shortness of Breath, Syncope, Weakness Treatments ECOLOGICAL ECONOMIST: Reports: Other (see below) (None) Left Wrist Pain Score (Numeric/FACES): 10 - Related Data Allergies Allergy/AdvReac Type Severity Reaction Status Date / Time atropine sulfate Allergy Cannot Verified 09/25/19 12:31 [From Lomotil] Remember diphenoxylate HCl Allergy Cannot Verified 09/25/19 12:31 [From Lomotil] Remember furosemide [From Lasix] Allergy Nausea Verified 09/25/19 12:31 lactose Allergy Other Verified 09/25/19 12:31 nitrofurantoin Allergy Stomach Verified 09/25/19 12:31 [From Macrobid] Upset Sulfa (Sulfonamide Allergy Muscle Verified 09/25/19 12:31 Antibiotics) Aches, Muscle Stiffness Home Meds: Home Meds ALPRAZolam [Xanax] 1 mg PO TID@0800,1200,2000 02/07/14 [History] Lutein/Min/Vit C/Vit E Acetate [Ocuvite Lutein] 1 cap PO Q12HR 02/07/14 [History ] Polyvinyl Alcohol/Povidone [Refresh] 1 drop EYEBOTH BEDTIME 02/07/14 [History] Cholecalciferol (Vitamin D3) [Vitamin D3] 1,000 units PO Q2D 02/03/18 [History] Metoprolol Tartrate 12.5 mg PO BID 02/03/18 [History] Multivitamin [Multivitamins] 1 each PO DAILY 02/03/18 [History] Polyethylene Glycol 3350 [Miralax] 17 gm PO DAILY PRN 02/08/18 [History] Cranberry Fruit Concentrate [Cranberry] 450 mg PO DAILY 12/25/18 [History] Fish Oil/[place]-3 Fatty Acids [Fish Oil 1,000 MG] 1 cap PO DAILY 12/25/18 [ History] L.acidoph,Paracasei, B.lactis [Probiotic] 1 each PO DAILY 12/25/18 [History] Sodium Chloride 1,000 mg PO TID 12/25/18 [History] Acetaminophen [Tylenol] 650 mg PO Q4H PRN tablet 02/28/19 [Rx] Acetaminophen [Tylenol] 650 mg PO TID tablet 02/28/19 [Rx] Calcium Carbonate [Tums Extra Strength] 1,500 mg PO BEDTIME tab.chew 02/28/19 [ Rx] FLUoxetine [PROzac] 20 mg PO BEDTIME #14 cap 02/28/19 [Rx] Magnesium Oxide 400 mg PO BEDTIME tablet 02/28/19 [Rx] Metoclopramide [Reglan] 10 mg PO BID #25 tab 02/28/19 [Rx] Mirtazapine [Remeron] 15 mg PO BEDTIME #14 tab 02/28/19 [Rx] Ondansetron [Zofran ODT] 4 mg PO Q6H PRN #30 tab.dis 02/28/19 [Rx] Pantoprazole Sodium 40 mg PO DAILY #14 tablet.dr 02/28/19 [Rx] Potassium Chloride 20 meq PO TID #42 tablet.er 02/28/19 [Rx] Bumetanide [Bumex] 1 mg PO BID@08,20 05/16/19 [History] Levothyroxine Sodium [Synthroid] 125 mcg PO DAILY 09/25/19 [History] Past Medical History HEENT History: Reports: Cataract, Hard of Hearing, Impaired Vision, Macular Degeneration, Other (See Below). Denies: Allergic Rhinitis, Glaucoma, Otitis Media, Retinal Detachment Other HEENT History: Mild bilateral presbycusis with no current therapy. Patient does wear glasses. Cardiovascular History: Reports: Cardiomyopathy, Heart Murmur, High Cholesterol , Hypertension, Other (See Below). Denies: Afib, Aneurysm, Arrhythmia, Blood Clots/VTE/DVT, CAD, Heart Failure, NH, PVD, Syncope Other Cardiovascular History: Pericardial effusionnonsymptomatic. Mild diffuse valvular disease by echocardiogram as below with grade 1 diastolic dysfunction and history of intermittent cardiac murmurs. Respiratory History: Reports: Intubation, Previous, Other (See Below). Denies: Asthma, Bronchitis, Recurrent, COPD, Intubation, Difficult, PE, Pneumothorax, Sleep Apnea, TB Other Respiratory History: Bilateral benign pulmonary nodules including left lower lobe and right middle lobe stable by CT scans as below. Gastrointestinal History: Reports: Bowel Obstruction, Chronic Constipation, Colon Polyp, Diverticulosis, Gastritis, GERD, Other (See Below). Denies: Celiac Disease, Cholelithiasis, Fecal Incontinence, GI Bleed, Inflammatory Bowel Disease, Irritable Bowel Syndrome, Jaundice, PUD Other Gastrointestinal History: Chronic specific abdominal pain and nausea. Benign hepatic cysts and pancreatic cyst by MRI and CT scan. Chronic constipation with history of borderline ileus. Dysfunctional gallbladder requiring cholecystectomy as below. Esophagitis by EGD as below. Genitourinary History: Reports: UTI, Recurrent, Other (See Below). Denies: Acute Renal Failure, Chronic Renal Insuffiency, Renal Calculus, Retention, Urinary, STD, Urinary Incontinence Other Genitourinary History: Left-sided benign renal cysts. 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 Full term without complications during pregnancies or deliveries. Musculoskeletal History: Reports: Arthritis, Back Pain, Chronic, Fracture, Neck Pain, Chronic, Osteoarthritis, Osteoporosis, Other (See Below). Denies: Amputation, Gout, RA, SLE Other Musculoskeletal History: L1 vertebral body compression fracture on 01/27/18 with vertebroplasty as below. Left wrist fracture in 1982. Mild kyphosis. Neurological History: Reports: CVA, Headaches, Chronic, Migraines, Other (See Below). Denies: Cerebral Aneurysms, Concussion, Head Trauma, MS, Neuropathy, Peripheral, Parkinson's, Seizure, TIA, Vertigo Other Neuro History: Incidental possible distant nonsymptomatic left-sided anterior lacunar infarct by CT scan and MRI of the head. Mild cerebromicrovascular disease. Psychiatric History: Reports: Addiction, Anxiety, Depression, Other (See Below) . Denies: Abuse, Victim of, ADD, ADHD, Alzheimers Disease, Psych Hospitalization(s), PTSD, Suicide Attempt, Suicidal Ideation Other Psychiatric History: Chronic Ultram use. Endocrine/Metabolic History: Reports: Hypokalemia, Hypomagnesemia, Hypothyroidism, Osteopenia, Osteoporosis, Other (See Below). Denies: Diabetes, Gestational, Diabetes, Type I, Diabetes, Type II, Diabetes Mellitus, Type 3c, IDDM Other Endocrine/Metabolic History: Postsurgical hypothyroidism after thyroidectomy for thyroid cancer in the . Hyponatremia. Hematologic History: Reports: None. Denies: Anemia, B12 Deficiency, Blood Transfusion(s), Iron Deficiency Immunologic History: Reports: None. Denies: AIDS, HIV, SLE Oncologic (Cancer) History: Reports: Squamous Cell Carcinoma, Thyroid, Other ( See Below). 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 Thyroid cancer requiring thyroidectomy in 1979 with no radiation or chemotherapy required. Dermatologic History: Reports: None. Denies: Eczema, Psoriasis - Infectious Disease History Infectious Disease History: Reports: None. Denies: C-Difficile, Chicken Pox, Measles, Meningitis, Mononucleosis, MRSA, Mumps, Pertussis (Whooping Cough), Rheumatic Fever, RSV, Rubella, Scarlet Fever, Shingles, TB, VRE - Past Surgical History Head Surgeries/Procedures: Reports: None HEENT Surgical History: Reports: Cataract Surgery, Oral Surgery, Other (See Below). Denies: Adenoidectomy, Eye Surgery, Laser Surgery, LASIK, Myringotomy w Tube(s), Naso-Sinus Surgery, Tonsillectomy Other HEENT Surgeries/Procedures: [place] teeth extraction 4 at about age 20. Bilateral cataract surgery in about 2016. Cardiovascular Surgical History: Reports: None. Denies: Varicose Respiratory Surgical History: Reports: None. Denies: Thoracentesis GI Surgical History: Reports: Cholecystectomy, Colonoscopy, EGD, Polypectomy, Other (See Below). Denies: Appendectomy, Hernia, Abdominal, Hernia, Inguinal, Hernia Repair/Other Other GI Surgeries/Procedures: EGD and colonoscopy on 07/17/13. Previous colonoscopy on 09/27/06 possible colonic polyps at that time. Female Surgical History: Reports: None. Denies: Breast Biopsy, D&C, Hysterectomy, Salpingo-Oophorectomy, Tubal Ligation Endocrine Surgical History: Reports: Thyroid Biopsy, Thyroidectomy, Other (See Below) Other Endocrine Surgeries/Procedures: Thyroidectomy in 1979 secondary to thyroid cancer as above. Neurological Surgical History: Reports: Lumbar Spine, Vertebroplasty, Other ( See Below). Denies: C-Spine, Discectomy, Laminectomy, Sacral Spine, Spinal Fusion, Thoracic Spine Other Neurological Surgeries/Procedures: L1 vertebroplasty on 03/18/18. Musculoskeletal Surgical History: Reports: Arthroscopic Knee, Joint Replacement , Other (See Below). Denies: Carpal Tunnel, Ganglion Cyst, Hip Replacement, ORIF, Shoulder Surgery Other Musculoskeletal Surgeries/Procedures:: Possible previous knee arthroscopic evaluations, however patient uncertain. Bilateral hemiarthroplasties of the knees in the . Oncologic Surgical History: Reports: None Dermatological Surgical History: Reports: Other (See Below) Other Dermatological Surgeries/Procedures: Excision of squamous cell carcinoma from the right facial region as above. - Past Imaging History Past Imaging History: Reports: Cardiac Echo (11/09/15 with ejection fraction of 6065 percent and findings as above.), CAT Scan (CT scan of the head on 12/25/18, 03/08/18, 03/09/17, and 04/19/15. CT of the abdomen and pelvis on 02/20/19, 07/23/18 , and 12/08/16. CT of the chest with IV contrast on 01/10/19. CT of the head and maxillofacial region 02/27/17. CT of the sinuses on 04/19/15.), HIDA Scan ( Positive hydroscan on 01/18/17 with ejection fraction of only 19%.), MRA (As below), MRI (MRI of the lumbar spine on 06/10/18, 02/04/18, and 01/27/18. MRI of the abdomen and pelvis with and without contrast on 09/30/18 and 12/18/16. MRI and MRA of the brain on 07/17/16.), Stress Testing (Negative Cardiolite stress test on 10/24/12), Ultrasound (Lower quadrant abdominal ultrasound with negative workup for appendicitis on 08/26/19. Renal ultrasound on 05/31/14. Abdominal ultrasound on 12/06/16.), Upper GI X-Ray/Series (Negative upper GI on 02/01/17.) Social & Family History - Family History HEENT: Reports: Macular Degeneration, Other (See Below). Denies: Glaucoma, Retinal Detachment Other HEENT Family History: Mother and maternal aunts 2 with macular degeneration. Cardiac: Reports: CAD, Hypertension, NH, Other (See Below). Denies: Afib, AICD , Arrhythmia, Blood Clots/VTE/DVT, Bypass, High Cholesterol, Pacemaker, Syncope Other Cardiac Family History: Hypertension in mother, brother, and daughter. Maternal aunt with coronary artery disease. Maternal uncle with fatal NH in his 70s. Respiratory: Reports: None. Denies: Asthma, COPD, PE, Pneumothorax, Sleep Apnea GI: Reports: Colon Polyps, Other (See Below). Denies: Celiac Disease, Cholelithiasis, GERD, GI bleed, Hepatitis, Inflammatory Bowel Disease, Irritable Bowel Syndrome, Jaundice, Pancreatitis, PUD Other GI Family History: Brother with colon cancer as below. : Reports: Dialysis, Renal Disease/Insufficiency, Other (See Below). Denies: Renal Calculus Other Family History: Mother required dialysis with fatal renal insufficiency at age 85. OBGYN: Reports: None. Denies: Endometriosis, Recurrent Spontaneous Musculoskeletal: Reports: Arthritis, Osteoarthritis, Other (See Below). Denies : Gout, RA, SLE Other Musculoskeletal Family History: Father with osteoarthritis. Neurological: Reports: Migraines, Other (See Below). Denies: Alzheimers Disease , Cerebral Aneurysms, CVA, Dementia, MS, Parkinson's, Seizure, TIA Other Neurological Family History: Son and daughter with migraine headaches. Psychiatric: Reports: None. Denies: Abuse, Victim of, ADD, ADHD, Anxiety, Depression, Psych Hospitalization(s), PTSD, Suicide Attempt Endocrine/Metabolic: Reports: None. Denies: Diabetes, Gestational, Diabetes, Type I, Diabetes, type II, Diabetes Mellitus, Type 3c, Hypothyroidism, IDDM Hematologic: Reports: None. Denies: Anemia, SLE Immunologic: Reports: None. Denies: AIDS, HIV, SLE Dermatologic: Reports: None. Denies: Eczema, Psoriasis Oncologic: Reports: Colon, Skin, Other (See Below). Denies: Breast, Cervix, Hodgkin's Lymphoma, Leukemia, Lymphoma, Non-Hodgkin's Lymphoma, Ovarian, Uterine Other Oncologic Family History: Daughter with recurrent basal cell carcinoma. Brother with history of colon cancer requiring hemicolectomy at age 90. - Tobacco Use Smoking Status *Q: Never Smoker Tobacco Use Within Last Twelve Months: No Used Tobacco, but Quit: No Smoking Cessation Information Provided To Patient: No Second Hand Smoke Exposure: No Second Hand Smoke Education Provided: No - Caffeine Use Caffeine Use: Reports: Coffee (1 cup per day), Tea (1 Cup per day). Denies: Energy Drinks, Soda - Alcohol Use Alcohol Use History: No Days Per Week of Alcohol Use: 0 Number of Drinks Per Day: 0 Total Drinks Per Week: 0 Alcohol Use in Last Twelve Months: No - Recreational Drug Use Recreational Drug Use: No Drug Use in Last 12 Months: No Recreational Drug Type: Denies: Amphetamines (Speed), Heroin, Inhalants (Glues, Solvents, Aerosols), LSD (Acid), Marijuana/Hashish, Methamphetamine, Morphine, Oxycodone - Living Situation & Occupation Living situation: Reports: (1954, 4 children) Occupation: Retired (Retired at age 66. [place] multiple previous jobs.) Review of Systems - Review of Systems Review Of Systems: Comprehensive ROS is negative, except as noted in HPI. ED EXAM, GENERAL - Physical Exam Exam: See Below Exam Limited By: No Limitations General Appearance: Alert, WD/WN, No Apparent Distress, Anxious (Mild to moderate) Eye Exam: Bilateral Eye: EOMI, Normal Fundi, Normal Inspection (No Nystagmus; patient is wearing glasses), PERRL Ears: Normal External Exam, Normal Canal, Normal TMs, Hearing Loss (Stable mild bilateral presbycusis) Nose: Normal Inspection, Normal Mucosa, No Blood Throat/Mouth: Normal Inspection, Normal Lips, Normal Teeth, Normal Gums, Normal Oropharynx, Normal Voice, No Airway Compromise, Other (Stable mild torus palatinus). No: Dysphagia, Perioral Cyanosis Head: Facial Tenderness (Normal left laceration site), Other (1 cm in length superficial abrasion with minimal ecchymosis over the left supraorbital region with no skull deformity, crepitation, foreign body, sign of fracture, etc.). No : Facial Swelling, Sinus Tenderness Neck: Supple, Non-Tender, Full Range of Motion, Carotid Bruit (mild bilateral carotid bruits). No: Lymphadenopathy (L), Lymphadenopathy (R), Thyromegaly Respiratory/Chest: No Respiratory Distress, Lungs Clear, Normal Breath Sounds, No Accessory Muscle Use, Chest Non-Tender. No: Pleural Rub, Retractions Cardiovascular: Normal Peripheral Pulses, Regular Rate, Rhythm, No Edema, No Gallop, No JVD, No Murmur, No Rub. No: Gallop/S3, Gallop/S4, Friction Rub Peripheral Pulses: 2+: Radial (L), Radial (R) GI/Abdominal: Normal Bowel Sounds, Soft, Non-Tender, No Organomegaly, No Distention, No Abnormal Bruit, No Mass, Pelvis Stable. No: Guarding (Female) Exam: Deferred Rectal (Female) Exam: Deferred Back Exam: Full Range of Motion, Other (Scoliosismild). No: CVA Tenderness (L) , CVA Tenderness (R), Muscle Spasm, Paraspinal Tenderness, Vertebral Tenderness Extremities: No Pedal Edema, Joint Swelling (Mild in left wrist), Limited Range of Motion (Left wrist secondary to fracture), Other (Mild ecchymosis and moderate swelling over the mid proximal dorsal aspect of the left hand with no crepitation, deformity, etc. in this area. Moderate deformity and severe localized palpation pain over the left distal radius with adequate radial and ulnar pulses. Mild ecchymosis over the left triceps region with no significant tenderness, deformity, etc. in this area). No: Asia's Sign Neurological: Alert, Oriented, CN II-XII Intact, Normal Cognition, Normal Gait, No Motor/Sensory Deficits Psychiatric: Anxious (Mild to moderate) Skin Exam: Ecchymosis (As above), Wound/Incision (As above). No: Diaphoretic Lymphatic: No Adenopathy ED TRAUMA EXTREMITY PROCEDURES - Joint Reduction Site: Other (Left distal radius) Sedation: Hematoma/Fracture Block Local Anesthesia - Lidocaine (Xylocaine): 1% Plain Local Anesthetic Volume: Other (10 cc) Pre-Procedure NV Status: Normal Post-Procedure NV Status: Normal Technique: Traction/Counter Traction Number of Attempts: 1 Post-Reduction Imaging: Acceptably Reduced, Fracture Seen Joint Reduction Complications: No - Splinting Left Upper Extremity Splint Site: Left wrist Pre-Procedure NV Status: Normal Post-Procedure NV Status: Normal Splint Material: Fiberglass (3" x 12" padded fiberglass splint cut to fit and secured with one 2 inch and an additional 3 inch Nicholas wrap) Splint Design: Other (Short arm palmar) Applied & Form Fitted By: Provider Provider Post-Splint Application NV Check: NV Status Normal, Good Position Complications: No Course - Vital Signs Last Recorded V/S: Last Vital Signs Temp 36.9 C 09/25/19 12:01 Pulse 66 09/25/19 12:01 Resp 22 H 09/25/19 12:01 BP 101/73 09/25/19 12:01 Pulse Ox 100 09/25/19 12:01 Vital Signs - 24 hr 09/25/19 12:01 Temperature [ 36.9 C Temporal] Pulse, 66 Peripheral [ Left Pulse Oximetry] Respiratory 22 H Rate Blood Pressure 101/73 [Right Upper Arm] O2 Sat by Pulse 100 Oximetry - Orders/Labs/Meds Orders: Active Orders 24 hr Category Date Time Status Vaccines to be Administered [RC] PER UNIT ROUTINE Care 09/25/19 13:01 Active Wrist 2V Lt [CR] Stat Exams 09/25/19 11:59 Taken Wrist Comp Min 3V Lt [CR] Stat Exams 09/25/19 11:58 Taken Obtain Past Medical Record [OM.PC] Routine Oth 09/25/19 11:58 Active Labs: None Meds: Medications Discontinued Medications Generic Name Dose Route Start Last Admin Trade Name Aronq PRN Reason Stop Dose Admin Diphtheria/Tetanus/Acell Pertussis 0.5 ml 09/25/19 13:01 09/25/19 13:03 Adacel IM 09/25/19 13:02 0.5 ml .ONCE ONE Administration Lidocaine HCl 5 ml 09/25/19 11:58 09/25/19 12:14 Xylocaine-Mpf 1% INJECT 09/25/19 11:59 5 ml ONETIME ONE Administration Lidocaine HCl 5 ml 09/25/19 11:59 09/25/19 12:14 Xylocaine-Mpf 1% INJECT 09/25/19 12:00 5 ml ONETIME ONE Administration Neomycin/Polymyxin/Bacitracin 1 each 09/25/19 11:59 09/25/19 12:14 Triple Antibiotic Oint TOP 09/25/19 12:00 1 each ONETIME ONE Administration - Radiology Interpretation Free Text/Narrative:: X-rays of the left wrist, complete, shows evidence of a comminuted impacted left distal radial/Colles' fracture with some dorsal angulation but no displacement. Borderline nondisplaced non-angulated distal ulnar fracture. Severe osteoarthritic and osteoporotic changes noted Postreduction and post-splint placement x-rays of the left wrist including one AP view and 2 lateral views show improved angulation of the distal radial fracture with acceptable reduction Departure - Departure Time of Disposition: 13:40 Disposition: Home, Self-Care 01 Condition: Good Clinical Impression: Hypothyroidism (acquired), Mixed anxiety depressive disorder, Abrasions of multiple sites Osteoarthritis Qualifiers: Osteoarthritis location: multiple joints Osteoarthritis type: primary Qualified Code(s): M15.0 - Primary generalized (osteo)arthritis Fracture of radius and ulna Qualifiers: Encounter type: initial encounter Fracture type: closed Laterality: left Qualified Code(s): S52.92XA - Unspecified fracture of left forearm, initial encounter for closed fracture - Discharge Information *PRESCRIPTION DRUG MONITORING PROGRAM REVIEWED*: Not Applicable *COPY OF PRESCRIPTION DRUG MONITORING REPORT IN PATIENT KWAN: Not Applicable Instructions: Wrist Splint, Adult, [id number], Cast or Splint Care, Adult, [id number], Head Injury, Adult, [id number], Radial Head Fracture, Easy-to- Read Referrals: Esther Urbano NP [Primary Care Provider] - Forms: ED Department Discharge Additional Instructions: 1. Followup with your regular provider in 7 days as directed for reevaluation and recommended repeat x-rays of your left wrist with probable short arm cast placement at that time. Bring these discharge instructions with you to that visit. 2. Tylenol 650 mg by mouth every 4 hours and/or OTC ibuprofen 2-3 tabs by mouth every 6 hours with food as directed./needed. You may stagger these medications for 48-72 hours only, which essentially means that you are receiving a pain medication about every 2 hours. 3. Head precautions as directed-see form. 4. Antibacterial soap wash/soak with subsequent antibacterial dressing such as Neosporin, etc. as directed 2 times per day until the wound or laceration site completely heals. Keep the area clean and dry with activity restrictions as discussed. Never use hydrogen peroxide for wound care. 5. Ice packs and arm elevation as discussed with splint to be worn at all times until short arm cast is placed 6. Limited use of left arm as discussed. 7. Immediately after this visit verify that your cellular telephone's voicemail has been activated and is empty. Also verify that your home telephone 's answering machine is operating properly and has space to receive messages. Note that it is sometimes necessary for us to be able to contact you at a later date to discuss your medical care. 8. Please remember that we are ALWAYS here for you and want to answer any questions you may have. Feel free to call the hospital any time and we call you back TINY. Sepsis Event Note - Focused Exam Vital Signs: Vital Signs Temp Pulse Resp BP Pulse Ox 09/25/19 12:01 36.9 C 66 22 H 101/73 100 Date Exam was Performed: 09/25/19 Time Exam was Performed: 20:25 - Problem List & Annotations (1) Fracture of radius and ulna SNOMED Code(s): 57709026 Code(s): S52.90XA - UNSP FRACTURE OF UNSP FOREARM, INIT FOR CLOS FX; S52.209A - UNSP FRACTURE OF SHAFT OF UNSP ULNA, INIT FOR CLOS FX Status: Acute Priority: High Onset Date: 09/25/19 Annotation/Comment:: Appropriate pain control with fracture block as above with overall adequate reduction. Activity restrictions, splint care, etc. were discussed. Close follow -up by regular provider as per discharge instructions. Qualifiers: Encounter type: initial encounter Fracture type: closed Laterality: left Qualified Code(s): S52.92XA - Unspecified fracture of left forearm, initial encounter for closed fracture; S52.202A - Unspecified fracture of shaft of left ulna, initial encounter for closed fracture (2) Abrasions of multiple sites SNOMED Code(s): 215653695, 711446497 Code(s): T07.XXXA - UNSPECIFIED MULTIPLE INJURIES, INITIAL ENCOUNTER Status : Acute Priority: High Onset Date: 09/25/19 Annotation/Comment:: DTaP given. Abrasion site was cleansed with chlorhexidine with Neosporin dressing placed by the nurse. No laceration repair as required. Wound care instructions given. (3) Hypertension SNOMED Code(s): [id number] Code(s): I10 - ESSENTIAL (PRIMARY) HYPERTENSION Status: Chronic Priority : Medium Annotation/Comment:: Blood pressures are in good control in the emergency room. Qualifiers: Hypertension type: essential hypertension Qualified Code(s): I10 - Essential (primary) hypertension (4) Hypothyroidism (acquired) SNOMED Code(s): 614548209 Code(s): E03.9 - HYPOTHYROIDISM, UNSPECIFIED Status: Chronic Priority: Medium Annotation/Comment:: Currently under therapy. Continue to observe closely by regular provider (5) Mixed anxiety depressive disorder SNOMED Code(s): 263575734 Code(s): F41.8 - OTHER SPECIFIED ANXIETY DISORDERS Status: Chronic Priority: Medium Annotation/Comment:: Mildly increased anxiety today secondary to her acute injury. Observe for now. Close follow-up by regular provider. (6) Osteoarthritis SNOMED Code(s): 936562248 Code(s): M19.90 - UNSPECIFIED OSTEOARTHRITIS, UNSPECIFIED SITE Status: Chronic Priority: Medium Annotation/Comment:: Otherwise stable by history no evidence of other injuries. Qualifiers: Osteoarthritis location: multiple joints Osteoarthritis type: primary Qualified Code(s): M15.0 - Primary generalized (osteo)arthritis - Problem List Review Problem List Initiated/Reviewed/Updated: Yes - My Orders Last 24 Hours: My Active Orders 09/25/19 11:58 Wrist Comp Min 3V Lt [CR] Stat Obtain Past Medical Record [OM.PC] Routine 09/25/19 11:59 Wrist 2V Lt [CR] Stat 09/25/19 13:01 Vaccines to be Administered [RC] PER UNIT ROUTINE - Assessment/Plan Last 24 Hours: My Active Orders 09/25/19 11:58 Wrist Comp Min 3V Lt [CR] Stat Obtain Past Medical Record [OM.PC] Routine 09/25/19 11:59 Wrist 2V Lt [CR] Stat 09/25/19 13:01 Vaccines to be Administered [RC] PER UNIT ROUTINE Assessment:: As above Plan: As above. Extensive precautions were given to the patient and her , who are in agreement with the treatment plan. See Patient Instructions for further treatment and plan.
[2019-09-25] MEDS ORDERED: Bacitracin/Neomycin/Polymyxin B Oint 0.9 GM U/D Packet TOP ONE (11:59)
[2019-09-25 12:04] VITALS: BP 101/73; PULSE 66
[2019-09-25] MEDS ORDERED: Diphtheria,Pertussis(Acell),Tetanus Vaccine 0.5 ML SDV IM ONE (13:01)
== END 2019-09-25 13:40 | disposition home or self-care (01) ==
LOC: LL.ED 11:54
DX: S52.532A Colles' fracture of left radius, initial encounter for closed fracture (principal); S52.602A Unspecified fracture of lower end of left ulna, initial encounter for closed fracture; S01.81XA Laceration without foreign body of other part of head, initial encounter; S00.12XA Contusion of left eyelid and periocular area, initial encounter; S60.222A Contusion of left hand, initial encounter; S40.022A Contusion of left upper arm, initial encounter; T07.XXXA Unspecified multiple injuries, initial encounter; E03.9 Hypothyroidism, unspecified; F41.8 Other specified anxiety disorders; M15.0 Primary generalized (osteo)arthritis; I10 Essential (primary) hypertension; K21.9 Gastro-esophageal reflux disease without esophagitis; Z23 Encounter for immunization; Z88.8 Allergy status to other drugs, medicaments and biological substances; Z88.2 Allergy status to sulfonamides; Z88.5 Allergy status to narcotic agent; Z88.1 Allergy status to other antibiotic agents; Z91.011 Allergy to milk products; Z79.899 Other long term (current) drug therapy; Z79.890 Hormone replacement therapy; Z86.73 Personal history of transient ischemic attack (TIA), and cerebral infarction without residual deficits; W01.0XXA Fall on same level from slipping, tripping and stumbling without subsequent striking against object, initial encounter; Y93.H2 Activity, gardening and landscaping; Y92.007 Garden or yard of unspecified non-institutional (private) residence as the place of occurrence of the external cause
CPT/HCPCS: 25600; 73100; 73110; 90471; 90715; 99283; J2001

== ENCOUNTER 2020-02-14 13:37 | Emergency (ER) | payer MEDICARE, BC ==
[2020-02-14 13:58] VITALS: BP 129/88; PULSE 75
[2020-02-14] MEDS ORDERED: oxyCODONE 5 MG Tab PO ONE (14:39)
[2020-02-14] MEDS ORDERED: methylPREDNISolone Sodium Succinate 40 MG/1 ML SDV IM ONE (14:39)
[2020-02-14] MEDS ORDERED: Ketorolac 60 MG/2 ML SDV IM ONE (14:41)
--- NOTE | 2020-02-14 14:48 | EDM.PDOC ---
ED HPI GENERAL MEDICAL PROBLEM - General Chief Complaint: Back Pain or Injury Stated Complaint: Lower Back Pain Time Seen by Provider: 02/14/20 14:10 Source of Information: Reports: Patient History Limitations: Reports: No Limitations - History of Present Illness INITIAL COMMENTS - FREE TEXT/NARRATIVE: Patient comes to ER with complaint of low back pain. Hx recent L4 vertebroplasty last month. Went to PT on . Noticed increased discomfort in low back once she got home. Pain has continued to be problematic since then despite stretching/pain meds/heat packs. Feels like the pain she had before the vertebroplasty. In same area. No real changes. Sometimes wraps around a bit right lower abdomen. Had some paresthesias of both lower extremities initially but that went away. Denies numbness/weakness of lower limbs. No bowel/bladder issues. Had BM this morning. Denies urinary changes suggestive of UTI. No fevers/chills. Movement makes pain worse. Took Tramadol and Tylenol around noon today. Almost out of Tramadol. - Related Data Allergies Allergy/AdvReac Type Severity Reaction Status Date / Time atropine sulfate Allergy Cannot Verified 09/25/19 12:31 [From Lomotil] Remember diphenoxylate HCl Allergy Cannot Verified 09/25/19 12:31 [From Lomotil] Remember furosemide [From Lasix] Allergy Nausea Verified 09/25/19 12:31 lactose Allergy Other Verified 09/25/19 12:31 nitrofurantoin Allergy Stomach Verified 09/25/19 12:31 [From Macrobid] Upset Sulfa (Sulfonamide Allergy Muscle Verified 09/25/19 12:31 Antibiotics) Aches, Muscle Stiffness Home Meds: Home Meds ALPRAZolam [Xanax] 1 mg PO TID@0800,1200,2000 02/07/14 [History] Lutein/Min/Vit C/Vit E Acetate [Ocuvite Lutein] 1 cap PO Q12HR 02/07/14 [History] Polyvinyl Alcohol/Povidone [Refresh] 1 drop EYEBOTH BEDTIME 02/07/14 [History] Cholecalciferol (Vitamin D3) [Vitamin D3] 1,000 units PO Q2D 02/03/18 [History] Metoprolol Tartrate 12.5 mg PO BID 02/03/18 [History] Multivitamin [Multivitamins] 1 each PO DAILY 02/03/18 [History] polyethylene glycoL 3350 [Miralax] 17 gm PO DAILY PRN 02/08/18 [History] Cranberry Fruit Concentrate [Cranberry] 450 mg PO DAILY 12/25/18 [History] Fish Oil/Anson-3 Fatty Acids [Fish Oil 1,000 MG] 1 cap PO DAILY 12/25/18 [History] L.acidoph,Paracasei, B.lactis [Probiotic] 1 each PO DAILY 12/25/18 [History] Sodium Chloride 1,000 mg PO TID 12/25/18 [History] Acetaminophen [Tylenol] 650 mg PO Q4H PRN tablet 02/28/19 [Rx] Acetaminophen [Tylenol] 650 mg PO TID tablet 02/28/19 [Rx] Calcium Carbonate [Tums Extra Strength] 1,500 mg PO BEDTIME tab.chew 02/28/19 [Rx] FLUoxetine [PROzac] 20 mg PO BEDTIME #14 cap 02/28/19 [Rx] Magnesium Oxide 400 mg PO BEDTIME tablet 02/28/19 [Rx] Mirtazapine [Remeron] 15 mg PO BEDTIME #14 tab 02/28/19 [Rx] Ondansetron [Zofran ODT] 4 mg PO Q6H PRN #30 tab.dis 02/28/19 [Rx] Pantoprazole Sodium 40 mg PO DAILY #14 tablet.dr 02/28/19 [Rx] Potassium Chloride 20 meq PO TID #42 tablet.er 02/28/19 [Rx] Bumetanide [Bumex] 1 mg PO BID@08,20 05/16/19 [History] Levothyroxine Sodium [Synthroid] 90 mcg PO DAILY 09/25/19 [History] Past Medical History HEENT History: Reports: Cataract, Hard of Hearing, Impaired Vision, Macular Degeneration, Other (See Below) Other HEENT History: Mild bilateral presbycusis with no current therapy. Patient does wear glasses. Cardiovascular History: Reports: Cardiomyopathy, Heart Murmur, High Cholesterol, Hypertension, Other (See Below) Other Cardiovascular History: Pericardial effusionnonsymptomatic. Mild diffuse valvular disease by echocardiogram as below with grade 1 diastolic dysfunction and history of intermittent cardiac murmurs. Respiratory History: Reports: Intubation, Previous, Other (See Below) Other Respiratory History: Bilateral benign pulmonary nodules including left lower lobe and right middle lobe stable by CT scans as below. Gastrointestinal History: Reports: Bowel Obstruction, Chronic Constipation, Colon Polyp, Diverticulosis, Gastritis, GERD, Other (See Below) Other Gastrointestinal History: Chronic specific abdominal pain and nausea. Benign hepatic cysts and pancreatic cyst by MRI and CT scan. Chronic constipation with history of borderline ileus. Dysfunctional gallbladder requiring cholecystectomy as below. Esophagitis by EGD as below. Genitourinary History: Reports: UTI, Recurrent, Other (See Below) Other Genitourinary History: Left-sided benign renal cysts. 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 Full term without complications during pregnancies or deliveries. Musculoskeletal History: Reports: Arthritis, Back Pain, Chronic, Fracture, Neck Pain, Chronic, Osteoarthritis, Osteoporosis, Other (See Below) Other Musculoskeletal History: L1 vertebral body compression fracture on 01/27/18 with vertebroplasty as below. Left wrist fracture in 1982. Mild kyphosis. Neurological History: Reports: CVA, Headaches, Chronic, Migraines, Other (See Below) Other Neuro History: Incidental possible distant nonsymptomatic left-sided anterior lacunar infarct by CT scan and MRI of the head. Mild cerebromicrovascular disease. Psychiatric History: Reports: Addiction, Anxiety, Depression Other Psychiatric History: Chronic Ultram use. Endocrine/Metabolic History: Reports: Hypokalemia, Hypomagnesemia, Hypothyroidism, Osteopenia, Osteoporosis, Other (See Below) Other Endocrine/Metabolic History: Postsurgical hypothyroidism after thyroidectomy for thyroid cancer in the . Hyponatremia. Hematologic History: Reports: None Immunologic History: Reports: None Oncologic (Cancer) History: Reports: Squamous Cell Carcinoma, Thyroid, Other (See Below) Other Oncologic History: Excision of squamous cell carcinoma from the right cheek in about 2015. Thyroid cancer requiring thyroidectomy in 1979 with no radiation or chemotherapy required. Dermatologic History: Reports: None - Infectious Disease History Infectious Disease History: Reports: None. Denies: C-Difficile, Chicken Pox, Measles, Meningitis, Mononucleosis, MRSA, Mumps, Pertussis (Whooping Cough), Rheumatic Fever, RSV, Rubella, Scarlet Fever, Shingles, TB, VRE - Past Surgical History Head Surgeries/Procedures: Reports: None HEENT Surgical History: Reports: Cataract Surgery, Oral Surgery, Other (See Below) Other HEENT Surgeries/Procedures: Archie teeth extraction 4 at about age 20. Bilateral cataract surgery in about 2016. Cardiovascular Surgical History: Reports: None Respiratory Surgical History: Reports: None GI Surgical History: Reports: Cholecystectomy, Colonoscopy, EGD, Polypectomy, Other (See Below) Other GI Surgeries/Procedures: EGD and colonoscopy on 07/17/13. Previous colonoscopy on 09/27/06 possible colonic polyps at that time. Female Surgical History: Reports: None Endocrine Surgical History: Reports: Thyroid Biopsy, Thyroidectomy, Other (See Below) Other Endocrine Surgeries/Procedures: Thyroidectomy in 1979 secondary to thyroid cancer as above. Neurological Surgical History: Reports: Lumbar Spine, Vertebroplasty, Other (See Below) Other Neurological Surgeries/Procedures: L1 vertebroplasty on 03/18/18. Musculoskeletal Surgical History: Reports: Arthroscopic Knee, Joint Replacement, Other (See Below) Other Musculoskeletal Surgeries/Procedures:: Possible previous knee arthroscopic evaluations, however patient uncertain. Bilateral hemiarthroplasties of the knees in the 1999s. Oncologic Surgical History: Reports: None Dermatological Surgical History: Reports: Other (See Below) - Past Imaging History Past Imaging History: Reports: Cardiac Echo (11/09/15 with ejection fraction of 6065 percent and findings as above.), CAT Scan (CT scan of the head on 12/25/18, 03/08/18, 03/09/17, and 04/19/15. CT of the abdomen and pelvis on 02/20/19, 07/23/18, and 12/08/16. CT of the chest with IV contrast on 01/10/19. CT of the head and maxillofacial region 02/27/17. CT of the sinuses on 04/19/15.), HIDA Scan (Positive hydroscan on 01/18/17 with ejection fraction of only 19%.), MRA (As below), MRI (MRI of the lumbar spine on 06/10/18, 02/04/18, and 01/27/18. MRI of the abdomen and pelvis with and without contrast on 09/30/18 and 12/18/16. MRI and MRA of the brain on 07/17/16.), Stress Testing (Negative Cardiolite stress test on 10/24/12), Ultrasound (Lower quadrant abdominal ultrasound with negative workup for appendicitis on 08/26/19. Renal ultrasound on 05/31/14. Abdominal ultrasound on 12/06/16.), Upper GI X-Ray/Series (Negative upper GI on 02/01/17.) Social & Family History - Family History HEENT: Reports: Macular Degeneration, Other (See Below) Other HEENT Family History: Mother and maternal aunts 2 with macular degeneration. Cardiac: Reports: CAD, Hypertension, DC, Other (See Below) Other Cardiac Family History: Hypertension in mother, brother, and daughter. Maternal aunt with coronary artery disease. Maternal uncle with fatal DC in his 70s. Respiratory: Reports: None GI: Reports: Colon Polyps, Other (See Below) Other GI Family History: Brother with colon cancer as below. : Reports: Dialysis, Renal Disease/Insufficiency, Other (See Below) Other Family History: Mother required dialysis with fatal renal insufficiency at age 85. OBGYN: Reports: None Musculoskeletal: Reports: Arthritis, Osteoarthritis, Other (See Below) Other Musculoskeletal Family History: Father with osteoarthritis. Neurological: Reports: Migraines, Other (See Below) Other Neurological Family History: Son and daughter with migraine headaches. Psychiatric: Reports: None Endocrine/Metabolic: Reports: None Hematologic: Reports: None Immunologic: Reports: None Dermatologic: Reports: None Oncologic: Reports: Colon, Skin, Other (See Below) Other Oncologic Family History: Daughter with recurrent basal cell carcinoma. Brother with history of colon cancer requiring hemicolectomy at age 90. - Tobacco Use Smoking Status *Q: Never Smoker - Caffeine Use Caffeine Use: Reports: Coffee, Tea - Living Situation & Occupation Living situation: Reports: (1954, 4 children) Occupation: Retired (Retired at age 66. [place] multiple previous jobs.) ED ROS GENERAL - Review of Systems Review Of Systems: See Below Constitutional: Reports: No Symptoms HEENT: Denies: Vertigo, Vision Change Respiratory: Reports: No Symptoms. Denies: Pleuritic Chest Pain Cardiovascular: Reports: No Symptoms. Denies: Chest Pain GI/Abdominal: Denies: Constipation, Diarrhea, Nausea, Vomiting : Reports: No Symptoms Musculoskeletal: Reports: Back Pain Skin: Reports: No Symptoms Neurological: Reports: Other (see HPI). Denies: Confusion, Dizziness, Numbness, Syncope, Tingling, Trouble Speaking, Change in Speech Psychiatric: Reports: No Symptoms Hematologic/Lymphatic: Reports: No Symptoms ED EXAM, GENERAL - Physical Exam Exam: See Below Exam Limited By: No Limitations General Appearance: Alert, Anxious Eye Exam: Bilateral Eye: EOMI, PERRL Ears: Hearing Grossly Normal Nose: No: Nasal Deformity, Nasal Swelling, Nasal Drainage Throat/Mouth: Normal Lips, Normal Voice, No Airway Compromise Head: Atraumatic, Normocephalic Neck: Supple, Non-Tender, Full Range of Motion Respiratory/Chest: No Respiratory Distress, Lungs Clear, Normal Breath Sounds, No Accessory Muscle Use, Chest Non-Tender Cardiovascular: Regular Rate, Rhythm, No Murmur GI/Abdominal: Normal Bowel Sounds, Soft, Non-Tender, No Distention (Female) Exam: Deferred Rectal (Female) Exam: Deferred Back Exam: Other (Palpation over back, including lower spine and paraspinal tissues, did not show focal tenderness and did not reproduce patient's pain complaint. ). No: CVA Tenderness (L), CVA Tenderness (R) Extremities: Normal Range of Motion, Non-Tender, Normal Capillary Refill Neurological: Alert, Oriented, Normal Cognition, No Motor/Sensory Deficits Psychiatric: Anxious Skin Exam: Warm, Dry, Intact, Normal Color Course - Vital Signs Last Recorded V/S: Last Vital Signs Temp 36.9 C 02/14/20 13:40 Pulse 75 02/14/20 13:40 Resp 18 02/14/20 13:40 BP 129/88 02/14/20 13:40 Pulse Ox 100 02/14/20 13:40 - Orders/Labs/Meds Orders: Active Orders 24 hr Category Date Time Status Ketorolac [Toradol] Med 02/14/20 14:41 Once 60 mg IM ONETIME ONE methylPREDNISolone Sod Succ [Solu-MEDROL] Med 02/14/20 14:39 Once 40 mg IM ONETIME ONE oxyCODONE Med 02/14/20 14:39 Once 5 mg PO ONETIME ONE - Re-Assessments/Exams Free Text/Narrative Re-Assessment/Exam: 02/14/20 14:51 Suspect low back discomfort secondary to recent PT s/p Vertebroplasty. Patient denies any new trauma/falls. Pain is in same distribution as low back pain was before the procedure. Plain films would be of limited value given the above. May need to consider a new MRI to re-evaluate the lumbar spine if pain does not improve over the next few days as one would expect if due to overuse s/p PT exercises. Patient offered option to be admitted to Observation for assistance with ADLs/more intensive pain control measures. She declined and preferred to try to return home. Combination of IM SoluMedrol/anti-inflammatory given with IM Toradol and PO Oxycodone given to help with pain. She will be sent home with a take home bottle of Tramadol as she has only two left at home, and also one bottle of Flexeril. Precautions reviewed. She was made aware of both Tramadol and Flexeril being sedating, especially if taken in combination. Fall risk reviewed. She is not to take any extra doses. Patient verbalized understanding the concerns around use of these medications. Patient to return to ER over the weekend if she has any additional problems/concerns or is interested in brief Observation stay. She is otherwise to get followed up at clinic on Sunday for recheck and to evaluate if she may benefit from updated MRI study. She is in agreement with plan. Departure - Departure Time of Disposition: 14:58 Disposition: Home, Self-Care 01 Condition: Good Clinical Impression: Low back pain Qualifiers: Chronicity: acute Back pain laterality: midline Sciatica presence: without sciatica Qualified Code(s): M54.5 - Low back pain - Discharge Information *PRESCRIPTION DRUG MONITORING PROGRAM REVIEWED*: Not Applicable *COPY OF PRESCRIPTION DRUG MONITORING REPORT IN PATIENT KWAN: Not Applicable Referrals: Esther Urbano NP [Primary Care Provider] - Additional Instructions: OK to try your CBD oil/rub. No more than 1 Flexeril every 8 hours as needed for spasm/tight muscles. 1 Tramadol every 6 hours for pain. OK to take it with Tylenol. Follow up at the ER over the weekend if you have additional problems or wish to consider Observation admission for 1-2 days. Follow up Sunday with Esther to discuss how you are doing and if getting an updated MRI might be useful. Call us if you have questions. Sepsis Event Note (ED) - Evaluation Sepsis Screening Result: No Definite Risk - Focused Exam Vital Signs: Vital Signs Temp Pulse Resp BP Pulse Ox 02/14/20 13:40 36.9 C 75 18 129/88 100 - My Orders Last 24 Hours: My Active Orders 02/14/20 14:39 methylPREDNISolone Sod Succ [Solu-MEDROL] 40 mg IM ONETIME ONE oxyCODONE 5 mg PO ONETIME ONE 02/14/20 14:41 Ketorolac [Toradol] 60 mg IM ONETIME ONE - Assessment/Plan Last 24 Hours: My Active Orders 02/14/20 14:39 methylPREDNISolone Sod Succ [Solu-MEDROL] 40 mg IM ONETIME ONE oxyCODONE 5 mg PO ONETIME ONE 02/14/20 14:41 Ketorolac [Toradol] 60 mg IM ONETIME ONE
== END 2020-02-14 15:10 | disposition home or self-care (01) ==
LOC: LL.ED 13:37
DX: M54.5 Low back pain (principal); I10 Essential (primary) hypertension; K21.9 Gastro-esophageal reflux disease without esophagitis; F41.9 Anxiety disorder, unspecified; F32.9 Major depressive disorder, single episode, unspecified; E03.9 Hypothyroidism, unspecified; Z88.8 Allergy status to other drugs, medicaments and biological substances; Z91.011 Allergy to milk products; Z88.2 Allergy status to sulfonamides; Z79.899 Other long term (current) drug therapy; Z86.73 Personal history of transient ischemic attack (TIA), and cerebral infarction without residual deficits
CPT/HCPCS: 96372; 99283; A9270-GY; J1885; J2920

== ENCOUNTER 2021-08-07 11:54 | Emergency (ER) | payer MEDICARE, BC ==
[2021-08-07] MEDS ORDERED: diphenhydrAMINE 50 MG/ML SDV IVPUSH ONE (11:58)
[2021-08-07] MEDS ORDERED: Dexamethasone 10 MG/ML SDV IVPUSH ONE (11:58)
[2021-08-07] MEDS ORDERED: Ketorolac 30 MG/ML SDV IVPUSH ONE (11:58)
[2021-08-07] MEDS ORDERED: Sodium Chloride 0.9% 10 ML Syringe FLUSH PRN (11:58)
--- NOTE | 2021-08-07 12:44 | EDM.PDOC ---
ED HPI GENERAL MEDICAL PROBLEM - General Chief Complaint: Headache Stated Complaint: headache Time Seen by Provider: 08/07/21 11:55 Source of Information: Reports: Patient, Old Records History Limitations: Reports: No Limitations - History of Present Illness INITIAL COMMENTS - FREE TEXT/NARRATIVE: Patient presents to the ED with complaint of headache for the last 3 days. She states it is left forehead sided to the left tmj. Has a history of tmj problems and grinds her teeth. Takes anxiety medications for grief and frequently has headaches but this one it different. Takes Excedrin migraine for this twice a day and sometimes gets toradol im at the clinic which helps. Sees a counselor from time to time. States she is struggling with some macular degeneration wihh her eyes and this is frustrating for her. No new problems with her vision, no head trauma. not on a blood thinner. States she can't tolerate the pain so came to the ED with her . Not a typical headache for her. Has had her covid vaccinations Onset Date: 07/29/21 Duration: Constant Location: Reports: Head Treatments HAND SPLITTER: Reports: Aspirin headache Pain Score (Numeric/FACES): 9 - Related Data Allergies Allergy/AdvReac Type Severity Reaction Status Date / Time atropine sulfate Allergy Cannot Verified 08/07/21 11:56 [From Lomotil] Remember diphenoxylate HCl Allergy Cannot Verified 08/07/21 11:56 [From Lomotil] Remember furosemide [From Lasix] Allergy Nausea Verified 08/07/21 11:56 lactose Allergy Other Verified 08/07/21 11:56 nitrofurantoin Allergy Stomach Verified 08/07/21 11:56 [From Macrobid] Upset Sulfa (Sulfonamide Allergy Muscle Verified 08/07/21 11:56 Antibiotics) Aches, Muscle Stiffness Home Meds: Home Meds ALPRAZolam [Xanax] 1 mg PO TID@0800,1200,2000 02/07/14 [History] Lutein/Min/Vit C/Vit E Acetate [Ocuvite Lutein] 1 cap PO Q12HR 02/07/14 [History] Polyvinyl Alcohol/Povidone [Refresh] 1 drop EYEBOTH BEDTIME 02/07/14 [History] Cholecalciferol (Vitamin D3) [Vitamin D3] 1,000 units PO Q2D 06/10/18 [History] Metoprolol Tartrate 12.5 mg PO BID 02/03/18 [History] Multivitamin [Multivitamins] 1 each PO DAILY 02/03/18 [History] polyethylene glycoL 3350 [Miralax] 17 gm PO DAILY PRN 02/08/18 [History] Cranberry Fruit Concentrate [Cranberry] 450 mg PO DAILY 12/25/18 [History] Fish Oil/Corn-3 Fatty Acids [Fish Oil 1,000 MG] 1 cap PO DAILY 12/25/18 [History] L.acidoph,Paracasei, B.lactis [Probiotic] 1 each PO DAILY 12/25/18 [History] Sodium Chloride 1,000 mg PO TID 12/25/18 [History] Acetaminophen [Tylenol] 650 mg PO Q4H PRN tablet 02/28/19 [Rx] Acetaminophen [Tylenol] 650 mg PO TID tablet 02/28/19 [Rx] Calcium Carbonate [Tums Extra Strength] 1,500 mg PO BEDTIME tab.chew 02/28/19 [Rx] FLUoxetine [PROzac] 20 mg PO BEDTIME #14 cap 02/28/19 [Rx] Magnesium Oxide 400 mg PO BEDTIME tablet 02/28/19 [Rx] Mirtazapine [Remeron] 15 mg PO BEDTIME #14 tab 02/28/19 [Rx] Ondansetron [Zofran ODT] 4 mg PO Q6H PRN #30 tab.dis 02/28/19 [Rx] Pantoprazole Sodium 40 mg PO DAILY #14 tablet.dr 02/28/19 [Rx] Potassium Chloride 20 meq PO TID #42 tablet.er 02/28/19 [Rx] Bumetanide [Bumex] 1 mg PO BID@08,20 05/16/19 [History] Levothyroxine Sodium [Synthroid] 90 mcg PO DAILY 09/25/19 [History] Past Medical History HEENT History: Reports: Cataract, Hard of Hearing, Impaired Vision, Macular Degeneration, Other (See Below) Other HEENT History: Mild bilateral presbycusis with no current therapy. Patient does wear glasses. Cardiovascular History: Reports: Cardiomyopathy, Heart Murmur, High Cholesterol, Hypertension, Other (See Below) Other Cardiovascular History: Pericardial effusionnonsymptomatic. Mild diffuse valvular disease by echocardiogram as below with grade 1 diastolic dysfunction and history of intermittent cardiac murmurs. Respiratory History: Reports: Intubation, Previous, Other (See Below) Other Respiratory History: Bilateral benign pulmonary nodules including left lower lobe and right middle lobe stable by CT scans as below. Gastrointestinal History: Reports: Bowel Obstruction, Chronic Constipation, Colon Polyp, Diverticulosis, Gastritis, GERD, Other (See Below) Other Gastrointestinal History: Chronic specific abdominal pain and nausea. Benign hepatic cysts and pancreatic cyst by MRI and CT scan. Chronic constipation with history of borderline ileus. Dysfunctional gallbladder req uiring cholecystectomy as below. Esophagitis by EGD as below. Genitourinary History: Reports: UTI, Recurrent, Other (See Below) Other Genitourinary History: Left-sided benign renal cysts. STUDENT DEVELOPMENT ADVISOR History: Reports: Other STUDENT DEVELOPMENT ADVISOR History: Menopause at about age 46. Full term without compl ications during pregnancies or deliveries. Musculoskeletal History: Reports: Arthritis, Back Pain, Chronic, Fracture, Neck Pain, Chronic, Osteoarthritis, Osteoporosis, Other (See Below) Other Musculoskeletal History: L1 vertebral body compression fracture on 01/27/18 with vertebroplasty as below. Left wrist fracture in 1982. Mild kyphosis. Neurological History: Reports: CVA, Headaches, Chronic, Migraines, Other (See Below) Other Neuro History: Incidental possible distant nonsymptomatic left-sided anterior lacunar infarct by CT scan and MRI of the head. Mild cerebromicrovascular disease. Psychiatric History: Reports: Addiction, Anxiety, Depression Other Psychiatric History: Chronic Ultram use. Endocrine/Metabolic History: Reports: Hypokalemia, Hypomagnesemia, Hypothyroidism, Osteopenia, Osteoporosis, Other (See Below) Other Endocrine/Metabolic History: Postsurgical hypothyroidism after thyroidectomy for thyroid cancer in the . Hyponatremia. Hematologic History: Reports: None Immunologic History: Reports: None Oncologic (Cancer) History: Reports: Squamous Cell Carcinoma, Thyroid, Other (See Below) Other Oncologic History: Excision of squamous cell carcinoma from the right cheek in about 2015. Thyroid cancer requiring thyroidectomy in 1979 with no radiation or chemotherapy required. Dermatologic History: Reports: None - Infectious Disease History Infectious Disease History: Reports: None. Denies: C-Difficile, Chicken Pox, Measles, Meningitis, Mononucleosis, MRSA, Mumps, Pertussis (Whooping Cough), Rheumatic Fever, RSV, Rubella, Scarlet Fever, Shingles, TB, VRE - Past Surgical History Head Surgeries/Procedures: Reports: None HEENT Surgical History: Reports: Cataract Surgery, Oral Surgery, Other (See Below) Other HEENT Surgeries/Procedures: [place] teeth extraction 4 at about age 20. Bilateral cataract surgery in about 2016. Cardiovascular Surgical History: Reports: None Respiratory Surgical History: Reports: None GI Surgical History: Reports: Cholecystectomy, Colonoscopy, EGD, Polypectomy, Other (See Below) Other GI Surgeries/Procedures: EGD and colonoscopy on 07/17/13. Previous colonoscopy on 09/27/06 possible colonic polyps at that time. Female Surgical History: Reports: None Endocrine Surgical History: Reports: Thyroid Biopsy, Thyroidectomy, Other (See Below) Other Endocrine Surgeries/Procedures: Thyroidectomy in 1979 secondary to thyroid cancer as above. Neurological Surgical History: Reports: Lumbar Spine, Vertebroplasty, Other (See Below) Other Neurological Surgeries/Procedures: L1 vertebroplasty on 03/18/18. Musculoskeletal Surgical History: Reports: Arthroscopic Knee, Joint Replacement, Other (See Below) Other Musculoskeletal Surgeries/Procedures:: Possible previous knee arthroscopic evaluations, however patient uncertain. Bilateral hemiarthroplasties of the knees in the 1999s. Oncologic Surgical History: Reports: None Dermatological Surgical History: Reports: Other (See Below) - Past Imaging History Past Imaging History: Reports: Cardiac Echo (11/09/15 with ejection fraction of 6065 percent and findings as above.), CAT Scan (CT scan of the head on 12/25/18, 03/08/18, 03/09/17, and 04/19/15. CT of the abdomen and pelvis on 02/20/19, 07/23/18, and 12/08/16. CT of the chest with IV contrast on 01/10/19. CT of the head and maxillofacial region 02/27/17. CT of the sinuses on 04/19/15.), HIDA Scan (Positive hydroscan on 01/18/17 with ejection fraction of only 19%.), MRA (As below), MRI (MRI of the lumbar spine on 06/10/18, 02/04/18, and 01/27/18. MRI of the abdomen and pelvis with and without contrast on 09/30/18 and 12/18/16. MRI and MRA of the brain on 07/17/16.), Stress Testing (Negative Cardiolite stress test on 10/24/12), Ultrasound (Lower quadrant abdominal ultrasound with negative workup for appendicitis on 08/26/19. Renal ultrasound on 05/31/14. Abdominal ultrasound on 12/06/16.), Upper GI X-Ray/Series (Negative upper GI on 02/01/17.) Social & Family History - Family History HEENT: Reports: Macular Degeneration, Other (See Below) Other HEENT Family History: Mother and maternal aunts 2 with macular degeneration. Cardiac: Reports: CAD, Hypertension, ME, Other (See Below) Other Cardiac Family History: Hypertension in mother, brother, and daughter. Maternal aunt with coronary artery disease. Maternal uncle with fatal ME in his 70s. Respiratory: Reports: None GI: Reports: Colon Polyps, Other (See Below) Other GI Family History: Brother with colon cancer as below. : Reports: Dialysis, Renal Disease/Insufficiency, Other (See Below) Other Family History: Mother required dialysis with fatal renal insufficiency at age 85. OBGYN: Reports: None Musculoskeletal: Reports: Arthritis, Osteoarthritis, Other (See Below) Other Musculoskeletal Family History: Father with osteoarthritis. Neurological: Reports: Migraines, Other (See Below) Other Neurological Family History: Son and daughter with migraine headaches. Psychiatric: Reports: None Endocrine/Metabolic: Reports: None Hematologic: Reports: None Immunologic: Reports: None Dermatologic: Reports: None Oncologic: Reports: Colon, Skin, Other (See Below) Other Oncologic Family History: Daughter with recurrent basal cell carcinoma. Brother with history of colon cancer requiring hemicolectomy at age 90. - Caffeine Use Caffeine Use: Reports: Coffee, Tea - Alcohol Use Alcohol Use History: No Alcohol Use in Last Twelve Months: No - Recreational Drug Use Recreational Drug Use: No Drug Use in Last 12 Months: No - Living Situation & Occupation Living situation: Reports: (1954, 4 children) Occupation: Retired (Retired at age 66. [place] multiple previous jobs.) ED ROS GENERAL - Review of Systems Review Of Systems: See Below Constitutional: Reports: No Symptoms. Denies: Fever, Chills, Malaise, Weakness, Fatigue HEENT: Reports: Other (chronic vision problems not improving but not worsening, left tmj problems chronically) Respiratory: Reports: No Symptoms. Denies: Shortness of Breath, Cough, Sputum Cardiovascular: Reports: No Symptoms. Denies: Chest Pain, Dyspnea on Exertion, Edema Endocrine: Reports: No Symptoms GI/Abdominal: Reports: No Symptoms : Reports: No Symptoms Musculoskeletal: Reports: No Symptoms Skin: Reports: No Symptoms Neurological: Reports: Headache. Denies: Confusion, Dizziness, Numbness, Pre- Existing Deficit, Seizure, Syncope, Tingling, Tremors, Trouble Speaking, Difficulty Walking Psychiatric: Reports: No Symptoms - Physical Exam Exam: See Below Course - Vital Signs Last Recorded V/S: Last Vital Signs Temp 36.4 C 08/07/21 11:56 Pulse 50 L 08/07/21 11:56 Resp 20 08/07/21 11:56 BP 134/70 08/07/21 11:56 Pulse Ox 96 08/07/21 11:56 - Orders/Labs/Meds Orders: Active Orders 24 hr Category Date Time Status Peripheral IV Care [RC] . DIRECTED Care 08/07/21 11:59 Active Head wo Cont [CT] Stat Exams 08/07/21 11:58 Taken Sodium Chloride 0.9% [Saline Flush] Med 08/07/21 11:58 Active 10 ml FLUSH ASDIRECTED PRN Peripheral IV Insertion Adult [OM.PC] Routine Oth 08/07/21 11:58 Ordered Medication Orders Sodium Chloride (Sodium Chloride 0.9% 10 Ml Syringe) 10 ml FLUSH ASDIRECTED PRN PRN Reason: Keep Vein Open Labs: Laboratory Tests 08/07/21 08/07/21 Range/Units 12:20 12:20 WBC 6.6 (4.0-10.2) K/uL RBC 3.74 L (3.77-5.09) M/uL Hgb 11.1 L (11.7-15.5) g/dL Hct 32.5 L (34.0-46.0) % MCV 86.9 (84.0-98.0) fL MCH 29.7 (28.2-33.3) pg MCHC 34.2 (31.7-36.0) g/dL RDW 12.9 (11.2-14.1) % Plt Count 211 (150-350) K/uL Neut % (Auto) 51.2 (45.0-80.0) % Lymph % (Auto) 36.0 (10.0-50.0) % Nelson % (Auto) 9.2 (2.0-14.0) % Eos % (Auto) 3.0 (0.0-5.0) % Baso % (Auto) 0.6 (0.0-2.0) % Neut # (Auto) 3.40 (1.40-7.00) K/uL Lymph # (Auto) 2.39 (0.50-3.50) K/uL Nelson # (Auto) 0.61 (0.00-1.00) K/uL Eos # (Auto) 0.20 (0.00-0.50) K/uL Baso # (Auto) 0.04 (0.00-0.20) K/uL ESR 20 (0-42) mm/hr Sodium 132 L (136-145) mmol/L Potassium 4.2 (3.5-5.1) mmol/L Chloride 101 (98-107) mmol/L Carbon Dioxide 24.6 (21.0-32.0) mmol/L Anion Gap 10.6 (7-15) meq/L BUN 16 (7-18) mg/dL Creatinine 1.03 (0.51-1.17) mg/dL Est Cr Clr Drug Dosing 35.93 mL/min Estimated GFR (MDRD) 51 mL/min Glucose 81 (70-99) mg/dL Calcium 8.0 L (8.5-10.1) mg/dL Total Bilirubin 0.3 (0.2-1.0) mg/dL AST 20 (15-37) U/L ALT 18 (12-78) U/L Alkaline Phosphatase 59 (46-116) IU/L C-Reactive Protein < 0.2 (<=0.9) mg/dL Total Protein 6.5 (6.4-8.2) g/dL Albumin 3.2 L (3.4-5.0) g/dL Meds: Medications Generic Name Dose Route Start Last Admin Trade Name Freq PRN Reason Stop Dose Admin Sodium Chloride 10 ml 08/07/21 11:58 Sodium Chloride 0.9% 10 Ml Syringe FLUSH ASDIRECTED PRN Keep Vein Open Discontinued Medications Generic Name Dose Route Start Last Admin Trade Name Freq PRN Reason Stop Dose Admin Dexamethasone 10 mg 08/07/21 11:58 08/07/21 12:42 Dexamethasone 10 Mg/Ml Sdv IVPUSH 08/07/21 11:59 10 mg ONETIME ONE Administration Diphenhydramine HCl 25 mg 08/07/21 11:58 08/07/21 12:43 Diphenhydramine 50 Mg/Ml Sdv IVPUSH 08/07/21 11:59 25 mg ONETIME ONE Administration Ketorolac Tromethamine 15 mg 08/07/21 11:58 08/07/21 12:42 Ketorolac 30 Mg/Ml Sdv IVPUSH 08/07/21 11:59 15 mg ONETIME ONE Administration - Radiology Interpretation Free Text/Narrative:: head ct without acute changes, interpreted by radiology - Re-Assessments/Exams Free Text/Narrative Re-Assessment/Exam: 08/07/21 13:25 given IV toradol, benadryl and decadron. feeling better. negative work up other than hyponatremia that she has had normal sed rate. discussed need to follow up with PCP. increase sodium in diet, decrease free water. already on salt tablets 1000 mg tid, may need to come off of the HCTZ. also discussed counseling, needing to work through the grief process at this time of year in regard to her granddaughter that was killed. Departure - Departure Time of Disposition: 13:26 Disposition: Home, Self-Care 01 Condition: Good Clinical Impression: Headache, Hyponatremia - Discharge Information *PRESCRIPTION DRUG MONITORING PROGRAM REVIEWED*: Not Applicable *COPY OF PRESCRIPTION DRUG MONITORING REPORT IN PATIENT KWAN: Not Applicable Instructions: Hyponatremia, [id number], General Headache Without Cause, [id number] Referrals: Esther Urbano AUTOMATIC ENGRAVER [Primary Care Provider] - Forms: ED Department Discharge Additional Instructions: Increase the sodium ( salt ) in your diet, decrease the amount of water. Close follow up with your physician is important. you may need to have salt tablets as the brain needs normal sodium levels. Sepsis Event Note (ED) - Evaluation Sepsis Screening Result: No Definite Risk - Focused Exam Vital Signs: Vital Signs Temp Pulse Resp BP Pulse Ox 08/07/21 11:56 36.4 C 50 L 20 134/70 96 - My Orders Last 24 Hours: My Active Orders 08/07/21 11:58 Head wo Cont [CT] Stat Sodium Chloride 0.9% [Saline Flush] 10 ml FLUSH ASDIRECTED PRN Peripheral IV Insertion Adult [OM.PC] Routine 08/07/21 11:59 Peripheral IV Care [RC] . DIRECTED - Assessment/Plan Last 24 Hours: My Active Orders 08/07/21 11:58 Head wo Cont [CT] Stat Sodium Chloride 0.9% [Saline Flush] 10 ml FLUSH ASDIRECTED PRN Peripheral IV Insertion Adult [OM.PC] Routine 08/07/21 11:59 Peripheral IV Care [RC] . DIRECTED
[2021-08-07 12:45] LABS: CHLORIDE,CL 101 mmol/L (98-107); SODIUM,NA 132 mmol/L (136-145)
[2021-08-07 12:52] LABS: ANION GAP 10.6 meq/L (7-15)
[2021-08-07 17:54] VITALS: BP 158/63; PULSE 51
== END 2021-08-07 14:15 | disposition home or self-care (01) ==
LOC: LL.ED 11:54
DX: E87.1 Hypo-osmolality and hyponatremia (principal); I10 Essential (primary) hypertension; K21.9 Gastro-esophageal reflux disease without esophagitis; M19.90 Unspecified osteoarthritis, unspecified site; E03.9 Hypothyroidism, unspecified; Z88.8 Allergy status to other drugs, medicaments and biological substances; Z91.011 Allergy to milk products; Z88.1 Allergy status to other antibiotic agents; Z88.2 Allergy status to sulfonamides; Z79.899 Other long term (current) drug therapy
CPT/HCPCS: 36415; 70450; 80053; 85025; 85652; 86140; 96374; 96375; 99284; 99284-25; J1100; J1200; J1885

== ENCOUNTER 2021-08-20 10:56 | Emergency (ER) | payer MEDICARE, BC ==
--- NOTE | 2021-08-20 11:19 | EDM.PDOC ---
ED HPI GENERAL MEDICAL PROBLEM - General Chief Complaint: Genitourinary Problem Stated Complaint: painful urination Time Seen by Provider: 08/20/21 11:05 Source of Information: Reports: Patient History Limitations: Reports: No Limitations - History of Present Illness INITIAL COMMENTS - FREE TEXT/NARRATIVE: Patient presents to the ED with dysuria, frequency and urgency that started this morning. She was feeling well yesterday,no fevers or urinary problems. Denies dehydration. States she woke up, urinated and was fine. Later in the morning she had urgency, dysuria and frequency but little urine. Unsure of color or smell. No fevers or back pain. Last UTI was quite some time ago. Taking her regular medication and otherwise feeling well Onset: Today, Sudden - Related Data Allergies Allergy/AdvReac Type Severity Reaction Status Date / Time atropine sulfate Allergy Cannot Verified 08/20/21 10:59 [From Lomotil] Remember diphenoxylate HCl Allergy Cannot Verified 08/20/21 10:59 [From Lomotil] Remember furosemide [From Lasix] Allergy Nausea Verified 08/20/21 10:59 lactose Allergy Other Verified 08/20/21 10:59 nitrofurantoin Allergy Stomach Verified 08/20/21 10:59 [From Macrobid] Upset Sulfa (Sulfonamide Allergy Muscle Verified 08/20/21 10:59 Antibiotics) Aches, Muscle Stiffness Home Meds: Home Meds ALPRAZolam [Xanax] 1 mg PO TID@0800,1200,2000 02/07/14 [History] Lutein/Min/Vit C/Vit E Acetate [Ocuvite Lutein] 1 cap PO Q12HR 02/07/14 [History] Cholecalciferol (Vitamin D3) [Vitamin D3] 1,000 units PO Q2D 02/03/18 [History] Metoprolol Tartrate 12.5 mg PO BID 02/03/18 [History] Multivitamin [Multivitamins] 1 each PO DAILY 02/03/18 [History] Sodium Chloride 1,000 mg PO BID 12/25/18 [History] Acetaminophen [Tylenol] 650 mg PO Q4H PRN tablet 02/28/19 [Rx] Acetaminophen [Tylenol] 650 mg PO TID tablet 02/28/19 [Rx] FLUoxetine [PROzac] 20 mg PO BEDTIME #14 cap 02/28/19 [Rx] Ondansetron [Zofran ODT] 4 mg PO Q6H PRN #30 tab.dis 02/28/19 [Rx] Bumetanide [Bumex] 1 mg PO BID@0900,1300 05/16/19 [History] Acetaminophen/Diphenhydramine [Tylenol Pm Ex-Strength Caplet] 1 tab PO BEDTIME PRN 08/20/21 [History] Calcium Carbonate [Tums Extra Strength] 1,500 mg PO ASDIRECTED PRN 08/20/21 [History] Levothyroxine 75 mcg PO MOWEFR@0730 08/20/21 [History] Levothyroxine [Synthroid] 50 mcg PO SUTUTHSA@0730 08/20/21 [History] Potassium Chloride 20 meq PO BID 08/20/21 [History] Sennosides/Docusate Sodium [Stool Softener-Laxative] 1 tab PO DAILY 08/20/21 [History] dexAMETHasone [Decadron 0.1% Ophth Soln] 1 drop EYEBOTH BEDTIME 08/20/21 [History] Past Medical History HEENT History: Reports: Cataract, Hard of Hearing, Impaired Vision, Macular Degeneration, Other (See Below) Other HEENT History: Mild bilateral presbycusis with no current therapy. Patient does wear glasses. Cardiovascular History: Reports: Cardiomyopathy, Heart Murmur, High Cholesterol, Hypertension, Other (See Below) Other Cardiovascular History: Pericardial effusionnonsymptomatic. Mild diffuse valvular disease by echocardiogram as below with grade 1 diastolic dysfunction and history of intermittent cardiac murmurs. Respiratory History: Reports: Intubation, Previous, Other (See Below) Other Respiratory History: Bilateral benign pulmonary nodules including left lower lobe and right middle lobe stable by CT scans as below. Gastrointestinal History: Reports: Bowel Obstruction, Chronic Constipation, Colon Polyp, Diverticulosis, Gastritis, GERD, Other (See Below) Other Gastrointestinal History: Chronic specific abdominal pain and nausea. Benign hepatic cysts and pancreatic cyst by MRI and CT scan. Chronic constipation with history of borderline ileus. Dysfunctional gallbladder requiring cholecystectomy as below. Esophagitis by EGD as below. Genitourinary History: Reports: UTI, Recurrent, Other (See Below) Other Genitourinary History: Left-sided benign renal cysts. 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 Full term without complications during pregnancies or deliveries. Musculoskeletal History: Reports: Arthritis, Back Pain, Chronic, Fracture, Neck Pain, Chronic, Osteoarthritis, Osteoporosis, Other (See Below) Other Musculoskeletal History: L1 vertebral body compression fracture on 01/27/18 with vertebroplasty as below. Left wrist fracture in 1982. Mild kyphosis. Neurological History: Reports: CVA, Headaches, Chronic, Migraines, Other (See Below) Other Neuro History: Incidental possible distant nonsymptomatic left-sided anterior lacunar infarct by CT scan and MRI of the head. Mild cerebromicrovascular disease. Psychiatric History: Reports: Addiction, Anxiety, Depression Other Psychiatric History: Chronic Ultram use. Endocrine/Metabolic History: Reports: Hypokalemia, Hypomagnesemia, Hypothyroidism, Osteopenia, Osteoporosis, Other (See Below) Other Endocrine/Metabolic History: Postsurgical hypothyroidism after thyroidectomy for thyroid cancer in the . Hyponatremia. Hematologic History: Reports: None Immunologic History: Reports: None Oncologic (Cancer) History: Reports: Squamous Cell Carcinoma, Thyroid, Other (See Below) Other Oncologic History: Excision of squamous cell carcinoma from the right cheek in about 2015. Thyroid cancer requiring thyroidectomy in 1979 with no radiation or chemotherapy required. Dermatologic History: Reports: None - Infectious Disease History Infectious Disease History: Reports: None - Past Surgical History Head Surgeries/Procedures: Reports: None HEENT Surgical History: Reports: Cataract Surgery, Oral Surgery, Other (See Below) Other HEENT Surgeries/Procedures: [place] teeth extraction 4 at about age 20. Bilateral cataract surgery in about 2015. Cardiovascular Surgical History: Reports: None Respiratory Surgical History: Reports: None GI Surgical History: Reports: Cholecystectomy, Colonoscopy, EGD, Polypectomy, Other (See Below) Other GI Surgeries/Procedures: EGD and colonoscopy on 07/17/13. Previous colonoscopy on 09/27/06 possible colonic polyps at that time. Female Surgical History: Reports: None Endocrine Surgical History: Reports: Thyroid Biopsy, Thyroidectomy, Other (See Below) Other Endocrine Surgeries/Procedures: Thyroidectomy in 1979 secondary to thyroid cancer as above. Neurological Surgical History: Reports: Lumbar Spine, Vertebroplasty, Other (See Below) Other Neurological Surgeries/Procedures: L1 vertebroplasty on 03/18/18. Musculoskeletal Surgical History: Reports: Arthroscopic Knee, Joint Replacement, Other (See Below) Other Musculoskeletal Surgeries/Procedures:: Possible previous knee arthroscopic evaluations, however patient uncertain. Bilateral hemiarthroplasties of the knees in the . Oncologic Surgical History: Reports: None Dermatological Surgical History: Reports: Other (See Below) - Past Imaging History Past Imaging History: Reports: Cardiac Echo (11/09/15 with ejection fraction of 6065 percent and findings as above.), CAT Scan (CT scan of the head on 12/25/18, 03/08/18, 03/09/17, and 04/19/15. CT of the abdomen and pelvis on 02/20/19, 07/23/18, and 12/08/16. CT of the chest with IV contrast on 01/10/19. CT of the head and maxillofacial region 02/27/17. CT of the sinuses on 04/19/15.), HIDA Scan (Positive hydroscan on 01/18/17 with ejection fraction of only 19%.), MRA (As below), MRI (MRI of the lumbar spine on 06/10/18, 02/04/18, and 01/27/18. MRI of the abdomen and pelvis with and without contrast on 09/30/18 and 12/18/16. MRI and MRA of the brain on 07/17/16.), Stress Testing (Negative Cardiolite stress test on 10/24/12), Ultrasound (Lower quadrant abdominal ultrasound with negative workup for appendicitis on 08/26/19. Renal ultrasound on 05/31/14. Abdominal ultrasound on 12/06/16.), Upper GI X-Ray/Series (Negative upper GI on 02/01/17.) Social & Family History - Family History HEENT: Reports: Macular Degeneration, Other (See Below) Other HEENT Family History: Mother and maternal aunts 2 with macular degeneration. Cardiac: Reports: CAD, Hypertension, WI, Other (See Below) Other Cardiac Family History: Hypertension in mother, brother, and daughter. Maternal aunt with coronary artery disease. Maternal uncle with fatal WI in his 70s. Respiratory: Reports: None GI: Reports: Colon Polyps, Other (See Below) Other GI Family History: Brother with colon cancer as below. : Reports: Dialysis, Renal Disease/Insufficiency, Other (See Below) Other Family History: Mother required dialysis with fatal renal insufficiency at age 85. OBGYN: Reports: None Musculoskeletal: Reports: Arthritis, Osteoarthritis, Other (See Below) Other Musculoskeletal Family History: Father with osteoarthritis. Neurological: Reports: Migraines, Other (See Below) Other Neurological Family History: Son and daughter with migraine headaches. Psychiatric: Reports: None Endocrine/Metabolic: Reports: None Hematologic: Reports: None Immunologic: Reports: None Dermatologic: Reports: None Oncologic: Reports: Colon, Skin, Other (See Below) Other Oncologic Family History: Daughter with recurrent basal cell carcinoma. Brother with history of colon cancer requiring hemicolectomy at age 90. - Tobacco Use Tobacco Use Status *Q: Never Tobacco User - Caffeine Use Caffeine Use: Reports: Coffee, Tea - Alcohol Use Alcohol Use History: No Alcohol Use in Last Twelve Months: No - Recreational Drug Use Recreational Drug Use: No Drug Use in Last 12 Months: No - Living Situation & Occupation Living situation: Reports: (1954, 4 children) Occupation: Retired (Retired at age 66. [place] multiple previous jobs.) ED ROS GENERAL - Review of Systems Review Of Systems: See Below Constitutional: Reports: No Symptoms. Denies: Fever, Chills HEENT: Reports: No Symptoms Respiratory: Reports: No Symptoms. Denies: Shortness of Breath, Cough Cardiovascular: Reports: No Symptoms. Denies: Chest Pain Endocrine: Reports: No Symptoms GI/Abdominal: Reports: Abdominal Pain (mild suprapubic discomfort). Denies: Constipation, Diarrhea, Nausea, Vomiting : Reports: Dysuria, Frequency, Urgency. Denies: Flank Pain, Hematuria Musculoskeletal: Reports: No Symptoms Skin: Reports: No Symptoms Neurological: Reports: No Symptoms Psychiatric: Reports: No Symptoms ED EXAM, RENAL/ - Physical Exam Exam: See Below Exam Limited By: No Limitations General Appearance: Alert, WD/WN, No Apparent Distress Eye Exam: Bilateral Eye: EOMI, Normal Inspection, PERRL Ears: Hearing Grossly Normal Nose: Normal Inspection, No Blood Throat/Mouth: Normal Inspection, Normal Lips, Normal Oropharynx, Normal Voice, No Airway Compromise Head: Atraumatic Respiratory/Chest: No Respiratory Distress, Lungs Clear, Normal Breath Sounds Cardiovascular: Regular Rate, Rhythm, No Murmur GI/Abdominal: Normal Bowel Sounds, Soft, Non-Tender. No: Rigid, Rebound, Tender Back Exam: No: CVA Tenderness (L), CVA Tenderness (R) Neurological: Alert, Oriented, Normal Cognition Course - Orders/Labs/Meds Orders: Active Orders 24 hr Category Date Time Status UA W/MICROSCOPIC [URIN] Stat Lab 08/20/21 11:04 Results Labs: Laboratory Tests 08/20/21 Range/Units 11:04 Urine Color Brown Urine Appearance Cloudy Urine pH 6.0 (5.0-9.0) Ur Specific Wood 1.020 (1.005-1.030) Urine Protein >=300 H (NEGATIVE) mg/dL Urine Glucose (UA) Negative (NEGATIVE) mg/dL Urine Ketones Trace H (NEGATIVE) mg/dL Urine Occult Blood Large H (NEGATIVE) Urine Nitrite Negative (NEGATIVE) Urine Bilirubin Small H (NEGATIVE) Urine Urobilinogen 0.2 (0.2-1.0) E.U./dL Ur Leukocyte Esterase Large H (NEGATIVE) Meds: Medications Discontinued Medications Generic Name Dose Route Start Last Admin Trade Name Freq PRN Reason Stop Dose Admin Phenazopyridine HCl 95 mg 08/20/21 11:20 Phenazopyridine 95 Mg Tab PO 08/20/21 11:21 ONETIME ONE - Re-Assessments/Exams Free Text/Narrative Re-Assessment/Exam: 08/20/21 11:20 will check a urine. give a pyridium tablet 08/20/21 11:31 has uti, er pack keflex 500 mg tid x 4 days urine culture in the past was e coli, sensitive to all, culture pending Departure - Departure Time of Disposition: 11:32 Disposition: Home, Self-Care 01 Condition: Good Clinical Impression: Dysuria, Urinary tract infection - Discharge Information *PRESCRIPTION DRUG MONITORING PROGRAM REVIEWED*: Not Applicable *COPY OF PRESCRIPTION DRUG MONITORING REPORT IN PATIENT KWAN: Not Applicable Instructions: Dysuria, Urinary Tract Infection, Adult Referrals: Esther Urbano NP [Primary Care Provider] - Forms: ED Department Discharge Additional Instructions: You have a bladder infection. You are given cephalexin, 500 mg. Take one capsule three times a day for 4 days. return for worsening, fevers, or back pain. hydrate well Make appointment to follow up with your PCP to ensure infection is cleared. Urine culture is pending and you will be notified of needs for changes. - My Orders Last 24 Hours: My Active Orders 08/20/21 11:04 UA W/MICROSCOPIC [URIN] Stat - Assessment/Plan Last 24 Hours: My Active Orders 08/20/21 11:04 UA W/MICROSCOPIC [URIN] Stat
[2021-08-20] MEDS ORDERED: Phenazopyridine 95 MG Tab PO ONE (11:20)
[2021-08-20 12:57] VITALS: BP 128/78; PULSE 82
== END 2021-08-20 11:40 | disposition home or self-care (01) ==
LOC: SUPCPDRO 10:56 → LL.ED 10:56
DX: N39.0 Urinary tract infection, site not specified (principal); I10 Essential (primary) hypertension; E78.00 Pure hypercholesterolemia, unspecified; E03.9 Hypothyroidism, unspecified; Z88.8 Allergy status to other drugs, medicaments and biological substances; Z88.1 Allergy status to other antibiotic agents; Z88.2 Allergy status to sulfonamides; Z79.899 Other long term (current) drug therapy
CPT/HCPCS: 81001; 99283

== ENCOUNTER 2021-10-06 04:56 | Emergency (ER) | payer MEDICARE, BC ==
[2021-10-06 05:03] VITALS: BP 156/82; PULSE 71
[2021-10-06 05:36] LABS: CHLORIDE,CL 99 mmol/L (98-107); SODIUM,NA 133 mmol/L (136-145)
[2021-10-06 05:37] LABS: ANION GAP 12.4 meq/L (7-15)
[2021-10-06] MEDS ORDERED: Ciprofloxacin 500 MG Tab PO ONE (05:53)
== END 2021-10-06 06:34 | disposition home or self-care (01) ==
LOC: LL.ED 04:56
DX: N30.01 Acute cystitis with hematuria (principal); E03.9 Hypothyroidism, unspecified; E78.00 Pure hypercholesterolemia, unspecified; I11.9 Hypertensive heart disease without heart failure; Z86.73 Personal history of transient ischemic attack (TIA), and cerebral infarction without residual deficits; Z88.2 Allergy status to sulfonamides; Z91.011 Allergy to milk products; Z88.1 Allergy status to other antibiotic agents; Z88.8 Allergy status to other drugs, medicaments and biological substances; Z79.899 Other long term (current) drug therapy
CPT/HCPCS: 36415; 80048; 81001; 85025; 87086; 87186; 99283; A9270

== ENCOUNTER 2022-03-30 05:17 | Emergency (ER) | payer MEDICARE, BC ==
[2022-03-30 05:26] VITALS: BP 122/56; PULSE 56
[2022-03-30 05:53] LABS: ANION GAP 9.4 meq/L (7-15); CHLORIDE,CL 100 mmol/L (98-107); SODIUM,NA 133 mmol/L (136-145)
[2022-03-30 05:54] LABS: ESTIMATED GFR 45 mL/min (>=60)
[2022-03-30] MEDS ORDERED: Lidocaine 1% 5 ML VIAL INJECT ONE (06:01)
[2022-03-30] MEDS ORDERED: cefTRIAXone 1 GM Vial IM ONE (06:01)
== END 2022-03-30 06:30 | disposition home or self-care (01) ==
LOC: LL.ED 05:17
DX: N39.0 Urinary tract infection, site not specified (principal); I10 Essential (primary) hypertension; Z88.8 Allergy status to other drugs, medicaments and biological substances; Z91.011 Allergy to milk products; Z88.2 Allergy status to sulfonamides; Z79.899 Other long term (current) drug therapy; Z79.82 Long term (current) use of aspirin; Z86.73 Personal history of transient ischemic attack (TIA), and cerebral infarction without residual deficits; Z90.49 Acquired absence of other specified parts of digestive tract
CPT/HCPCS: 36415; 80053; 81001; 85025; 87086; 87088; 87186; 96372; 99283; 99284; J0696

== ENCOUNTER 2022-04-18 06:48 | Emergency (ER) | payer MEDICARE, BC ==
[2022-04-18 07:28] VITALS: BP 142/64; PULSE 60
[2022-04-18] MEDS ORDERED: Ciprofloxacin 500 MG Tab PO ONE (07:55)
[2022-04-18] MEDS ORDERED: Phenazopyridine 95 MG Tab PO ONE (07:56)
== END 2022-04-18 08:10 | disposition home or self-care (01) ==
LOC: LL.ED 06:48
DX: N39.0 Urinary tract infection, site not specified (principal); I11.9 Hypertensive heart disease without heart failure; E78.00 Pure hypercholesterolemia, unspecified; E03.9 Hypothyroidism, unspecified; Z86.73 Personal history of transient ischemic attack (TIA), and cerebral infarction without residual deficits; Z88.2 Allergy status to sulfonamides; Z91.011 Allergy to milk products; Z88.8 Allergy status to other drugs, medicaments and biological substances; Z79.899 Other long term (current) drug therapy; Z79.82 Long term (current) use of aspirin
CPT/HCPCS: 36415; 80053; 81001; 83735; 85025; 87086; 87088; 87186; 99283; 99284; A9270-GY

== ENCOUNTER 2022-06-18 07:59 | Emergency (ER) | payer MEDICARE, BC ==
[2022-06-18 08:01] VITALS: BP 147/63; PULSE 73
== END 2022-06-18 09:45 | disposition home or self-care (01) ==
LOC: LL.ED 07:59
DX: N39.0 Urinary tract infection, site not specified (principal); I10 Essential (primary) hypertension; Z88.8 Allergy status to other drugs, medicaments and biological substances; Z91.011 Allergy to milk products; Z88.2 Allergy status to sulfonamides; Z79.899 Other long term (current) drug therapy; Z79.82 Long term (current) use of aspirin; Z90.49 Acquired absence of other specified parts of digestive tract
CPT/HCPCS: 81001; 87086; 99283; 99285

== ENCOUNTER 2022-11-10 01:36 | Emergency (ER) | payer MEDICARE, BC ==
[2022-11-10 01:57] VITALS: BP 154/78; PULSE 66
[2022-11-10 02:11] LABS: ANION GAP 14.7 meq/L (7-15); CHLORIDE,CL 94 mmol/L (98-107); ESTIMATED GFR 60 mL/min (>=60); SODIUM,NA 130 mmol/L (136-145)
[2022-11-10] MEDS ORDERED: Phenazopyridine 95 MG Tab PO ONE (02:29)
[2022-11-10] MEDS ORDERED: Ciprofloxacin 500 MG Tab PO ONE (02:29)
== END 2022-11-10 02:50 | disposition home or self-care (01) ==
LOC: LL.ED 01:36
DX: N39.0 Urinary tract infection, site not specified (principal); I11.9 Hypertensive heart disease without heart failure; E78.00 Pure hypercholesterolemia, unspecified; E03.9 Hypothyroidism, unspecified; Z88.1 Allergy status to other antibiotic agents; Z88.2 Allergy status to sulfonamides; Z91.011 Allergy to milk products; Z88.8 Allergy status to other drugs, medicaments and biological substances; Z79.899 Other long term (current) drug therapy
CPT/HCPCS: 36415; 80048; 81001; 85025; 87086; 99283; 99284; A9270-GY

== ENCOUNTER 2023-03-10 08:10 | Emergency (ER) | payer MEDICARE, BC ==
[2023-03-10 08:49] LABS: GLUCOSE,URINE 250 mg/dL (NEGATIVE); LEUKOCYTE ESTERASE,URINE LARGE (NEGATIVE); NITRITE,URINE POSITIVE (NEGATIVE); OCCULT BLOOD,URINE LARGE (NEGATIVE); PROTEIN,URINE >=300 mg/dL (NEGATIVE)
[2023-03-10 08:50] LABS: APPEARANCE,URINE CLOUDY; BILIRUBIN,URINE NEGATIVE (NEGATIVE); KETONES,URINE NEGATIVE (NEGATIVE)
[2023-03-10 08:51] LABS: COLOR,URINE ORANGE
[2023-03-10 08:53] LABS: BACTERIA,URINE FEW /HPF (NONE TO FEW); EPITHELIAL CELLS,URINE NOT SEEN /LPF; MUCUS,URINE NOT SEEN /LPF (NEGATIVE); WBC,URINE >100 /HPF
[2023-03-10] MEDS ORDERED: Take Home: Cefuroxime 500 MG Tab, 6 Tab Pack PO ONE (09:46)
[2023-03-10] MEDS ORDERED: cefTRIAXone 1 GM Vial IM ONE (09:47)
[2023-03-10] MEDS ORDERED: Lidocaine 1% 5 ML VIAL ONE (10:09)
[2023-03-10 10:45] VITALS: BP 140/71; PULSE 53
== END 2023-03-10 10:30 | disposition home or self-care (01) ==
LOC: LL.ED 08:10
DX: N30.01 Acute cystitis with hematuria (principal); I10 Essential (primary) hypertension; M19.90 Unspecified osteoarthritis, unspecified site; E03.9 Hypothyroidism, unspecified; Z88.8 Allergy status to other drugs, medicaments and biological substances; Z91.011 Allergy to milk products; Z88.2 Allergy status to sulfonamides; Z88.1 Allergy status to other antibiotic agents; Z79.899 Other long term (current) drug therapy; Z79.82 Long term (current) use of aspirin
CPT/HCPCS: 81001; 87086; 96372; 99283; A9270-GY; J0696; J3490

== ENCOUNTER 2023-03-22 05:30 | Emergency (ER) | payer MEDICARE, BC ==
[2023-03-22 05:37] VITALS: BP 136/79; PULSE 63
[2023-03-22 06:12] LABS: OCCULT BLOOD,URINE LARGE (NEGATIVE); PROTEIN,URINE >=300 mg/dL (NEGATIVE)
[2023-03-22 06:13] LABS: APPEARANCE,URINE CLOUDY
[2023-03-22 06:17] LABS: RBC,URINE 40-50 /HPF; WBC,URINE >100 /HPF
[2023-03-22 06:18] LABS: LEUKOCYTE ESTERASE,URINE LARGE (NEGATIVE)
[2023-03-22 06:23] LABS: COLOR,URINE ORANGE
== END 2023-03-22 06:40 | disposition home or self-care (01) ==
LOC: LL.ED 05:30 → SUPCPDRO 05:30 → LL.ED 06:40
DX: N30.01 Acute cystitis with hematuria (principal); E78.00 Pure hypercholesterolemia, unspecified; I10 Essential (primary) hypertension; E03.9 Hypothyroidism, unspecified; M19.90 Unspecified osteoarthritis, unspecified site; Z88.8 Allergy status to other drugs, medicaments and biological substances; Z88.1 Allergy status to other antibiotic agents; Z91.011 Allergy to milk products; Z79.82 Long term (current) use of aspirin; Z79.899 Other long term (current) drug therapy
CPT/HCPCS: 81001; 87086; 87088; 99283; 99284; A9270-GY

== ENCOUNTER 2024-09-14 09:18 | Emergency (ER) | payer MEDICARE, BC ==
[2024-09-14 09:34] VITALS: PULSE 69
[2024-09-14 09:40] LABS: APPEARANCE,URINE SLIGHTLY CLOUDY; BILIRUBIN,URINE NEGATIVE (NEGATIVE); COLOR,URINE YELLOW; GLUCOSE,URINE NEGATIVE (NEGATIVE); KETONES,URINE NEGATIVE (NEGATIVE); LEUKOCYTE ESTERASE,URINE LARGE (NEGATIVE); NITRITE,URINE POSITIVE (NEGATIVE); OCCULT BLOOD,URINE MODERATE (NEGATIVE); PH,URINE 5.5 (5.0-9.0); PROTEIN,URINE 100 mg/dL (NEGATIVE); UROBILINOGEN,URINE 0.2 E.U./dL (0.2-1.0)
[2024-09-14 09:46] LABS: WBC,URINE >100 /HPF
[2024-09-14 09:47] VITALS: BP 126/75
[2024-09-14 09:47] LABS: BACTERIA,URINE MODERATE /HPF (NONE TO FEW); EPITHELIAL CELLS,URINE FEW /LPF
[2024-09-14] MEDS: Take Home: Ciprofloxacin HCl 500 MG, 6 Tab Pack PO ONE (10:24)
== END 2024-09-14 10:30 | disposition home or self-care (01) ==
LOC: LL.ED 09:18
DX: N30.00 Acute cystitis without hematuria (principal); I10 Essential (primary) hypertension; M19.90 Unspecified osteoarthritis, unspecified site; E03.9 Hypothyroidism, unspecified; Z86.73 Personal history of transient ischemic attack (TIA), and cerebral infarction without residual deficits; Z90.49 Acquired absence of other specified parts of digestive tract; Z88.8 Allergy status to other drugs, medicaments and biological substances; Z88.2 Allergy status to sulfonamides; Z79.82 Long term (current) use of aspirin; Z79.890 Hormone replacement therapy; Z79.899 Other long term (current) drug therapy
CPT/HCPCS: 81001; 87086; 87088; 87186; 99284; A9270-GY

== ENCOUNTER 2024-10-16 08:08 | Emergency (ER) | payer MEDICARE, BC ==
[2024-10-16 08:24] LABS: APPEARANCE,URINE SLIGHTLY CLOUDY; BILIRUBIN,URINE NEGATIVE (NEGATIVE); COLOR,URINE YELLOW; GLUCOSE,URINE NEGATIVE (NEGATIVE); KETONES,URINE NEGATIVE (NEGATIVE); LEUKOCYTE ESTERASE,URINE LARGE (NEGATIVE); NITRITE,URINE NEGATIVE (NEGATIVE); OCCULT BLOOD,URINE MODERATE (NEGATIVE); PROTEIN,URINE 100 mg/dL (NEGATIVE); UROBILINOGEN,URINE 0.2 E.U./dL (0.2-1.0)
[2024-10-16 08:25] VITALS: BP 152/64; PULSE 60
[2024-10-16 08:39] LABS: BACTERIA,URINE MODERATE /HPF (NONE TO FEW); EPITHELIAL CELLS,URINE NOT SEEN /LPF; MUCUS,URINE NOT SEEN /LPF (NEGATIVE); RBC,URINE 20-30 /HPF; WBC,URINE >100 /HPF
[2024-10-16 08:44] LABS: HEMATOCRIT 34.6 % (34.0-46.0); HEMOGLOBIN 12.3 g/dL (11.7-15.5); MEAN CORPUSCULAR HEMOGLOBIN 30.1 pg (28.2-33.3); MEAN CORPUSCULAR HGB CONC 35.5 g/dL (31.7-36.0); MEAN CORPUSCULAR VOLUME 84.8 fL (84.0-98.0); PLATELET COUNT,PLT 226 K/uL (150-350); RED BLOOD CELL COUNT 4.08 M/uL (3.77-5.09); RED CELL DISTRIBUTION WIDTH 12.6 % (11.2-14.1); WHITE BLOOD CELL COUNT,WBC 6.7 K/uL (4.0-10.2)
[2024-10-16 09:10] LABS: PROTHROMBIN TIME 10.1 SEC (9.0-11.1)
[2024-10-16 09:13] LABS: ALBUMIN 3.2 g/dL (3.4-5.0); ANION GAP 12.5 meq/L (7-15); BILIRUBIN TOTAL 0.4 mg/dL (0.2-1.0); CALCIUM 7.5 mg/dL (8.5-10.1); CARBON DIOXIDE,CO2 25.8 mmol/L (21.0-32.0); CREATININE 1.04 mg/dL (0.51-1.17); EST CRCL DRUG DOSING (CG) 32.29 mL/min; POTASSIUM,K 4.3 mmol/L (3.5-5.1); PROTEIN TOTAL,TP 6.3 g/dL (6.4-8.2)
[2024-10-16] MEDS: Lactated Ringers 1,000 ML IV SCH (09:32)
[2024-10-16] MEDS: Sodium Chloride 0.9% 10 ML Syringe FLUSH PRN (09:32)
[2024-10-16] MEDS: Cephalexin 250 MG Cap PO ONE (10:01)
[2024-10-16] MEDS: Cephalexin 500 MG Cap PO ONE (10:49)
== END 2024-10-16 10:40 | disposition home or self-care (01) ==
LOC: LL.ED 08:08
DX: N30.00 Acute cystitis without hematuria (principal); I10 Essential (primary) hypertension; E78.00 Pure hypercholesterolemia, unspecified; Z88.8 Allergy status to other drugs, medicaments and biological substances; Z91.011 Allergy to milk products; Z88.2 Allergy status to sulfonamides; Z79.82 Long term (current) use of aspirin; Z79.899 Other long term (current) drug therapy
CPT/HCPCS: 36415; 80053; 81001; 83735; 85027; 85610; 87086; 87186; 96360; 99284-25; A9270-GY; J7120

== ENCOUNTER 2024-10-25 09:23 | Emergency (ER) | payer MEDICARE, BC ==
[2024-10-25 09:29] VITALS: BP 127/63; PULSE 60
[2024-10-25 09:52] LABS: BASOPHILS ABSOLUTE AUTO 0.05 K/uL (0.00-0.20); BASOPHILS PERCENT AUTO 0.6 % (0.0-2.0); EOSINOPHILS ABSOLUTE AUTO 0.08 K/uL (0.00-0.50); EOSINOPHILS PERCENT AUTO 0.9 % (0.0-5.0); HEMATOCRIT 36.9 % (34.0-46.0); HEMOGLOBIN 12.8 g/dL (11.7-15.5); IMMATURE GRAN ABSOLUTE AUTO 0.03 10^3/uL (0.00-0.04); IMMATURE GRAN PERCENT AUTO 0.3 % (0.0-0.4); LYMPHOCYTES ABSOLUTE AUTO 1.52 K/uL (0.50-3.50); MEAN CORPUSCULAR HEMOGLOBIN 29.4 pg (28.2-33.3); MEAN CORPUSCULAR HGB CONC 34.7 g/dL (31.7-36.0); MEAN CORPUSCULAR VOLUME 84.8 fL (84.0-98.0); MONOCYTES ABSOLUTE AUTO 0.97 K/uL (0.00-1.00); MONOCYTES PERCENT AUTO 10.8 % (2.0-14.0); NEUTROPHILS PERCENT AUTO 70.4 % (45.0-80.0); PLATELET COUNT,PLT 261 K/uL (150-350); RED BLOOD CELL COUNT 4.35 M/uL (3.77-5.09); RED CELL DISTRIBUTION WIDTH 12.6 % (11.2-14.1)
[2024-10-25 09:55] LABS: APPEARANCE,URINE SLIGHTLY CLOUDY; BILIRUBIN,URINE NEGATIVE (NEGATIVE); COLOR,URINE YELLOW; GLUCOSE,URINE NEGATIVE (NEGATIVE); KETONES,URINE NEGATIVE (NEGATIVE); LEUKOCYTE ESTERASE,URINE MODERATE (NEGATIVE); NITRITE,URINE NEGATIVE (NEGATIVE); OCCULT BLOOD,URINE NEGATIVE (NEGATIVE); PROTEIN,URINE NEGATIVE (NEGATIVE); UROBILINOGEN,URINE 0.2 E.U./dL (0.2-1.0)
[2024-10-25 10:12] LABS: ALANINE AMINOTRANSFERASE,ALT 7 U/L (12-78); ALBUMIN 3.5 g/dL (3.4-5.0); ALKALINE PHOSPHATASE 97 IU/L (46-116); ANION GAP 11.8 meq/L (7-15); ASPARTATE AMNIOTRANSFERASE,AST 15 U/L (15-37); BILIRUBIN TOTAL 0.6 mg/dL (0.2-1.0); BLOOD UREA NITROGEN,BUN 8 mg/dL (7-18); CALCIUM 7.9 mg/dL (8.5-10.1); CARBON DIOXIDE,CO2 28.2 mmol/L (21.0-32.0); CHLORIDE,CL 90 mmol/L (98-107); CREATININE 0.88 mg/dL (0.51-1.17); ESTIMATED GFR 63 mL/min (>=60); GLUCOSE RANDOM 103 mg/dL (70-99); MAGNESIUM 2.1 mg/dL (1.8-2.4); PROTEIN TOTAL,TP 7.1 g/dL (6.4-8.2); SODIUM,NA 126 mmol/L (136-145)
[2024-10-25 10:17] LABS: BACTERIA,URINE MODERATE /HPF (NONE TO FEW); EPITHELIAL CELLS,URINE RARE /LPF; RBC,URINE 0-5 /HPF; WBC,URINE 30-40 /HPF
[2024-10-25] MEDS ORDERED: Sodium Chloride 0.9% 10 ML Syringe FLUSH PRN (11:00)
[2024-10-25] MEDS: cefTRIAXone 1 GM Vial IVPUSH ONE (11:16)
[2024-10-25] MEDS: Take Home: Ciprofloxacin HCl 500 MG, 6 Tab Pack PO ONE (11:19)
[2024-10-25] MEDS: Sodium Chloride 1 GM Tab PO ONE (11:19)
== END 2024-10-25 12:00 | disposition home or self-care (01) ==
LOC: LL.ED 09:23
DX: S20.212A Contusion of left front wall of thorax, initial encounter (principal); N39.0 Urinary tract infection, site not specified; E87.1 Hypo-osmolality and hyponatremia; I10 Essential (primary) hypertension; E03.9 Hypothyroidism, unspecified; Z79.899 Other long term (current) drug therapy; Z90.49 Acquired absence of other specified parts of digestive tract; Z88.2 Allergy status to sulfonamides; Z79.890 Hormone replacement therapy; Z91.011 Allergy to milk products; Z88.8 Allergy status to other drugs, medicaments and biological substances; W01.0XXA Fall on same level from slipping, tripping and stumbling without subsequent striking against object, initial encounter; Y92.009 Unspecified place in unspecified non-institutional (private) residence as the place of occurrence of the external cause
CPT/HCPCS: 36415; 71101-LT; 80053; 81001; 83735; 85025; 87086; 87088; 87186; 99283; A9270-GY

== ENCOUNTER 2024-12-11 14:09 | Emergency (ER) | payer MEDICARE, BC ==
[2024-12-11 14:34] LABS: BILIRUBIN,URINE NEGATIVE (NEGATIVE); COLOR,URINE YELLOW; GLUCOSE,URINE NEGATIVE (NEGATIVE); KETONES,URINE NEGATIVE (NEGATIVE); LEUKOCYTE ESTERASE,URINE SMALL (NEGATIVE); NITRITE,URINE NEGATIVE (NEGATIVE); OCCULT BLOOD,URINE SMALL (NEGATIVE); PH,URINE 5.5 (5.0-9.0); PROTEIN,URINE NEGATIVE (NEGATIVE); UROBILINOGEN,URINE 0.2 E.U./dL (0.2-1.0)
[2024-12-11 14:40] LABS: APPEARANCE,URINE TURBID
[2024-12-11 14:41] LABS: BACTERIA,URINE MANY /HPF (NONE TO FEW); WBC,URINE 20-30 /HPF
[2024-12-11 14:51] VITALS: BP 163/71; PULSE 60
== END 2024-12-11 15:20 | disposition home or self-care (01) ==
LOC: LL.ED 14:09
DX: N39.0 Urinary tract infection, site not specified (principal); I10 Essential (primary) hypertension; M19.90 Unspecified osteoarthritis, unspecified site; E03.9 Hypothyroidism, unspecified; Z90.49 Acquired absence of other specified parts of digestive tract; Z88.2 Allergy status to sulfonamides; Z88.8 Allergy status to other drugs, medicaments and biological substances; Z79.82 Long term (current) use of aspirin; Z79.890 Hormone replacement therapy; Z79.899 Other long term (current) drug therapy
CPT/HCPCS: 81001; 87086; 87088; 87186; 99283